=== PATIENT | female | born 1940 | race Caucasian/White ===

== ENCOUNTER 2023-10-20 18:04 | Inpatient (IN) ==
--- NOTE | 2023-10-20 18:10 | Emergency Department Note ---
History of Present Illness General Chief Complaint: Shortness of Breath/Dyspnea Stated Complaint: SOB Time Seen by Provider: 10/20/23 18:06 Source: patient and EMS History of Present Illness Provider Complaint: shortness of breath and cough Onset (ago): day(s) (2) Consistency/Duration: + progressively worsening Relieved By: + oxygen Exacerbated By: + exertion and + coughing Associated symptoms: + sputum production and + chest congestion; no chest pain, no fever, no wheezing, no hemoptysis, no diaphoresis, no nausea/vomiting or no abdominal pain Treatment prior to arrival: bronchodilator HPI Narrative: EMS reports that the patient was 74% on room air on arrival. They applied supplemental oxygen and gave the patient a DuoNeb treatment. Related Data Home oxygen amount: none Allergies Allergy/AdvReac Type Severity Reaction Status Date / Time ALLERGY2 Allergy Uncoded 08/20/02 19:43 Past Med/Surg History Medical History (Updated 10/20/23 @ 19:50 by Jesse Do MD) Diabetic neuropathy Depression Anxiety PVD (peripheral vascular disease) CKD (chronic kidney disease), stage III CAD (coronary artery disease) Diabetes HTN (hypertension) Social History Smoking Status: Former smoker Tobacco Type: Cigarettes Preferred Language: Occitan Feels Safe at Home: Yes Physical Exam 2 Vital Signs: Vital Signs - 24 hr 10/20/23 18:17 10/20/23 18:18 10/20/23 18:20 Temperature Temperature Source Pulse Rate 69 69 68 Pulse Rate [Apical ] Pulse Rate from Sp O2 Sensor 69 68 Pulse Rhythm Pulse Strength Respiratory Rate 28 H 20 Respiratory Effort / Characteristics Respiratory Depth Respiratory Patter n Blood Pressure Blood Pressure Dianna n Blood Pressure Pos ition Pulse Oximetry 92 93 Oxygen Delivery Me thod Oxygen Flow Rate Fraction of Inspir ed Oxygen Sepsis Recent Feve r Within 48 Hours Sepsis New/Unexpla ined Change in Men sunita Status Sepsis Action Take n by Nursing 10/20/23 18:23 10/20/23 18:23 10/20/23 18:23 Temperature 36.6 C Temperature Source Oral Pulse Rate 68 Pulse Rate [Apical ] Pulse Rate from Sp O2 Sensor Pulse Rhythm Regular Pulse Strength Strong Respiratory Rate 23 Respiratory Effort / Characteristics Non-Labored Sponta neous Spontaneous Respiratory Depth Normal Shallow Respiratory Patter n Regular Regular Blood Pressure 118/68 Blood Pressure Dianna n 84 Blood Pressure Pos ition Semi-fowlers Pulse Oximetry 94 Oxygen Delivery Me thod Nasal Cannula Nasal Cannula Nasal Cannula Oxygen Flow Rate 4 4 4 Fraction of Inspir ed Oxygen Sepsis Recent Feve r Within 48 Hours No Sepsis New/Unexpla ined Change in Men sunita Status N/A Sepsis Action Take n by Nursing No Action Required 10/20/23 18:30 10/20/23 18:40 10/20/23 18:50 Temperature Temperature Source Pulse Rate 66 66 66 Pulse Rate [Apical ] Pulse Rate from Sp O2 Sensor 67 66 Pulse Rhythm Pulse Strength Respiratory Rate 33 H 31 H 20 Respiratory Effort / Characteristics Respiratory Depth Respiratory Patter n Blood Pressure Blood Pressure Dianna n Blood Pressure Pos ition Pulse Oximetry 92 96 Oxygen Delivery Me thod Oxygen Flow Rate Fraction of Inspir ed Oxygen Sepsis Recent Feve r Within 48 Hours Sepsis New/Unexpla ined Change in Men sunita Status Sepsis Action Take n by Nursing 10/20/23 19:00 10/20/23 19:06 Temperature Temperature Source Pulse Rate 67 Pulse Rate [Apical ] 70 Pulse Rate from Sp O2 Sensor 63 Pulse Rhythm Pulse Strength Respiratory Rate 22 26 H Respiratory Effort / Characteristics Spontaneous Respiratory Depth Respiratory Patter n Blood Pressure 124/62 Blood Pressure Dianna n 82 Blood Pressure Pos ition Pulse Oximetry 91 92 Oxygen Delivery Me thod High Flow Nasal Ca nnula Oxygen Flow Rate 30 Fraction of Inspir ed Oxygen 35 Sepsis Recent Feve r Within 48 Hours Sepsis New/Unexpla ined Change in Men sunita Status Sepsis Action Take n by Nursing Physical Exam: Physical Exam GENERAL: oriented to person, place, and time. appears well-developed and well- nourished. HENT: Exam performed. - Head: Normocephalic and atraumatic. EYES: Conjunctivae and EOM are normal. Right eye exhibits no discharge. Left eye exhibits no discharge. No scleral icterus. NECK: Normal range of motion. Neck supple. No JVD present. CV: Normal rate, regular rhythm, normal heart sounds and intact distal pulses. There is no peripheral edema. Palpable radial pulses bue. PULM/CHEST: Rales and rhonchi bilaterally. ABD: The abdomen is soft. There is no tenderness. NEURO: Motor and sensation grossly intact. SKIN: Skin is warm and dry. He is not diaphoretic. PSYCH: normal mood and affect. Behavior is normal. Judgment and thought content normal. Course Course 180: The patient was evaluated in room A10. A complete history and physical exam was performed Cardiac monitoring: An order was placed for continuous cardiac monitoring. The monitor shows a rate of 70 with sinus rhythm interpreted by me Patient was 84% on room air on arrival in the emergency department. Supplemental oxygen was applied via nasal cannula which improved the patient's oxygen saturation. 1914: Patient was still having oxygen saturations in the high 80s on supplemental oxygen via nasal cannula. Patient was switched to high flow nasal cannula which improved oxygen saturation. Blood cell count 17. Patient be treated with cefepime and vancomycin. 1945: Vital signs stable on supplemental oxygen via high flow nasal cannula. Labs showed normal lactic acid. Formal chest x-ray read shows pneumonia versus CHF. Given troponin are elevated. Patient reporting no chest pain currently. Patient will be admitted to the [facility] hospitalist team Lasix also ordered for the patient. Administered Medications Discontinued Medications Furosemide (Furosemide 40 Mg/4 Ml Vial) 40 mg IV ONE ONE Stop: 10/20/23 18:58 Last Admin: 10/20/23 19:15 Dose: 40 mg Documented By: MADHURI Cefepime HCl (Maxipime) 2,000 mg in 20 mls @ 5 mls/min IV NOW STA; Protocol Stop: 10/20/23 18:52 Last Admin: 10/20/23 19:15 Dose: 5 mls/min Documented By: MADHURI Medical Decision Making Laboratory Data Attestation: I reviewed the patient's lab results. 10/20/23 18:12 10/20/23 18:12 Lab Results 10/20/23 10/20/23 10/20/23 Range/Units 18:10 18:12 18:15 WBC 17.14 H (4.8-10.8) K/ul RBC 2.73 L (4.20-5.40) M/uL Hgb 8.7 L (12.0-16.0) g/dl Hct 25.9 L (37.0-47.0) % MCV 94.9 (80.0-100.0) fL MCH 31.9 (25.0-34.0) pg MCHC 33.6 (32.0-36.0) g/dL RDW Std Deviation 43.6 (36.4-46.3) fL RDW Coeff of Xavi 12.5 (11.5-14.5) % Plt Count 254 (130-400) K/uL MPV 10.6 (9.4-12.4) fL Immature Gran % (Auto) 0.6 % Neut % (Auto) 89.5 % Lymph % (Auto) 5.1 % Hamlin % (Auto) 4.3 % Eos % (Auto) 0.3 % Baso % (Auto) 0.2 % Neut # (Auto) 15.35 H (1.40-6.50) K/uL Lymph # (Auto) 0.87 L (1.20-3.40) K/uL Hamlin # (Auto) 0.73 H (0.11-0.59) K/uL Eos # (Auto) 0.05 (0.00-0.50) K/uL Baso # (Auto) 0.04 (0.00-0.20) K/uL Immature Gran # (Auto) 0.10 (0.01-0.20) K/uL PT 12.8 H (9.0-12.0) Seconds INR 1.2 H (0.9-1.1) APTT 30 (21-31) Seconds PTT Ratio 1.1 VBG pH 7.45 H (7.36-7.41) VBG pCO2 30 L (38-50) mmHg VBG pO2 45 mmHg VBG HCO3 21 mmol/L VBG O2 Saturation 67.1 % VBG Base Excess -2.1 mEq/L Sodium 136 (136-145) mmol/L Potassium 4.0 (3.5-5.1) mmol/L Chloride 107 (98-107) mmol/L Carbon Dioxide 20 L (21-32) mmol/L Anion Gap 9 (3-11) BUN 34 H (6-23) mg/dl Creatinine 1.29 H (0.6-1.2) mg/dl Est Cr Clr Drug Dosing 28.0 ml/min Est GFR ( Amer) 45.0 ml/min Est GFR (Non-Af Amer) 38.8 ml/min BUN/Creatinine Ratio 26.4 H (10-20) Glucose 345 H* (70-99(Fasting)) mg/dl Lactate (0.4-2.0) mmol/L Calcium 8.5 L (8.6-10.3) mg/dl Troponin I High Sens 40.5 H (0-14) pg/ml B-Natriuretic Peptide 1444 H (0-100) pg/ml Lipase 3 L (11-82) U/L SARS-CoV-2 (PCR) NEGATIVE (Negative) Influenza Type A (PCR) Negative (Neg) Influenza Type B (PCR) Negative (Neg) RSV (RT-PCR) Negative (Neg) 10/20/23 Range/Units 19:09 WBC (4.8-10.8) K/ul RBC (4.20-5.40) M/uL Hgb (12.0-16.0) g/dl Hct (37.0-47.0) % MCV (80.0-100.0) fL MCH (25.0-34.0) pg MCHC (32.0-36.0) g/dL RDW Std Deviation (36.4-46.3) fL RDW Coeff of Xavi (11.5-14.5) % Plt Count (130-400) K/uL MPV (9.4-12.4) fL Immature Gran % (Auto) % Neut % (Auto) % Lymph % (Auto) % Hamlin % (Auto) % Eos % (Auto) % Baso % (Auto) % Neut # (Auto) (1.40-6.50) K/uL Lymph # (Auto) (1.20-3.40) K/uL Hamlin # (Auto) (0.11-0.59) K/uL Eos # (Auto) (0.00-0.50) K/uL Baso # (Auto) (0.00-0.20) K/uL Immature Gran # (Auto) (0.01-0.20) K/uL PT (9.0-12.0) Seconds INR (0.9-1.1) APTT (21-31) Seconds PTT Ratio VBG pH (7.36-7.41) VBG pCO2 (38-50) mmHg VBG pO2 mmHg VBG HCO3 mmol/L VBG O2 Saturation % VBG Base Excess mEq/L Sodium (136-145) mmol/L Potassium (3.5-5.1) mmol/L Chloride (98-107) mmol/L Carbon Dioxide (21-32) mmol/L Anion Gap (3-11) BUN (6-23) mg/dl Creatinine (0.6-1.2) mg/dl Est Cr Clr Drug Dosing ml/min Est GFR ( Amer) ml/min Est GFR (Non-Af Amer) ml/min BUN/Creatinine Ratio (10-20) Glucose (70-99(Fasting)) mg/dl Lactate 1.8 (0.4-2.0) mmol/L Calcium (8.6-10.3) mg/dl Troponin I High Sens (0-14) pg/ml B-Natriuretic Peptide (0-100) pg/ml Lipase (11-82) U/L SARS-CoV-2 (PCR) (Negative) Influenza Type A (PCR) (Neg) Influenza Type B (PCR) (Neg) RSV (RT-PCR) (Neg) Imaging Data Attestation: I personally reviewed and interpreted this imaging study as follows: My Impression: Chest x-ray: Bilateral pneumonia Radiologist's Impression: Chest X-Ray 10/20/23 18:10 XR chest 1V portable HISTORY: 83 years-old Female Chest pain, nonspecific COMPARISON: None TECHNIQUE: AP view the chest FINDINGS: Cardiac silhouette is enlarged. Median sternotomy. Views mixed interstitial and alveolar opacities. Moderate hemidiaphragmatic elevation. No pneumothorax or large pleural effusion. IMPRESSION: Cardiomegaly with diffuse mixed interstitial and alveolar opacities, chronicity unknown without comparison. Differential considerations include chronic interstitial lung disease, pulmonary edema versus multifocal pneumonia. Correlate with prior imaging. ACT 112: Negative or not required by law. The above report was generated using voice recognition software. It may contain grammatical, syntax or spelling errors. Electronically signed by: Jason Dubon M.D. 10/20/2023 7:01 PM ECG Data Attestation: I personally reviewed and interpreted this ECG as follows: Interpretation: EKG #1 at 1810: Sinus rhythm with a rate of 69. SC QRS and QTc intervals within normal limits. No ST elevation or ST depression. EKG #2 at 1819: Sinus rhythm with a rate of 69. SC 170 QRS [address] elevation or ST depression. [facility] Narrative 1806: The patient was evaluated in room A10. A complete history and physical exam was performed Cardiac monitoring: An order was placed for continuous cardiac monitoring. The monitor shows a rate of 70 with sinus rhythm interpreted by me Patient was 84% on room air on arrival in the emergency department. Supplemental oxygen was applied via nasal cannula which improved the patient's oxygen saturation. 1914: Patient was still having oxygen saturations in the high 80s on supplemental oxygen via nasal cannula. Patient was switched to high flow nasal cannula which improved oxygen saturation. Blood cell count 17. Patient be treated with cefepime and vancomycin. 1945: Vital signs stable on supplemental oxygen via high flow nasal cannula. Labs showed normal lactic acid. Formal chest x-ray read shows pneumonia versus CHF. Given troponin are elevated. Patient reporting no chest pain currently. Patient will be admitted to the [facility]ist team Lasix also ordered for the patient. Impression & Plan Hypoxia, Pneumonia, Acute exacerbation of congestive heart failure Critical Care Time Critical Care Time: Yes Total Critical Care Time: 84 I have personally spent greater than 84 minutes of critical care time in the direct management of this patient. This includes bedside care, interpretation of diagnostic studies, and testing, discussion with consultants, patient, and family members, and other required patient management activities. This 84 minutes is in excess of all separately billable procedures. Discharge Plan Visit Data Chief Complaint: Shortness of Breath/Dyspnea Stated Complaint: SOB ED Provider: Jesse Do Discharge Problem: Hypoxia, Pneumonia, Acute exacerbation of congestive heart failure Patient Disposition: Admitted As Inpatient Forms Stand Alone Forms: My [facility] Referrals Referrals: Brady Abreu [Non-Staff] - Discharge Problem: Pneumonia Qualifiers: Pneumonia type: due to unspecified organism Laterality: bilateral Lung location: unspecified part of lung Qualified Code(s): J18.9 - Pneumonia, unspecified organism Acute exacerbation of congestive heart failure Qualifiers: Heart failure type: unspecified Qualified Code(s): I50.9 - Heart failure, unspecified
[2023-10-20 18:25] LABS: Base Excess VBG -2.1 mEq/L; HCO3 VBG 21 mmol/L; Oxygen Saturation VBG 67.1 %; PCO2 VBG 30 mmHg (38-50); PO2 VBG 45 mmHg; pH VBG 7.45 (7.36-7.41)
[2023-10-20 18:29] LABS: Basophils # (auto) 0.04 K/uL (0.00-0.20); Basophils % (auto) 0.2 %; Eosinophils # (auto) 0.05 K/uL (0.00-0.50); Eosinophils % (auto) 0.3 %; Hematocrit (blood only) 25.9 % (37.0-47.0); Hemoglobin 8.7 g/dl (12.0-16.0); Immature Granulocytes % (auto) 0.6 %; Lymphocytes # (auto) 0.87 K/uL (1.20-3.40); Lymphocytes % (auto) 5.1 %; Mean Corpuscular Hemoglobin 31.9 pg (25.0-34.0); Mean Corpuscular Hgb Conc 33.6 g/dL (32.0-36.0); Mean Corpuscular Volume 94.9 fL (80.0-100.0); Mean Platelet Volume 10.6 fL (9.4-12.4); Monocytes # (auto) 0.73 K/uL (0.11-0.59); Monocytes % (auto) 4.3 %; Neutrophils # (auto) 15.35 K/uL (1.40-6.50); Neutrophils % (auto) 89.5 %; Platelet Count 254 K/uL (130-400); RDW Coefficient of Variation 12.5 % (11.5-14.5); RDW Standard Deviation 43.6 fL (36.4-46.3); Red Blood Count 2.73 M/uL (4.20-5.40); White Blood Count 17.14 K/ul (4.8-10.8)
[2023-10-20] MEDS ORDERED: VANCOMYCIN CONSULT ACTIVE PRN (18:49)
[2023-10-20 18:54] LABS: BUN Creatinine Ratio 26.4 (10-20); Calcium 8.5 mg/dl (8.6-10.3); Est GFR (Non-African American) 38.8 ml/min; INR 1.2 (0.9-1.1); Partial Thromboplastin Ratio 1.1; Partial Thromboplastin Time 30 Seconds (21-31); Prothrombin Time 12.8 Seconds (9.0-12.0); Troponin I High Sensitivity 40.5 pg/ml (0-14)
--- NOTE | 2023-10-20 19:02 | XRay Report ---
XR chest 1V portable HISTORY: 83 years-old Female Chest pain, nonspecific COMPARISON: None TECHNIQUE: AP view the chest FINDINGS: Cardiac silhouette is enlarged. Median sternotomy. Views mixed interstitial and alveolar opacities. M oderate hemidiaphragmatic elevation. No pneumothorax or large pleural effusion. IMPRESSION: Cardiomegaly with diffuse mixed interstitial and alveolar opacities, chronicity unknown w ithout comparison. Differential considerations include chronic interstitial lung disease, pulmonary e heather versus multifocal pneumonia. Correlate with prior imaging. ACT 112: Negative or not required by law. The above report was generated using voice recognition software. It may contain grammatical, syntax o r spelling errors. Electronically signed by: Jason Dubon M.D. 10/20/2023 7:01 PM
[2023-10-20 19:03] LABS: Influenza A virus by PCR Negative (Neg); Influenza B virus by PCR Negative (Neg); RSV by PCR Negative (Neg); SARS CoV2 RNA(COVID-19) Ceph NEGATIVE (Negative)
[2023-10-20] MEDS: FUROSEMIDE 40 MG/4 ML VIAL IV ONE (19:15)
[2023-10-20] MEDS: CEFEPIME 2,000 MG/20 ML VIAL IV STA (19:15)
[2023-10-20] MEDS: VANCOMYCIN HCL 1,250 MG in SODIUM CHLORIDE 0.9% 500 ML IV ONE (21:12)
--- NOTE | 2023-10-20 22:00 | History & Physical Report ---
Date of Service October 20, 2023 Assessment & Plan (1) Acute CHF: Plan: 83-year-old female with past medical history significant for hypertension, type 2 diabetes, CAD s/p CABG, peripheral vascular disease, CKD stage III, hyperlipidemia, anxiety and depression, neuropathy who generally goes to [facility] comes here because of shortness of breath going for last couple of days. Having some dry cough. Not able to bring any phlegm out. Denies any chest pain. No fevers. No headache. No nausea. No abdominal pain. Sometimes gets constipated. Denies any blood in the stools or black stools. Having some burning micturition. No fevers. Appetite is okay. No difficulty swallowing. Having ambulatory dysfunction for last couple of months. Ambulates with a walker. Falling backwards. Lives with her . No swelling in the legs. No headache. No sore throat currently. Was saturating 89 % on room air. With oxygen supplementation and oxygenation improved. Patient does not know her baseline creatinine. Patient does not know that she has anemia. Shortness of breath Acute hypoxemic respiratory failure Chest x-ray possible CHF versus multifocal pneumonia Has leukocytosis, elevated BNP and troponin Received IV Lasix 40 mg, IV Vanco and cefepime in the ER Will follow CT chest Procalcitonin negative Continue with zosyn ,iv vanco and po doxycycline Follow the cultures Follow MRSA screen Continue oxygenation Will follow echocardiogram I's and O's Consult cardiology in a.m. for further recommendations and further diuretics as per cardiology Also consulted Pulmonary as ct chest showing mostly multifocal pneumonia and later patient was requiring high flow oxygen History of CAD s/p CABG On aspirin, Coreg, statin, Imdur and ranolazine Elevated troponin Possibly demand ischemia Will follow serial enzymes and echo Cardiology consulted Diabetes Continue home Lantus Sliding scale Will monitor CKD stage III Present creatinine 1.2 We do not have baseline creatinine Follow the labs Anemia Acute versus chronic Hemoglobin 8.7 Will follow iron studies, vitamin B12 folate levels and Hemoccult Follow repeat labs Restless legs Probably from iron deficiency Depression and anxiety On fluoxetine, Ativan and doxepin Hypertension On amlodipine, Coreg, Imdur, losartan Will monitor Peripheral vascular disease On aspirin and statin Gum pain No thrush or obvious infection seen Needs to follow with dentist. DVT prophylaxis Heparin subcu Disposition Telemetry Full code Requested Medical records. History of Present Illness Chief Complaint: Shortness of breath Primary Care Provider: Micheal Holman 83-year-old female with past medical history significant for hypertension, type 2 diabetes, CAD s/p CABG, peripheral vascular disease, CKD stage III, hyperlipidemia, anxiety and depression, neuropathy who generally goes to [facility] comes here because of shortness of breath going for last couple of days. Having some dry cough. Not able to bring any phlegm out. Denies any chest pain. No fevers. No headache. No nausea. No abdominal pain. Sometimes gets constipated. Denies any blood in the stools or black stools. Having some burning micturition. No fevers. Appetite is okay. No difficulty swallowing. Having ambulatory dysfunction for last couple of months. Ambulates with a walker. Falling backwards. Lives with her . No swelling in the legs. No headache. No sore throat currently. Was saturating 89 % on room air. With oxygen supplementation oxygenation improved. Patient does not know her baseline creatinine. Patient does not know that she has anemia. Also complains of gum pain going on for some time. Also having restless legs Past medical history. As mentioned above Past surgical history CABG Social history. Quit smoking when she was 35-year-old. No alcohol use. Family history. Father had diabetes. Heart disorder. Mother had Breast cancer. Heart disorder. Allergies Allergy/AdvReac Type Severity Reaction Status Date / Time ciprofloxacin [From Cipro] Allergy Unknown Verified 10/20/23 20:50 Home Medications Medication Instructions Recorded Confirmed Type amlodipine 5 mg tablet 5 mg PO DAILY 10/20/23 10/20/23 History aspirin 81 mg tablet,delayed 81 mg PO DAILY 10/20/23 10/20/23 History release atorvastatin 80 mg tablet 80 mg PO DAILY 10/20/23 10/20/23 History carvedilol 12.5 mg tablet 12.5 mg PO BID 10/20/23 10/20/23 History doxepin 10 mg capsule 30 mg PO HS 10/20/23 10/20/23 History fluoxetine 40 mg capsule 80 mg PO DAILY 10/20/23 10/20/23 History insulin aspart U-100 100 unit/mL 1 sliding scale dose subcut WM 10/20/23 10/20/23 History (3 mL) subcutaneous pen (Novolog FlexPen U-100 Insulin aspart) insulin glargine 100 unit/mL (3 24 unit subcut QAM 10/20/23 10/20/23 History mL) subcutaneous pen (Lantus Solostar U-100 Insulin) irbesartan 300 mg tablet 300 mg PO DAILY 10/20/23 10/20/23 History isosorbide mononitrate 60 mg 60 mg PO DAILY 10/20/23 10/20/23 History tablet,extended release 24 hr lorazepam 0.5 mg tablet 0.5 mg PO HS 10/20/23 10/20/23 History omeprazole 20 mg capsule,delayed 20 mg PO DAILYBB 10/20/23 10/20/23 History release ranolazine 500 mg tablet,extended 500 mg PO BID 10/20/23 10/20/23 History release,12 hr tramadol 50 mg tablet 50 mg PO TID PRN Pain 10/20/23 10/20/23 History Past Med/Surg History Medical History (Updated 10/21/23 @ 07:38 by QUENTIN Blakely) Diabetic neuropathy Depression Anxiety PVD (peripheral vascular disease) CKD (chronic kidney disease), stage III CAD (coronary artery disease) Diabetes HTN (hypertension) Social History Smoking Status: Never smoker Tobacco Type: Cigarettes Hx Alcohol Use: No Hx Substance Use: No Preferred Language: Bengali Communication Ability: Effective Mobile Lounge Driver Required: No Beliefs That Will Affect Care: None Current Living Situation: Spouse Feels Safe at Home: Yes Safety Concerns: Feels Safe At This Time Assistive Devices: Walker Review of Systems Review of Systems: All systems reviewed & are unremarkable except as noted in HPI & below Physical Exam Physical Exam: General- Not in distress Head- atraumatic Eyes- PERRL. ENT- oropharynx clear no thrush seen Neck- supple, no JVD. Lungs- clear to auscultation no wheezing or crackles Heart- regular rhythm; no murmur, no gallop. Abdomen- normal bowel sounds, soft, nontender, no distension. Extremities- no pretibial edema, no erythema seen. Neuro- alert, oriented PERRL, no facial palsy; no dysarthria; moves extremities. Results & Data Results & Data Vital Signs (Past 12 Hours) Vital Signs Temp Pulse Pulse Resp BP Pulse Ox O2 Del Method 10/20/23 21:39 93 Oxymask 10/20/23 21:30 68 36 H 94 10/20/23 21:20 69 31 H 92 Oxymask 10/20/23 21:10 72 26 H 10/20/23 21:01 72 26 H 10/20/23 21:01 72 26 H 114/66 93 Nasal Cannula 10/20/23 21:00 70 23 10/20/23 20:50 71 24 91 10/20/23 20:40 71 23 10/20/23 20:30 67 16 91 Oxymask 10/20/23 20:20 65 23 93 Oxymask 10/20/23 20:10 66 17 92 Oxymask 10/20/23 20:00 66 27 H 114/61 96 High Flow Nasal Cannula 10/20/23 20:00 66 27 H 96 High Flow Nasal Cannula 10/20/23 19:50 68 39 H 94 High Flow Nasal Cannula 10/20/23 19:40 69 24 93 High Flow Nasal Cannula 10/20/23 19:30 68 19 89 L Nasal Cannula 10/20/23 19:20 69 18 89 L Nasal Cannula 10/20/23 19:19 68 28 H 96 10/20/23 19:19 68 28 H 124/62 96 Nasal Cannula 10/20/23 19:10 69 20 93 10/20/23 19:06 70 26 H 92 High Flow Nasal Cannula 10/20/23 19:00 67 22 124/62 91 10/20/23 18:50 66 20 10/20/23 18:40 66 31 H 96 10/20/23 18:30 66 33 H 92 10/20/23 18:23 Nasal Cannula 10/20/23 18:23 Nasal Cannula 10/20/23 18:23 36.6 C 68 23 118/68 94 Nasal Cannula 10/20/23 18:20 68 20 93 10/20/23 18:18 69 10/20/23 18:17 69 28 H 92 O2 Flow Rate FiO2 10/20/23 21:39 5 10/20/23 21:30 10/20/23 21:20 5 10/20/23 21:10 10/20/23 21:01 10/20/23 21:01 5 10/20/23 21:00 10/20/23 20:50 10/20/23 20:40 10/20/23 20:30 5 10/20/23 20:20 5 10/20/23 20:10 5 10/20/23 20:00 10/20/23 20:00 10/20/23 19:50 10/20/23 19:40 10/20/23 19:30 4 10/20/23 19:20 4 10/20/23 19:19 10/20/23 19:19 4 10/20/23 19:10 10/20/23 19:06 30 35 10/20/23 19:00 10/20/23 18:50 10/20/23 18:40 10/20/23 18:30 10/20/23 18:23 4 10/20/23 18:23 4 10/20/23 18:23 4 10/20/23 18:20 10/20/23 18:18 10/20/23 18:17 Diagnostic Findings Laboratory Results WBC 17.14 K/ul (4.8-10.8) H 10/20/23 18:12 RBC 2.73 M/uL (4.20-5.40) L 10/20/23 18:12 Hgb 8.7 g/dl (12.0-16.0) L 10/20/23 18:12 Hct 25.9 % (37.0-47.0) L 10/20/23 18:12 MCV 94.9 fL (80.0-100.0) 10/20/23 18:12 MCH 31.9 pg (25.0-34.0) 10/20/23 18:12 MCHC 33.6 g/dL (32.0-36.0) 10/20/23 18:12 RDW Std Deviation 43.6 fL (36.4-46.3) 10/20/23 18:12 RDW Coeff of Xavi 12.5 % (11.5-14.5) 10/20/23 18:12 Plt Count 254 K/uL (130-400) 10/20/23 18:12 MPV 10.6 fL (9.4-12.4) 10/20/23 18:12 Immature Gran % (Auto) 0.6 % 10/20/23 18:12 Neut % (Auto) 89.5 % 10/20/23 18:12 Lymph % (Auto) 5.1 % 10/20/23 18:12 Branch % (Auto) 4.3 % 10/20/23 18:12 Eos % (Auto) 0.3 % 10/20/23 18:12 Baso % (Auto) 0.2 % 10/20/23 18:12 Neut # (Auto) 15.35 K/uL (1.40-6.50) H 10/20/23 18:12 Lymph # (Auto) 0.87 K/uL (1.20-3.40) L 10/20/23 18:12 Branch # (Auto) 0.73 K/uL (0.11-0.59) H 10/20/23 18:12 Eos # (Auto) 0.05 K/uL (0.00-0.50) 10/20/23 18:12 Baso # (Auto) 0.04 K/uL (0.00-0.20) 10/20/23 18:12 Immature Gran # (Auto) 0.10 K/uL (0.01-0.20) 10/20/23 18:12 PT 12.8 Seconds (9.0-12.0) H 10/20/23 18:12 INR 1.2 (0.9-1.1) H 10/20/23 18:12 APTT 30 Seconds (21-31) 10/20/23 18:12 PTT Ratio 1.1 10/20/23 18:12 VBG pH 7.45 (7.36-7.41) H 10/20/23 18:10 VBG pCO2 30 mmHg (38-50) L 10/20/23 18:10 VBG pO2 45 mmHg 10/20/23 18:10 VBG HCO3 21 mmol/L 10/20/23 18:10 VBG O2 Saturation 67.1 % 10/20/23 18:10 VBG Base Excess -2.1 mEq/L 10/20/23 18:10 Sodium 136 mmol/L (136-145) 10/20/23 18:12 Potassium 4.0 mmol/L (3.5-5.1) 10/20/23 18:12 Chloride 107 mmol/L (98-107) 10/20/23 18:12 Carbon Dioxide 20 mmol/L (21-32) L 10/20/23 18:12 Anion Gap 9 (3-11) 10/20/23 18:12 BUN 34 mg/dl (6-23) H 10/20/23 18:12 Creatinine 1.29 mg/dl (0.6-1.2) H 10/20/23 18:12 Est Cr Clr Drug Dosing 28.0 ml/min 10/20/23 18:12 Est GFR ( Amer) 45.0 ml/min 10/20/23 18:12 Est GFR (Non-Af Amer) 38.8 ml/min 10/20/23 18:12 BUN/Creatinine Ratio 26.4 (10-20) H 10/20/23 18:12 Glucose 345 mg/dl (70-99(Fasting)) H* 10/20/23 18:12 Lactate 1.8 mmol/L (0.4-2.0) 10/20/23 19:09 Calcium 8.5 mg/dl (8.6-10.3) L 10/20/23 18:12 Troponin I High Sens 44.7 pg/ml (0-14) H 10/20/23 20:31 B-Natriuretic Peptide 1444 pg/ml (0-100) H 10/20/23 18:12 Lipase 3 U/L (11-82) L 10/20/23 18:12 Procalcitonin 0.25 ng/ml (0-0.5) 10/20/23 19:10 SARS-CoV-2 (PCR) NEGATIVE (Negative) 10/20/23 18:15 Influenza Type A (PCR) Negative (Neg) 10/20/23 18:15 Influenza Type B (PCR) Negative (Neg) 10/20/23 18:15 RSV (RT-PCR) Negative (Neg) 10/20/23 18:15 Impressions Chest X-Ray 10/20/23 18:10 XR chest 1V portable HISTORY: 83 years-old Female Chest pain, nonspecific COMPARISON: None TECHNIQUE: AP view the chest FINDINGS: Cardiac silhouette is enlarged. Median sternotomy. Views mixed interstitial and alveolar opacities. Moderate hemidiaphragmatic elevation. No pneumothorax or large pleural effusion. IMPRESSION: Cardiomegaly with diffuse mixed interstitial and alveolar opacities, chronicity unknown without comparison. Differential considerations include chr onic interstitial lung disease, pulmonary edema versus multifocal pneumonia. Correlate with prior imaging. ACT 112: Negative or not required by law. The above report was generated using voice recognition software. It may contain grammatical, syntax or spelling errors. Electronically signed by: Jason Dubon M.D. 10/20/2023 7:01 PM ECG Additional Comments: ECG. Normal sinus rhythm with sinus arrhythmia rate of 69. Nonspecific ST-T wave abnormalities. Code Status & VTE Plan VTE Prophylaxis Plan VTE Prophylaxis will be ordered: Yes
--- NOTE | 2023-10-20 22:46 | CT Scan Report ---
Exam(s): CT CHEST Without Contrast EXAM: CT Chest Without Intravenous Contrast CLINICAL HISTORY: Reason for exam: pneumonia/chf. TECHNIQUE: Axial computed tomography images of the chest without intravenous contrast. CTDI is 16.37 mGy and DLP is 464.51 mGy-cm. Automated exposure control was utilized for the study. A dose lowering technique was utilized adhering to the principles of ALARA. COMPARISON: No relevant prior studies available. FINDINGS: Lungs: Bilateral diffuse ground-glass airspace opacities favors infectious process (pneumonia,). Pleural space: Unremarkable. No pneumothorax. No significant effusion. Heart: Unremarkable. No cardiomegaly. No significant pericardial effusion. No significant coronary artery calcifications. Mediastinum: Scattered mediastinal lymph nodes measuring up to 14 mm, likely reactive. Bones/joints: Prior sternotomy. General changes of the thoracic spine with calcification of the anterior longitudinal ligament and moderate kyphosis. No acute fracture. No dislocation. Soft tissues: Unremarkable. Vasculature: Severe atherosclerotic disease of the coronary arteries, mitral valve and aortic valve. No thoracic aortic aneurysm. Lymph nodes: See above. IMPRESSION: 1. Bilateral diffuse ground-glass airspace opacities favors infectious process (pneumonia,). 2. Scattered mediastinal lymph nodes measuring up to 14 mm, likely reactive. Electronically signed by: Gi Ramirez MD 10/20/23 22:45 PM
[2023-10-20 22:50] LABS: Appearance Urine Clear (Clear); Bacteria Urine Automated None Seen (None Seen); Bilirubin Urine Negative (Negative); Blood Urine Negative (Negative); Color Urine Yellow; Epithelial Cell Urine Auto 0-2 /hpf (0-2); Glucose Urine UA Trace (Negative); Ketones Urine Negative (Negative); Leukocyte Esterase Urine Trace (Negative); Nitrite Urine Negative (Negative); Protein Urine Trace (Negative); RBC Urine Automated 0-2 /hpf (0-2); Specific Gravity Urine 1.012 (1.000-1.030); Urobilinogen Urine Negative (Negative); WBC Urine Automated 0-5 /hpf (0-5); pH Urine 5.5 (4.5-7.5)
[2023-10-20] MEDS ORDERED: NITROGLYCERIN SL 0.4 MG/TAB TAB SL PRN (23:30)
[2023-10-20] MEDS ORDERED: GLUCOSE 40% GEL 15 GM TUBE PO PRN (23:30)
[2023-10-20] MEDS ORDERED: AMPICILLIN SOD/SULBACTAM SOD 3 GM VIAL IV SCH (23:30)
[2023-10-20] MEDS ORDERED: POLYETHYLENE (MIRALAX) 17 GM PACK PO PRN (23:30)
[2023-10-20] MEDS ORDERED: DEXTROSE 50% 50 ML SYRINGE IV PRN (23:30)
[2023-10-20] MEDS ORDERED: GLUCOSE 10 TAB/TUBE PO PRN (23:30)
[2023-10-20] MEDS ORDERED: GLUCAGON FOR INJ 1 MG VIAL SQ PRN (23:30)
[2023-10-21] MEDS: DOXYCYCLINE HYCLATE 100 MG CAP PO STA (00:25)
[2023-10-21] MEDS: INSULIN ASPART PER UNIT CHARGE SC SCH (01:35)
[2023-10-21] MEDS: LORazepam 0.5 MG TAB PO STA (01:36)
[2023-10-21] MEDS: DOXEPIN HCL 10 MG CAPSULE PO STA (01:36)
[2023-10-21] MEDS ORDERED: VANCOMYCIN CONSULT ACTIVE PRN (03:38)
[2023-10-21 03:55] LABS: Base Excess ABG -0.3 mEq/L (-9-1.8); HCO3 ABG 22 mmol/L (19-24); Oxygen Saturation ABG 95.8 % (90-95); PCO2 ABG 27 mmHg (35-46); PO2 ABG 73 mmHg (80-95)
[2023-10-21 04:00] LABS: Hematocrit (blood only) 23.9 % (37.0-47.0); Hemoglobin 8.1 g/dl (12.0-16.0); Mean Corpuscular Hemoglobin 31.8 pg (25.0-34.0); Mean Corpuscular Hgb Conc 33.9 g/dL (32.0-36.0); Mean Corpuscular Volume 93.7 fL (80.0-100.0); Mean Platelet Volume 10.8 fL (9.4-12.4); Platelet Count 243 K/uL (130-400); RDW Coefficient of Variation 12.5 % (11.5-14.5); RDW Standard Deviation 42.9 fL (36.4-46.3); Red Blood Count 2.55 M/uL (4.20-5.40); White Blood Count 21.24 K/ul (4.8-10.8)
[2023-10-21 04:10] LABS: Allen Test Pos (Pos)
[2023-10-21 04:12] LABS: pH ABG 7.51 (7.35-7.45)
[2023-10-21 04:20] LABS: BUN Creatinine Ratio 24.8 (10-20); Calcium 8.1 mg/dl (8.6-10.3); Creatinine Clr Calc Pharmacy 26.4 ml/min; Est GFR (African American) 41.8 ml/min; Est GFR (Non-African American) 36.1 ml/min; Magnesium 1.5 mg/dl (1.7-2.4); Potassium 3.1 mmol/L (3.5-5.1)
[2023-10-21 04:22] LABS: Basophils # (auto) 0.05 K/uL (0.00-0.20); Basophils % (auto) 0.2 %; Eosinophils # (auto) 0.03 K/uL (0.00-0.50); Eosinophils % (auto) 0.1 %; Immature Granulocytes # (auto) 0.16 K/uL (0.01-0.20); Immature Granulocytes % (auto) 0.8 %; Lymphocytes # (auto) 0.85 K/uL (1.20-3.40); Monocytes # (auto) 0.88 K/uL (0.11-0.59); Monocytes % (auto) 4.1 %; Neutrophils # (auto) 19.27 K/uL (1.40-6.50); Neutrophils % (auto) 90.8 %
[2023-10-21] MEDS: FUROSEMIDE INJ 20 MG/2 ML VIAL IV ONE (05:08)
[2023-10-21] MEDS: PIPERACILLIN/TAZOBACTAM 4.5 GM in DEXTROSE 5% MINI-B 100 ML IV SCH (05:08)
[2023-10-21 05:22] LABS: D Dimer 3810 ug/L FEU (0-500)
[2023-10-21 05:52] LABS: Folate (Folic Acid),Ser orPlas 14.06 ng/ml (>5.38)
[2023-10-21] MEDS ORDERED: AMPICILLIN/SULBACTAM SOD 3,000 MG in SODIUM CHLOR 0.9% MINI-B 100 ML IV SCH (06:00)
[2023-10-21] MEDS: MAGNESIUM SULFATE / D5W 1 GM/100 ML BAG IV SCH (06:07)
[2023-10-21] MEDS: PANTOprazole 40 MG TAB PO SCH (06:07)
[2023-10-21] MEDS: ACETAMINOPHEN 325 MG TAB PO PRN (07:12)
--- NOTE | 2023-10-21 07:12 | Ultrasound Report ---
BILATERAL LOWER EXTREMITY VENOUS DOPPLER CLINICAL HISTORY: elevated dimer. dvt? COMPARISON STUDY: No previous studies for comparison. TECHNIQUE: Sonography of the deep venous system of the bilateral lower extremities was performed. Co mpression and augmentation were evaluated. FINDINGS: The bilateral common femoral, superficial femoral and popliteal veins were compressible. A ugmentation was normal. Flow was shown within the deep calf vessels. IMPRESSION: No evidence of deep venous thrombus within the bilateral lower extremities. ACT 112: Negative or not required by law. Electronically signed by: Carlos Enrique Pretty M.D. 10/21/2023 7:11 AM
--- NOTE | 2023-10-21 07:40 | Cardiology Consultation ---
Date of Consultation October 21, 2023 Assessment & Plan (1) Pneumonia: (2) CAD (coronary artery disease): (3) Aortic stenosis: Plan IMPRESSION: 83 year old female with history of chronic CAD s/p CABG presented to [facility] due to shortness of breath. Found to have pneumonia-- treated with IV Abx. Blood cultures pending. BNP elevated, possibly over estimated due to age and renal function-- No evidence of volume overload on exam. PLAN: -Pneumonia Requiring high dose supplemental o2 therapy to maintain sats in the low 90s. Receiving IV antibiotics per primary team. ? may need screening for aspiration, patient notes coughing with eating and drinking Prelim Echo with preserved LVEF. Overall patient appears euvolic on exam- will hold off on addition doses of IV Lasix at this time. K goal of 4.0 and mag goal of 2.0-- supplemented this am. -CAD Status post CABG and NNAMDI to OM branch and RCA, 2014 Continue ASA 81 mg daily and statin therapy as ordered Continue Coreg, Imdur, losartan, and Norvasc as ordered. On Ranexa-- caution use of QT prolonging medications. -Mixed valvular heart disease Preliminary read on echo showing mild/moderate ,m Mild MS/MR-- follows with Dr. Echevarria ([facility]), due to be seen in November. -Anemia JAELYN, recommend workup/treatment per primary service. Given underlying CAD recommend hgb goal >10.[address] Davis. Further recommendations pending assessment. I spent a total of 40 minutes on the date of service in preparation, delivery, and documentation of the care provided to the patient excluding any time spent in the performance of separately billed services. QUENTIN Pires Department of Cardiology, [facility] This chart was completed in part utilizing Speech Voice Recognition Software. Grammatical errors, random word insertions, pronoun errors, and incomplete sentences are an occasional consequence of this system due to software limitations, ambient noise, and hardware issues. Any formal questions or concerns about the content, text, or information contained within the body of this dictation should be directly addressed to the provider for clarification. Supervising Physician Co-Signing Physician Notes Patient was seen and personally examined, chart, medications, telemetry reviewed. Full assessment and plan discussed and endorsed as above. 83-year-old female with known coronary disease with remote coronary artery bypass grafting, severe coronary artery disease, calcific aortic and mitral valve disease without high-grade stenosis or insufficiency Patient presents with acute hypoxic respiratory distress Exam not consistent with congestive heart failure despite elevated BNP. No jugular venous distention or peripheral edema Echocardiogram with preserved LV systolic function Chest x-ray and CT scan consistent with pneumonia Troponins mildly elevated but reflecting of demand ischemia Agree with cautious diuresis but suspect will shortly see rise in renal dysfunction Anemia yet unexplained Cardiology will follow I spent a total of 20 minutes on the date of service in preparation, delivery, and documentation of the care provided to the patient excluding any time spent in the performance of separately billed services. History of Present Illness Reason for Consultation: Shortness of breath Requesting Physician: Lori lackey Attending Physician: Anastacio Thacker MD History of Present Illness 83-year-old female who presented to [facility] emergency department last evening due to shortness of breath and cough x2-3 days. Patient was hypoxic with saturations in the mid to upper 80s. Improved with supplemental oxygen therapy. Chest x-ray revealing CHF versus multifocal pneumonia. CT of the chest showing bilateral diffuse ground glass opacities favoring an infectious process/pneumonia. No pleural effusions. Blood work indicated leukocytosis (17>>21), an elevated BNP (1444) and high- sensitivity troponin (40.5>>44.7>>44) Treated with IV Lasix 40 mg in the ED as well as IV Vanco and cefepime. In addition she was also found to be anemic with a hemoglobin of 8.7>>8.1. D-Dimer elevated at 3810-- no CTA of the chest performed, however venous Dopplers negative for DVT. Blood cultures pending. EKG showing normal sinus rhythm with sinus arrhythmia and a nonspecific ST wave abnormality in lateral leads. Echo pending. 10/21/2023: Labs: Scr 1.2>>1.37. K low at 3.1 (supplemented), mag low at 1.5 (supplemented), sodium low at 135 EKG: PENDING Tele: SR 70-80s Upon entrance into the room patient resting in bed. States that she feels very weak and worn out- having difficulty moving around in bed. Also states she is having a lot of pain/pressure in her abdomen with urination. No burning. Denies chest pain. Having ongoing shortness of breath. On high flow O2, this is new for her. +coughing after eating and drinking that last few weeks. No palpitations, dizziness, syncope or near syncope. Notes frequent falls as home. No orthopnea, PND, or increased lower extremity edema. No fever, chills, cough, hematochezia, melena, or hemoptysis. Outpatient cardiac medications: Aspirin 81 mg daily Atorvastatin 80 mg daily Amlodipine 5 mg daily Carvedilol 12.5 mg twice daily Irbesartan 300 mg daily Imdur 60 mg daily Ranolazine/Ranexa 500 mg twice daily Primary outpatient scrap handler: [facility] Dr. Echevarria Past medical history: Coronary artery disease, status post CABG and NNAMDI to OM branch and RCA, 2014 Chronic stable dyspnea Aortic stenosis, mild per echo 2020 Mitral regurgitation, mild Hypertension Hyperlipidemia Carotid disease, mild 20-49% bilat CKD- baseline creatine appears to be around 1.5-1.5 (outpatient chart) Allergies Allergy/AdvReac Type Severity Reaction Status Date / Time ciprofloxacin [From Cipro] Allergy Unknown Verified 10/20/23 20:50 Home Medications Medication Instructions Recorded Confirmed Type amlodipine 5 mg tablet 5 mg PO DAILY 10/20/23 10/20/23 History aspirin 81 mg tablet,delayed 81 mg PO DAILY 10/20/23 10/20/23 History release atorvastatin 80 mg tablet 80 mg PO DAILY 10/20/23 10/20/23 History carvedilol 12.5 mg tablet 12.5 mg PO BID 10/20/23 10/20/23 History doxepin 10 mg capsule 30 mg PO HS 10/20/23 10/20/23 History fluoxetine 40 mg capsule 80 mg PO DAILY 10/20/23 10/20/23 History insulin aspart U-100 100 unit/mL 1 sliding scale dose subcut WM 10/20/23 10/20/23 History (3 mL) subcutaneous pen (Novolog FlexPen U-100 Insulin aspart) insulin glargine 100 unit/mL (3 24 unit subcut QAM 10/20/23 10/20/23 History mL) subcutaneous pen (Lantus Solostar U-100 Insulin) irbesartan 300 mg tablet 300 mg PO DAILY 10/20/23 10/20/23 History isosorbide mononitrate 60 mg 60 mg PO DAILY 10/20/23 10/20/23 History tablet,extended release 24 hr lorazepam 0.5 mg tablet 0.5 mg PO HS 10/20/23 10/20/23 History omeprazole 20 mg capsule,delayed 20 mg PO DAILYBB 10/20/23 10/20/23 History release ranolazine 500 mg tablet,extended 500 mg PO BID 10/20/23 10/20/23 History release,12 hr tramadol 50 mg tablet 50 mg PO TID PRN Pain 10/20/23 10/20/23 History Patient History Medical History Diabetic neuropathy Depression Anxiety PVD (peripheral vascular disease) CKD (chronic kidney disease), stage III CAD (coronary artery disease) Diabetes HTN (hypertension) Social History Smoking Status: Never smoker Tobacco Type: Cigarettes Hx Alcohol Use: No Hx Substance Use: No Preferred Language: British Communication Ability: Effective Geospatial Developer Required: No Beliefs That Will Affect Care: None Current Living Situation: Spouse Feels Safe at Home: Yes Safety Concerns: Feels Safe At This Time Assistive Devices: Walker Review of Systems Review of Systems: All systems reviewed & are unremarkable except as noted in HPI & below Physical Exam Constitutional: + ill appearing; no acute distress Neck: normal visual inspection and trachea midline Respiratory: + cough and + tachypneic; no respiratory distress Auscultation: + rales; no rhonchi and no wheezes Cardiovascular: Rate/Rhythm: regular rate and regular rhythm Heart Sounds: normal S1, normal S2 and + murmur (+2/6 systolic ) Vessels: no JVD Extremities: no edema Gastrointestinal (Abdomen): Percussion/Palpation: + abdomen tender (lower abdomen ) and abdomen soft Skin: no rashes, warm and dry Neurologic: PERRL, EOMI, accommodation nl, no face palsy, no dysarthria Psychiatric: A+Ox3, euthymic affect Results & Data Vital Signs (Past 12 Hours) Vital Signs Pulse Pulse Resp BP BP Pulse Ox Pulse Ox 10/21/23 06:00 77 24 139/66 91 10/21/23 05:00 71 40 H 133/50 L 93 10/21/23 04:01 69 26 H 93 10/21/23 04:00 71 40 H 127/53 L 92 10/21/23 04:00 70 20 127/53 L 92 10/21/23 03:00 71 33 H 124/55 L 90 10/21/23 02:00 72 22 128/59 L 91 10/21/23 01:48 90 10/21/23 01:00 77 30 H 137/78 89 L 10/21/23 00:00 72 26 H 123/57 L 90 10/20/23 23:54 70 25 H 103/62 92 10/20/23 23:53 10/20/23 23:53 69 24 103/62 92 10/20/23 23:30 70 21 91 10/20/23 23:11 109/59 L 10/20/23 23:11 71 25 H 90 10/20/23 23:00 68 24 92 10/20/23 22:10 69 34 H 91 10/20/23 22:05 71 10/20/23 22:00 70 32 H 92 10/20/23 22:00 70 32 H 126/54 L 92 10/20/23 22:00 126/54 L 10/20/23 21:50 70 24 93 10/20/23 21:40 68 41 H 93 10/20/23 21:39 93 10/20/23 21:30 68 36 H 94 10/20/23 21:20 69 31 H 92 10/20/23 21:10 72 26 H 10/20/23 21:01 72 26 H 10/20/23 21:01 72 26 H 114/66 93 10/20/23 21:00 70 23 10/20/23 20:50 71 24 91 10/20/23 20:40 71 23 10/20/23 20:30 67 16 91 10/20/23 20:20 65 23 93 10/20/23 20:10 66 17 92 10/20/23 20:00 66 27 H 114/61 96 10/20/23 20:00 66 27 H 96 10/20/23 19:50 68 39 H 94 10/20/23 19:40 69 24 93 10/20/23 19:30 68 19 89 L O2 Del Method O2 Del Method O2 Flow Rate O2 Flow Rate FiO2 10/21/23 06:00 High Flow Nasal Cannula 10/21/23 05:00 High Flow Nasal Cannula 10/21/23 04:01 High Flow Nasal Cannula 32 50 10/21/23 04:00 High Flow Nasal Cannula 10/21/23 04:00 High Flow Nasal Cannula 10/21/23 03:00 Oxymask 7 10/21/23 02:00 Oxymask 7 10/21/23 01:48 Oxymask 6 10/21/23 01:00 6 10/21/23 00:00 Oxymask 5 10/20/23 23:54 Oxymask 5 10/20/23 23:53 Oxymask 5 10/20/23 23:53 Oxymask 5 10/20/23 23:30 Oxymask 10/20/23 23:11 10/20/23 23:11 Oxymask 10/20/23 23:00 Oxymask 10/20/23 22:10 10/20/23 22:05 10/20/23 22:00 10/20/23 22:00 Oxymask 5 10/20/23 22:00 10/20/23 21:50 10/20/23 21:40 10/20/23 21:39 Oxymask 5 10/20/23 21:30 10/20/23 21:20 Oxymask 5 10/20/23 21:10 10/20/23 21:01 10/20/23 21:01 Nasal Cannula 5 10/20/23 21:00 10/20/23 20:50 10/20/23 20:40 10/20/23 20:30 Oxymask 5 10/20/23 20:20 Oxymask 5 10/20/23 20:10 Oxymask 5 10/20/23 20:00 High Flow Nasal Cannula 10/20/23 20:00 High Flow Nasal Cannula 10/20/23 19:50 High Flow Nasal Cannula 10/20/23 19:40 High Flow Nasal Cannula 10/20/23 19:30 Nasal Cannula 4 Laboratory Results Cardiac Enzymes 10/20/23 10/20/23 10/21/23 Range/Units 18:12 20:31 03:50 Troponin I High Sens 40.5 H 44.7 H 44.0 H (0-14) pg/ml B-Natriuretic Peptide 1444 H (0-100) pg/ml Coagulation 10/20/23 Range/Units 18:12 PT 12.8 H (9.0-12.0) Seconds APTT 30 (21-31) Seconds B-Natriuretic Peptide 1444 H (0-100) pg/ml CBC 10/20/23 10/21/23 Range/Units 18:12 03:50 WBC 17.14 H 21.24 H (4.8-10.8) K/ul RBC 2.73 L 2.55 L (4.20-5.40) M/uL Hgb 8.7 L 8.1 L (12.0-16.0) g/dl Hct 25.9 L 23.9 L (37.0-47.0) % Plt Count 254 243 (130-400) K/uL Neut # (Auto) 15.35 H 19.27 H (1.40-6.50) K/uL Lymph # (Auto) 0.87 L 0.85 L (1.20-3.40) K/uL Hood # (Auto) 0.73 H 0.88 H (0.11-0.59) K/uL Eos # (Auto) 0.05 0.03 (0.00-0.50) K/uL Baso # (Auto) 0.04 0.05 (0.00-0.20) K/uL Comprehensive Metabolic Panel 10/20/23 10/21/23 Range/Units 18:12 03:50 Sodium 136 135 L (136-145) mmol/L Potassium 4.0 3.1 L D (3.5-5.1) mmol/L Chloride 107 106 (98-107) mmol/L Carbon Dioxide 20 L 19 L (21-32) mmol/L BUN 34 H 34 H (6-23) mg/dl Creatinine 1.29 H 1.37 H (0.6-1.2) mg/dl Glucose 345 H* 183 H (70-99(Fasting)) mg/dl Calcium 8.5 L 8.1 L (8.6-10.3) mg/dl Intake and Output 10/20/23 10/21/23 10/21/23 22:59 06:59 14:59 Intake Total 565 / 565 Output Total 850 / 850 Balance -285 / -285 Intake: IV 525 / 525 Vancomycin HCl 1,250 mg In 525 / 525 Sodium Chloride 0.9% 500 ml @ 200 mls/hr IV NOW ONE Rx#: [id number] Oral 40 / 40 Output: Urine 650 / 650 Urine Amount (Catheter) 200 / 200 External 200 / 200 Other: Weight 58.1 kg 58.1 kg 54.5 kg Weight Measurement Method [facility] Built in [facility] Built in [facility] Patient Weight 10/22/23 06:59 Weight 54.5 kg Diagnostic Findings Inpatient echo 10/21/2023: PENDING* Outpatient echo at [facility] 2020 Normal left ventricle size. The left ventricle has normal systolic function. The calculated left ventricular ejection fraction is 65%. Normal right ventricle size. The right ventricle has normal function. Calcified aortic valve with mild aortic stenosis. The aortic valve area is 1.7 cm2 and the mean gradient is 6.85 mmHg. Calcified mitral valve with mild regurgitation. Mitral annular calcification. Mild tricuspid regurgitation. The left atrium is moderately enlarged. There is an impaired relaxation pattern consistent with diastolic dysfunction grade 1. The mitral inflow E to annular E ratio is 17 (> 15 may be consistent with increased left atrial pressure). (1) Pneumonia Laterality: bilateral Lung location: unspecified part of lung Pneumonia type: due to unspecified organism Qualified Code(s): J18.9 - Pneumonia, unspecified organism (2) CAD (coronary artery disease) Associated angina: without angina Coronary Disease-Associated Artery/Lesion type: [place] artery [place] vs. transplanted heart: [place] heart Qualified Code(s): I25.10 - Atherosclerotic heart disease of [place] coronary artery without angina pectoris (3) Aortic stenosis Cardiac valve disease etiology: nonrheumatic Qualified Code(s): I35.0 - Nonrheumatic aortic (valve) stenosis
[2023-10-21] MEDS: LANTUS PER UNIT CHARGE SQ SCH (08:45)
--- NOTE | 2023-10-21 08:45 | Electrocardiogram Report ---
Test Reason : Blood Pressure : / mmHG Vent. Rate : 069 BPM Atrial Rate : 069 BPM P-R Int : 170 ms QRS Dur : 078 ms QT Int : 450 ms P-R-T Axes : 075 022 094 degrees QTc Int : 482 ms Normal sinus rhythm with PACs Abnormal ECG No previous ECGs available Confirmed by Britton Taveras ([id number]) on 10/21/2023 8:44:50 AM Referred By: Micheal Holman Confirmed By:Messi Taveras
[2023-10-21] MEDS: HEPARIN SOD 5,000 UNIT/0.5 ML VIAL SQ SCH (08:46)
[2023-10-21] MEDS: FLUoxetine HCL 20 MG CAP PO SCH (08:47)
[2023-10-21] MEDS: RANOLAZINE 500 MG ER TAB PO SCH (08:47)
[2023-10-21] MEDS: ATORVASTATIN 40 MG TAB PO SCH (08:48)
[2023-10-21] MEDS: ASPIRIN 81 MG ECTAB PO SCH (08:48)
[2023-10-21] MEDS: DOXYCYCLINE HYCLATE 100 MG CAP PO SCH (08:48)
[2023-10-21] MEDS: amLODIPine BESYLATE 5 MG TAB PO SCH (08:49)
[2023-10-21] MEDS: POTASSIUM CHLORIDE CRTAB 20 MEQ TABCR PO STA ×2 (08:49→09:31)
[2023-10-21] MEDS: carvediloL 12.5 MG TAB PO SCH (08:50)
[2023-10-21] MEDS: ISOSORBIDE MONO EXTENDED REL 60 MG TABCR PO SCH (08:50)
[2023-10-21] MEDS: LOSARTAN POTASSIUM 50 MG TAB PO SCH (08:50)
--- NOTE | 2023-10-21 09:03 | Communication Note ---
Date of Service: October 21, 2023 d dimer elevated. lower ext Doppler negative. will f/u echo. Cr 1.3 await pulmonary input.
[2023-10-21] MEDS: traMADol HCL 50 MG TABLET PO PRN (09:34)
--- NOTE | 2023-10-21 09:39 | Pulmonary Consultation ---
Date of Consultation October 21, 2023 Assessment & Plan (1) Acute hypoxemic respiratory failure: (2) Abnormal CT scan of lung: (3) Acute CHF: Plan Impression: 83-year-old female with history of coronary disease and diabetes presenting now with diffuse pulmonary infiltrates and hypoxemic respiratory failure. Her white count is elevated however procalcitonin is normal. Differential for the pulmonary infiltrates would include atypical infectious etiologies as well as noninfectious etiologies such as pulmonary edema or pulmonary hemorrhage. No baseline films to compare for this patient. Recommendations: 1. Hypoxemic respiratory failure: Continue supplemental oxygen titrated to keep saturations at or above 90%. 2. CT findings and elevated BNP would suggest at least a component of elevated pulmonary venous filling pressures. Echocardiogram has been ordered. The patient has been seen by cardiology. While she does not manifest significant peripheral edema, I do think diuretics may be beneficial if the patient's serum creatinine can tolerate. 3. Could consider bronchoscopy with BAL however the patient's current oxygen requirement makes this somewhat risky and she would prefer to see how she does with empiric therapies. I think this is reasonable. Given her renal function and pulmonary infiltrates, specter of pulmonary renal syndrome is raised. Urinalysis showed no evidence of hematuria so appears less likely. Hold off on additional workup at this point time 4. The patient has no risk factors for resistant organisms and antibiotics can be tapered. Will transition to Rocephin and doxycycline. Will trend procalcitonin and white blood cell count. MRSA swab was negative and vancomycin will be discontinued. Will check BioFire panel. The above recommendations and plan were discussed with the patient at bedside. Questions were answered to the best my ability. She expressed understanding and is in agreement with plan as outlined History of Present Illness Attending Physician: Anastacio Thacker MD History of Present Illness Asked by hospitalist to assist in evaluation management this patient with diffuse pulmonary infiltrates and hypoxemic respiratory failure. History is obtained from review the electronic medical record as well as discussion with the patient. Patient is an 83-year-old female with a history of hypertension diabetes coronary disease and chronic kidney disease who has been experiencing fairly acute onset of shortness of breath over the last 48 to 72 hours. She has not had any fevers or chills. She has experienced some cough which is nonproductive. She has never had any hemoptysis. She denies any ill contacts. She has not had any chest pain or palpitation. Patient was brought to the emergency room although she typically gets care through [facility] in [place]. In the emergency room she was found to be hypoxemic. Her white blood cell count was elevated. She was treated with cefepime and vancomycin. She was transition to high flow oxygen. Lactate was normal. BNP was elevated. Patient was admitted and given Lasix. Cardiology consultation has been obtained. D-dimer was elevat ed however lower extremity Dopplers were negative. Allergies Allergy/AdvReac Type Severity Reaction Status Date / Time ciprofloxacin [From Cipro] Allergy Unknown Verified 10/20/23 20:50 Home Medications Medication Instructions Recorded Confirmed Type amlodipine 5 mg tablet 5 mg PO DAILY 10/20/23 10/20/23 History aspirin 81 mg tablet,delayed 81 mg PO DAILY 10/20/23 10/20/23 History release atorvastatin 80 mg tablet 80 mg PO DAILY 10/20/23 10/20/23 History carvedilol 12.5 mg tablet 12.5 mg PO BID 10/20/23 10/20/23 History doxepin 10 mg capsule 30 mg PO HS 10/20/23 10/20/23 History fluoxetine 40 mg capsule 80 mg PO DAILY 10/20/23 10/20/23 History insulin aspart U-100 100 unit/mL 1 sliding scale dose subcut WM 10/20/23 10/20/23 History (3 mL) subcutaneous pen (Novolog FlexPen U-100 Insulin aspart) insulin glargine 100 unit/mL (3 24 unit subcut QAM 10/20/23 10/20/23 History mL) subcutaneous pen (Lantus Solostar U-100 Insulin) irbesartan 300 mg tablet 300 mg PO DAILY 10/20/23 10/20/23 History isosorbide mononitrate 60 mg 60 mg PO DAILY 10/20/23 10/20/23 History tablet,extended release 24 hr lorazepam 0.5 mg tablet 0.5 mg PO HS 10/20/23 10/20/23 History omeprazole 20 mg capsule,delayed 20 mg PO DAILYBB 10/20/23 10/20/23 History release ranolazine 500 mg tablet,extended 500 mg PO BID 10/20/23 10/20/23 History release,12 hr tramadol 50 mg tablet 50 mg PO TID PRN Pain 10/20/23 10/20/23 History Patient History Medical History (Updated 10/21/23 @ 09:30 by Manuel Dhaliwal MD) Diabetic neuropathy Depression Anxiety PVD (peripheral vascular disease) CKD (chronic kidney disease), stage III CAD (coronary artery disease) Diabetes HTN (hypertension) Social History Smoking Status: Never smoker Tobacco Type: Cigarettes Hx Alcohol Use: No Hx Substance Use: No Preferred Language: Citizen Of [place] Communication Ability: Effective Ekg Monitor Tech Required: No Beliefs That Will Affect Care: None Current Living Situation: Spouse Feels Safe at Home: Yes Safety Concerns: Feels Safe At This Time Assistive Devices: Walker Review of Systems Review of Systems: Please refer to admission H&P. No additions or deletions Physical Exam Constitutional: WD/WN, vitals as above Neck: trachea midline, no thyromegaly Respiratory: normal respiratory effort; no respiratory distress, no labored breathing, no cough and not tachypneic Auscultation: + crackles; no rhonchi and no wheezes Cardiovascular: Rate/Rhythm: regular rate Heart Sounds: normal S1, normal S2 and + murmur Extremities: no edema Gastrointestinal (Abdomen): normal bowel sounds, soft, nontender, no hepatosplenomegaly Musculoskeletal: Extremities: extremities normal to inspection Skin: no rashes, warm and dry Neurologic: Nonfocal exam Lymphatic: no cervical lymphadenopathy Results & Data Results & Data Vital Signs (Past 12 Hours) Vital Signs Pulse Pulse Resp BP BP Pulse Ox Pulse Ox 10/21/23 09:12 79 28 H 113/56 L 93 10/21/23 06:00 77 24 139/66 91 10/21/23 05:00 71 40 H 133/50 L 93 10/21/23 04:01 69 26 H 93 10/21/23 04:00 71 40 H 127/53 L 92 10/21/23 04:00 70 20 127/53 L 92 10/21/23 03:00 71 33 H 124/55 L 90 10/21/23 02:00 72 22 128/59 L 91 10/21/23 01:48 90 10/21/23 01:00 77 30 H 137/78 89 L 10/21/23 00:00 72 26 H 123/57 L 90 10/20/23 23:54 70 25 H 103/62 92 10/20/23 23:53 10/20/23 23:53 69 24 103/62 92 10/20/23 23:30 70 21 91 10/20/23 23:11 109/59 L 10/20/23 23:11 71 25 H 90 10/20/23 23:00 68 24 92 10/20/23 22:10 69 34 H 91 10/20/23 22:05 71 10/20/23 22:00 70 32 H 92 10/20/23 22:00 70 32 H 126/54 L 92 10/20/23 22:00 126/54 L 10/20/23 21:50 70 24 93 10/20/23 21:40 68 41 H 93 10/20/23 21:39 93 10/20/23 21:30 68 36 H 94 O2 Del Method O2 Del Method O2 Flow Rate O2 Flow Rate FiO2 10/21/23 09:12 High Flow Nasal Cannula 10/21/23 06:00 High Flow Nasal Cannula 10/21/23 05:00 High Flow Nasal Cannula 10/21/23 04:01 High Flow Nasal Cannula 32 50 10/21/23 04:00 High Flow Nasal Cannula 10/21/23 04:00 High Flow Nasal Cannula 10/21/23 03:00 Oxymask 7 10/21/23 02:00 Oxymask 7 10/21/23 01:48 Oxymask 6 10/21/23 01:00 6 10/21/23 00:00 Oxymask 5 10/20/23 23:54 Oxymask 5 10/20/23 23:53 Oxymask 5 10/20/23 23:53 Oxymask 5 10/20/23 23:30 Oxymask 10/20/23 23:11 10/20/23 23:11 Oxymask 10/20/23 23:00 Oxymask 10/20/23 22:10 10/20/23 22:05 10/20/23 22:00 10/20/23 22:00 Oxymask 5 10/20/23 22:00 10/20/23 21:50 10/20/23 21:40 10/20/23 21:39 Oxymask 5 10/20/23 21:30 Critical Care Results & Data Vital Signs (Past 12 Hours) Vital Signs Pulse Pulse Resp BP BP Pulse Ox Pulse Ox 10/21/23 09:12 79 28 H 113/56 L 93 10/21/23 06:00 77 24 139/66 91 10/21/23 05:00 71 40 H 133/50 L 93 10/21/23 04:01 69 26 H 93 10/21/23 04:00 71 40 H 127/53 L 92 10/21/23 04:00 70 20 127/53 L 92 10/21/23 03:00 71 33 H 124/55 L 90 10/21/23 02:00 72 22 128/59 L 91 10/21/23 01:48 90 10/21/23 01:00 77 30 H 137/78 89 L 10/21/23 00:00 72 26 H 123/57 L 90 10/20/23 23:54 70 25 H 103/62 92 10/20/23 23:53 10/20/23 23:53 69 24 103/62 92 10/20/23 23:30 70 21 91 10/20/23 23:11 109/59 L 10/20/23 23:11 71 25 H 90 10/20/23 23:00 68 24 92 10/20/23 22:10 69 34 H 91 10/20/23 22:05 71 10/20/23 22:00 70 32 H 92 10/20/23 22:00 70 32 H 126/54 L 92 10/20/23 22:00 126/54 L 10/20/23 21:50 70 24 93 10/20/23 21:40 68 41 H 93 10/20/23 21:39 93 10/20/23 21:30 68 36 H 94 O2 Del Method O2 Del Method O2 Flow Rate O2 Flow Rate FiO2 10/21/23 09:12 High Flow Nasal Cannula 10/21/23 06:00 High Flow Nasal Cannula 10/21/23 05:00 High Flow Nasal Cannula 10/21/23 04:01 High Flow Nasal Cannula 32 50 10/21/23 04:00 High Flow Nasal Cannula 10/21/23 04:00 High Flow Nasal Cannula 10/21/23 03:00 Oxymask 7 10/21/23 02:00 Oxymask 7 10/21/23 01:48 Oxymask 6 10/21/23 01:00 6 10/21/23 00:00 Oxymask 5 10/20/23 23:54 Oxymask 5 10/20/23 23:53 Oxymask 5 10/20/23 23:53 Oxymask 5 10/20/23 23:30 Oxymask 10/20/23 23:11 10/20/23 23:11 Oxymask 10/20/23 23:00 Oxymask 10/20/23 22:10 10/20/23 22:05 10/20/23 22:00 10/20/23 22:00 Oxymask 5 10/20/23 22:00 10/20/23 21:50 10/20/23 21:40 10/20/23 21:39 Oxymask 5 10/20/23 21:30 Lab & Micro Results (Past 24 Hours) RBC 2.55 M/uL (4.20-5.40) L 10/21/23 WBC 21.24 K/ul (4.8-10.8) H 10/21/23 Hgb 8.1 g/dl (12.0-16.0) L 10/21/23 Hct 23.9 % (37.0-47.0) L 10/21/23 MCV 93.7 fL (80.0-100.0) 10/21/23 MCH 31.8 pg (25.0-34.0) 10/21/23 MCHC 33.9 g/dL (32.0-36.0) 10/21/23 RDW Standard Deviation 42.9 fL (36.4-46.3) 10/21/23 RDW Coefficient of Variation 12.5 % (11.5-14.5) 10/21/23 Plt Count 243 K/uL (130-400) 10/21/23 MPV 10.8 fL (9.4-12.4) 10/21/23 Neutrophils (%) (Auto) 90.8 % 10/21/23 Lymphocytes (%) (Auto) 4.0 % 10/21/23 Monocytes # (Auto) 0.88 K/uL (0.11-0.59) H 10/21/23 Eosinophils # (Auto) 0.03 K/uL (0.00-0.50) 10/21/23 Immature Granulocyte % (Auto) 0.8 % 10/21/23 Neutrophils # (Auto) 19.27 K/uL (1.40-6.50) H 10/21/23 Lymphocytes # (Auto) 0.85 K/uL (1.20-3.40) L 10/21/23 Monocytes # (Auto) 0.88 K/uL (0.11-0.59) H 10/21/23 Eosinophils # (Auto) 0.03 K/uL (0.00-0.50) 10/21/23 Basophils # (Auto) 0.05 K/uL (0.00-0.20) 10/21/23 Immature Granulocyte # (Auto) 0.16 K/uL (0.01-0.20) 4 Na 135 mmol/L (136-145) L 10/21/23 K 3.1 mmol/L (3.5-5.1) L 10/21/23 Cl 106 mmol/L (98-107) 10/21/23 CO2 19 mmol/L (21-32) L 10/21/23 Anion Gap 10 (3-11) 10/21/23 BUN 34 mg/dl (6-23) H 10/21/23 Creatinine 1.37 mg/dl (0.6-1.2) H 10/21/23 Estimated GFR ( Amer) 41.8 ml/min 10/21/23 Estimated GFR (Non-Af Amer) 36.1 ml/min 10/21/23 BUN/Creatinine Ratio 24.8 (10-20) H 10/21/23 Glu 183 mg/dl (70-99(Fasting)) H 10/21/23 Ca 8.1 mg/dl (8.6-10.3) L 10/21/23 Mg 1.5 mg/dl (1.7-2.4) L 10/21/23 03:50 Calcium Level 8.1 mg/dl (8.6-10.3) L 10/21/23 03:50 Prothromb Time International Ratio 1.2 (0.9-1.1) H 10/20/23 18 :12 Venous Blood pH 7.45 (7.36-7.41) H 10/20/23 18:10 Venous Blood Partial Pressure CO2 30 mmHg (38-50) L 10/20/23 18 :10 Venous Blood Partial Pressure O2 45 mmHg 10/20/23 18:10 Venous Blood HCO3 21 mmol/L 10/20/23 18:10 Venous Blood Base Excess -2.1 mEq/L 10/20/23 18:10 Venous Blood Oxygen Saturation 67.1 % 10/20/23 18:10 Arterial Blood pH 7.51 (7.35-7.45) H* 10/21/23 03:50 Arterial Blood Partial Pressure CO2 27 mmHg (35-46) L 10/21/23 03:50 Arterial Blood Partial Pressure O2 73 mmHg (80-95) L 10/21/23 0 3:50 Arterial Blood HCO3 22 mmol/L (19-24) 10/21/23 03:50 Arterial Blood Base Excess -0.3 mEq/L (-9-1.8) 10/21/23 03:50 Arterial Blood Oxygen Saturation 95.8 % (90-95) H 10/21/23 03:5 0 Blood Gas Oxygen Given FIO2 50 10/21/23 03:50 Jordan Test Pos (Pos) 10/21/23 03:50 Diagnostic Findings (Past 24 Hours) Chest X-Ray 10/20/23 18:10 XR chest 1V portable HISTORY: 83 years-old Female Chest pain, nonspecific COMPARISON: None TECHNIQUE: AP view the chest FINDINGS: Cardiac silhouette is enlarged. Median sternotomy. Views mixed interstitial and alveolar opacities. Moderate hemidiaphragmatic elevation. No pneumothorax or large pleural effusion. IMPRESSION: Cardiomegaly with diffuse mixed interstitial and alveolar opacities, chronicity unknown without comparison. Differential considerations include chronic interstitial lung disease, pulmonary edema versus multifocal pneumonia. Correlate with prior imaging. ACT 112: Negative or not required by law. The above report was generated using voice recognition software. It may contain grammatical, syntax or spelling errors. Electronically signed by: Jason Dubon M.D. 10/20/2023 7:[address] 10/20/23 21:17 Exam(s): CT CHEST Without Contrast EXAM: CT Chest Without Intravenous Contrast CLINICAL HISTORY: Reason for exam: pneumonia/chf. TECHNIQUE: Axial computed tomography images of the chest without intravenous contrast. CTDI is 16.37 mGy and DLP is 464.51 mGy-cm. Automated exposure control was utilized for the study. A dose lowering technique was utilized adhering to the principles of ALARA. COMPARISON: No relevant prior studies available. FINDINGS: Lungs: Bilateral diffuse ground-glass airspace opacities favors infectious process (pneumonia,). Pleural space: Unremarkable. No pneumothorax. No significant effusion. Heart: Unremarkable. No cardiomegaly. No significant pericardial effusion. No significant coronary artery calcifications. Mediastinum: Scattered mediastinal lymph nodes measuring up to 14 mm, likely reactive. Bones/joints: Prior sternotomy. General changes of the thoracic spine with calcification of the anterior longitudinal ligament and moderate kyphosis. No acute fracture. No dislocation. Soft tissues: Unremarkable. Vasculature: Severe atherosclerotic disease of the coronary arteries, mitral valve and aortic valve. No thoracic aortic aneurysm. Lymph nodes: See above. IMPRESSION: 1. Bilateral diffuse ground-glass airspace opacities favors infectious process (pneumonia,). 2. Scattered mediastinal lymph nodes measuring up to 14 mm, likely reactive. Electronically signed by: Gi Ramirez MD 10/20/23 22:45 PM Venous Doppler Study 10/21/23 05:22 BILATERAL LOWER EXTREMITY VENOUS DOPPLER CLINICAL HISTORY: elevated dimer. dvt? COMPARISON STUDY: No previous studies for comparison. TECHNIQUE: Sonography of the deep venous system of the bilateral lower extremities was performed. Compression and augmentation were evaluated. FINDINGS: The bilateral common femoral, superficial femoral and popliteal veins were compressible. Augmentation was normal. Flow was shown within the deep calf vessels. IMPRESSION: No evidence of deep venous thrombus within the bilateral lower extremities. ACT 112: Negative or not required by law. Electronically signed by: Carlos Enrique Pretty M.D. 10/21/2023 7:11 AM I & O Totals 24 Hours 10/20/23 10/21/23 10/22/23 06:59 06:59 06:59 Intake Total 565 / 565 100 / 100 Output Total 850 / 850 Balance -285 / -285 100 / 100 Cumulative 10/20/23 17:49 thru 10/21/23 08:07 Intake Total 665 Output Total 850 Balance -185 RT Ventilator Mngmt (Last Documented) Ventilator Ordered Settings Respiratory Rate 28 10/21/23 09:12 Fraction of Inspired Oxygen 50 10/21/23 04:01 Ventilator - PT Measurements Respiratory Rate 28 PG Care Time/CCT Total # of Minutes Spent Total Time Spent with Patient: Total time spent is greater than 50% in coordination of care (as documented) at patient's floor/unit and/or counseling patient: Coding Level of Care Code 23230 INT INP/OBS CARE 3/75MIN Diagnoses Acute hypoxemic respiratory failure J96.[address] scan of lung R91.8 Acute CHF I50.9
[2023-10-21] MEDS ORDERED: VANCOMYCIN HCL 750 MG in SODIUM CHLORIDE 0.9% 250 ML IV SCH (10:00)
[2023-10-21] MEDS: cefTRIAXone SODIUM 2,000 MG in DEXTROSE 5 % MINI-B 50 ML IV SCH (10:35)
[2023-10-21 11:24] LABS: Adenovirus PCR Not Detected (NotDetected); Bordetella parapertussis PCR Not Detected (NotDetected); Bordetella pertussis PCR Not Detected (NotDetected); Chlamydia pneumoniae PCR Not Detected (NotDetected); Coronavirus 229E PCR Not Detected (NotDetected); Coronavirus CoV-2 (COVID19)PCR Not Detected (NotDetected); Coronavirus HKU1 PCR Not Detected (NotDetected); Coronavirus NL63 PCR Not Detected (NotDetected); Coronavirus OC43PCR Not Detected (NotDetected); Human Metapneumovirus PCR Not Detected (NotDetected); Influenza A PCR Not Detected (NotDetected); Influenza B PCR Not Detected (NotDetected); Mycoplasma pneumoniae PCR Not Detected (NotDetected); Parainfluenza Virus 1 PCR Not Detected (NotDetected); Parainfluenza Virus 2 PCR Not Detected (NotDetected); Parainfluenza Virus 3 PCR Not Detected (NotDetected); Parainfluenza Virus 4 PCR Not Detected (NotDetected); Respiratory Syncytial VirusPCR Not Detected (NotDetected); Rhinovirus/Enterovirus PCR Not Detected (NotDetected)
--- NOTE | 2023-10-21 16:34 | Communication Note ---
Date of Service: October 21, 2023 Patient can use her Dexcom scanner to check blood sugar Dr Krystin Thacker
--- NOTE | 2023-10-21 16:47 | Electrocardiogram Report ---
Test Reason : Blood Pressure : / mmHG Vent. Rate : 076 BPM Atrial Rate : 076 BPM P-R Int : 150 ms QRS Dur : 080 ms QT Int : 484 ms P-R-T Axes : 054 032 118 degrees QTc Int : 544 ms Sinus rhythm with Premature atrial complexes Abnormal ECG When compared with ECG of 20-OCT-2023 18:19, Premature atrial complexes are now Present Nonspecific T wave abnormality now evident in Inferior leads T wave inversion less evident in Lateral leads QT has lengthened Confirmed by Britton Taveras ([id number]) on 10/21/2023 4:46:51 PM Referred By: Micheal Holman Confirmed By:Messi Taveras
--- NOTE | 2023-10-21 16:53 | Electrocardiogram Report ---
Test Reason : Blood Pressure : / mmHG Vent. Rate : 069 BPM Atrial Rate : 069 BPM P-R Int : 170 ms QRS Dur : 080 ms QT Int : 262 ms P-R-T Axes : 007 027 163 degrees QTc Int : 280 ms Normal sinus rhythm Abnormal ECG No previous ECGs available Confirmed by Britton Taveras ([id number]) on 10/21/2023 4:52:58 PM Referred By: Micheal Holman Confirmed By:Messi Taveras
--- NOTE | 2023-10-21 17:26 | Communication Note ---
Date of Service: October 21, 2023 The patient was seen and examined in telemetry unit in presence of the family member. She was admitted this morning with increasing shortness of breath and has been seen by nail expert and also glass technician. Remains stable right now. Will have full progress note tomorrow. Dr Krystin Thacker
[2023-10-21] MEDS: DOXEPIN HCL 10 MG CAPSULE PO SCH (20:00)
[2023-10-21] MEDS: LORazepam 0.5 MG TAB PO SCH (20:03)
[2023-10-22] MEDS: FUROSEMIDE INJ 20 MG/2 ML VIAL IV ONE (02:47)
[2023-10-22 06:56] LABS: Hematocrit (blood only) 25.6 % (37.0-47.0); Hemoglobin 8.7 g/dl (12.0-16.0); Mean Corpuscular Hemoglobin 32.1 pg (25.0-34.0); Mean Corpuscular Volume 94.5 fL (80.0-100.0); Mean Platelet Volume 10.9 fL (9.4-12.4); Platelet Count 241 K/uL (130-400); RDW Coefficient of Variation 12.6 % (11.5-14.5); RDW Standard Deviation 43.5 fL (36.4-46.3); Red Blood Count 2.71 M/uL (4.20-5.40); White Blood Count 22.46 K/ul (4.8-10.8)
[2023-10-22 07:09] LABS: Calcium 8.4 mg/dl (8.6-10.3); Potassium 3.9 mmol/L (3.5-5.1)
[2023-10-22 07:25] LABS: Basophils # (auto) 0.07 K/uL (0.00-0.20); Basophils % (auto) 0.3 %; Echinocytes 2+; Eosinophils # (auto) 0.14 K/uL (0.00-0.50); Eosinophils % (auto) 0.6 %; Immature Granulocytes # (auto) 0.22 K/uL (0.01-0.20); Lymphocytes # (auto) 0.96 K/uL (1.20-3.40); Lymphocytes % (auto) 4.3 %; Monocytes # (auto) 0.71 K/uL (0.11-0.59); Monocytes % (auto) 3.2 %; Neutrophils # (auto) 20.36 K/uL (1.40-6.50); Neutrophils % (auto) 90.6 %; Polychromasia 1+
[2023-10-22 07:30] LABS: BUN Creatinine Ratio 20.8 (10-20); Creatinine Clr Calc Pharmacy 16.9 ml/min; Est GFR (Non-African American) 23.3 ml/min; Phosphorus 4.3 mg/dl (2.5-4.9)
--- NOTE | 2023-10-22 08:04 | Pulmonology Progress Note ---
Date of Service October 22, 2023 Assessment & Plan (1) Acute hypoxemic respiratory failure: (2) Abnormal CT scan of lung: (3) Acute CHF: Plan Impression: 83-year-old female with history of coronary disease and diabetes presenting now with diffuse pulmonary infiltrates and hypoxemic respiratory failure. Her white count is elevated however procalcitonin is normal. Differential for the pulmonary infiltrates would include atypical infectious etiologies as well as noninfectious etiologies such as pulmonary edema or pulmonary hemorrhage. No baseline films to compare for this patient. Patient had an aspiration event this morning resulting in increasing oxygen requirement Recommendations: 1. Hypoxemic respiratory failure: Continue supplemental oxygen titrated to keep saturations at or above 90%. 2. Diastolic dysfunction: Continue blood pressure control. Hold additional diuresis given the bump in creatinine. 3. Day #2 Rocephin doxycycline. Check urinary Legionella antigen. Follow-up chest x-ray today. Repeat procalcitonin in AM. If imaging fails to improve and the patient is appropriate, could consider bronchoscopy with BAL. 4. Aspiration: Will make the patient n.p.o. Ordered speech therapy evaluation. Diet per speech The above recommendations and plan were discussed with the patient at bedside as well as with the bedside nurse. Questions were answered to the best my ability. Admission and Anticipated Discharge Date Admission Date: October 20, 2023 Subjective Patient seen and examined. EMR reviewed. It appears the patient had made progress overnight was weaned off of high flow oxygen down to 6 L. This morning while eating toast and eggs the patient had overt aspiration events. This was witnessed while I was in the room. She coughed up significant amount of scrambled eggs. She had to go back on higher flow of oxygen. She is unclear whether she has had swallowing issues in the past. She was made n.p.o. and speech therapy evaluation was requested Review of Systems 2 Review of Systems: All systems reviewed & are unremarkable except as noted in Subjective Physical Exam 2 Constitutional: WD/WN, vitals as above Neck: trachea midline, no thyromegaly Respiratory: normal respiratory effort; no respiratory distress, no labored breathing, no cough and not tachypneic Auscultation: + crackles; no rhonchi and no wheezes Cardiovascular: Rate/Rhythm: regular rate Heart Sounds: normal S1, normal S2 and + murmur Extremities: no edema Gastrointestinal (Abdomen): normal bowel sounds, soft, nontender, no hepatosplenomegaly Musculoskeletal: Extremities: extremities normal to inspection Skin: no rashes, warm and dry Lymphatic: no cervical lymphadenopathy Results & Data Results & Data Vital Signs (Past 12 Hours) Vital Signs Temp Pulse Pulse Resp BP Pulse Ox O2 Del Method 10/22/23 07:19 36.9 C 68 24 97/53 L 98 Nasal Cannula 10/22/23 07:15 18 92 Nasal Cannula 10/22/23 07:00 66 10/22/23 02:51 36.7 C 73 22 114/63 95 High Flow Nasal Cannula 10/22/23 02:33 71 24 93 High Flow Nasal Cannula 10/22/23 00:23 68 24 95 High Flow Nasal Cannula 10/21/23 23:21 36.8 C 66 24 113/52 L 95 High Flow Nasal Cannula 10/21/23 21:58 64 10/21/23 20:00 Nasal Cannula O2 Flow Rate FiO2 10/22/23 07:19 6 10/22/23 07:15 7 10/22/23 07:00 10/22/23 02:51 25 80 10/22/23 02:33 25 80 10/22/23 00:23 25 80 10/21/23 23:21 8 10/21/23 21:58 10/21/23 20:00 8 Laboratory Results 10/22/23 06:23 10/22/23 06:23 BioFire negative Diagnostic Findings Echo 10/21/2023: EF 55 to 60% with concentric LVH. Moderate dilatation of the left atrium. Aortic sclerosis without significant stenosis. Mild mitral stenosis with mild mitral regurgitation and an RV systolic pressure of 40-50 with grade 1 diastolic dysfunction. IVC showed normal collapsibility PG Care Time/CCT Total # of Minutes Spent Total Time Spent with Patient: Total time spent is greater than 50% in coordination of care (as documented) at patient's floor/unit and/or counseling patient: Coding Level of Care Code 06899 SUB INP/OBS CARE 3/50MIN Diagnoses Acute hypoxemic respiratory failure J96.[address] scan of lung R91.8 Acute CHF I50.9
[2023-10-22] MEDS ORDERED: FUROSEMIDE INJ 20 MG/2 ML VIAL IV SCH (09:00)
[2023-10-22] MEDS ORDERED: Nursing to Pharmacy Communication SCH (09:00)
--- NOTE | 2023-10-22 09:36 | XRay Report ---
XR chest 1V portable HISTORY: aspiration COMPARISON: Chest 10/20/2023. FINDINGS: No pneumothorax. There are low lung volumes. The cardiac silhouette is normal in size. Ther e are poststernotomy changes. No acute fractures. Diffuse interstitial thickening and hazy airspace o pacities persist. No pleural effusions. IMPRESSION: No significant change in the diffuse interstitial thickening and hazy airspace opacities. ACT 112: Negative or not required by law. Electronically signed by: Nash Dumont M.D. 10/22/2023 9:35 AM
--- NOTE | 2023-10-22 12:20 | Cardiology Progress Note ---
Date of Service October 22, 2023 Assessment & Plan (1) Pneumonia: (2) CAD (coronary artery disease): (3) Aortic stenosis: Plan IMPRESSION: 83 year old female with history of chronic CAD s/p CABG presented to [facility] due to shortness of breath. Found to have pneumonia-- treated with IV Abx. Blood cultures pending. BNP elevated, possibly over estimated due to age and renal function-- No evidence of volume overload on exam. PLAN: -Pneumonia Requiring high dose supplemental o2 therapy to maintain sats in the low 90s. Receiving IV antibiotics per primary team. ? may need screening for aspiration, patient notes coughing with eating and drinking Prelim Echo with preserved LVEF. Overall patient appears euvolic on exam- will hold off on addition doses of IV Lasix at this time. K goal of 4.0 and mag goal of 2.0-- supplemented this am. -CAD Status post CABG and NNAMDI to OM branch and RCA, 2014 Continue ASA 81 mg daily and statin therapy as ordered Continue Coreg, Imdur, losartan, and Norvasc as ordered. On Ranexa-- caution use of QT prolonging medications. -Mixed valvular heart disease Preliminary read on echo showing mild/moderate ,m Mild MS/MR-- follows with Dr. Echevarria ([facility]), due to be seen in November. -Anemia JAELYN, recommend workup/treatment per primary service. Given underlying CAD recommend hgb goal >10.0 10/22/2023 Increasing respiratory/oxygen demands after aspiration event. Exam once again without volume overload no jugular venous distention despite mitral valve disease Diuretics on hold Complex patient with longstanding ischemic heart disease dating back to 1996 with subsequent coronary bypass grafting 2001, coronary interventions left circumflex and right coronary artery 2014 with severe [place] vessel disease noted Preserved LV systolic function with calcific aortic and mitral valve disease mild Currently heart rate and blood pressure controlled and hemodynamically stable though renal function will need to be followed closely. Will discontinue Ranexa given change in creatinine and QT prolongation on EKG This chart was completed in part utilizing Speech Voice Recognition Software. Grammatical errors, random word insertions, pronoun errors, and incomplete sentences are an occasional consequence of this system due to software limitations, ambient noise, and hardware issues. Any formal questions or concerns about the content, text, or information contained within the body of th is dictation should be directly addressed to the provider for clarification. Admission and Anticipated Discharge Date Admission Date: October 20, 2023 Subjective Patient seen and examined, chart, medications, telemetry reviewed. Increased oxygen demands this morning after witnessed aspiration event. Denies any specific cardiac complaints. No arrhythmias on telemetry. Review of Systems Review of Systems: All systems reviewed & are unremarkable except as noted in Subjective Physical Exam Constitutional: + ill appearing Neck: normal visual inspection and trachea midline Respiratory: + cough and + tachypneic; no respiratory distress Auscultation: + crackles; no rhonchi and no wheezes Cardiovascular: Rate/Rhythm: regular rate and regular rhythm Heart Sounds: normal S1, normal S2 and + murmur (+2/6 systolic ) Vessels: no JVD Extremities: no edema Gastrointestinal (Abdomen): Percussion/Palpation: + abdomen tender (lower abdomen ) and abdomen soft Skin: no rashes, warm and dry Neurologic: PERRL, EOMI, accommodation nl, no face palsy, no dysarthria Psychiatric: A+Ox3, euthymic affect Results & Data Vital Signs (Past 12 Hours) Vital Signs Temp Pulse Pulse Resp BP Pulse Ox O2 Del Method 10/22/23 11:35 70 20 92 Oxymask 10/22/23 10:45 36.6 C 65 21 117/41 L 99 High Flow Nasal Cannula 10/22/23 08:06 24 92 High Flow Nasal Cannula 10/22/23 08:00 High Flow Nasal Cannula 10/22/23 07:19 36.9 C 68 24 97/53 L 98 Nasal Cannula 10/22/23 07:15 18 92 Nasal Cannula 10/22/23 07:00 66 10/22/23 02:51 36.7 C 73 22 114/63 95 High Flow Nasal Cannula 10/22/23 02:33 71 24 93 High Flow Nasal Cannula 10/22/23 00:23 68 24 95 High Flow Nasal Cannula O2 Flow Rate FiO2 10/22/23 11:35 12 10/22/23 10:45 30 10/22/23 08:06 40 100 10/22/23 08:00 8 10/22/23 07:19 6 10/22/23 07:15 7 10/22/23 07:00 10/22/23 02:51 25 80 10/22/23 02:33 25 80 10/22/23 00:23 25 80 Laboratory Results Laboratory Results - last 24 hr 10/21/23 10/21/23 10/21/23 13:19 16:29 16:58 WBC RBC Hgb Hct MCV MCH MCHC RDW Std Deviation RDW Coeff of Xavi Plt Count MPV Immature Gran % (Auto) Neut % (Auto) Lymph % (Auto) [place] % (Auto) Eos % (Auto) Baso % (Auto) Neut # (Auto) Lymph # (Auto) [place] # (Auto) Eos # (Auto) Baso # (Auto) Immature Gran # (Auto) Polychromasia Echinocytes Sodium Potassium Chloride Carbon Dioxide Anion Gap BUN Creatinine Est Cr Clr Drug Dosing Est GFR ( Amer) Est GFR (Non-Af Amer) BUN/Creatinine Ratio Glucose POC Glucose 175 H 116 H Calcium Phosphorus Magnesium Troponin I High Sens 54.2 H* Urine Legionella Ag 10/21/23 10/22/23 10/22/23 20:12 06:23 07:11 WBC 22.46 H RBC 2.71 L Hgb 8.7 L Hct 25.6 L MCV 94.5 MCH 32.1 MCHC 34.0 RDW Std Deviation 43.5 RDW Coeff of Xavi 12.6 Plt Count 241 MPV 10.9 Immature Gran % (Auto) 1.0 Neut % (Auto) 90.6 Lymph % (Auto) 4.3 [place] % (Auto) 3.2 Eos % (Auto) 0.6 Baso % (Auto) 0.3 Neut # (Auto) 20.36 H Lymph # (Auto) 0.96 L [place] # (Auto) 0.71 H Eos # (Auto) 0.14 Baso # (Auto) 0.07 Immature Gran # (Auto) 0.22 H Polychromasia 1+ Echinocytes 2+ Sodium 136 Potassium 3.9 D Chloride 106 Carbon Dioxide 20 L Anion Gap 10 BUN 41 H Creatinine 1.97 H D Est Cr Clr Drug Dosing 16.9 Est GFR ( Amer) 27.0 Est GFR (Non-Af Amer) 23.3 BUN/Creatinine Ratio 20.8 H Glucose 103 H POC Glucose 138 H 105 H Calcium 8.4 L Phosphorus 4.3 Magnesium 2.0 Troponin I High Sens Urine Legionella Ag 10/22/23 08:50 WBC RBC Hgb Hct MCV MCH MCHC RDW Std Deviation RDW Coeff of Xavi Plt Count MPV Immature Gran % (Auto) Neut % (Auto) Lymph % (Auto) [place] % (Auto) Eos % (Auto) Baso % (Auto) Neut # (Auto) Lymph # (Auto) [place] # (Auto) Eos # (Auto) Baso # (Auto) Immature Gran # (Auto) Polychromasia Echinocytes Sodium Potassium Chloride Carbon Dioxide Anion Gap BUN Creatinine Est Cr Clr Drug Dosing Est GFR ( Amer) Est GFR (Non-Af Amer) BUN/Creatinine Ratio Glucose POC Glucose Calcium Phosphorus Magnesium Troponin I High Sens Urine Legionella Ag Pending (1) Pneumonia Laterality: bilateral Lung location: unspecified part of lung Pneumonia type: due to unspecified organism Qualified Code(s): J18.9 - Pneumonia, unspecified organism (2) CAD (coronary artery disease) Coronary Disease-Associated Artery/Lesion type: [place] artery [place] vs. transplanted heart: [place] heart Associated angina: without angina Qualified Code(s): I25.10 - Atherosclerotic heart disease of [place] coronary artery without angina pectoris (3) Aortic stenosis Cardiac valve disease etiology: nonrheumatic Qualified Code(s): I35.0 - Nonrheumatic aortic (valve) stenosis
--- NOTE | 2023-10-22 12:29 | Hospitalist Progress Note ---
Date of Service October 22, 2023 Assessment & Plan (1) Acute CHF: Plan: 83-year-old female with past medical history significant for hypertension, type 2 diabetes, CAD s/p CABG, peripheral vascular disease, CKD stage III, hyperlipidemia, anxiety and depression, neuropathy who generally goes to [facility] comes here because of shortness of breath going for last couple of days. Having some dry cough. Not able to bring any phlegm out. Denies any chest pain. No fevers. No headache. No nausea. No abdominal pain. Sometimes gets constipated. Denies any blood in the stools or black stools. Having some burning micturition. No fevers. Appetite is okay. No difficulty swallowing. Having ambulatory dysfunction for last couple of months. Ambulates with a walker. Falling backwards. Lives with her . No swelling in the legs. No headache. No sore throat currently. Was saturating 89 % on room air. With oxygen supplementation and oxygenation improved. Patient does not know her baseline creatinine. Patient does not know that she has anemia. Acute hypoxemic respiratory failure Secondary to acute on chronic diastolic heart failure and is complicated by Multifocal pneumonia Has leukocytosis, elevated BNP and troponin Received IV Lasix 40 mg, IV Vanco and cefepime in the ER CT of the chest showed diffuse groundglass airspace opacities favors infectious process Procalcitonin negative and will monitor Was started with IV zosyn ,iv vanco and po doxycycline Blood cultures have been negative MRSA screen has been negative Appreciate pulmonary input and recommendation-antibiotics has been changed to intravenous Rocephin and doxycycline and await atypical workup Acute on chronic diastolic heart failure Elevated troponin-chronically elevated troponin Possibly demand ischemia Received intravenous Lasix on admission Lasix is on hold due to increasing BUN and creatinine and the patient is not showing any signs and or symptoms of fluid overload History of CAD s/p CABG On aspirin, Coreg, statin, Imdur and ranolazine Echo of the heart showed normal LV size, borderline concentric LVH, the mild dyssynergy of the apical's septum with otherwise normal wall motion, EF 55 to 60%, left atrium moderately dilated, aortic valve sclerosis moderate without significant aortic stenosis, severe mitral annular calcification, there is borderline to mild mitral stenosis, there is mild mitral regurgitation and right ventricular systolic pressure is mildly elevated to 40 to 50mm of mercury Cardiology consulted-appreciate input and recommendation Appreciate cardiology input and recommendation Ranexa has been discontinued Choking episode this morning Chest x-ray did not show any significant change Appreciate speech therapy input and recommended We will monitor Diabetes Continue home Lantus Sliding scale Will monitor CKD stage III Present creatinine 1.2 We do not have baseline creatinine Creatinine has gone up to 1.97-Lasix is on hold Anemia Acute versus chronic Hemoglobin 8.7 Will follow iron studies, vitamin B12 folate levels and Hemoccult Follow repeat labs Restless legs Probably from iron deficiency Depression and anxiety On fluoxetine, Ativan and doxepin Hypertension On amlodipine, Coreg, Imdur, losartan Will monitor Peripheral vascular disease On aspirin and statin Gum pain No thrush or obvious infection seen Needs to follow with dentist. DVT prophylaxis Heparin subcu Disposition Telemetry Full code Requested Medical records. (2) Acute hypoxemic respiratory failure: (3) CAD (coronary artery disease): (4) Pneumonia: Admission and Anticipated Discharge Date Admission Date: October 20, 2023 Subjective 10/22/2023 The patient was seen and examined in telemetry unit She has had an episode of choking this morning Has been saturating with oxygen mask 2 L/min Has been feeling better since the episode Denies any chest pain and/or palpitation, no fever and or chills Review of Systems Review of Systems: All systems reviewed and are unremarkable except as noted below Physical Exam Physical Exam: Lying in bed with minimal distress Constitutional: + ill appearing and average body habitus Eyes: PERRL, conjunctivae normal, anicteric sclerae ENMT: external ear and nose normal, oropharynx normal Neck: trachea midline, no thyromegaly Respiratory: + respiratory distress Auscultation: + diminished lung sounds and + crackles (Minimal bibasilar crackles) Cardiovascular: Rate/Rhythm: regular rate and regular rhythm; not tachycardic Heart Sounds: normal S1, normal S2 and + murmur Extremities: + edema (Trace edema bilaterally) Gastrointestinal (Abdomen): Inspection/Auscultation: abdomen not distended Percussion/Palpation: abdomen soft; abdomen nontender Musculoskeletal: No acute arthritis involving any of the joint Neurologic: normal touch/pain/proprioception and moves all extremities; no focal motor deficits Psychiatric: A+Ox3, euthymic affect Lymphatic: no cervical or axillary lymphadenopathy Results & Data Results & Data Vital Signs (Past 12 Hours) Vital Signs Temp Pulse Pulse Resp BP Pulse Ox O2 Del Method 10/22/23 11:35 70 20 92 Oxymask 10/22/23 10:45 36.6 C 65 21 117/41 L 99 High Flow Nasal Cannula 10/22/23 08:06 24 92 High Flow Nasal Cannula 10/22/23 08:00 High Flow Nasal Cannula 10/22/23 07:19 36.9 C 68 24 97/53 L 98 Nasal Cannula 10/22/23 07:15 18 92 Nasal Cannula 10/22/23 07:00 66 10/22/23 02:51 36.7 C 73 22 114/63 95 High Flow Nasal Cannula 10/22/23 02:33 71 24 93 High Flow Nasal Cannula O2 Flow Rate FiO2 10/22/23 11:35 12 10/22/23 10:45 30 10/22/23 08:06 40 100 10/22/23 08:00 8 10/22/23 07:19 6 10/22/23 07:15 7 10/22/23 07:00 10/22/23 02:51 25 80 10/22/23 02:33 25 80 Laboratory Results Short CBC 10/22/23 Range/Units 06:23 WBC 22.46 H (4.8-10.8) K/ul Hgb 8.7 L (12.0-16.0) g/dl Hct 25.6 L (37.0-47.0) % Plt Count 241 (130-400) K/uL BMP 10/22/23 06:23 Sodium 136 Potassium 3.9 D Chloride 106 Carbon Dioxide 20 L BUN 41 H Creatinine 1.97 H D Glucose 103 H Calcium 8.4 L Medications Administered Current Inpatient Medications Acetaminophen (Acetaminophen 325 Mg Tab) 650 mg PO Q4H PRN PRN Reason: Pain or Fever Stop: 11/19/23 23:29 Last Admin: 10/21/23 07:12 Dose: 650 mg Amlodipine Besylate (Amlodipine Besylate 5 Mg Tab) 5 mg PO DAILY DAPHNE Stop: 11/20/23 08:59 Last Admin: 10/22/23 08:22 Dose: Not Given Aspirin (Aspirin 81 Mg Ectab) 81 mg PO DAILY DAPHNE Stop: 11/20/23 08:59 Last Admin: 10/22/23 08:22 Dose: Not Given Atorvastatin Calcium (Atorvastatin 40 Mg Tab) 80 mg PO DAILY DAPHNE Stop: 11/20/23 08:59 Last Admin: 10/22/23 08:22 Dose: Not Given Carvedilol (Carvedilol 12.5 Mg Tab) 12.5 mg PO BID DAPHNE Stop: 11/20/23 08:59 Last Admin: 10/22/23 08:22 Dose: Not Given Dextrose (Dextrose 50% 50 Ml Syringe) 25 - 50 ml IV UD PRN; Protocol PRN Reason: Hypoglycemia Protocol Stop: 11/19/23 23:29 Doxepin HCl (Doxepin Hcl 10 Mg Capsule) 30 mg PO HS DAPHNE Stop: 11/20/23 20:59 Last Admin: 10/21/23 20:00 Dose: 30 mg Doxycycline Hyclate (Doxycycline Hyclate 100 Mg Cap) 100 mg PO BID DAPHNE Stop: 10/28/23 08:59 Last Admin: 10/22/23 08:22 Dose: Not Given Fluoxetine HCl (Fluoxetine Hcl 20 Mg Cap) 80 mg PO DAILY DAPHNE Stop: 11/20/23 08:59 Last Admin: 10/22/23 08:22 Dose: Not Given Glucagon (Glucagon For Inj 1 Mg Vial) 1 mg SQ UD PRN; Protocol PRN Reason: Hypoglycemia Protocol Stop: 11/19/23 23:29 Glucose (Glucose 10 Tab/Tube) 4 - 8 tab PO UD PRN; Protocol PRN Reason: Hypoglycemia Treatment Stop: 11/19/23 23:29 Glucose (Glucose 40% Gel 15 Gm Tube) 15 - 30 gm PO UD PRN; Protocol PRN Reason: Hypoglycemia Protocol Stop: 11/19/23 23:29 Heparin Sodium (Porcine) (Heparin Sod 5,000 Unit/0.5 Ml Vial) 5,000 units SQ Q12 DAPHNE Stop: 11/20/23 08:59 Last Admin: 10/22/23 09:59 Dose: 5,000 units Ceftriaxone Sodium 2,000 mg/ (Dextrose) 50 mls @ 100 mls/hr IV Q24H REPLACED BY [facility]; Protocol Stop: 10/28/23 09:59 Last Infusion: 10/22/23 10:47 Dose: Infused Insulin Aspart (Insulin Aspart Per Unit Charge) 0 units SC ACHS REPLACED BY [facility] Stop: 11/20/23 00:29 Last Admin: 10/22/23 11:49 Dose: Not Given Insulin Glargine (Lantus Per Unit Charge) 24 units SQ QAM DAPHNE Stop: 11/20/23 08:59 Last Admin: 10/21/23 08:45 Dose: 24 units Isosorbide Mononitrate (Isosorbide [place] Extended Rel 60 Mg Tabcr) 60 mg PO DAILY DAPHNE Stop: 11/20/23 08:59 Last Admin: 10/22/23 09:33 Dose: Not Given Lorazepam (Lorazepam 0.5 Mg Tab) 0.5 mg PO HS DAPHNE Stop: 11/20/23 20:59 Last Admin: 10/21/23 20:03 Dose: 0.5 mg Losartan Potassium (Losartan Potassium 50 Mg Tab) 100 mg PO DAILY DAPHNE Stop: 11/20/23 08:59 Last Admin: 10/22/23 09:33 Dose: Not Given Miscellaneous (Carbohydrates For Hypoglycemia ) 15 - 30 gm PO UD PRN PRN Reason: Hypoglycemia Protocol Stop: 11/19/23 23:29 Nitroglycerin (Nitroglycerin Sl 0.4 Mg/Tab Tab) 0.4 mg SL Q5M PRN PRN Reason: Chest Pain Stop: 11/19/23 23:29 Pantoprazole Sodium (Pantoprazole 40 Mg Tab) 40 mg PO DAILYBB DAPHNE Stop: 11/20/23 06:29 Last Admin: 10/22/23 06:12 Dose: 40 mg Polyethylene Glycol (Polyethylene (Miralax) 17 Gm Pack) 17 gm PO DAILY PRN PRN Reason: Constipation Stop: 11/19/23 23:29 Tramadol HCl (Tramadol Hcl 50 Mg Tablet) 50 mg PO TID PRN PRN Reason: Pain Stop: 11/19/23 23:29 Last Admin: 10/21/23 09:34 Dose: 50 mg (3) CAD (coronary artery disease) Associated angina: without angina Coronary Disease-Associated Artery/Lesion type: [place] artery [place] vs. transplanted heart: [place] heart Qualified Code(s): I25.10 - Atherosclerotic heart disease of [place] coronary artery without angina pectoris (4) Pneumonia Laterality: bilateral Lung location: unspecified part of lung Pneumonia type: due to unspecified organism Qualified Code(s): J18.9 - Pneumonia, unspecified organism
--- NOTE | 2023-10-22 14:38 | Fluoroscopy Report ---
FL video swallow HISTORY: Pneumonia. Assess for aspiration TECHNIQUE: Video fluoroscopic evaluation of swallowing was performed in the AP and lateral projection s by the speech pathology staff. The patient is fed nectar-thick and thin liquid barium, a barium coa fatmata wafer, and barium pudding. FLUOROSCOPY TIME: 2 minutes and 31 seconds. Ka,r: 21.5 mGy COMPARISON STUDY: None. FINDINGS: There is normal hyoid excursion and epiglottic deflection. No significant penetration or as piration identified. Swallowing function is within normal limits. Mild esophageal dysmotility. IMPRESSION: 1. No aspiration identified. 2. Please see the speech pathologist report for detailed findings and recommendations. ACT 112: Negative or not required by law. Electronically signed by: Nash Dumont M.D. 10/22/2023 2:37 PM
[2023-10-23 06:22] LABS: Basophils # (auto) 0.05 K/uL (0.00-0.20); Basophils % (auto) 0.3 %; Eosinophils # (auto) 0.17 K/uL (0.00-0.50); Eosinophils % (auto) 0.9 %; Hematocrit (blood only) 27.8 % (37.0-47.0); Hemoglobin 9.4 g/dl (12.0-16.0); Immature Granulocytes # (auto) 0.14 K/uL (0.01-0.20); Immature Granulocytes % (auto) 0.7 %; Lymphocytes % (auto) 5.6 %; Mean Corpuscular Hemoglobin 31.5 pg (25.0-34.0); Mean Corpuscular Hgb Conc 33.8 g/dL (32.0-36.0); Mean Corpuscular Volume 93.3 fL (80.0-100.0); Mean Platelet Volume 11.1 fL (9.4-12.4); Monocytes # (auto) 0.59 K/uL (0.11-0.59); Neutrophils # (auto) 17.52 K/uL (1.40-6.50); Neutrophils % (auto) 89.5 %; Platelet Count 263 K/uL (130-400); RDW Coefficient of Variation 12.7 % (11.5-14.5); RDW Standard Deviation 43.3 fL (36.4-46.3); Red Blood Count 2.98 M/uL (4.20-5.40); White Blood Count 19.57 K/ul (4.8-10.8)
[2023-10-23 06:26] LABS: BUN Creatinine Ratio 25.1 (10-20); Calcium 8.8 mg/dl (8.6-10.3); Creatinine Clr Calc Pharmacy 16.7 ml/min; Est GFR (African American) 26.6 ml/min; Magnesium 2.1 mg/dl (1.7-2.4); Phosphorus 4.5 mg/dl (2.5-4.9); Potassium 3.8 mmol/L (3.5-5.1)
--- NOTE | 2023-10-23 12:01 | Pulmonology Progress Note ---
Date of Service October 23, 2023 Assessment & Plan (1) Acute hypoxemic respiratory failure: (2) Abnormal CT scan of lung: (3) Acute CHF: Plan Impression: 83-year-old female with history of coronary disease and diabetes presenting now with diffuse pulmonary infiltrates and hypoxemic respiratory failure. Her white count is elevated however procalcitonin is normal. Differential for the pulmonary infiltrates would include atypical infectious etiologies as well as noninfectious etiologies such as pulmonary edema or pulmonary hemorrhage. She unfortunately had no significant improvement in her oxygen requirement remains high. No evidence of aspiration. Procalcitonin remains negative but has increased slightly. The patient is afebrile. Her white blood cell count is slowly decreasing. Recommendations: 1. Hypoxemic respiratory failure: Continue supplemental oxygen titrated to keep saturations at or above 90%. 2. Diastolic dysfunction: Continue blood pressure control. Hold additional diuresis given the bump in creatinine. If we were to pursue additional intervention, would recommend right heart catheterization for assessment of wedge pressure or potentially LVEDP. The patient is not inclined to pursue interventions at this point in time. 3. Day #3 Rocephin doxycycline. urinary Legionella antigen pending. Procalcitonin slightly increased. At this point in time the differential is as noted above. Bacterial pneumonia appears less likely and [employer] PCR was unremarkable. Pulmonary hemorrhage may have a similar pattern especially given the patient's renal insufficiency however no hematuria was identified previously. Will check repeat urinalysis. Will check YEISON as well as ANCA serologies ESR and CRP. Ideally would pursue bronchoscopy with BAL however the patient wants to avoid intubation and her current oxygen requirement would preclude bronchoscopy without intubation. Given that we will treat empirically with steroids to see if this is a steroid responsive illness. Will place her on methylprednisolone 40 mg twice a day and see how she responds. She understands the diagnostic uncertainty. Again she wishes to pursue invasive procedures which would entail right heart catheterization and bronchoscopy with BAL at this point in time. The above recommendations and plan were discussed with the patient and family at bedside as well as with the bedside nurse. Questions were answered to the best my ability. CODE STATUS will be updated to DO NOT INTUBATE per patient request Admission and Anticipated Discharge Date Admission Date: October 20, 2023 Subjective Patient seen and examined. EMR reviewed. Patient is awake alert and conversant sitting up in a chair eating lunch. Family is at bedside. She reports that she is feeling much better despite the fact that her oxygen requirement has increased significantly over the last 24 hours. She is coughing but not expectorating any phlegm. She denies any fevers chills night sweats or other constitutional symptoms. No chest pain or palpitations. She is not having any recurrent issues with dysphagia or coughing after eating. The patient reports that she has an advanced directive at home. She does not want to be intubated nor have any devices advanced into her windpipe. We discussed DNR and she is agreeable to changing her CODE STATUS Review of Systems 2 Review of Systems: All systems reviewed & are unremarkable except as noted in Subjective Physical Exam 2 Constitutional: WD/WN, vitals as above Neck: trachea midline, no thyromegaly Respiratory: normal respiratory effort; no respiratory distress, no labored breathing, no cough and not tachypneic Auscultation: + crackles; no rhonchi and no wheezes Cardiovascular: Rate/Rhythm: regular rate Heart Sounds: normal S1, normal S2 and + murmur Extremities: no edema Gastrointestinal (Abdomen): normal bowel sounds, soft, nontender, no hepatosplenomegaly Musculoskeletal: Extremities: extremities normal to inspection Skin: no rashes, warm and dry Lymphatic: no cervical lymphadenopathy Results & Data Results & Data Vital Signs (Past 12 Hours) Vital Signs Temp Pulse Resp BP Pulse Ox O2 Del Method O2 Flow Rate 10/23/23 11:19 36.9 C 67 22 101/46 L 94 High Flow Nasal Cannula 30 10/23/23 11:13 66 30 H 95 High Flow Nasal Cannula 30 10/23/23 07:29 36.6 C 66 21 108/86 95 High Flow Nasal Cannula 30 10/23/23 07:14 62 32 H 96 High Flow Nasal Cannula 35 10/23/23 05:47 85 98 High Flow Nasal Cannula 35 10/23/23 03:21 37.4 C 62 18 111/43 L 94 High Flow Nasal Cannula 8 FiO2 10/23/23 11:19 90 10/23/23 11:13 90 10/23/23 07:29 80 10/23/23 07:14 85 10/23/23 05:47 85 10/23/23 03:21 intake and output are essentially even since hospitalization Laboratory Results 10/23/23 05:39 10/23/23 05:39 Diagnostic Findings Video swallow showed no evidence of aspiration PG Care Time/CCT Total # of Minutes Spent Total Time Spent with Patient: Total time spent is greater than 50% in coordination of care (as documented) at patient's floor/unit and/or counseling patient: Coding Level of Care Code 46940 SUB INP/OBS CARE 3/50MIN Diagnoses Acute hypoxemic respiratory failure J96.[address] scan of lung R91.8 Acute CHF I50.9
[2023-10-23] MEDS: methylPREDNISolone 40 MG in SYRINGE 0 ML IV SCH (12:47)
--- NOTE | 2023-10-23 18:46 | Hospitalist Progress Note ---
Date of Service October 23, 2023 Assessment & Plan (1) Acute CHF: Plan: 83-year-old female with history of coronary disease and diabetes presenting now with diffuse pulmonary infiltrates and hypoxemic respiratory failure. Acute hypoxemic respiratory failure-currently on high flow nasal cannula. Try to wean down as tolerated. Pulmonary on board-workup in progress. CT on admission shows bilateral diffuse groundglass opacities favoring pneumonia along with scattered mediastinal lymph nodes likely reactive. Pro-Neo 0.4, WBC 19, CRP 32. VFSS negative for aspiration. Continue empiric antibiotic. Pulmonology recommended bronchoscopy with BAL, however patient wanted to avoid intubation and did not preclude bronchoscopy given her current oxygen requirement. Empiric trial of steroids per pulmonology to see if it responds. Per pulmonology, she might need a right heart cath, however patient is declining any procedures at this point Acute on chronic diastolic heart failure-status post IV Lasix. BNP 1400 on admission. currently diuretics on hold. Will monitor closely. History of CAD s/p CABG-echo reviewed, normal EF. on aspirin, Coreg, statin, Imdur. Ranolazine discontinued per cardiology Diabetes melitis type 2- BG stable. continue Lantus, SSI EMELYN on CKD stage III-creatinine at 1.99, elevated from 1.29 on admission. Will discontinue losartan. Continue to hold diuretics. Medications reviewed. Recheck in AM. Will consider nephrology consult if continues to worsen Anemia-hemoglobin stable will monitor. Depression and anxiety- On fluoxetine, Ativan and doxepin Hypertension-BP low normal at times. Will discontinue losartan with EMELYN. Continue amlodipine, Coreg Peripheral vascular disease- On aspirin and statin DVT prophylaxis-subcu heparin Disposition- TBD. On high flow nasal cannula. Workup in progress Time spent-approximately 50 minutes (2) Acute hypoxemic respiratory failure: (3) CAD (coronary artery disease): (4) Pneumonia: Admission and Anticipated Discharge Date Admission Date: October 20, 2023 Subjective Patient was seen and examined at bedside. She feels better than yesterday on high flow. States he does not want procedures or interventions. No fever, chills, chest pain, nausea or vomiting Review of Systems Review of Systems: All systems reviewed & are unremarkable except as noted in Subjective Physical Exam Physical Exam: General: Lying comfortably in bed, not in distress, on HFNC HEENT: EOMI, HINA, MMM Chest: Fair breath sounds bilaterally with crackles CVS: Regular rate and rhythm, normal heart sounds, + murmur Abdomen: Soft, non tender, not distended, normal bowel sounds Neuro: Awake, alert, oriented, conversing well, non focal Extremities: No edema Results & Data Results & Data Vital Signs (Past 12 Hours) Vital Signs Temp Pulse Resp BP Pulse Ox O2 Del Method O2 Flow Rate 10/23/23 15:47 High Flow Nasal Cannula 10/23/23 15:35 36.6 C 65 22 95/41 L 94 High Flow Nasal Cannula 30 10/23/23 15:24 58 L 21 95 High Flow Nasal Cannula 30 10/23/23 11:19 36.9 C 67 22 101/46 L 94 High Flow Nasal Cannula 30 10/23/23 11:13 66 30 H 95 High Flow Nasal Cannula 30 10/23/23 07:29 36.6 C 66 21 108/86 95 High Flow Nasal Cannula 30 10/23/23 07:14 62 32 H 96 High Flow Nasal Cannula 35 FiO2 10/23/23 15:47 10/23/23 15:35 65 10/23/23 15:24 70 10/23/23 11:19 90 10/23/23 11:13 90 10/23/23 07:29 80 10/23/23 07:14 85 (3) CAD (coronary artery disease) Coronary Disease-Associated Artery/Lesion type: [place] artery [place] vs. transplanted heart: [place] heart Associated angina: without angina Qualified Code(s): I25.10 - Atherosclerotic heart disease of [place] coronary artery without angina pectoris (4) Pneumonia Laterality: bilateral Lung location: unspecified part of lung Pneumonia type: due to unspecified organism Qualified Code(s): J18.9 - Pneumonia, unspecified organism
[2023-10-24 06:08] LABS: Appearance Urine Cloudy (Clear); Bacteria Urine Automated None Seen (None Seen); Bilirubin Urine Negative (Negative); Blood Urine Negative (Negative); Color Urine Yellow; Glucose Urine UA Negative (Negative); Granular Casts Urine Present /lpf (None Prsent); Ketones Urine Negative (Negative); Leukocyte Esterase Urine 2+ (Negative); Nitrite Urine Negative (Negative); Protein Urine 1+ (Negative); RBC Urine Automated >20 /hpf (0-2); Specific Gravity Urine 1.016 (1.000-1.030); Urobilinogen Urine Negative (Negative); WBC Urine Automated 21-50 /hpf (0-5); pH Urine 5.5 (4.5-7.5)
[2023-10-24 06:35] LABS: Hematocrit (blood only) 26.3 % (37.0-47.0); Hemoglobin 8.7 g/dl (12.0-16.0); Red Blood Count 2.78 M/uL (4.20-5.40); White Blood Count 21.51 K/ul (4.8-10.8)
[2023-10-24 06:36] LABS: Mean Corpuscular Hemoglobin 31.3 pg (25.0-34.0); Mean Corpuscular Hgb Conc 33.1 g/dL (32.0-36.0); Mean Corpuscular Volume 94.6 fL (80.0-100.0); Mean Platelet Volume 11.1 fL (9.4-12.4); Platelet Count 246 K/uL (130-400); RDW Coefficient of Variation 12.6 % (11.5-14.5); RDW Standard Deviation 43.8 fL (36.4-46.3)
[2023-10-24 06:46] LABS: Albumin Globulin Ratio 0.7 (0.9-2); Albumin Level 2.3 gm/dl (3.4-5.0); Bilirubin,Total 0.4 mg/dl (0.2-1.0); C Reactive Protein 27.7 mg/dl (0-0.5); Calcium 8.3 mg/dl (8.6-10.3); Creatinine Clr Calc Pharmacy 15.3 ml/min; Est GFR (Non-African American) 20.7 ml/min; Globulin 3.5 gm/dl (2.5-4.0); Phosphorus 5.1 mg/dl (2.5-4.9); Potassium 3.7 mmol/L (3.5-5.1); Total Protein 5.8 gm/dl (6.0-8.3)
[2023-10-24 07:32] LABS: Basophils # (auto) 0.05 K/uL (0.00-0.20); Basophils % (auto) 0.2 %; Echinocytes 2+; Immature Granulocytes # (auto) 0.26 K/uL (0.01-0.20); Immature Granulocytes % (auto) 1.2 %; Lymphocytes % (auto) 2.3 %; Monocytes # (auto) 0.31 K/uL (0.11-0.59); Monocytes % (auto) 1.4 %; Neutrophils # (auto) 20.39 K/uL (1.40-6.50); Neutrophils % (auto) 94.9 %
--- NOTE | 2023-10-24 09:39 | Nephrology Consultation ---
Date of Consultation October 24, 2023 Assessment & Plan (1) EMELYN (acute kidney injury): She had CKD 3 at baseline with near normal creat. Creat Was 1.3 till 10/20 but since then has slowly gone up. she did have low BP on 10/20 multiple times and after that Creat started rising. we are still seeing effect of that. Now BP is not low and losartan and lasix stopped so hopefully will start seeing renal recovery. At this age with so many Comorbid Disease renal recovery is usually quite slow. No e/o fluid overload at all. No need of dialysis and unlikely she will need it. encourage more po intake of food and Liquids. Avoid Diuretics, Contrasts, NSAIDS, Pamela/ARB for now. No need of iv fluids either. (2) CKD (chronic kidney disease), stage III: (3) Acute hypoxemic respiratory failure: to me based on exam and Cxr and CT it seems she had resp failure almost entorely from Pulmonary cause and not CHF. agree with no diuretics. History of Present Illness Reason for Consultation: EMELYN Attending Physician: Jason Arguelles MD History of Present Illness 83/F with near normal Creat at baseline, hypertension, COPD, type 2 diabetes, CAD s/p CABG, peripheral vascular disease, hyperlipidemia, anxiety and depression, neuropathy--normally patient of [facility]. Admitted 10/19 after she came with SOB. Seen By Pulm and Cards--getting Rx for Pneumonia as well as CHF. CXR and CT on admission more consistent with Pneumonia. Her BP did drop a lot 10/20 and then Losartan stopped. lasix given till 10/21. Creat rising last 3 days and is now 2.17 and was 1.3 on Admission. BP is not low anymore. Still needing high o2. Making urine. Her son had Kidney and Liver transplant so very scared about kidneys. ROS--See HPI. 12 Systems reviewed and is otherwise negative Physical Exam Constitutional: + ill appearing. Cachectic. SOB. High o2 need. Neck: no jvd Respiratory: + cough and + tachypneic + respiratory d istress Auscultation: + crackles b/l Cardiovascular: Rate/Rhythm: regular rate and regular rhythm Heart Sounds: normal S1, normal S2 and + murmur (+2/6 systolic ) Vessels: no JVD Extremities: no edema Gastrointestinal (Abdomen): Percussion/Palpation: + abdomen tender (lower abdomen ) and abdomen soft Skin: no rashes, warm and dry Neurologic: PERRL, EOMI, accommodation nl, no face palsy, no dysarthria Psychiatric: A+Ox3, euthymic affect Allergies Allergy/AdvReac Type Severity Reaction Status Date / Time ciprofloxacin [From Cipro] Allergy Unknown Verified 10/20/23 20:50 Home Medications Medication Instructions Recorded Confirmed Type amlodipine 5 mg tablet 5 mg PO DAILY 10/20/23 10/20/23 History aspirin 81 mg tablet,delayed 81 mg PO DAILY 10/20/23 10/20/23 History release atorvastatin 80 mg tablet 80 mg PO DAILY 10/20/23 10/20/23 History carvedilol 12.5 mg tablet 12.5 mg PO BID 10/20/23 10/20/23 History doxepin 10 mg capsule 30 mg PO HS 10/20/23 10/20/23 History fluoxetine 40 mg capsule 80 mg PO DAILY 10/20/23 10/20/23 History insulin aspart U-100 100 unit/mL 1 sliding scale dose subcut WM 10/20/23 10/20/23 History (3 mL) subcutaneous pen (Novolog FlexPen U-100 Insulin aspart) insulin glargine 100 unit/mL (3 24 unit subcut QAM 10/20/23 10/20/23 History mL) subcutaneous pen (Lantus Solostar U-100 Insulin) irbesartan 300 mg tablet 300 mg PO DAILY 10/20/23 10/20/23 History isosorbide mononitrate 60 mg 60 mg PO DAILY 10/20/23 10/20/23 History tablet,extended release 24 hr lorazepam 0.5 mg tablet 0.5 mg PO HS 10/20/23 10/20/23 History omeprazole 20 mg capsule,delayed 20 mg PO DAILYBB 10/20/23 10/20/23 History release ranolazine 500 mg tablet,extended 500 mg PO BID 10/20/23 10/20/23 History release,12 hr tramadol 50 mg tablet 50 mg PO TID PRN Pain 10/20/23 10/20/23 History Patient History Medical History Diabetic neuropathy Depression Anxiety PVD (peripheral vascular disease) CKD (chronic kidney disease), stage III CAD (coronary artery disease) Diabetes HTN (hypertension) Social History Smoking Status: Never smoker Tobacco Type: Cigarettes Hx Alcohol Use: No Hx Substance Use: No Preferred Language: Faroese Communication Ability: Effective Learning Officer Required: No Beliefs That Will Affect Care: None Current Living Situation: Spouse Feels Safe at Home: Yes Assistive Devices: Hospital Bed and Walker Results & Data Vital Signs (Past 12 Hours) Vital Signs Temp Pulse Pulse Resp BP Pulse Ox O2 Del Method 10/24/23 07:52 36.3 C L 67 20 124/46 L 95 High Flow Nasal Cannula 10/24/23 07:06 65 17 96 High Flow Nasal Cannula 10/24/23 03:32 36.9 C 90 20 107/47 L 92 Oxymask 10/24/23 02:59 18 91 High Flow Nasal Cannula 10/23/23 23:00 18 92 High Flow Nasal Cannula 10/23/23 22:31 37.0 C 64 24 107/47 L 92 High Flow Nasal Cannula 10/23/23 21:58 62 O2 Flow Rate FiO2 10/24/23 07:52 30 70 10/24/23 07:06 30 60 10/24/23 03:32 8 10/24/23 02:59 30 65 10/23/23 23:00 30 65 10/23/23 22:31 8 10/23/23 21:58 Laboratory Results reveiwed. Diagnostic Findings CXR and CT reviewed.
[2023-10-24] MEDS ORDERED: PHARMACY GLYCEMIC MGMT CONSULT PRN (12:29)
--- NOTE | 2023-10-24 12:52 | Pulmonology Progress Note ---
Date of Service October 24, 2023 Assessment & Plan (1) Acute hypoxemic respiratory failure: (2) Abnormal CT scan of lung: (3) Acute CHF: Plan Impression: 83-year-old female with history of coronary disease and diabetes presenting now with diffuse pulmonary infiltrates and hypoxemic respiratory failure. Her white count is elevated however procalcitonin is normal. Differential for the pulmonary infiltrates would include atypical infectious etiologies as well as noninfectious etiologies such as pulmonary edema or pulmonary hemorrhage. She did not want to pursue aggressive intervention including bronchoscopy or right heart catheterization show we have empirically started steroids. Serological evaluation demonstrated multiple inflammatory markers including elevated CRP, elevated ESR, and repeat urinalysis showed significant hematuria with worsening of kidney function. 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 Nephrology consultation is pending Recommendations: 1. Hypoxemic respiratory failure: Continue supplemental oxygen titrated to keep saturations at or above 90%. 2. Diastolic dysfunction: Continue blood pressure control. If we were to pursue additional intervention, would recommend right heart catheterization for assessment of wedge pressure or potentially LVEDP. The patient is not inclined to pursue interventions at this point in time. 3. Day #4 Rocephin doxycycline. urinary Legionella antigen negative. Procalcitonin slightly increased. At this point in time the differential is as noted above. Bacterial pneumonia appears less likely and [employer] PCR was unremarkable. Pulmonary hemorrhage may have a similar pattern especially given the patient's renal insufficiency and serological studies are elevated with YEISON and ANCA and anti-GBM pending. Agree with nephrology consultation as consideration for kidney biopsy might be appropriate. The patient has not been enthusiastic about bronchoscopy. Continue methylprednisolone 40 mg twice a day in hopes of a steroid responsive illness. Will defer to nephrology as to whether or not higher pulsed dose steroids might be warranted. She and her family understand the diagnostic uncertainty. Again she wishes to avoid invasive procedures which would entail right heart catheterization and bronchoscopy with BAL at this point in time. We discussed that if she fails to improve with steroids, antibiotics, diuretics, this may not be a reversible condition. She expressed understanding. She is comfortable proceeding with empiric therapy as we are doing now. The above recommendations and plan were discussed with the patient and family at bedside as well as with the bedside nurse. Questions were answered to the best my ability. CODE STATUS will be updated to DO NOT INTUBATE per patient request Admission and Anticipated Discharge Date Admission Date: October 20, 2023 Subjective Patient seen and examined. EMR reviewed. The patient is sitting up in chair eating lunch. She has family available at bedside. She reports that she is feeling well clinically. She does state that they have to turn up and turn down her oxygen intermittently during the day depending on what she is doing. She is not coughing or expectorating phlegm. She denies any wheezing. No chest pain or palpitations. She overall states that she feels okay. Review of Systems 2 Review of Systems: All systems reviewed & are unremarkable except as noted in Subjective Physical Exam 2 Constitutional: WD/WN, vitals as above Neck: trachea midline, no thyromegaly Respiratory: normal respiratory effort; no respiratory distress, no labored breathing, no cough and not tachypneic Auscultation: + crackles; no rhonchi and no wheezes Cardiovascular: Rate/Rhythm: regular rate Heart Sounds: normal S1, normal S2 and + murmur Extremities: no edema Gastrointestinal (Abdomen): normal bowel sounds, soft, nontender, no hepatosplenomegaly Musculoskeletal: Extremities: extremities normal to inspection Skin: no rashes, warm and dry Lymphatic: no cervical lymphadenopathy Results & Data Results & Data Vital Signs (Past 12 Hours) Vital Signs Temp Pulse Resp BP Pulse Ox O2 Del Method O2 Flow Rate 10/24/23 10:53 68 18 95 High Flow Nasal Cannula 20 10/24/23 10:51 36.6 C 69 21 95/42 L 93 High Flow Nasal Cannula 20 10/24/23 07:52 36.3 C L 67 20 124/46 L 95 High Flow Nasal Cannula 30 10/24/23 07:06 65 17 96 High Flow Nasal Cannula 30 10/24/23 03:32 36.9 C 90 20 107/47 L 92 Oxymask 8 10/24/23 02:59 18 91 High Flow Nasal Cannula 30 FiO2 10/24/23 10:53 70 10/24/23 10:51 10/24/23 07:52 70 10/24/23 07:06 60 10/24/23 03:32 10/24/23 02:59 65 Laboratory Results 10/24/23 05:37 10/24/23 05:37 ESR elevated at 74 C-reactive protein elevated at 32 BNP elevated 525 Urinalysis without hematuria but 1+ protein and greater than 20 red cells per high-power field. Granular casts are identified YEISON, ANCA, and anti-GBM pending PG Care Time/CCT Total # of Minutes Spent Total Time Spent with Patient: Total time spent is greater than 50% in coordination of care (as documented) at patient's floor/unit and/or counseling patient: Coding Level of Care Code 00821 SUB INP/OBS CARE 3/50MIN Diagnoses Acute hypoxemic respiratory failure J96.[address] scan of lung R91.8 Acute CHF I50.9
--- NOTE | 2023-10-24 13:00 | Pharmacy Report ---
Pharmacy Glycemic Short Note 2 - Date of Service October 24, 2023 - Glycemic Short BSG Results (Last 24 hours): 10/23/23 10/23/23 10/24/23 16:22 20:13 05:37 Glucose 248 H POC Glucose 129 H 299 H 10/24/23 10/24/23 10/24/23 07:37 11:25 11:27 Glucose POC Glucose 243 H 319 H* 313 H* OUTPATIENT ANTIDIABETIC REGIMEN: * GLARGINE 24 UNITS Qam, NOVOLOG SLIDING SCALE * Will obtain A1c ASSESSMENT: * 83 yo female with type II diabetes admitted for CHF/ hypoxic respiratory failure. BSGs had been adequately controlled but have increased with the addition of methylprednisolone 40 mg IV q12H on 10/22. * Fasting this morning 243 mg/dL- will give additional lantus tonight up to 50% * Lunch BSG in the 300s and then subsequently consulted. Will trial tighter novolog, consider addition of NPH to help cover meals tomorrow if BSGs remain elevated PLAN FOR INPATIENT GLYCEMIC CONTROL: * Hold outpatient oral diabetes medications * Basal insulin * Lantus 24 units SQ qAM, 0/12/17 per scale this PM * Bolus insulin * NovoLog per scale ACHS or Q6hrs while NPO * Goal Range: Low 110 mg/dL - High 140 mg/dL * Correction Factor: 20 mg/dL/unit * Nutritional / Prandial insulin per carb ratio of 1 unit per 8 grams CHO consumed
--- NOTE | 2023-10-24 13:51 | Hospitalist Progress Note ---
Date of Service October 24, 2023 Assessment & Plan (1) Acute hypoxemic respiratory failure: (2) Pneumonia: (3) CAD (coronary artery disease): Plan 83-year-old female with history of coronary disease and diabetes presenting now with diffuse pulmonary infiltrates and hypoxemic respiratory failure. Acute hypoxemic respiratory failure-currently on high flow nasal cannula. Try to wean down as tolerated. Pulmonary on board-workup in progress. CT on admission shows bilateral diffuse groundglass opacities favoring pneumonia along with scattered mediastinal lymph nodes likely reactive. Pro-Neo 0.4, WBC 19, CRP 32. VFSS negative for aspiration. Continue empiric antibiotic. Pulmonology recommended bronchoscopy with BAL, however patient wanted to avoid intubation and did not preclude bronchoscopy given her current oxygen requirement. Empiric trial of steroids per pulmonology to see if it responds. CHF exacerbation ruled out. Discussed with cardio and nephro. BNP 1400-> 525. No need for further diuretics. Seems her hypoxia is from infective process rather than cardiac issues and cardio did not recommend further cardiac work up including RHC. History of CAD s/p CABG-echo reviewed, normal EF. on aspirin, Coreg, statin, Imdur. Ranolazine discontinued per cardiology Diabetes mellitus type 2 with steroid induced hyperglycemia- BG now uncontrolled since steroid was initiated. Will increase SSI, lantus. Glycemic pharmacist consulted. EMELYN on CKD stage III-creatinine at 2.17, elevated from 1.29 on admission. Likely from hemodynamic instability, diuretics and ARBs and they have been discontinued. Medications reviewed. Nephro on board- recommendations noted. Anemia- suggestive of iron deficiency in labs. Hemoglobin stable. Will consider iron supplementation and monitor. Depression and anxiety- On fluoxetine, Ativan and doxepin Hypertension-BP low. Will discontinue losartan and amlodipine. Continue Coreg. Peripheral vascular disease- On aspirin and statin DVT prophylaxis-subcu heparin Disposition- TBD. On high flow nasal cannula. Workup in progress Time spent-approximately 50 minutes Admission and Anticipated Discharge Date Admission Date: October 20, 2023 Subjective Patient was seen and examined at bedside. States she feels slightly better. Discussed about pulm recommendations for bronchoscopy- she became tearful that her sister had the tube in and from that; and she is scared. Discussed with cardio and nephrology- patient did not and does not have CHF exacerbation and not to give any diuretics; this rather seems to be an infective process. No fever, chills, N/V. Review of Systems Review of Systems: All systems reviewed & are unremarkable except as noted in Subjective Physical Exam Physical Exam: General: Lying comfortably in bed, not in distress, on HFNC HEENT: EOMI, HINA, MMM Chest: Fair breath sounds bilaterally with rales CVS: Regular rate and rhythm, normal heart sounds, + murmur Abdomen: Soft, non tender, not distended, normal bowel sounds Neuro: Awake, alert, oriented, conversing well, non focal Extremities: No edema Results & Data Results & Data Vital Signs (Past 12 Hours) Vital Signs Temp Pulse Resp BP Pulse Ox O2 Del Method O2 Flow Rate 10/24/23 12:40 High Flow Nasal Cannula 10/24/23 10:53 68 18 95 High Flow Nasal Cannula 20 10/24/23 10:51 36.6 C 69 21 95/42 L 93 High Flow Nasal Cannula 20 10/24/23 07:52 36.3 C L 67 20 124/46 L 95 High Flow Nasal Cannula 30 10/24/23 07:06 65 17 96 High Flow Nasal Cannula 30 10/24/23 03:32 36.9 C 90 20 107/47 L 92 Oxymask 8 10/24/23 02:59 18 91 High Flow Nasal Cannula 30 FiO2 10/24/23 12:40 10/24/23 10:53 70 10/24/23 10:51 10/24/23 07:52 70 10/24/23 07:06 60 10/24/23 03:32 10/24/23 02:59 65 Laboratory Results Short CBC 10/24/23 Range/Units 05:37 WBC 21.51 H (4.8-10.8) K/ul Hgb 8.7 L (12.0-16.0) g/dl Hct 26.3 L (37.0-47.0) % Plt Count 246 (130-400) K/uL BMP 10/24/23 05:37 Sodium 131 L Potassium 3.7 Chloride 103 Carbon Dioxide 19 L BUN 63 H Creatinine 2.17 H Glucose 248 H Calcium 8.3 L Liver Function 10/24/23 Range/Units 05:37 Total Bilirubin 0.4 (0.2-1.0) mg/dl AST 45 H (13-39) U/L ALT 31 (7-52) U/L Alkaline Phosphatase 128 H (34-104) U/L Albumin 2.3 L (3.4-5.0) gm/dl Urine 10/24/23 Range/Units Unknown Urine Color Yellow Urine Appearance Cloudy A (Clear) Urine pH 5.5 (4.5-7.5) Ur Specific [place] 1.016 (1.000-1.030) Urine Protein 1+ H (Negative) Urine Glucose (UA) Negative (Negative) (2) Pneumonia Laterality: bilateral Lung location: unspecified part of lung Pneumonia type: due to unspecified organism Qualified Code(s): J18.9 - Pneumonia, unspecified organism (3) CAD (coronary artery disease) Coronary Disease-Associated Artery/Lesion type: [place] artery [place] vs. transplanted heart: [place] heart Associated angina: without angina Qualified Code(s): I25.10 - Atherosclerotic heart disease of [place] coronary artery without angina pectoris
[2023-10-24] MEDS: LANTUS PER UNIT CHARGE SQ SCH (20:42)
[2023-10-25] MEDS: INSULIN ASPART PER UNIT CHARGE SC SCH (00:15)
[2023-10-25 06:20] LABS: Hematocrit (blood only) 25.5 % (37.0-47.0); Hemoglobin 8.6 g/dl (12.0-16.0); Mean Corpuscular Hemoglobin 31.4 pg (25.0-34.0); Mean Corpuscular Hgb Conc 33.7 g/dL (32.0-36.0); Mean Corpuscular Volume 93.1 fL (80.0-100.0); Mean Platelet Volume 11.3 fL (9.4-12.4); Platelet Count 280 K/uL (130-400); RDW Coefficient of Variation 12.1 % (11.5-14.5); RDW Standard Deviation 40.9 fL (36.4-46.3); Red Blood Count 2.74 M/uL (4.20-5.40); White Blood Count 27.51 K/ul (4.8-10.8)
[2023-10-25 07:04] LABS: BUN Creatinine Ratio 34.1 (10-20); Calcium 8.7 mg/dl (8.6-10.3); Creatinine Clr Calc Pharmacy 14.5 ml/min; Est GFR (African American) 22.5 ml/min; Est GFR (Non-African American) 19.4 ml/min; Potassium 3.8 mmol/L (3.5-5.1)
--- NOTE | 2023-10-25 09:10 | Pulmonology Progress Note ---
Date of Service October 25, 2023 Assessment & Plan (1) Acute hypoxemic respiratory failure: (2) Abnormal CT scan of lung: (3) Acute CHF: Plan Impression: 83-year-old female with history of coronary disease and diabetes presenting now with diffuse pulmonary infiltrates and hypoxemic respiratory failure. Her white count is elevated however procalcitonin is normal. Differential for the pulmonary infiltrates would include atypical infectious etiologies as well as noninfectious etiologies such as pulmonary edema or pulmonary hemorrhage. She did not want to pursue aggressive intervention including bronchoscopy or right heart catheterization so we have empirically started steroids. Serological evaluation demonstrated multiple inflammatory markers including elevated CRP, elevated ESR, and repeat urinalysis showed significant hematuria with worsening of kidney function. 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 Nephrology consultation reviewed Recommendations: 1. Hypoxemic respiratory failure: Continue supplemental oxygen titrated to keep saturations at or above 90%. Will recheck chest x-ray in a.m. 2. Diastolic dysfunction: Continue blood pressure control. If we were to pursue additional intervention, would recommend right heart catheterization for assessment of wedge pressure or potentially LVEDP. The patient is not inclined to pursue interventions at this point in time. 3. Day #5 Rocephin doxycycline. urinary Legionella antigen negative. Procalcitonin slightly increased but remained below 0.5. At this point in time the differential is as noted above. Bacterial pneumonia appears less likely and [employer] PCR was unremarkable. Pulmonary hemorrhage may have a similar pattern especially given the patient's renal insufficiency with an active urinary sediment and serological studies are elevated with YEISON and ANCA and anti-GBM pending. Will defer to nephrology as to whether or not a kidney biopsy may be beneficial. If the patient had a pulmonary renal syndrome, higher dose pulse steroids or potentially plasma exchange might be considered. The patient has not been enthusiastic about bronchoscopy. Continue methylprednisolone 40 mg twice a day in hopes of a steroid responsive illness. Will defer to nephrology as to whether or not higher pulsed dose steroids might be warranted. She and her family understand the diagnostic uncertainty. Again she wishes to avoid invasive procedures which would entail right heart catheterization and bronchoscopy with BAL at this point in time. We discussed that if she fails to improve with steroids, antibiotics, diuretics, this may not be a reversible condition. She expressed understanding. She is comfortable proceeding with empiric therapy as we are doing now. The above recommendations and plan were discussed with the patient and family at bedside as well as with the bedside nurse. Questions were answered to the best my ability. CODE STATUS will be updated to DO NOT INTUBATE per patient request Admission and Anticipated Discharge Date Admission Date: October 20, 2023 Subjective Patient seen and examined. EMR reviewed. The patient feels clinically about the same. Her oxygen saturations are not significantly improved. She is coughing and bringing up some scant clear mucoid secretions. She has not had any hemoptysis. She denies fevers chills or night sweats. Review of Systems Review of Systems: All systems reviewed & are unremarkable except as noted in Subjective Physical Exam Constitutional: WD/WN, vitals as above Neck: trachea midline, no thyromegaly Respiratory: normal respiratory effort; no respiratory distress, no labored breathing, no cough and not tachypneic Auscultation: + crackles; no rhonchi and no wheezes Cardiovascular: Rate/Rhythm: regular rate Heart Sounds: normal S1, normal S2 and + murmur Extremities: no edema Gastrointestinal (Abdomen): normal bowel sounds, soft, nontender, no hepatosplenomegaly Musculoskeletal: Extremities: extremities normal to inspection Skin: no rashes, warm and dry Lymphatic: no cervical lymphadenopathy Results & Data Results & Data Vital Signs (Past 12 Hours) Vital Signs Temp Pulse Resp BP Pulse Ox O2 Del Method O2 Flow Rate 10/25/23 07:08 36.5 C 70 22 144/79 H 98 High Flow Nasal Cannula 30 10/25/23 07:04 68 20 96 High Flow Nasal Cannula 30 10/25/23 03:58 18 90 High Flow Nasal Cannula 30 10/25/23 03:10 37.2 C 67 27 H 114/50 L 92 High Flow Nasal Cannula 10/24/23 23:05 92 High Flow Nasal Cannula 20 10/24/23 22:13 37.0 C 73 23 110/50 L 92 High Flow Nasal Cannula 10/24/23 22:11 90 High Flow Nasal Cannula 30 FiO2 10/25/23 07:08 10/25/23 07:04 80 10/25/23 03:58 80 10/25/23 03:10 10/24/23 23:05 75 10/24/23 22:13 10/24/23 22:11 80 PG Care Time/CCT Total # of Minutes Spent Total Time Spent with Patient: Total time spent is greater than 50% in coordination of care (as documented) at patient's floor/unit and/or counseling patient: Coding Level of Care Code 82752 SUB INP/OBS CARE 235MIN Diagnoses Acute hypoxemic respiratory failure J96.[address] scan of lung R91.8 Acute CHF I50.9
--- NOTE | 2023-10-25 09:28 | Nephrology Progress Note ---
Date of Service October 25, 2023 Assessment & Plan Admission and Anticipated Discharge Date Admission Date: October 20, 2023 Subjective Assessment & Plan (1) EMELYN (acute kidney injury): She had CKD 3 at baseline with near normal creat. Creat Was 1.3 till 10/20 but since then has slowly gone up. she did have low BP on 10/20 multiple times and after that Creat started rising. we are still seeing effect of that. Now BP is not low and losartan and lasix stopped so hopefully will start seeing renal recovery. At this age with so many Comorbid Disease renal recovery is usually quite slow. No e/o fluid overload at all. No need of dialysis and unlikely she will need it. reviewed pulm note.. This is unlikely to be pulm renal syndrome. her uA had No Blood at all in UA done 10/23. creat has gone up within few days specifically after 10/20 when she had multiple low BP. No need of renal biopsy nor high dose steroids. This is ATN and/or overdiuresis. Active urine Sediment most consistent with ATN. (2) CKD (chronic kidney disease), stage III: (3) Acute hypoxemic respiratory failure: to me based on exam and Cxr and CT it seems she had resp failure almost entorely from Pulmonary cause and not CHF. agree with no diuretics. S--No new issues. Physical Exam Constitutional: + ill appearing. Cachectic. SOB. High o2 need. Neck: no jvd Respiratory: + cough and + tachypneic + respiratory d istress Auscultation: + crackles b/l Cardiovascular: Rate/Rhythm: regular rate and regular rhythm Heart Sounds: normal S1, normal S2 and + murmur (+2/6 systolic ) Vessels: no JVD Extremities: no edema Gastrointestinal (Abdomen): Percussion/Palpation: + abdomen tender (lower abdomen ) and abdomen soft Skin: no rashes, warm and dry Neurologic: PERRL, EOMI, accommodation nl, no face palsy, no dysarthria Psychiatric: A+Ox3, euthymic affect Results & Data Vital Signs (Past 12 Hours) Vital Signs Temp Pulse Resp BP Pulse Ox O2 Del Method O2 Flow Rate 10/25/23 07:08 36.5 C 70 22 144/79 H 98 High Flow Nasal Cannula 30 10/25/23 07:04 68 20 96 High Flow Nasal Cannula 30 10/25/23 03:58 18 90 High Flow Nasal Cannula 30 10/25/23 03:10 37.2 C 67 27 H 114/50 L 92 High Flow Nasal Cannula 10/24/23 23:05 92 High Flow Nasal Cannula 20 10/24/23 22:13 37.0 C 73 23 110/50 L 92 High Flow Nasal Cannula 10/24/23 22:11 90 High Flow Nasal Cannula 30 FiO2 10/25/23 07:08 10/25/23 07:04 80 10/25/23 03:58 80 10/25/23 03:10 10/24/23 23:05 75 10/24/23 22:13 10/24/23 22:11 80
--- NOTE | 2023-10-25 11:17 | Hospitalist Progress Note ---
Date of Service October 25, 2023 Assessment & Plan (1) Acute hypoxemic respiratory failure: (2) Pneumonia: (3) CAD (coronary artery disease): Plan 83-year-old female with history of coronary disease and diabetes presenting now with diffuse pulmonary infiltrates and hypoxemic respiratory failure. Acute hypoxemic respiratory failure likely from PNA -currently on high flow nasal cannula. Try to wean down as tolerated. IS, flutter valve - Pulmonary on board-workup in progress. CT on admission shows bilateral diffuse groundglass opacities favoring pneumonia along with scattered mediastinal lymph nodes likely reactive. Pro-Neo 0.4, WBC 19, CRP 32. VFSS negative for aspiration - Pulmonology recommended bronchoscopy with BAL, however patient wanted to avoid intubation and did not preclude bronchoscopy given her current oxygen requirement. - Continue empiric antibiotic. - Now on empiric trial of steroids to see steroid responsiveness per pulmonology CHF exacerbation ruled out. Discussed with cardio and nephro. BNP 1400-> 525. No need for further diuretics. Seems her hypoxia is from infective process rather than cardiac issues and cardio did not recommend further cardiac work up including RHC. No indication for diuresis either. EMELYN likely from ATN due to hypotension-creatinine 1.29->1.37->1.97->1.99->2.17->2.29 and continues to trend up. UA reviewed, suggestive of ATN. Nephrotoxics have been discontinued. Nephrology on board. Follow up on renal function and urine output History of CAD s/p CABG-echo reviewed, normal EF. on aspirin, Coreg, statin, Imdur. Ranolazine discontinued per cardiology given renal dysfunction Diabetes mellitus type 2 with steroid induced hyperglycemia- Glycemic pharmacist now managing her insulin. BG better today Anemia- suggestive of iron deficiency in labs. Hemoglobin stable. Will consider iron supplementation and monitor. Depression and anxiety- On fluoxetine, Ativan and doxepin Hypertension-BP low. Will discontinue losartan and amlodipine. Will further cut down on Coreg. Peripheral vascular disease- On aspirin and statin DVT prophylaxis-subcu heparin Disposition- TBD. On high flow nasal cannula. Will consult palliative to discuss GOC as patient continues to decline invasive work up including bronchos copy. Time spent-approximately 50 minutes Admission and Anticipated Discharge Date Admission Date: October 20, 2023 Subjective Patient seen and examined at bedside. States she had runs of diarrhea since yesterday. Breathing about the same. No fever, chills, chest pain, N/V. Reviewed pulm and nephro notes and also discussed with cardio. Review of Systems Review of Systems: All systems reviewed & are unremarkable except as noted in Subjective Physical Exam Physical Exam: General: Lying comfortably in bed, not in distress, on HFNC HEENT: EOMI, HINA, MMM Chest: Fair breath sounds bilaterally with rales CVS: Regular rate and rhythm, normal heart sounds, + murmur Abdomen: Soft, non tender, not distended, normal bowel sounds Neuro: Awake, alert, oriented, conversing well, non focal Extremities: No edema Results & Data Results & Data Vital Signs (Past 12 Hours) Vital Signs Temp Pulse Resp BP Pulse Ox O2 Del Method O2 Flow Rate 10/25/23 11:02 36.5 C 64 21 92/40 L 91 High Flow Nasal Cannula 25 10/25/23 07:08 36.5 C 70 22 144/79 H 98 High Flow Nasal Cannula 30 10/25/23 07:04 68 20 96 High Flow Nasal Cannula 30 10/25/23 03:58 18 90 High Flow Nasal Cannula 30 10/25/23 03:10 37.2 C 67 27 H 114/50 L 92 High Flow Nasal Cannula FiO2 10/25/23 11:02 10/25/23 07:08 10/25/23 07:04 80 10/25/23 03:58 80 10/25/23 03:10 (2) Pneumonia Laterality: bilateral Lung location: unspecified part of lung Pneumonia type: due to unspecified organism Qualified Code(s): J18.9 - Pneumonia, unspecified organism (3) CAD (coronary artery disease) Coronary Disease-Associated Artery/Lesion type: [place] artery [place] vs. transplanted heart: [place] heart Associated angina: without angina Qualified Code(s): I25.10 - Atherosclerotic heart disease of [place] coronary artery without angina pectoris
--- NOTE | 2023-10-25 11:28 | Palliative Care Consultation ---
Date of Consultation October 25, 2023 Assessment & Plan (1) Dyspnea and respiratory abnormalities: Marjorie has a multifocal pneumonia and is now requiring high flow nasal cannula oxygen support for her acute hypoxic respiratory failure. She has been seen by pulmonary medicine who offered a BAL. Patient shares that she has already declined this procedure as well as a cardiac cath. She shares that her sister became very sick after making a decision to stop all of her chronic illness medications. This ultimately led to her sister being admitted to the hospital and organ failure and a bronchoscopy was urgently performed which ultimately led to progressive respiratory decline and postprocedural intubation, patient's sister thereafter. (2) Weakness generalized: (3) Insomnia: (4) Advanced care planning/counseling discussion: A 30-minute [id number] ACP discussion was held with patient and her granddaughter at the bedside. We discussed the recommendation of a BAL and the potential risks versus benefits. She feels that this is more risk than she wants to take and is also aware that she may not be able to tolerate the bronchoscopy and post procedurally he may end up on a ventilator. She is very clear she does not want this. We discussed the potential that her respiratory failure could progress to a point where maybe she will change her mind about wanting to take the risk of a bronchoscopy but that the procedure itself may no longer be able to be done because her respiratory failure has become too severe. She is aware of this and however states regardless of that potential, she simply does not want to tolerate the procedure given the experience she had with seeing her sister as a result of a bronchoscopy and also because she feels the risk of being put on a ventilator postprocedure is not a risk she wants to take. She is also very clear she does not want to be placed in any type of a fdc or rehab facility. Her ultimate goal is to return home. She shares that she has been for 65 years to her high school [employer]. She had 5 children by the time she was 26. 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 She is hopeful that the pneumonia will improve with continued interventions including her antibiotic and airway clearance therapies, however she is also fairly realistic with a clear understanding that that may not happen, or she may worsen through the weekend, and is clear that should she continue to decline in spite of the therapies she is currently on and she would desire a transition that would focus more on her comfort and quality of life with good symptom management. I suggested and she agreed to continuing her current course of therapy through the weekend. I encouraged her to increase her airway clearance therapies and she was able to demonstrate use of both her flutter device as well as her incentive spirometer. I asked her to do those both every hour while awake. I also asked her to make sure that she maintains adequate nutrition and hydration to the best of her ability and to move around the bed in the room is much as possible even if it is getting out of bed to ambulate within her room or to shift from bed to chair throughout the day a couple of times. We also discussed the importance of in bed exercises such as arm raises and leg raises. As well as deep breathing and coughing exercises. She is willing to try these interventions with the hope of improving her pneumonia and airway clearance. We discussed the potential that she may decline in spite of these therapies. She states that should she have an acute or abrupt decline even while in the hospital, she does not want therapies escalated and would desire a transition to comfort care. Her granddaughter was in agreement. We agreed to see how the weekend goes and they were advised that should any acute decline happen through the weekend, I am available to assist with further discussion and/or transition to comfort care. Granddaughter states they wanted to plan for a follow-up meeting on Saturday and should patient not be significantly improving, they are interested in the more discussion about the options of coming home with hospice. We agreed for a follow-up discussion on Saturday barring any potential acute decline through the weekend. (5) Palliative care by specialist: Provided overview of Palliative Medicine, a subspecialty that provides specialized medical care for people living with a serious illness by offering a focus on quality of life. Palliative Medicine is often conflated with hospice: I advised patient/family that Palliative and hospice can be partners but we are not the same. It is important to understand the difference so that we may be informed, and not afraid. Palliative Medicine works to improve QOL through reduction of symptom burden/more control over their illness, for both the patient and family. Palliative medicine clinicians are board certified, specially-trained and another member of the patient's medical care team. We often provide an extra layer of support because our care is based on the needs of the patient, not the prognosis; as such, it's appropriate at any age/advancing stage of a serious illness and can be provided along with curative treatment. Palliative Medicine clinicians are also trained in advanced c ommunication methodologies, to facilitate complex discussions about advanced illness planning, which are needed to help assure that the treatment choices match the patient's goals, aka delivering Goal Concordant care. Finally, we discussed that hospice is a visiting nurse service that focuses on care delivered at the very end of life for patients with terminal illness, with life expectancy less than 6 month. Plan Patient notes that she is having significant sleep disruption that is not being relieved by her usual nighttime dose of doxepin. Recommend that she be implemented sleep hygiene protocol with minimize disruptions through the night, and delay blood draws until later in the morning. Also suggest sleep protocols including keeping the room a little warmer as she notes it is too cold for her to be comfortable at times. Advance care planning discussion as noted above in detail. Follow-up meeting is planned for Saturday with the family. Time to be determined. At patient's request, I updated her granddaughter Tami who is a [facility] pharmacist. Thank you for allowing us to participate in the ongoing care of this patient. Please don't hesitate to call or page with any additional concerns. Dr. Torrie Lynne DNP Director, Palliative Care History of Present Illness Reason for Consultation: [facility] Attending Physician: Jason Arguelles MD History of Present Illness per admitting note: Marjorie Mancini is an "83-year-old female with past medical history significant for hypertension, type 2 diabetes, CAD s/p CABG, peripheral vascular disease, CKD stage III, hyperlipidemia, anxiety and depression, neuropathy who generally goes to [facility] [place] comes here because of shortness of breath going for last couple of days. Having some dry cough. Not able to bring any phlegm out. Denies any chest pain. No fevers. No headache. No nausea. No abdominal pain. Sometimes gets constipated. Denies any blood in the stools or black stools. Having some burning micturition. No fevers. Appetite is okay. No difficulty swallowing. Having ambulatory dysfunction for last couple of months. Ambulates with a walker. Falling backwards. Lives with her . No swelling in the legs. No headache. No sore throat currently. Was saturating 89 % on room air. With oxygen supplementation and oxygenation improved. Patient does not know her baseline creatinine. Patient does not know that she has anemia." She is currently requiring HFNC d/t acute hypox resp failure CXR revealed a multifocal PNA She has EMELYN on CKD III - nephro eval noted/appreciated, likely ATN She wishes to avoid invasive procedures & declined right heart catheterization and bronchoscopy with BAL Marjorie is seen at bedside, together with her granddaughter who is also an RN. Additionally, another granddaughter, Tami, is an [facility] pharmacist. Marjorie is very clear that she does not wish to have escalating or aggressive interventions. She is hopeful that the current therapies including IV antibiotics and airway clearance modalities will help improve her symptoms and allow her to return home. She has a mostly dry cough but notes that when she uses her percussion device, the cough will loosen up. She is short of breath at rest and with prolonged conversation. It is noted that she is on high flow oxygen. She is aware that she cannot be discharged home on high flow modality and would need to downgrade to at least nasal cannula. She is not interested in a discharge to rehab or fdc. Allergies Allergy/AdvReac Type Severity Reaction Status Date / Time ciprofloxacin [From Cipro] Allergy Unknown Verified 10/20/23 20:50 Home Medications Medication Instructions Recorded Confirmed Type amlodipine 5 mg tablet 5 mg PO DAILY 10/20/23 10/20/23 History aspirin 81 mg tablet,delayed 81 mg PO DAILY 10/20/23 10/20/23 History release atorvastatin 80 mg tablet 80 mg PO DAILY 10/20/23 10/20/23 History carvedilol 12.5 mg tablet 12.5 mg PO BID 10/20/23 10/20/23 History doxepin 10 mg capsule 30 mg PO HS 10/20/23 10/20/23 History fluoxetine 40 mg capsule 80 mg PO DAILY 10/20/23 10/20/23 History insulin aspart U-100 100 unit/mL 1 sliding scale dose subcut WM 10/20/23 10/20/23 History (3 mL) subcutaneous pen (Novolog FlexPen U-100 Insulin aspart) insulin glargine 100 unit/mL (3 24 unit subcut QAM 10/20/23 10/20/23 History mL) subcutaneous pen (Lantus Solostar U-100 Insulin) irbesartan 300 mg tablet 300 mg PO DAILY 10/20/23 10/20/23 History isosorbide mononitrate 60 mg 60 mg PO DAILY 10/20/23 10/20/23 History tablet,extended release 24 hr lorazepam 0.5 mg tablet 0.5 mg PO HS 10/20/23 10/20/23 History omeprazole 20 mg capsule,delayed 20 mg PO DAILYBB 10/20/23 10/20/23 History release ranolazine 500 mg tablet,extended 500 mg PO BID 10/20/23 10/20/23 History release,12 hr tramadol 50 mg tablet 50 mg PO TID PRN Pain 10/20/23 10/20/23 History Patient History Medical History (Updated 10/25/23 @ 23:03 by Torrie Lynne DNP) Palliative care by specialist Advanced care planning/counseling discussion Insomnia Weakness generalized Dyspnea and respiratory abnormalities Diabetic neuropathy Depression Anxiety PVD (peripheral vascular disease) CKD (chronic kidney disease), stage III CAD (coronary artery disease) Diabetes HTN (hypertension) Social History Smoking Status: Never smoker Tobacco Type: Cigarettes Hx Alcohol Use: No Hx Substance Use: No Preferred Language: Estonian Communication Ability: Effective Desk Assistant Required: No Beliefs That Will Affect Care: None Current Living Situation: Spouse Feels Safe at Home: Yes Assistive Devices: Hospital Bed and Walker Review of Systems Review of Systems: All systems reviewed & are unremarkable except as noted in Subjective Physical Exam Physical Exam: Elderly female, appears slightly younger than stated age, mild bitemporal wasting, resting in bed semireclined. She is on high flow nasal cannula. Shortness of breath is noted with exertion, conversational dyspnea is noted, there is use of accessory muscles. There is a mostly dry to slightly intermittently bronchitic cough. Lungs with bilateral rhonchi, crackles, and increased effort. There is no overt wheezing noted. Neck is supple. No stridor. No thyromegaly. Heart tones are S1-S2. Mildly tachycardic with prolonged conversation. Abdomen is soft, nontender, bowel sounds are present. Generalized weakness. Strength is symmetrical throughout. There is trace lower extremity edema. There is no clubbing, cyanosis or mottling noted. Skin is pale but warm. She is awake alert and oriented x 3. CAM-ICU delirium screen is negative. Results & Data Vital Signs (Past 12 Hours) Vital Signs Temp Pulse Resp BP Pulse Ox O2 Del Method O2 Flow Rate 10/25/23 11:02 36.5 C 64 21 92/40 L 91 High Flow Nasal Cannula 25 10/25/23 07:08 36.5 C 70 22 144/79 H 98 High Flow Nasal Cannula 30 10/25/23 07:04 68 20 96 High Flow Nasal Cannula 30 10/25/23 03:58 18 90 High Flow Nasal Cannula 30 10/25/23 03:10 37.2 C 67 27 H 114/50 L 92 High Flow Nasal Cannula FiO2 10/25/23 11:02 10/25/23 07:08 10/25/23 07:04 80 10/25/23 03:58 80 10/25/23 03:10 Laboratory Results 10/25/23 10/25/23 10/25/23 Range/Units 21:03 16:14 11:32 WBC (4.8-10.8) K/ul RBC (4.20-5.40) M/uL Hgb (12.0-16.0) g/dl Hct (37.0-47.0) % MCV (80.0-100.0) fL MCH (25.0-34.0) pg MCHC (32.0-36.0) g/dL RDW Std Deviation (36.4-46.3) fL RDW Coeff of Xavi (11.5-14.5) % Plt Count (130-400) K/uL MPV (9.4-12.4) fL Immature Gran % (Auto) % Neut % (Auto) % Lymph % (Auto) % Nye % (Auto) % Eos % (Auto) % Baso % (Auto) % Neut # (Auto) (1.40-6.50) K/uL Lymph # (Auto) (1.20-3.40) K/uL Nye # (Auto) (0.11-0.59) K/uL Eos # (Auto) (0.00-0.50) K/uL Baso # (Auto) (0.00-0.20) K/uL Immature Gran # (Auto) (0.01-0.20) K/uL Polychromasia Echinocytes ESR (0-30) mm/hr PT (9.0-12.0) Seconds INR (0.9-1.1) APTT (21-31) Seconds PTT Ratio D-Dimer (0-500) ug/L FEU ABG pH (7.35-7.45) ABG pCO2 (35-46) mmHg ABG pO2 (80-95) mmHg ABG HCO3 (19-24) mmol/L ABG O2 Saturation (90-95) % ABG Base Excess (-9-1.8) mEq/L Ojrdan Test (Pos) VBG pH (7.36-7.41) VBG pCO2 (38-50) mmHg VBG pO2 mmHg VBG HCO3 mmol/L VBG O2 Saturation % VBG Base Excess mEq/L Oxygen Given Sodium (136-145) mmol/L Potassium (3.5-5.1) mmol/L Chloride (98-107) mmol/L Carbon Dioxide (21-32) mmol/L Anion Gap (3-11) BUN (6-23) mg/dl Creatinine (0.6-1.2) mg/dl Est Cr Clr Drug Dosing ml/min Est GFR ( Amer) ml/min Est GFR (Non-Af Amer) ml/min BUN/Creatinine Ratio (10-20) Glucose (70-99(Fasting)) mg/dl POC Glucose 202 H 78 241 H (70-99) mg/dl Lactate (0.4-2.0) mmol/L Calcium (8.6-10.3) mg/dl Phosphorus (2.5-4.9) mg/dl Magnesium (1.7-2.4) mg/dl Iron (35-150) mcg/dl TIBC (250-450) mcg/dl Unsaturated IBC (155-355) mcg/dl Transferrin % Sat (15-50) % Total Bilirubin (0.2-1.0) mg/dl AST (13-39) U/L ALT (7-52) U/L Alkaline Phosphatase (34-104) U/L Troponin I High Sens (0-14) pg/ml C-Reactive Protein (0-0.5) mg/dl B-Natriuretic Peptide (0-100) pg/ml Total Protein (6.0-8.3) gm/dl Albumin (3.4-5.0) gm/dl Globulin (2.5-4.0) gm/dl Albumin/Globulin Ratio (0.9-2) Lipase (11-82) U/L Vitamin B12 (180-914) pg/ml Folate (>5.38) ng/ml Procalcitonin (0-0.5) ng/ml Urine Color Urine Appearance (Clear) Urine pH (4.5-7.5) Ur Specific [place] (1.000-1.030) Urine Protein (Negative) Urine Glucose (UA) (Negative) Urine Ketones (Negative) Urine Blood (Negative) Urine Nitrite (Negative) Urine Bilirubin (Negative) Urine Urobilinogen (Negative) Ur Leukocyte Esterase (Negative) Urine WBC (Auto) (0-5) /hpf Urine RBC (Auto) (0-2) /hpf U Hyaline Cast (Auto) (0-2) /lpf U Epithel Cells (Auto) (0-2) /hpf Urine Bacteria (Auto) (None Seen) Granular Casts (None Prsent) /lpf Urine Yeast (None Prsent) Nasal Screen MRSA (PCR) (Negative) YEISON Screen Anti-Proteinase 3 Anti-Myeloperoxidase ANCA Glomerular Base Memb Ab Adenovirus (PCR) (NotDetected) B. pertussis DNA (PCR) (NotDetected) B.parapertussis DNA PCR (NotDetected) C. pneumoniae DNA (PCR) (NotDetected) Coronavirus OC43 (PCR) (NotDetected) Coronavirus HKU1 (PCR) (NotDetected) Coronavirus 229E (PCR) (NotDetected) SARS-CoV-2 (PCR) (Negative) Coronavirus NL63 (PCR) (NotDetected) Human Metapneumovir PCR (NotDetected) Influenza Type A (PCR) (Neg) Influenza Type B (PCR) (Neg) Urine Legionella Ag M. pneumoniae (PCR) (NotDetected) Parainfluenza 1 (PCR) (NotDetected) Parainfluenza 2 (PCR) (NotDetected) Parainfluenza 3 (PCR) (NotDetected) Parainfluenza 4 (PCR) (NotDetected) RSV (RT-PCR) (Neg) RSV (PCR) (NotDetected) Entero/Rhino (PCR) (NotDetected) 10/25/23 10/25/23 10/25/23 Range/Units 07:30 05:31 04:08 WBC 27.51 H (4.8-10.8) K/ul RBC 2.74 L (4.20-5.40) M/uL Hgb 8.6 L (12.0-16.0) g/dl Hct 25.5 L (37.0-47.0) % MCV 93.1 (80.0-100.0) fL MCH 31.4 (25.0-34.0) pg MCHC 33.7 (32.0-36.0) g/dL RDW Std Deviation 40.9 (36.4-46.3) fL RDW Coeff of Xavi 12.1 (11.5-14.5) % Plt Count 280 (130-400) K/uL MPV 11.3 (9.4-12.4) fL Immature Gran % (Auto) % Neut % (Auto) % Lymph % (Auto) % Nye % (Auto) % Eos % (Auto) % Baso % (Auto) % Neut # (Auto) (1.40-6.50) K/uL Lymph # (Auto) (1.20-3.40) K/uL Nye # (Auto) (0.11-0.59) K/uL Eos # (Auto) (0.00-0.50) K/uL Baso # (Auto) (0.00-0.20) K/uL Immature Gran # (Auto) (0.01-0.20) K/uL Polychromasia Echinocytes ESR (0-30) mm/hr PT (9.0-12.0) Seconds INR (0.9-1.1) APTT (21-31) Seconds PTT Ratio D-Dimer (0-500) ug/L FEU ABG pH (7.35-7.45) ABG pCO2 (35-46) mmHg ABG pO2 (80-95) mmHg ABG HCO3 (19-24) mmol/L ABG O2 Saturation (90-95) % ABG Base Excess (-9-1.8) mEq/L Jordan Test (Pos) VBG pH (7.36-7.41) VBG pCO2 (38-50) mmHg VBG pO2 mmHg VBG HCO3 mmol/L VBG O2 Saturation % VBG Base Excess mEq/L Oxygen Given Sodium 130 L (136-145) mmol/L Potassium 3.8 (3.5-5.1) mmol/L Chloride 101 (98-107) mmol/L Carbon Dioxide 17 L (21-32) mmol/L Anion Gap 12 H (3-11) BUN 78 H (6-23) mg/dl Creatinine 2.29 H (0.6-1.2) mg/dl Est Cr Clr Drug Dosing 14.5 ml/min Est GFR ( Amer) 22.5 ml/min Est GFR (Non-Af Amer) 19.4 ml/min BUN/Creatinine Ratio 34.1 H (10-20) Glucose 147 H (70-99(Fasting)) mg/dl POC Glucose 144 H 157 H (70-99) mg/dl Lactate (0.4-2.0) mmol/L Calcium 8.7 (8.6-10.3) mg/dl Phosphorus (2.5-4.9) mg/dl Magnesium (1.7-2.4) mg/dl Iron (35-150) mcg/dl TIBC (250-450) mcg/dl Unsaturated IBC (155-355) mcg/dl Transferrin % Sat (15-50) % Total Bilirubin (0.2-1.0) mg/dl AST (13-39) U/L ALT (7-52) U/L Alkaline Phosphatase (34-104) U/L Troponin I High Sens (0-14) pg/ml C-Reactive Protein (0-0.5) mg/dl B-Natriuretic Peptide (0-100) pg/ml Total Protein (6.0-8.3) gm/dl Albumin (3.4-5.0) gm/dl Globulin (2.5-4.0) gm/dl Albumin/Globulin Ratio (0.9-2) Lipase (11-82) U/L Vitamin B12 (180-914) pg/ml Folate (>5.38) ng/ml Procalcitonin (0-0.5) ng/ml Urine Color Urine Appearance (Clear) Urine pH (4.5-7.5) Ur Specific [place] (1.000-1.030) Urine Protein (Negative) Urine Glucose (UA) (Negative) Urine Ketones (Negative) Urine Blood (Negative) Urine Nitrite (Negative) Urine Bilirubin (Negative) Urine Urobilinogen (Negative) Ur Leukocyte Esterase (Negative) Urine WBC (Auto) (0-5) /hpf Urine RBC (Auto) (0-2) /hpf U Hyaline Cast (Auto) (0-2) /lpf U Epithel Cells (Auto) (0-2) /hpf Urine Bacteria (Auto) (None Seen) Granular Casts (None Prsent) /lpf Urine Yeast (None Prsent) Nasal Screen MRSA (PCR) (Negative) YEISON Screen Anti-Proteinase 3 Anti-Myeloperoxidase ANCA Glomerular Base Memb Ab Adenovirus (PCR) (NotDetected) B. pertussis DNA (PCR) (NotDetected) B.parapertussis DNA PCR (NotDetected) C. pneumoniae DNA (PCR) (NotDetected) Coronavirus OC43 (PCR) (NotDetected) Coronavirus HKU1 (PCR) (NotDetected) Coronavirus 229E (PCR) (NotDetected) SARS-CoV-2 (PCR) (Negative) Coronavirus NL63 (PCR) (NotDetected) Human Metapneumovir PCR (NotDetected) Influenza Type A (PCR) (Neg) Influenza Type B (PCR) (Neg) Urine Legionella Ag M. pneumoniae (PCR) (NotDetected) Parainfluenza 1 (PCR) (NotDetected) Parainfluenza 2 (PCR) (NotDetected) Parainfluenza 3 (PCR) (NotDetected) Parainfluenza 4 (PCR) (NotDetected) RSV (RT-PCR) (Neg) RSV (PCR) (NotDetected) Entero/Rhino (PCR) (NotDetected) 10/25/23 10/24/23 10/24/23 Range/Units 00:07 Unknown 19:57 WBC (4.8-10.8) K/ul RBC (4.20-5.40) M/uL Hgb (12.0-16.0) g/dl Hct (37.0-47.0) % MCV (80.0-100.0) fL MCH (25.0-34.0) pg MCHC (32.0-36.0) g/dL RDW Std Deviation (36.4-46.3) fL RDW Coeff of Xavi (11.5-14.5) % Plt Count (130-400) K/uL MPV (9.4-12.4) fL Immature Gran % (Auto) % Neut % (Auto) % Lymph % (Auto) % Nye % (Auto) % Eos % (Auto) % Baso % (Auto) % Neut # (Auto) (1.40-6.50) K/uL Lymph # (Auto) (1.20-3.40) K/uL Nye # (Auto) (0.11-0.59) K/uL Eos # (Auto) (0.00-0.50) K/uL Baso # (Auto) (0.00-0.20) K/uL Immature Gran # (Auto) (0.01-0.20) K/uL Polychromasia Echinocytes ESR (0-30) mm/hr PT (9.0-12.0) Seconds INR (0.9-1.1) APTT (21-31) Seconds PTT Ratio D-Dimer (0-500) ug/L FEU ABG pH (7.35-7.45) ABG pCO2 (35-46) mmHg ABG pO2 (80-95) mmHg ABG HCO3 (19-24) mmol/L ABG O2 Saturation (90-95) % ABG Base Excess (-9-1.8) mEq/L Jordan Test (Pos) VBG pH (7.36-7.41) VBG pCO2 (38-50) mmHg VBG pO2 mmHg VBG HCO3 mmol/L VBG O2 Saturation % VBG Base Excess mEq/L Oxygen Given Sodium (136-145) mmol/L Potassium (3.5-5.1) mmol/L Chloride (98-107) mmol/L Carbon Dioxide (21-32) mmol/L Anion Gap (3-11) BUN (6-23) mg/dl Creatinine (0.6-1.2) mg/dl Est Cr Clr Drug Dosing ml/min Est GFR ( Amer) ml/min Est GFR (Non-Af Amer) ml/min BUN/Creatinine Ratio (10-20) Glucose (70-99(Fasting)) mg/dl POC Glucose 262 H 246 H (70-99) mg/dl Lactate (0.4-2.0) mmol/L Calcium (8.6-10.3) mg/dl Phosphorus (2.5-4.9) mg/dl Magnesium (1.7-2.4) mg/dl Iron (35-150) mcg/dl TIBC (250-450) mcg/dl Unsaturated IBC (155-355) mcg/dl Transferrin % Sat (15-50) % Total Bilirubin (0.2-1.0) mg/dl AST (13-39) U/L ALT (7-52) U/L Alkaline Phosphatase (34-104) U/L Troponin I High Sens (0-14) pg/ml C-Reactive Protein (0-0.5) mg/dl B-Natriuretic Peptide (0-100) pg/ml Total Protein (6.0-8.3) gm/dl Albumin (3.4-5.0) gm/dl Globulin (2.5-4.0) gm/dl Albumin/Globulin Ratio (0.9-2) Lipase (11-82) U/L Vitamin B12 (180-914) pg/ml Folate (>5.38) ng/ml Procalcitonin (0-0.5) ng/ml Urine Color Yellow Urine Appearance Cloudy A (Clear) Urine pH 5.5 (4.5-7.5) Ur Specific [place] 1.016 (1.000-1.030) Urine Protein 1+ H (Negative) Urine Glucose (UA) Negative (Negative) Urine Ketones Negative (Negative) Urine Blood Negative (Negative) Urine Nitrite Negative (Negative) Urine Bilirubin Negative (Negative) Urine Urobilinogen Negative (Negative) Ur Leukocyte Esterase 2+ H (Negative) Urine WBC (Auto) 21-50 H (0-5) /hpf Urine RBC (Auto) >20 H (0-2) /hpf U Hyaline Cast (Auto) 3-5 H (0-2) /lpf U Epithel Cells (Auto) 6-10 H (0-2) /hpf Urine Bacteria (Auto) None Seen (None Seen) Granular Casts Present A (None Prsent) /lpf Urine Yeast Present A (None Prsent) Nasal Screen MRSA (PCR) (Negative) YEISON Screen Anti-Proteinase 3 Anti-Myeloperoxidase ANCA Glomerular Base Memb Ab Adenovirus (PCR) (NotDetected) B. pertussis DNA (PCR) (NotDetected) B.parapertussis DNA PCR (NotDetected) C. pneumoniae DNA (PCR) (NotDetected) Coronavirus OC43 (PCR) (NotDetected) Coronavirus HKU1 (PCR) (NotDetected) Coronavirus 229E (PCR) (NotDetected) SARS-CoV-2 (PCR) (Negative) Coronavirus NL63 (PCR) (NotDetected) Human Metapneumovir PCR (NotDetected) Influenza Type A (PCR) (Neg) Influenza Type B (PCR) (Neg) Urine Legionella Ag M. pneumoniae (PCR) (NotDetected) Parainfluenza 1 (PCR) (NotDetected) Parainfluenza 2 (PCR) (NotDetected) Parainfluenza 3 (PCR) (NotDetected) Parainfluenza 4 (PCR) (NotDetected) RSV (RT-PCR) (Neg) RSV (PCR) (NotDetected) Entero/Rhino (PCR) (NotDetected) 10/24/23 10/24/23 10/24/23 Range/Units 16:17 11:27 11:25 WBC (4.8-10.8) K/ul RBC (4.20-5.40) M/uL Hgb (12.0-16.0) g/dl Hct (37.0-47.0) % MCV (80.0-100.0) fL MCH (25.0-34.0) pg MCHC (32.0-36.0) g/dL RDW Std Deviation (36.4-46.3) fL RDW Coeff of Xavi (11.5-14.5) % Plt Count (130-400) K/uL MPV (9.4-12.4) fL Immature Gran % (Auto) % Neut % (Auto) % Lymph % (Auto) % Nye % (Auto) % Eos % (Auto) % Baso % (Auto) % Neut # (Auto) (1.40-6.50) K/uL Lymph # (Auto) (1.20-3.40) K/uL Nye # (Auto) (0.11-0.59) K/uL Eos # (Auto) (0.00-0.50) K/uL Baso # (Auto) (0.00-0.20) K/uL Immature Gran # (Auto) (0.01-0.20) K/uL Polychromasia Echinocytes ESR (0-30) mm/hr PT (9.0-12.0) Seconds INR (0.9-1.1) APTT (21-31) Seconds PTT Ratio D-Dimer (0-500) ug/L FEU ABG pH (7.35-7.45) ABG pCO2 (35-46) mmHg ABG pO2 (80-95) mmHg ABG HCO3 (19-24) mmol/L ABG O2 Saturation (90-95) % ABG Base Excess (-9-1.8) mEq/L Jordan Test (Pos) VBG pH (7.36-7.41) VBG pCO2 (38-50) mmHg VBG pO2 mmHg VBG HCO3 mmol/L VBG O2 Saturation % VBG Base Excess mEq/L Oxygen Given Sodium (136-145) mmol/L Potassium (3.5-5.1) mmol/L Chloride (98-107) mmol/L Carbon Dioxide (21-32) mmol/L Anion Gap (3-11) BUN (6-23) mg/dl Creatinine (0.6-1.2) mg/dl Est Cr Clr Drug Dosing ml/min Est GFR ( Amer) ml/min Est GFR (Non-Af Amer) ml/min BUN/Creatinine Ratio (10-20) Glucose (70-99(Fasting)) mg/dl POC Glucose 223 H 313 H* 319 H* (70-99) mg/dl Lactate (0.4-2.0) mmol/L Calcium (8.6-10.3) mg/dl Phosphorus (2.5-4.9) mg/dl Magnesium (1.7-2.4) mg/dl Iron (35-150) mcg/dl TIBC (250-450) mcg/dl Unsaturated IBC (155-355) mcg/dl Transferrin % Sat (15-50) % Total Bilirubin (0.2-1.0) mg/dl AST (13-39) U/L ALT (7-52) U/L Alkaline Phosphatase (34-104) U/L Troponin I High Sens (0-14) pg/ml C-Reactive Protein (0-0.5) mg/dl B-Natriuretic Peptide (0-100) pg/ml Total Protein (6.0-8.3) gm/dl Albumin (3.4-5.0) gm/dl Globulin (2.5-4.0) gm/dl Albumin/Globulin Ratio (0.9-2) Lipase (11-82) U/L Vitamin B12 (180-914) pg/ml Folate (>5.38) ng/ml Procalcitonin (0-0.5) ng/ml Urine Color Urine Appearance (Clear) Urine pH (4.5-7.5) Ur Specific [place] (1.000-1.030) Urine Protein (Negative) Urine Glucose (UA) (Negative) Urine Ketones (Negative) Urine Blood (Negative) Urine Nitrite (Negative) Urine Bilirubin (Negative) Urine Urobilinogen (Negative) Ur Leukocyte Esterase (Negative) Urine WBC (Auto) (0-5) /hpf Urine RBC (Auto) (0-2) /hpf U Hyaline Cast (Auto) (0-2) /lpf U Epithel Cells (Auto) (0-2) /hpf Urine Bacteria (Auto) (None Seen) Granular Casts (None Prsent) /lpf Urine Yeast (None Prsent) Nasal Screen MRSA (PCR) (Negative) YEISON Screen Anti-Proteinase 3 Anti-Myeloperoxidase ANCA Glomerular Base Memb Ab Adenovirus (PCR) (NotDetected) B. pertussis DNA (PCR) (NotDetected) B.parapertussis DNA PCR (NotDetected) C. pneumoniae DNA (PCR) (NotDetected) Coronavirus OC43 (PCR) (NotDetected) Coronavirus HKU1 (PCR) (NotDetected) Coronavirus 229E (PCR) (NotDetected) SARS-CoV-2 (PCR) (Negative) Coronavirus NL63 (PCR) (NotDetected) Human Metapneumovir PCR (NotDetected) Influenza Type A (PCR) (Neg) Influenza Type B (PCR) (Neg) Urine Legionella Ag M. pneumoniae (PCR) (NotDetected) Parainfluenza 1 (PCR) (NotDetected) Parainfluenza 2 (PCR) (NotDetected) Parainfluenza 3 (PCR) (NotDetected) Parainfluenza 4 (PCR) (NotDetected) RSV (RT-PCR) (Neg) RSV (PCR) (NotDetected) Entero/Rhino (PCR) (NotDetected) 10/24/23 10/24/23 10/23/23 Range/Units 07:37 05:37 20:13 WBC 21.51 H (4.8-10.8) K/ul RBC 2.78 L (4.20-5.40) M/uL Hgb 8.7 L (12.0-16.0) g/dl Hct 26.3 L (37.0-47.0) % MCV 94.6 (80.0-100.0) fL MCH 31.3 (25.0-34.0) pg MCHC 33.1 (32.0-36.0) g/dL RDW Std Deviation 43.8 (36.4-46.3) fL RDW Coeff of Xavi 12.6 (11.5-14.5) % Plt Count 246 (130-400) K/uL MPV 11.1 (9.4-12.4) fL Immature Gran % (Auto) 1.2 % Neut % (Auto) 94.9 % Lymph % (Auto) 2.3 % Nye % (Auto) 1.4 % Eos % (Auto) 0.0 % Baso % (Auto) 0.2 % Neut # (Auto) 20.39 H (1.40-6.50) K/uL Lymph # (Auto) 0.50 L (1.20-3.40) K/uL Nye # (Auto) 0.31 (0.11-0.59) K/uL Eos # (Auto) 0.00 (0.00-0.50) K/uL Baso # (Auto) 0.05 (0.00-0.20) K/uL Immature Gran # (Auto) 0.26 H (0.01-0.20) K/uL Polychromasia Echinocytes 2+ ESR (0-30) mm/hr PT (9.0-12.0) Seconds INR (0.9-1.1) APTT (21-31) Seconds PTT Ratio D-Dimer (0-500) ug/L FEU ABG pH (7.35-7.45) ABG pCO2 (35-46) mmHg ABG pO2 (80-95) mmHg ABG HCO3 (19-24) mmol/L ABG O2 Saturation (90-95) % ABG Base Excess (-9-1.8) mEq/L Jordan Test (Pos) VBG pH (7.36-7.41) VBG pCO2 (38-50) mmHg VBG pO2 mmHg VBG HCO3 mmol/L VBG O2 Saturation % VBG Base Excess mEq/L Oxygen Given Sodium 131 L (136-145) mmol/L Potassium 3.7 (3.5-5.1) mmol/L Chloride 103 (98-107) mmol/L Carbon Dioxide 19 L (21-32) mmol/L Anion Gap 9 (3-11) BUN 63 H (6-23) mg/dl Creatinine 2.17 H (0.6-1.2) mg/dl Est Cr Clr Drug Dosing 15.3 ml/min Est GFR ( Amer) 24.0 ml/min Est GFR (Non-Af Amer) 20.7 ml/min BUN/Creatinine Ratio 29.0 H (10-20) Glucose 248 H (70-99(Fasting)) mg/dl POC Glucose 243 H 299 H (70-99) mg/dl Lactate (0.4-2.0) mmol/L Calcium 8.3 L (8.6-10.3) mg/dl Phosphorus 5.1 H (2.5-4.9) mg/dl Magnesium 2.0 (1.7-2.4) mg/dl Iron (35-150) mcg/dl TIBC (250-450) mcg/dl Unsaturated IBC (155-355) mcg/dl Transferrin % Sat (15-50) % Total Bilirubin 0.4 (0.2-1.0) mg/dl AST 45 H (13-39) U/L ALT 31 (7-52) U/L Alkaline Phosphatase 128 H (34-104) U/L Troponin I High Sens (0-14) pg/ml C-Reactive Protein 27.70 H (0-0.5) mg/dl B-Natriuretic Peptide 525 H (0-100) pg/ml Total Protein 5.8 L (6.0-8.3) gm/dl Albumin 2.3 L (3.4-5.0) gm/dl Globulin 3.5 (2.5-4.0) gm/dl Albumin/Globulin Ratio 0.7 L (0.9-2) Lipase (11-82) U/L Vitamin B12 (180-914) pg/ml Folate (>5.38) ng/ml Procalcitonin (0-0.5) ng/ml Urine Color Urine Appearance (Clear) Urine pH (4.5-7.5) Ur Specific [place] (1.000-1.030) Urine Protein (Negative) Urine Glucose (UA) (Negative) Urine Ketones (Negative) Urine Blood (Negative) Urine Nitrite (Negative) Urine Bilirubin (Negative) Urine Urobilinogen (Negative) Ur Leukocyte Esterase (Negative) Urine WBC (Auto) (0-5) /hpf Urine RBC (Auto) (0-2) /hpf U Hyaline Cast (Auto) (0-2) /lpf U Epithel Cells (Auto) (0-2) /hpf Urine Bacteria (Auto) (None Seen) Granular Casts (None Prsent) /lpf Urine Yeast (None Prsent) Nasal Screen MRSA (PCR) (Negative) YEISON Screen Anti-Proteinase 3 Anti-Myeloperoxidase ANCA Glomerular Base Memb Ab Adenovirus (PCR) (NotDetected) B. pertussis DNA (PCR) (NotDetected) B.parapertussis DNA PCR (NotDetected) C. pneumoniae DNA (PCR) (NotDetected) Coronavirus OC43 (PCR) (NotDetected) Coronavirus HKU1 (PCR) (NotDetected) Coronavirus 229E (PCR) (NotDetected) SARS-CoV-2 (PCR) (Negative) Coronavirus NL63 (PCR) (NotDetected) Human Metapneumovir PCR (NotDetected) Influenza Type A (PCR) (Neg) Influenza Type B (PCR) (Neg) Urine Legionella Ag M. pneumoniae (PCR) (NotDetected) Parainfluenza 1 (PCR) (NotDetected) Parainfluenza 2 (PCR) (NotDetected) Parainfluenza 3 (PCR) (NotDetected) Parainfluenza 4 (PCR) (NotDetected) RSV (RT-PCR) (Neg) RSV (PCR) (NotDetected) Entero/Rhino (PCR) (NotDetected) 10/23/23 10/23/23 10/23/23 Range/Units 16:22 12:33 11:13 WBC (4.8-10.8) K/ul RBC (4.20-5.40) M/uL Hgb (12.0-16.0) g/dl Hct (37.0-47.0) % MCV (80.0-100.0) fL MCH (25.0-34.0) pg MCHC (32.0-36.0) g/dL RDW Std Deviation (36.4-46.3) fL RDW Coeff of Xavi (11.5-14.5) % Plt Count (130-400) K/uL MPV (9.4-12.4) fL Immature Gran % (Auto) % Neut % (Auto) % Lymph % (Auto) % Nye % (Auto) % Eos % (Auto) % Baso % (Auto) % Neut # (Auto) (1.40-6.50) K/uL Lymph # (Auto) (1.20-3.40) K/uL Nye # (Auto) (0.11-0.59) K/uL Eos # (Auto) (0.00-0.50) K/uL Baso # (Auto) (0.00-0.20) K/uL Immature Gran # (Auto) (0.01-0.20) K/uL Polychromasia Echinocytes ESR 74 H (0-30) mm/hr PT (9.0-12.0) Seconds INR (0.9-1.1) APTT (21-31) Seconds PTT Ratio D-Dimer (0-500) ug/L FEU ABG pH (7.35-7.45) ABG pCO2 (35-46) mmHg ABG pO2 (80-95) mmHg ABG HCO3 (19-24) mmol/L ABG O2 Saturation (90-95) % ABG Base Excess (-9-1.8) mEq/L Jordan Test (Pos) VBG pH (7.36-7.41) VBG pCO2 (38-50) mmHg VBG pO2 mmHg VBG HCO3 mmol/L VBG O2 Saturation % VBG Base Excess mEq/L Oxygen Given Sodium (136-145) mmol/L Potassium (3.5-5.1) mmol/L Chloride (98-107) mmol/L Carbon Dioxide (21-32) mmol/L Anion Gap (3-11) BUN (6-23) mg/dl Creatinine (0.6-1.2) mg/dl Est Cr Clr Drug Dosing ml/min Est GFR ( Amer) ml/min Est GFR (Non-Af Amer) ml/min BUN/Creatinine Ratio (10-20) Glucose (70-99(Fasting)) mg/dl POC Glucose 129 H 114 H (70-99) mg/dl Lactate (0.4-2.0) mmol/L Calcium (8.6-10.3) mg/dl Phosphorus (2.5-4.9) mg/dl Magnesium (1.7-2.4) mg/dl Iron (35-150) mcg/dl TIBC (250-450) mcg/dl Unsaturated IBC (155-355) mcg/dl Transferrin % Sat (15-50) % Total Bilirubin (0.2-1.0) mg/dl AST (13-39) U/L ALT (7-52) U/L Alkaline Phosphatase (34-104) U/L Troponin I High Sens (0-14) pg/ml C-Reactive Protein 32.81 H (0-0.5) mg/dl B-Natriuretic Peptide (0-100) pg/ml Total Protein (6.0-8.3) gm/dl Albumin (3.4-5.0) gm/dl Globulin (2.5-4.0) gm/dl Albumin/Globulin Ratio (0.9-2) Lipase (11-82) U/L Vitamin B12 (180-914) pg/ml Folate (>5.38) ng/ml Procalcitonin (0-0.5) ng/ml Urine Color Urine Appearance (Clear) Urine pH (4.5-7.5) Ur Specific [place] (1.000-1.030) Urine Protein (Negative) Urine Glucose (UA) (Negative) Urine Ketones (Negative) Urine Blood (Negative) Urine Nitrite (Negative) Urine Bilirubin (Negative) Urine Urobilinogen (Negative) Ur Leukocyte Esterase (Negative) Urine WBC (Auto) (0-5) /hpf Urine RBC (Auto) (0-2) /hpf U Hyaline Cast (Auto) (0-2) /lpf U Epithel Cells (Auto) (0-2) /hpf Urine Bacteria (Auto) (None Seen) Granular Casts (None Prsent) /lpf Urine Yeast (None Prsent) Nasal Screen MRSA (PCR) (Negative) YEISON Screen Pending Anti-Proteinase 3 Pending Anti-Myeloperoxidase Pending ANCA Pending Glomerular Base Memb Ab Pending Adenovirus (PCR) (NotDetected) B. pertussis DNA (PCR) (NotDetected) B.parapertussis DNA PCR (NotDetected) C. pneumoniae DNA (PCR) (NotDetected) Coronavirus OC43 (PCR) (NotDetected) Coronavirus HKU1 (PCR) (NotDetected) Coronavirus 229E (PCR) (NotDetected) SARS-CoV-2 (PCR) (Negative) Coronavirus NL63 (PCR) (NotDetected) Human Metapneumovir PCR (NotDetected) Influenza Type A (PCR) (Neg) Influenza Type B (PCR) (Neg) Urine Legionella Ag M. pneumoniae (PCR) (NotDetected) Parainfluenza 1 (PCR) (NotDetected) Parainfluenza 2 (PCR) (NotDetected) Parainfluenza 3 (PCR) (NotDetected) Parainfluenza 4 (PCR) (NotDetected) RSV (RT-PCR) (Neg) RSV (PCR) (NotDetected) Entero/Rhino (PCR) (NotDetected) 10/23/23 10/23/23 10/22/23 Range/Units 07:29 05:39 19:56 WBC 19.57 H (4.8-10.8) K/ul RBC 2.98 L (4.20-5.40) M/uL Hgb 9.4 L (12.0-16.0) g/dl Hct 27.8 L (37.0-47.0) % MCV 93.3 (80.0-100.0) fL MCH 31.5 (25.0-34.0) pg MCHC 33.8 (32.0-36.0) g/dL RDW Std Deviation 43.3 (36.4-46.3) fL RDW Coeff of Xavi 12.7 (11.5-14.5) % Plt Count 263 (130-400) K/uL MPV 11.1 (9.4-12.4) fL Immature Gran % (Auto) 0.7 % Neut % (Auto) 89.5 % Lymph % (Auto) 5.6 % Nye % (Auto) 3.0 % Eos % (Auto) 0.9 % Baso % (Auto) 0.3 % Neut # (Auto) 17.52 H (1.40-6.50) K/uL Lymph # (Auto) 1.10 L (1.20-3.40) K/uL Nye # (Auto) 0.59 (0.11-0.59) K/uL Eos # (Auto) 0.17 (0.00-0.50) K/uL Baso # (Auto) 0.05 (0.00-0.20) K/uL Immature Gran # (Auto) 0.14 (0.01-0.20) K/uL Polychromasia Echinocytes ESR (0-30) mm/hr PT (9.0-12.0) Seconds INR (0.9-1.1) APTT (21-31) Seconds PTT Ratio D-Dimer (0-500) ug/L FEU ABG pH (7.35-7.45) ABG pCO2 (35-46) mmHg ABG pO2 (80-95) mmHg ABG HCO3 (19-24) mmol/L ABG O2 Saturation (90-95) % ABG Base Excess (-9-1.8) mEq/L Jordan Test (Pos) VBG pH (7.36-7.41) VBG pCO2 (38-50) mmHg VBG pO2 mmHg VBG HCO3 mmol/L VBG O2 Saturation % VBG Base Excess mEq/L Oxygen Given Sodium 138 (136-145) mmol/L Potassium 3.8 (3.5-5.1) mmol/L Chloride 108 H (98-107) mmol/L Carbon Dioxide 21 (21-32) mmol/L Anion Gap 9 (3-11) BUN 50 H (6-23) mg/dl Creatinine 1.99 H (0.6-1.2) mg/dl Est Cr Clr Drug Dosing 16.7 ml/min Est GFR ( Amer) 26.6 ml/min Est GFR (Non-Af Amer) 23.0 ml/min BUN/Creatinine Ratio 25.1 H (10-20) Glucose 148 H (70-99(Fasting)) mg/dl POC Glucose 164 H 182 H (70-99) mg/dl Lactate (0.4-2.0) mmol/L Calcium 8.8 (8.6-10.3) mg/dl Phosphorus 4.5 (2.5-4.9) mg/dl Magnesium 2.1 (1.7-2.4) mg/dl Iron (35-150) mcg/dl TIBC (250-450) mcg/dl Unsaturated IBC (155-355) mcg/dl Transferrin % Sat (15-50) % Total Bilirubin (0.2-1.0) mg/dl AST (13-39) U/L ALT (7-52) U/L Alkaline Phosphatase (34-104) U/L Troponin I High Sens (0-14) pg/ml C-Reactive Protein (0-0.5) mg/dl B-Natriuretic Peptide (0-100) pg/ml Total Protein (6.0-8.3) gm/dl Albumin (3.4-5.0) gm/dl Globulin (2.5-4.0) gm/dl Albumin/Globulin Ratio (0.9-2) Lipase (11-82) U/L Vitamin B12 (180-914) pg/ml Folate (>5.38) ng/ml Procalcitonin 0.42 (0-0.5) ng/ml Urine Color Urine Appearance (Clear) Urine pH (4.5-7.5) Ur Specific [place] (1.000-1.030) Urine Protein (Negative) Urine Glucose (UA) (Negative) Urine Ketones (Negative) Urine Blood (Negative) Urine Nitrite (Negative) Urine Bilirubin (Negative) Urine Urobilinogen (Negative) Ur Leukocyte Esterase (Negative) Urine WBC (Auto) (0-5) /hpf Urine RBC (Auto) (0-2) /hpf U Hyaline Cast (Auto) (0-2) /lpf U Epithel Cells (Auto) (0-2) /hpf Urine Bacteria (Auto) (None Seen) Granular Casts (None Prsent) /lpf Urine Yeast (None Prsent) Nasal Screen MRSA (PCR) (Negative) YEISON Screen Anti-Proteinase 3 Anti-Myeloperoxidase ANCA Glomerular Base Memb Ab Adenovirus (PCR) (NotDetected) B. pertussis DNA (PCR) (NotDetected) B.parapertussis DNA PCR (NotDetected) C. pneumoniae DNA (PCR) (NotDetected) Coronavirus OC43 (PCR) (NotDetected) Coronavirus HKU1 (PCR) (NotDetected) Coronavirus 229E (PCR) (NotDetected) SARS-CoV-2 (PCR) (Negative) Coronavirus NL63 (PCR) (NotDetected) Human Metapneumovir PCR (NotDetected) Influenza Type A (PCR) (Neg) Influenza Type B (PCR) (Neg) Urine Legionella Ag M. pneumoniae (PCR) (NotDetected) Parainfluenza 1 (PCR) (NotDetected) Parainfluenza 2 (PCR) (NotDetected) Parainfluenza 3 (PCR) (NotDetected) Parainfluenza 4 (PCR) (NotDetected) RSV (RT-PCR) (Neg) RSV (PCR) (NotDetected) Entero/Rhino (PCR) (NotDetected) 10/22/23 10/22/23 10/22/23 Range/Units 08:50 07:11 06:23 WBC 22.46 H (4.8-10.8) K/ul RBC 2.71 L (4.20-5.40) M/uL Hgb 8.7 L (12.0-16.0) g/dl Hct 25.6 L (37.0-47.0) % MCV 94.5 (80.0-100.0) fL MCH 32.1 (25.0-34.0) pg MCHC 34.0 (32.0-36.0) g/dL RDW Std Deviation 43.5 (36.4-46.3) fL RDW Coeff of Xavi 12.6 (11.5-14.5) % Plt Count 241 (130-400) K/uL MPV 10.9 (9.4-12.4) fL Immature Gran % (Auto) 1.0 % Neut % (Auto) 90.6 % Lymph % (Auto) 4.3 % Nye % (Auto) 3.2 % Eos % (Auto) 0.6 % Baso % (Auto) 0.3 % Neut # (Auto) 20.36 H (1.40-6.50) K/uL Lymph # (Auto) 0.96 L (1.20-3.40) K/uL Nye # (Auto) 0.71 H (0.11-0.59) K/uL Eos # (Auto) 0.14 (0.00-0.50) K/uL Baso # (Auto) 0.07 (0.00-0.20) K/uL Immature Gran # (Auto) 0.22 H (0.01-0.20) K/uL Polychromasia 1+ Echinocytes 2+ ESR (0-30) mm/hr PT (9.0-12.0) Seconds INR (0.9-1.1) APTT (21-31) Seconds PTT Ratio D-Dimer (0-500) ug/L FEU ABG pH (7.35-7.45) ABG pCO2 (35-46) mmHg ABG pO2 (80-95) mmHg ABG HCO3 (19-24) mmol/L ABG O2 Saturation (90-95) % ABG Base Excess (-9-1.8) mEq/L Jordan Test (Pos) VBG pH (7.36-7.41) VBG pCO2 (38-50) mmHg VBG pO2 mmHg VBG HCO3 mmol/L VBG O2 Saturation % VBG Base Excess mEq/L Oxygen Given Sodium 136 (136-145) mmol/L Potassium 3.9 D (3.5-5.1) mmol/L Chloride 106 (98-107) mmol/L Carbon Dioxide 20 L (21-32) mmol/L Anion Gap 10 (3-11) BUN 41 H (6-23) mg/dl Creatinine 1.97 H D (0.6-1.2) mg/dl Est Cr Clr Drug Dosing 16.9 ml/min Est GFR ( Amer) 27.0 ml/min Est GFR (Non-Af Amer) 23.3 ml/min BUN/Creatinine Ratio 20.8 H (10-20) Glucose 103 H (70-99(Fasting)) mg/dl POC Glucose 105 H (70-99) mg/dl Lactate (0.4-2.0) mmol/L Calcium 8.4 L (8.6-10.3) mg/dl Phosphorus 4.3 (2.5-4.9) mg/dl Magnesium 2.0 (1.7-2.4) mg/dl Iron (35-150) mcg/dl TIBC (250-450) mcg/dl Unsaturated IBC (155-355) mcg/dl Transferrin % Sat (15-50) % Total Bilirubin (0.2-1.0) mg/dl AST (13-39) U/L ALT (7-52) U/L Alkaline Phosphatase (34-104) U/L Troponin I High Sens (0-14) pg/ml C-Reactive Protein (0-0.5) mg/dl B-Natriuretic Peptide (0-100) pg/ml Total Protein (6.0-8.3) gm/dl Albumin (3.4-5.0) gm/dl Globulin (2.5-4.0) gm/dl Albumin/Globulin Ratio (0.9-2) Lipase (11-82) U/L Vitamin B12 (180-914) pg/ml Folate (>5.38) ng/ml Procalcitonin (0-0.5) ng/ml Urine Color Urine Appearance (Clear) Urine pH (4.5-7.5) Ur Specific [place] (1.000-1.030) Urine Protein (Negative) Urine Glucose (UA) (Negative) Urine Ketones (Negative) Urine Blood (Negative) Urine Nitrite (Negative) Urine Bilirubin (Negative) Urine Urobilinogen (Negative) Ur Leukocyte Esterase (Negative) Urine WBC (Auto) (0-5) /hpf Urine RBC (Auto) (0-2) /hpf U Hyaline Cast (Auto) (0-2) /lpf U Epithel Cells (Auto) (0-2) /hpf Urine Bacteria (Auto) (None Seen) Granular Casts (None Prsent) /lpf Urine Yeast (None Prsent) Nasal Screen MRSA (PCR) (Negative) YEISON Screen Anti-Proteinase 3 Anti-Myeloperoxidase ANCA Glomerular Base Memb Ab Adenovirus (PCR) (NotDetected) B. pertussis DNA (PCR) (NotDetected) B.parapertussis DNA PCR (NotDetected) C. pneumoniae DNA (PCR) (NotDetected) Coronavirus OC43 (PCR) (NotDetected) Coronavirus HKU1 (PCR) (NotDetected) Coronavirus 229E (PCR) (NotDetected) SARS-CoV-2 (PCR) (Negative) Coronavirus NL63 (PCR) (NotDetected) Human Metapneumovir PCR (NotDetected) Influenza Type A (PCR) (Neg) Influenza Type B (PCR) (Neg) Urine Legionella Ag SEE NOTE M. pneumoniae (PCR) (NotDetected) Parainfluenza 1 (PCR) (NotDetected) Parainfluenza 2 (PCR) (NotDetected) Parainfluenza 3 (PCR) (NotDetected) Parainfluenza 4 (PCR) (NotDetected) RSV (RT-PCR) (Neg) RSV (PCR) (NotDetected) Entero/Rhino (PCR) (NotDetected) 10/21/23 10/21/23 10/21/23 Range/Units 20:12 16:58 16:29 WBC (4.8-10.8) K/ul RBC (4.20-5.40) M/uL Hgb (12.0-16.0) g/dl Hct (37.0-47.0) % MCV (80.0-100.0) fL MCH (25.0-34.0) pg MCHC (32.0-36.0) g/dL RDW Std Deviation (36.4-46.3) fL RDW Coeff of Xavi (11.5-14.5) % Plt Count (130-400) K/uL MPV (9.4-12.4) fL Immature Gran % (Auto) % Neut % (Auto) % Lymph % (Auto) % Nye % (Auto) % Eos % (Auto) % Baso % (Auto) % Neut # (Auto) (1.40-6.50) K/uL Lymph # (Auto) (1.20-3.40) K/uL Nye # (Auto) (0.11-0.59) K/uL Eos # (Auto) (0.00-0.50) K/uL Baso # (Auto) (0.00-0.20) K/uL Immature Gran # (Auto) (0.01-0.20) K/uL Polychromasia Echinocytes ESR (0-30) mm/hr PT (9.0-12.0) Seconds INR (0.9-1.1) APTT (21-31) Seconds PTT Ratio D-Dimer (0-500) ug/L FEU ABG pH (7.35-7.45) ABG pCO2 (35-46) mmHg ABG pO2 (80-95) mmHg ABG HCO3 (19-24) mmol/L ABG O2 Saturation (90-95) % ABG Base Excess (-9-1.8) mEq/L Jordan Test (Pos) VBG pH (7.36-7.41) VBG pCO2 (38-50) mmHg VBG pO2 mmHg VBG HCO3 mmol/L VBG O2 Saturation % VBG Base Excess mEq/L Oxygen Given Sodium (136-145) mmol/L Potassium (3.5-5.1) mmol/L Chloride (98-107) mmol/L Carbon Dioxide (21-32) mmol/L Anion Gap (3-11) BUN (6-23) mg/dl Creatinine (0.6-1.2) mg/dl Est Cr Clr Drug Dosing ml/min Est GFR ( Amer) ml/min Est GFR (Non-Af Amer) ml/min BUN/Creatinine Ratio (10-20) Glucose (70-99(Fasting)) mg/dl POC Glucose 138 H 116 H (70-99) mg/dl Lactate (0.4-2.0) mmol/L Calcium (8.6-10.3) mg/dl Phosphorus (2.5-4.9) mg/dl Magnesium (1.7-2.4) mg/dl Iron (35-150) mcg/dl TIBC (250-450) mcg/dl Unsaturated IBC (155-355) mcg/dl Transferrin % Sat (15-50) % Total Bilirubin (0.2-1.0) mg/dl AST (13-39) U/L ALT (7-52) U/L Alkaline Phosphatase (34-104) U/L Troponin I High Sens 54.2 H* (0-14) pg/ml C-Reactive Protein (0-0.5) mg/dl B-Natriuretic Peptide (0-100) pg/ml Total Protein (6.0-8.3) gm/dl Albumin (3.4-5.0) gm/dl Globulin (2.5-4.0) gm/dl Albumin/Globulin Ratio (0.9-2) Lipase (11-82) U/L Vitamin B12 (180-914) pg/ml Folate (>5.38) ng/ml Procalcitonin (0-0.5) ng/ml Urine Color Urine Appearance (Clear) Urine pH (4.5-7.5) Ur Specific [place] (1.000-1.030) Urine Protein (Negative) Urine Glucose (UA) (Negative) Urine Ketones (Negative) Urine Blood (Negative) Urine Nitrite (Negative) Urine Bilirubin (Negative) Urine Urobilinogen (Negative) Ur Leukocyte Esterase (Negative) Urine WBC (Auto) (0-5) /hpf Urine RBC (Auto) (0-2) /hpf U Hyaline Cast (Auto) (0-2) /lpf U Epithel Cells (Auto) (0-2) /hpf Urine Bacteria (Auto) (None Seen) Granular Casts (None Prsent) /lpf Urine Yeast (None Prsent) Nasal Screen MRSA (PCR) (Negative) YEISON Screen Anti-Proteinase 3 Anti-Myeloperoxidase ANCA Glomerular Base Memb Ab Adenovirus (PCR) (NotDetected) B. pertussis DNA (PCR) (NotDetected) B.parapertussis DNA PCR (NotDetected) C. pneumoniae DNA (PCR) (NotDetected) Coronavirus OC43 (PCR) (NotDetected) Coronavirus HKU1 (PCR) (NotDetected) Coronavirus 229E (PCR) (NotDetected) SARS-CoV-2 (PCR) (Negative) Coronavirus NL63 (PCR) (NotDetected) Human Metapneumovir PCR (NotDetected) Influenza Type A (PCR) (Neg) Influenza Type B (PCR) (Neg) Urine Legionella Ag M. pneumoniae (PCR) (NotDetected) Parainfluenza 1 (PCR) (NotDetected) Parainfluenza 2 (PCR) (NotDetected) Parainfluenza 3 (PCR) (NotDetected) Parainfluenza 4 (PCR) (NotDetected) RSV (RT-PCR) (Neg) RSV (PCR) (NotDetected) Entero/Rhino (PCR) (NotDetected) 10/21/23 10/21/23 10/21/23 Range/Units 13:19 10:51 10:21 WBC (4.8-10.8) K/ul RBC (4.20-5.40) M/uL Hgb (12.0-16.0) g/dl Hct (37.0-47.0) % MCV (80.0-100.0) fL MCH (25.0-34.0) pg MCHC (32.0-36.0) g/dL RDW Std Deviation (36.4-46.3) fL RDW Coeff of Xavi (11.5-14.5) % Plt Count (130-400) K/uL MPV (9.4-12.4) fL Immature Gran % (Auto) % Neut % (Auto) % Lymph % (Auto) % Nye % (Auto) % Eos % (Auto) % Baso % (Auto) % Neut # (Auto) (1.40-6.50) K/uL Lymph # (Auto) (1.20-3.40) K/uL Nye # (Auto) (0.11-0.59) K/uL Eos # (Auto) (0.00-0.50) K/uL Baso # (Auto) (0.00-0.20) K/uL Immature Gran # (Auto) (0.01-0.20) K/uL Polychromasia Echinocytes ESR (0-30) mm/hr PT (9.0-12.0) Seconds INR (0.9-1.1) APTT (21-31) Seconds PTT Ratio D-Dimer (0-500) ug/L FEU ABG pH (7.35-7.45) ABG pCO2 (35-46) mmHg ABG pO2 (80-95) mmHg ABG HCO3 (19-24) mmol/L ABG O2 Saturation (90-95) % ABG Base Excess (-9-1.8) mEq/L Jordan Test (Pos) VBG pH (7.36-7.41) VBG pCO2 (38-50) mmHg VBG pO2 mmHg VBG HCO3 mmol/L VBG O2 Saturation % VBG Base Excess mEq/L Oxygen Given Sodium (136-145) mmol/L Potassium (3.5-5.1) mmol/L Chloride (98-107) mmol/L Carbon Dioxide (21-32) mmol/L Anion Gap (3-11) BUN (6-23) mg/dl Creatinine (0.6-1.2) mg/dl Est Cr Clr Drug Dosing ml/min Est GFR ( Amer) ml/min Est GFR (Non-Af Amer) ml/min BUN/Creatinine Ratio (10-20) Glucose (70-99(Fasting)) mg/dl POC Glucose 175 H (70-99) mg/dl Lactate (0.4-2.0) mmol/L Calcium (8.6-10.3) mg/dl Phosphorus (2.5-4.9) mg/dl Magnesium (1.7-2.4) mg/dl Iron (35-150) mcg/dl TIBC (250-450) mcg/dl Unsaturated IBC (155-355) mcg/dl Transferrin % Sat (15-50) % Total Bilirubin (0.2-1.0) mg/dl AST (13-39) U/L ALT (7-52) U/L Alkaline Phosphatase (34-104) U/L Troponin I High Sens 47.2 H (0-14) pg/ml C-Reactive Protein (0-0.5) mg/dl B-Natriuretic Peptide (0-100) pg/ml Total Protein (6.0-8.3) gm/dl Albumin (3.4-5.0) gm/dl Globulin (2.5-4.0) gm/dl Albumin/Globulin Ratio (0.9-2) Lipase (11-82) U/L Vitamin B12 (180-914) pg/ml Folate (>5.38) ng/ml Procalcitonin (0-0.5) ng/ml Urine Color Urine Appearance (Clear) Urine pH (4.5-7.5) Ur Specific [place] (1.000-1.030) Urine Protein (Negative) Urine Glucose (UA) (Negative) Urine Ketones (Negative) Urine Blood (Negative) Urine Nitrite (Negative) Urine Bilirubin (Negative) Urine Urobilinogen (Negative) Ur Leukocyte Esterase (Negative) Urine WBC (Auto) (0-5) /hpf Urine RBC (Auto) (0-2) /hpf U Hyaline Cast (Auto) (0-2) /lpf U Epithel Cells (Auto) (0-2) /hpf Urine Bacteria (Auto) (None Seen) Granular Casts (None Prsent) /lpf Urine Yeast (None Prsent) Nasal Screen MRSA (PCR) (Negative) YEISON Screen Anti-Proteinase 3 Anti-Myeloperoxidase ANCA Glomerular Base Memb Ab Adenovirus (PCR) Not Detected (NotDetected) B. pertussis DNA (PCR) Not Detected (NotDetected) B.parapertussis DNA PCR Not Detected (NotDetected) C. pneumoniae DNA (PCR) Not Detected (NotDetected) Coronavirus OC43 (PCR) Not Detected (NotDetected) Coronavirus HKU1 (PCR) Not Detected (NotDetected) Coronavirus 229E (PCR) Not Detected (NotDetected) SARS-CoV-2 (PCR) Not Detected (Negative) Coronavirus NL63 (PCR) Not Detected (NotDetected) Human Metapneumovir PCR Not Detected (NotDetected) Influenza Type A (PCR) Not Detected (Neg) Influenza Type B (PCR) Not Detected (Neg) Urine Legionella Ag M. pneumoniae (PCR) Not Detected (NotDetected) Parainfluenza 1 (PCR) Not Detected (NotDetected) Parainfluenza 2 (PCR) Not Detected (NotDetected) Parainfluenza 3 (PCR) Not Detected (NotDetected) Parainfluenza 4 (PCR) Not Detected (NotDetected) RSV (RT-PCR) (Neg) RSV (PCR) Not Detected (NotDetected) Entero/Rhino (PCR) Not Detected (NotDetected) 10/21/23 10/21/23 10/21/23 Range/Units 08:03 07:14 03:50 WBC 21.24 H (4.8-10.8) K/ul RBC 2.55 L (4.20-5.40) M/uL Hgb 8.1 L (12.0-16.0) g/dl Hct 23.9 L (37.0-47.0) % MCV 93.7 (80.0-100.0) fL MCH 31.8 (25.0-34.0) pg MCHC 33.9 (32.0-36.0) g/dL RDW Std Deviation 42.9 (36.4-46.3) fL RDW Coeff of Xavi 12.5 (11.5-14.5) % Plt Count 243 (130-400) K/uL MPV 10.8 (9.4-12.4) fL Immature Gran % (Auto) 0.8 % Neut % (Auto) 90.8 % Lymph % (Auto) 4.0 % Nye % (Auto) 4.1 % Eos % (Auto) 0.1 % Baso % (Auto) 0.2 % Neut # (Auto) 19.27 H (1.40-6.50) K/uL Lymph # (Auto) 0.85 L (1.20-3.40) K/uL Nye # (Auto) 0.88 H (0.11-0.59) K/uL Eos # (Auto) 0.03 (0.00-0.50) K/uL Baso # (Auto) 0.05 (0.00-0.20) K/uL Immature Gran # (Auto) 0.16 (0.01-0.20) K/uL Polychromasia Echinocytes ESR (0-30) mm/hr PT (9.0-12.0) Seconds INR (0.9-1.1) APTT (21-31) Seconds PTT Ratio D-Dimer 3810 H* (0-500) ug/L FEU ABG pH 7.51 H* (7.35-7.45) ABG pCO2 27 L (35-46) mmHg ABG pO2 73 L (80-95) mmHg ABG HCO3 22 (19-24) mmol/L ABG O2 Saturation 95.8 H (90-95) % ABG Base Excess -0.3 (-9-1.8) mEq/L Jordan Test Pos (Pos) VBG pH (7.36-7.41) VBG pCO2 (38-50) mmHg VBG pO2 mmHg VBG HCO3 mmol/L VBG O2 Saturation % VBG Base Excess mEq/L Oxygen Given FIO2 50 Sodium 135 L (136-145) mmol/L Potassium 3.1 L D (3.5-5.1) mmol/L Chloride 106 (98-107) mmol/L Carbon Dioxide 19 L (21-32) mmol/L Anion Gap 10 (3-11) BUN 34 H (6-23) mg/dl Creatinine 1.37 H (0.6-1.2) mg/dl Est Cr Clr Drug Dosing 26.4 ml/min Est GFR ( Amer) 41.8 ml/min Est GFR (Non-Af Amer) 36.1 ml/min BUN/Creatinine Ratio 24.8 H (10-20) Glucose 183 H (70-99(Fasting)) mg/dl POC Glucose 241 H (70-99) mg/dl Lactate (0.4-2.0) mmol/L Calcium 8.1 L (8.6-10.3) mg/dl Phosphorus (2.5-4.9) mg/dl Magnesium 1.5 L (1.7-2.4) mg/dl Iron 10 L (35-150) mcg/dl TIBC 123 L (250-450) mcg/dl Unsaturated IBC 113 L (155-355) mcg/dl Transferrin % Sat 8 L (15-50) % Total Bilirubin (0.2-1.0) mg/dl AST (13-39) U/L ALT (7-52) U/L Alkaline Phosphatase (34-104) U/L Troponin I High Sens 44.0 H (0-14) pg/ml C-Reactive Protein (0-0.5) mg/dl B-Natriuretic Peptide (0-100) pg/ml Total Protein (6.0-8.3) gm/dl Albumin (3.4-5.0) gm/dl Globulin (2.5-4.0) gm/dl Albumin/Globulin Ratio (0.9-2) Lipase (11-82) U/L Vitamin B12 298 (180-914) pg/ml Folate 14.06 (>5.38) ng/ml Procalcitonin (0-0.5) ng/ml Urine Color Urine Appearance (Clear) Urine pH (4.5-7.5) Ur Specific [place] (1.000-1.030) Urine Protein (Negative) Urine Glucose (UA) (Negative) Urine Ketones (Negative) Urine Blood (Negative) Urine Nitrite (Negative) Urine Bilirubin (Negative) Urine Urobilinogen (Negative) Ur Leukocyte Esterase (Negative) Urine WBC (Auto) (0-5) /hpf Urine RBC (Auto) (0-2) /hpf U Hyaline Cast (Auto) (0-2) /lpf U Epithel Cells (Auto) (0-2) /hpf Urine Bacteria (Auto) (None Seen) Granular Casts (None Prsent) /lpf Urine Yeast (None Prsent) Nasal Screen MRSA (PCR) Negative (Negative) YEISON Screen Anti-Proteinase 3 Anti-Myeloperoxidase ANCA Glomerular Base Memb Ab Adenovirus (PCR) (NotDetected) B. pertussis DNA (PCR) (NotDetected) B.parapertussis DNA PCR (NotDetected) C. pneumoniae DNA (PCR) (NotDetected) Coronavirus OC43 (PCR) (NotDetected) Coronavirus HKU1 (PCR) (NotDetected) Coronavirus 229E (PCR) (NotDetected) SARS-CoV-2 (PCR) (Negative) Coronavirus NL63 (PCR) (NotDetected) Human Metapneumovir PCR (NotDetected) Influenza Type A (PCR) (Neg) Influenza Type B (PCR) (Neg) Urine Legionella Ag M. pneumoniae (PCR) (NotDetected) Parainfluenza 1 (PCR) (NotDetected) Parainfluenza 2 (PCR) (NotDetected) Parainfluenza 3 (PCR) (NotDetected) Parainfluenza 4 (PCR) (NotDetected) RSV (RT-PCR) (Neg) RSV (PCR) (NotDetected) Entero/Rhino (PCR) (NotDetected) 10/21/23 10/20/23 10/20/23 Range/Units 01:29 22:31 20:31 WBC (4.8-10.8) K/ul RBC (4.20-5.40) M/uL Hgb (12.0-16.0) g/dl Hct (37.0-47.0) % MCV (80.0-100.0) fL MCH (25.0-34.0) pg MCHC (32.0-36.0) g/dL RDW Std Deviation (36.4-46.3) fL RDW Coeff of Xavi (11.5-14.5) % Plt Count (130-400) K/uL MPV (9.4-12.4) fL Immature Gran % (Auto) % Neut % (Auto) % Lymph % (Auto) % Nye % (Auto) % Eos % (Auto) % Baso % (Auto) % Neut # (Auto) (1.40-6.50) K/uL Lymph # (Auto) (1.20-3.40) K/uL Nye # (Auto) (0.11-0.59) K/uL Eos # (Auto) (0.00-0.50) K/uL Baso # (Auto) (0.00-0.20) K/uL Immature Gran # (Auto) (0.01-0.20) K/uL Polychromasia Echinocytes ESR (0-30) mm/hr PT (9.0-12.0) Seconds INR (0.9-1.1) APTT (21-31) Seconds PTT Ratio D-Dimer (0-500) ug/L FEU ABG pH (7.35-7.45) ABG pCO2 (35-46) mmHg ABG pO2 (80-95) mmHg ABG HCO3 (19-24) mmol/L ABG O2 Saturation (90-95) % ABG Base Excess (-9-1.8) mEq/L Jordan Test (Pos) VBG pH (7.36-7.41) VBG pCO2 (38-50) mmHg VBG pO2 mmHg VBG HCO3 mmol/L VBG O2 Saturation % VBG Base Excess mEq/L Oxygen Given Sodium (136-145) mmol/L Potassium (3.5-5.1) mmol/L Chloride (98-107) mmol/L Carbon Dioxide (21-32) mmol/L Anion Gap (3-11) BUN (6-23) mg/dl Creatinine (0.6-1.2) mg/dl Est Cr Clr Drug Dosing ml/min Est GFR ( Amer) ml/min Est GFR (Non-Af Amer) ml/min BUN/Creatinine Ratio (10-20) Glucose (70-99(Fasting)) mg/dl POC Glucose 260 H (70-99) mg/dl Lactate (0.4-2.0) mmol/L Calcium (8.6-10.3) mg/dl Phosphorus (2.5-4.9) mg/dl Magnesium (1.7-2.4) mg/dl Iron (35-150) mcg/dl TIBC (250-450) mcg/dl Unsaturated IBC (155-355) mcg/dl Transferrin % Sat (15-50) % Total Bilirubin (0.2-1.0) mg/dl AST (13-39) U/L ALT (7-52) U/L Alkaline Phosphatase (34-104) U/L Troponin I High Sens 44.7 H (0-14) pg/ml C-Reactive Protein (0-0.5) mg/dl B-Natriuretic Peptide (0-100) pg/ml Total Protein (6.0-8.3) gm/dl Albumin (3.4-5.0) gm/dl Globulin (2.5-4.0) gm/dl Albumin/Globulin Ratio (0.9-2) Lipase (11-82) U/L Vitamin B12 (180-914) pg/ml Folate (>5.38) ng/ml Procalcitonin (0-0.5) ng/ml Urine Color Yellow Urine Appearance Clear (Clear) Urine pH 5.5 (4.5-7.5) Ur Specific [place] 1.012 (1.000-1.030) Urine Protein Trace H (Negative) Urine Glucose (UA) Trace H (Negative) Urine Ketones Negative (Negative) Urine Blood Negative (Negative) Urine Nitrite Negative (Negative) Urine Bilirubin Negative (Negative) Urine Urobilinogen Negative (Negative) Ur Leukocyte Esterase Trace H (Negative) Urine WBC (Auto) 0-5 (0-5) /hpf Urine RBC (Auto) 0-2 (0-2) /hpf U Hyaline Cast (Auto) 3-5 H (0-2) /lpf U Epithel Cells (Auto) 0-2 (0-2) /hpf Urine Bacteria (Auto) None Seen (None Seen) Granular Casts (None Prsent) /lpf Urine Yeast (None Prsent) Nasal Screen MRSA (PCR) (Negative) YEISON Screen Anti-Proteinase 3 Anti-Myeloperoxidase ANCA Glomerular Base Memb Ab Adenovirus (PCR) (NotDetected) B. pertussis DNA (PCR) (NotDetected) B.parapertussis DNA PCR (NotDetected) C. pneumoniae DNA (PCR) (NotDetected) Coronavirus OC43 (PCR) (NotDetected) Coronavirus HKU1 (PCR) (NotDetected) Coronavirus 229E (PCR) (NotDetected) SARS-CoV-2 (PCR) (Negative) Coronavirus NL63 (PCR) (NotDetected) Human Metapneumovir PCR (NotDetected) Influenza Type A (PCR) (Neg) Influenza Type B (PCR) (Neg) Urine Legionella Ag M. pneumoniae (PCR) (NotDetected) Parainfluenza 1 (PCR) (NotDetected) Parainfluenza 2 (PCR) (NotDetected) Parainfluenza 3 (PCR) (NotDetected) Parainfluenza 4 (PCR) (NotDetected) RSV (RT-PCR) (Neg) RSV (PCR) (NotDetected) Entero/Rhino (PCR) (NotDetected) 10/20/23 10/20/23 10/20/23 Range/Units 19:10 19:09 18:15 WBC (4.8-10.8) K/ul RBC (4.20-5.40) M/uL Hgb (12.0-16.0) g/dl Hct (37.0-47.0) % MCV (80.0-100.0) fL MCH (25.0-34.0) pg MCHC (32.0-36.0) g/dL RDW Std Deviation (36.4-46.3) fL RDW Coeff of Xavi (11.5-14.5) % Plt Count (130-400) K/uL MPV (9.4-12.4) fL Immature Gran % (Auto) % Neut % (Auto) % Lymph % (Auto) % Nye % (Auto) % Eos % (Auto) % Baso % (Auto) % Neut # (Auto) (1.40-6.50) K/uL Lymph # (Auto) (1.20-3.40) K/uL Nye # (Auto) (0.11-0.59) K/uL Eos # (Auto) (0.00-0.50) K/uL Baso # (Auto) (0.00-0.20) K/uL Immature Gran # (Auto) (0.01-0.20) K/uL Polychromasia Echinocytes ESR (0-30) mm/hr PT (9.0-12.0) Seconds INR (0.9-1.1) APTT (21-31) Seconds PTT Ratio D-Dimer (0-500) ug/L FEU ABG pH (7.35-7.45) ABG pCO2 (35-46) mmHg ABG pO2 (80-95) mmHg ABG HCO3 (19-24) mmol/L ABG O2 Saturation (90-95) % ABG Base Excess (-9-1.8) mEq/L Jordan Test (Pos) VBG pH (7.36-7.41) VBG pCO2 (38-50) mmHg VBG pO2 mmHg VBG HCO3 mmol/L VBG O2 Saturation % VBG Base Excess mEq/L Oxygen Given Sodium (136-145) mmol/L Potassium (3.5-5.1) mmol/L Chloride (98-107) mmol/L Carbon Dioxide (21-32) mmol/L Anion Gap (3-11) BUN (6-23) mg/dl Creatinine (0.6-1.2) mg/dl Est Cr Clr Drug Dosing ml/min Est GFR ( Amer) ml/min Est GFR (Non-Af Amer) ml/min BUN/Creatinine Ratio (10-20) Glucose (70-99(Fasting)) mg/dl POC Glucose (70-99) mg/dl Lactate 1.8 (0.4-2.0) mmol/L Calcium (8.6-10.3) mg/dl Phosphorus (2.5-4.9) mg/dl Magnesium (1.7-2.4) mg/dl Iron (35-150) mcg/dl TIBC (250-450) mcg/dl Unsaturated IBC (155-355) mcg/dl Transferrin % Sat (15-50) % Total Bilirubin (0.2-1.0) mg/dl AST (13-39) U/L ALT (7-52) U/L Alkaline Phosphatase (34-104) U/L Troponin I High Sens (0-14) pg/ml C-Reactive Protein (0-0.5) mg/dl B-Natriuretic Peptide (0-100) pg/ml Total Protein (6.0-8.3) gm/dl Albumin (3.4-5.0) gm/dl Globulin (2.5-4.0) gm/dl Albumin/Globulin Ratio (0.9-2) Lipase (11-82) U/L Vitamin B12 (180-914) pg/ml Folate (>5.38) ng/ml Procalcitonin 0.25 (0-0.5) ng/ml Urine Color Urine Appearance (Clear) Urine pH (4.5-7.5) Ur Specific [place] (1.000-1.030) Urine Protein (Negative) Urine Glucose (UA) (Negative) Urine Ketones (Negative) Urine Blood (Negative) Urine Nitrite (Negative) Urine Bilirubin (Negative) Urine Urobilinogen (Negative) Ur Leukocyte Esterase (Negative) Urine WBC (Auto) (0-5) /hpf Urine RBC (Auto) (0-2) /hpf U Hyaline Cast (Auto) (0-2) /lpf U Epithel Cells (Auto) (0-2) /hpf Urine Bacteria (Auto) (None Seen) Granular Casts (None Prsent) /lpf Urine Yeast (None Prsent) Nasal Screen MRSA (PCR) (Negative) YEISON Screen Anti-Proteinase 3 Anti-Myeloperoxidase ANCA Glomerular Base Memb Ab Adenovirus (PCR) (NotDetected) B. pertussis DNA (PCR) (NotDetected) B.parapertussis DNA PCR (NotDetected) C. pneumoniae DNA (PCR) (NotDetected) Coronavirus OC43 (PCR) (NotDetected) Coronavirus HKU1 (PCR) (NotDetected) Coronavirus 229E (PCR) (NotDetected) SARS-CoV-2 (PCR) NEGATIVE (Negative) Coronavirus NL63 (PCR) (NotDetected) Human Metapneumovir PCR (NotDetected) Influenza Type A (PCR) Negative (Neg) Influenza Type B (PCR) Negative (Neg) Urine Legionella Ag M. pneumoniae (PCR) (NotDetected) Parainfluenza 1 (PCR) (NotDetected) Parainfluenza 2 (PCR) (NotDetected) Parainfluenza 3 (PCR) (NotDetected) Parainfluenza 4 (PCR) (NotDetected) RSV (RT-PCR) Negative (Neg) RSV (PCR) (NotDetected) Entero/Rhino (PCR) (NotDetected) 10/20/23 10/20/23 Range/Units 18:12 18:10 WBC 17.14 H (4.8-10.8) K/ul RBC 2.73 L (4.20-5.40) M/uL Hgb 8.7 L (12.0-16.0) g/dl Hct 25.9 L (37.0-47.0) % MCV 94.9 (80.0-100.0) fL MCH 31.9 (25.0-34.0) pg MCHC 33.6 (32.0-36.0) g/dL RDW Std Deviation 43.6 (36.4-46.3) fL RDW Coeff of Xavi 12.5 (11.5-14.5) % Plt Count 254 (130-400) K/uL MPV 10.6 (9.4-12.4) fL Immature Gran % (Auto) 0.6 % Neut % (Auto) 89.5 % Lymph % (Auto) 5.1 % Nye % (Auto) 4.3 % Eos % (Auto) 0.3 % Baso % (Auto) 0.2 % Neut # (Auto) 15.35 H (1.40-6.50) K/uL Lymph # (Auto) 0.87 L (1.20-3.40) K/uL Nye # (Auto) 0.73 H (0.11-0.59) K/uL Eos # (Auto) 0.05 (0.00-0.50) K/uL Baso # (Auto) 0.04 (0.00-0.20) K/uL Immature Gran # (Auto) 0.10 (0.01-0.20) K/uL Polychromasia Echinocytes ESR (0-30) mm/hr PT 12.8 H (9.0-12.0) Seconds INR 1.2 H (0.9-1.1) APTT 30 (21-31) Seconds PTT Ratio 1.1 D-Dimer (0-500) ug/L FEU ABG pH (7.35-7.45) ABG pCO2 (35-46) mmHg ABG pO2 (80-95) mmHg ABG HCO3 (19-24) mmol/L ABG O2 Saturation (90-95) % ABG Base Excess (-9-1.8) mEq/L Jordan Test (Pos) VBG pH 7.45 H (7.36-7.41) VBG pCO2 30 L (38-50) mmHg VBG pO2 45 mmHg VBG HCO3 21 mmol/L VBG O2 Saturation 67.1 % VBG Base Excess -2.1 mEq/L Oxygen Given Sodium 136 (136-145) mmol/L Potassium 4.0 (3.5-5.1) mmol/L Chloride 107 (98-107) mmol/L Carbon Dioxide 20 L (21-32) mmol/L Anion Gap 9 (3-11) BUN 34 H (6-23) mg/dl Creatinine 1.29 H (0.6-1.2) mg/dl Est Cr Clr Drug Dosing 28.0 ml/min Est GFR ( Amer) 45.0 ml/min Est GFR (Non-Af Amer) 38.8 ml/min BUN/Creatinine Ratio 26.4 H (10-20) Glucose 345 H* (70-99(Fasting)) mg/dl POC Glucose (70-99) mg/dl Lactate (0.4-2.0) mmol/L Calcium 8.5 L (8.6-10.3) mg/dl Phosphorus (2.5-4.9) mg/dl Magnesium (1.7-2.4) mg/dl Iron (35-150) mcg/dl TIBC (250-450) mcg/dl Unsaturated IBC (155-355) mcg/dl Transferrin % Sat (15-50) % Total Bilirubin (0.2-1.0) mg/dl AST (13-39) U/L ALT (7-52) U/L Alkaline Phosphatase (34-104) U/L Troponin I High Sens 40.5 H (0-14) pg/ml C-Reactive Protein (0-0.5) mg/dl B-Natriuretic Peptide 1444 H (0-100) pg/ml Total Protein (6.0-8.3) gm/dl Albumin (3.4-5.0) gm/dl Globulin (2.5-4.0) gm/dl Albumin/Globulin Ratio (0.9-2) Lipase 3 L (11-82) U/L Vitamin B12 (180-914) pg/ml Folate (>5.38) ng/ml Procalcitonin (0-0.5) ng/ml Urine Color Urine Appearance (Clear) Urine pH (4.5-7.5) Ur Specific [place] (1.000-1.030) Urine Protein (Negative) Urine Glucose (UA) (Negative) Urine Ketones (Negative) Urine Blood (Negative) Urine Nitrite (Negative) Urine Bilirubin (Negative) Urine Urobilinogen (Negative) Ur Leukocyte Esterase (Negative) Urine WBC (Auto) (0-5) /hpf Urine RBC (Auto) (0-2) /hpf U Hyaline Cast (Auto) (0-2) /lpf U Epithel Cells (Auto) (0-2) /hpf Urine Bacteria (Auto) (None Seen) Granular Casts (None Prsent) /lpf Urine Yeast (None Prsent) Nasal Screen MRSA (PCR) (Negative) YEISON Screen Anti-Proteinase 3 Anti-Myeloperoxidase ANCA Glomerular Base Memb Ab Adenovirus (PCR) (NotDetected) B. pertussis DNA (PCR) (NotDetected) B.parapertussis DNA PCR (NotDetected) C. pneumoniae DNA (PCR) (NotDetected) Coronavirus OC43 (PCR) (NotDetected) Coronavirus HKU1 (PCR) (NotDetected) Coronavirus 229E (PCR) (NotDetected) SARS-CoV-2 (PCR) (Negative) Coronavirus NL63 (PCR) (NotDetected) Human Metapneumovir PCR (NotDetected) Influenza Type A (PCR) (Neg) Influenza Type B (PCR) (Neg) Urine Legionella Ag M. pneumoniae (PCR) (NotDetected) Parainfluenza 1 (PCR) (NotDetected) Parainfluenza 2 (PCR) (NotDetected) Parainfluenza 3 (PCR) (NotDetected) Parainfluenza 4 (PCR) (NotDetected) RSV (RT-PCR) (Neg) RSV (PCR) (NotDetected) Entero/Rhino (PCR) (NotDetected) Diagnostic Findings Chest X-Ray 10/20/23 18:10 XR chest 1V portable HISTORY: 83 years-old Female Chest pain, nonspecific COMPARISON: None TECHNIQUE: AP view the chest FINDINGS: Cardiac silhouette is enlarged. Median sternotomy. Views mixed interstitial and alveolar opacities. Moderate hemidiaphragmatic elevation. No pneumothorax or large pleural effusion. IMPRESSION: Cardiomegaly with diffuse mixed interstitial and alveolar opacities, chronicity unknown without comparison. Differential considerations include chronic interstitial lung disease, pulmonary edema versus multifocal pneumonia. Correlate with prior imaging. ACT 112: Negative or not required by law. The above report was generated using voice recognition software. It may contain grammatical, syntax or spelling errors. Electronically signed by: Jason Dubon M.D. 10/20/2023 7:[address] 10/20/23 21:17 Exam(s): CT CHEST Without Contrast EXAM: CT Chest Without Intravenous Contrast CLINICAL HISTORY: Reason for exam: pneumonia/chf. TECHNIQUE: Axial computed tomography images of the chest without intravenous contrast. CTDI is 16.37 mGy and DLP is 464.51 mGy-cm. Automated exposure control was utilized for the study. A dose lowering technique was utilized adhering to the principles of ALARA. COMPARISON: No relevant prior studies available. FINDINGS: Lungs: Bilateral diffuse ground-glass airspace opacities favors infectious process (pneumonia,). Pleural space: Unremarkable. No pneumothorax. No significant effusion. Heart: Unremarkable. No cardiomegaly. No significant pericardial effusion. No significant coronary artery calcifications. Mediastinum: Scattered mediastinal lymph nodes measuring up to 14 mm, likely reactive. Bones/joints: Prior sternotomy. General changes of the thoracic spine with calcification of the anterior longitudinal ligament and moderate kyphosis. No acute fracture. No dislocation. Soft tissues: Unremarkable. Vasculature: Severe atherosclerotic disease of the coronary arteries, mitral valve and aortic valve. No thoracic aortic aneurysm. Lymph nodes: See above. IMPRESSION: 1. Bilateral diffuse ground-glass airspace opacities favors infectious process (pneumonia,). 2. Scattered mediastinal lymph nodes measuring up to 14 mm, likely reactive. Electronically signed by: Gi Ramirez MD 10/20/23 22:45 PM Venous Doppler Study 10/21/23 05:22 BILATERAL LOWER EXTREMITY VENOUS DOPPLER CLINICAL HISTORY: elevated dimer. dvt? COMPARISON STUDY: No previous studies for comparison. TECHNIQUE: Sonography of the deep venous system of the bilateral lower extremities was performed. Compression and augmentation were evaluated. FINDINGS: The bilateral common femoral, superficial femoral and popliteal veins were compressible. Augmentation was normal. Flow was shown within the deep calf vessels. IMPRESSION: No evidence of deep venous thrombus within the bilateral lower extremities. ACT 112: Negative or not required by law. Electronically signed by: Carlos Enrique Pretty M.D. 10/21/2023 7:11 AM Chest X-Ray 10/22/23 07:55 XR chest 1V portable HISTORY: aspiration COMPARISON: Chest 10/20/2023. FINDINGS: No pneumothorax. There are low lung volumes. The cardiac silhouette is normal in size. There are poststernotomy changes. No acute fractures. Diffuse interstitial thickening and hazy airspace opacities persist. No pleural effusions. IMPRESSION: No significant change in the diffuse interstitial thickening and hazy airspace opacities. ACT 112: Negative or not required by law. Electronically signed by: Nash Dumont M.D. 10/22/2023 9:35 AM Videofluoroscopic Swallow 10/22/23 13:00 FL video swallow HISTORY: Pneumonia. Assess for aspiration TECHNIQUE: Video fluoroscopic evaluation of swallowing was performed in the AP and lateral projections by the speech pathology staff. The patient is fed nectar-thick and thin liquid barium, a barium coated wafer, and barium pudding. FLUOROSCOPY TIME: 2 minutes and 31 seconds. Ka,r: 21.5 mGy COMPARISON STUDY: None. FINDINGS: There is normal hyoid excursion and epiglottic deflection. No significant penetration or aspiration identified. Swallowing function is within normal limits. Mild esophageal dysmotility. IMPRESSION: 1. No aspiration identified. 2. Please see the speech pathologist report for detailed findings and recommendations. ACT 112: Negative or not required by law. Electronically signed by: Nash Dumont M.D. 10/22/2023 2:37 PM PG Care Time/CCT Total # of Minutes Spent Total Time Spent with Patient: Total time spent is greater than 50% in coordination of care (as documented) at patient's floor/unit and/or counseling patient: I spent 100 minutes overall addressing this case: 15 min in medical data review/discussion with referring provider(s) and/or preparation for the visit 20 min in direct interaction with the patient/exam 30 min in Advance Care Planning/Goals of Care discussions as detailed above in note (must be >16min) 15 min in subsequent review and synthesis of assessment and plan 20 min communicating with other providers regarding the patient's case: Primary team, nursing, care management, granddaughter who is a [facility] pharmacist. Advanced Care Planning [id number] Advanced Care Planning 30 [place] [address] IN/OBS CONSULT LVL 5,80M Patient Type New History Comprehensive Exam Comprehensive Medical Decision Making High Complexity Diagnoses Dyspnea and respiratory abnormalities R06.00; R06.89 Weakness generalized R53.1 Insomnia G47.00 Advanced care planning/counseling discussion Z71.89 Palliative care by specialist Z51.5 Additional Codes Advanced Care Planning - 08869 Advanced Care Planning 30 Min: [id number] Advanced Care Planning 30 Min ([id number])
[2023-10-25] MEDS: FERROUS SULFATE 325 MG TAB PO SCH (12:07)
--- NOTE | 2023-10-25 14:00 | Pharmacy Report ---
Pharmacy Glycemic Short Note 2 - Date of Service October 25, 2023 - Glycemic Short BSG Results (Last 24 hours): 10/24/23 10/24/23 10/25/23 16:17 19:57 00:07 Glucose POC Glucose 223 H 246 H 262 H 10/25/23 10/25/23 10/25/23 04:08 05:31 07:30 Glucose 147 H POC Glucose 157 H 144 H 10/25/23 11:32 Glucose POC Glucose 241 H OUTPATIENT ANTIDIABETIC REGIMEN: * GLARGINE 24 UNITS Qam, NOVOLOG SLIDING SCALE * Will obtain A1c ASSESSMENT: 10/24 * Patient received 82 units of insulin yesterday, 36 units of basal, 46 units of prandial/correctional * Blood sugars did trend down overnight with fasting of 144 mg/dL- will continue current basal parameters; reassess as SCr is trending upward slightly * BSGs yesterday after tightened carb ratio went upwards with dinner, therefore will tighten carb ratio again this morning. Lunch BSG has improved from the previous day and as this tends to be the highest BSG of the day will continue with tightened carb ratio for now * Could still consider addition of NPH in the morning if needed 10/23 * 83 yo female with type II diabetes admitted for CHF/ hypoxic respiratory failure. BSGs had been adequately controlled but have increased with the addition of methylprednisolone 40 mg IV q12H on 10/22. * Fasting this morning 243 mg/dL- will give additional lantus tonight up to 50% * Lunch BSG in the 300s and then subsequently consulted. Will trial tighter novolog, consider addition of NPH to help cover meals tomorrow if BSGs remain elevated PLAN FOR INPATIENT GLYCEMIC CONTROL: * Hold outpatient oral diabetes medications * Basal insulin * Lantus 24 units SQ qAM, 0 per scale this PM * Bolus insulin * NovoLog per scale ACHS or Q6hrs while NPO * Goal Range: Low 110 mg/dL - High 140 mg/dL * Correction Factor: 20 mg/dL/unit * Nutritional / Prandial insulin per carb ratio of 1 unit per 6 grams CHO consumed
[2023-10-25] MEDS: ALBUT/IPRATROP 3MG/0.5MG NEB 3 ML VIAL NEB SCH (14:59)
[2023-10-25] MEDS: carvediloL 3.125 MG TAB PO SCH (16:56)
[2023-10-26 06:34] LABS: BUN Creatinine Ratio 38.8 (10-20); Calcium 8.7 mg/dl (8.6-10.3); Creatinine Clr Calc Pharmacy 14.7 ml/min; Est GFR (African American) 22.7 ml/min; Est GFR (Non-African American) 19.6 ml/min; Potassium 4.2 mmol/L (3.5-5.1)
[2023-10-26 06:53] LABS: Basophils # (auto) 0.03 K/uL (0.00-0.20); Basophils % (auto) 0.2 %; Hematocrit (blood only) 28.3 % (37.0-47.0); Hemoglobin 9.6 g/dl (12.0-16.0); Immature Granulocytes # (auto) 0.17 K/uL (0.01-0.20); Immature Granulocytes % (auto) 0.9 %; Lymphocytes # (auto) 1.11 K/uL (1.20-3.40); Lymphocytes % (auto) 6.2 %; Mean Corpuscular Hemoglobin 31.6 pg (25.0-34.0); Mean Corpuscular Hgb Conc 33.9 g/dL (32.0-36.0); Mean Corpuscular Volume 93.1 fL (80.0-100.0); Mean Platelet Volume 11.1 fL (9.4-12.4); Monocytes % (auto) 3.9 %; Neutrophils # (auto) 15.96 K/uL (1.40-6.50); Neutrophils % (auto) 88.8 %; Platelet Count 279 K/uL (130-400); RDW Coefficient of Variation 12.5 % (11.5-14.5); RDW Standard Deviation 42.5 fL (36.4-46.3); Red Blood Count 3.04 M/uL (4.20-5.40); White Blood Count 17.97 K/ul (4.8-10.8)
--- NOTE | 2023-10-26 07:33 | XRay Report ---
SINGLE VIEW CHEST CLINICAL HISTORY: Respiratory failure FINDINGS: 2 AP, portable, upright chest radiographs are compared to study dated 10/22/2023 and correla fatmata with chest CT dated 10/20/2023. The examination is degraded by portable technique and patient rota tion. The patient is status post midline sternotomy. The heart is enlarged noting atherosclerotic vivien cification of the thoracic aorta. There is evidence of congestive failure. Multifocal airspace opacit ies persist. No large pleural effusion or pneumothorax is seen. The skeletal structures are osteopeni c. There are chronic/healed right-sided rib fractures. Arthritic change is seen in the shoulders and spine. Cholecystectomy clips are noted in the right upper quadrant. IMPRESSION: 1. Cardiomegaly with pulmonary vascular congestion. 2. Multifocal airspace opacities and interstitial thickening is similar to previous. This could repre sent an infectious/inflammatory pneumonitis and/or pulmonary edema. This is likely superimposed on ch ronic lung disease. Clinical correlation will be required and radiographic follow-up to resolution is recommended. ACT 112: Negative or not required by law. Electronically signed by: Mendez Barboza M.D. 10/26/2023 7:32 AM
--- NOTE | 2023-10-26 10:47 | Nephrology Progress Note ---
Date of Service October 26, 2023 Assessment & Plan Admission and Anticipated Discharge Date Admission Date: October 20, 2023 Subjective Assessment & Plan (1) EMELYN (acute kidney injury): She had CKD 3 at baseline with near normal creat. Creat Was 1.3 till 10/20 but since then has slowly gone up. she did have low BP on 10/20 multiple times and after that Creat started rising. we are still seeing effect of that. Now BP is not low and losartan and lasix stopped so hopefully will start seeing renal recovery. At this age with so many Comorbid Disease renal recovery is usually quite slow. No e/o fluid overload at all. No need of dialysis and unlikely she will need it. reviewed pulm note.. This is unlikely to be pulm renal syndrome. her UA had No Blood at all in UA done 10/23. creat has gone up within few days specifically after 10/20 when she had multiple low BP. No need of renal biopsy nor high dose steroids. This is ATN and/or overdiuresis. Active urine Sediment most consistent with ATN. Creat seems to have peaked around 2 now for 3 days. making lots of urine as per patient and RN. Still has severe o2 need but seems mainly pulmonary and not CHF (2) CKD (chronic kidney disease), stage III: (3) Acute hypoxemic respiratory failure: to me based on exam and Cxr and CT it seems she had resp failure almost entirely from Pulmonary cause and not CHF. agree with no diuretics. S--No new issues. Physical Exam Constitutional: + ill appearing. Cachectic. SOB. High o2 need. Neck: no jvd Respiratory: + cough and + tachypneic + respiratory d istress Auscultation: + crackles b/l Cardiovascular: Rate/Rhythm: regular rate and regular rhythm Heart Sounds: normal S1, normal S2 and + murmur (+2/6 systolic ) Vessels: no JVD Extremities: no edema Gastrointestinal (Abdomen): Percussion/Palpation: + abdomen tender (lower abdomen ) and abdomen soft Skin: no rashes, warm and dry Neurologic: PERRL, EOMI, accommodation nl, no face palsy, no dysarthria Psychiatric: A+Ox3, euthymic affect Results & Data Vital Signs (Past 12 Hours) Vital Signs Temp Pulse Pulse Resp BP Pulse Ox O2 Del Method 10/26/23 08:10 36.6 C 78 24 131/65 96 High Flow Nasal Cannula 10/26/23 06:54 76 26 H 96 High Flow Nasal Cannula 10/26/23 02:42 36.8 C 77 28 H 120/47 L 93 High Flow Nasal Cannula 10/26/23 02:22 76 24 89 L High Flow Nasal Cannula 10/26/23 00:00 37 C 74 26 H 117/47 L 92 High Flow Nasal Cannula 10/25/23 22:56 76 18 94 High Flow Nasal Cannula O2 Flow Rate FiO2 10/26/23 08:10 10/26/23 06:54 35 90 10/26/23 02:42 35 90 10/26/23 02:22 35 90 10/26/23 00:00 25 70 10/25/23 22:56 25 70
--- NOTE | 2023-10-26 10:56 | Hospitalist Progress Note ---
Date of Service October 26, 2023 Assessment & Plan (1) Acute hypoxemic respiratory failure: (2) Pneumonia: (3) CAD (coronary artery disease): Plan 83-year-old female with history of coronary disease and diabetes presenting now with diffuse pulmonary infiltrates and hypoxemic respiratory failure. Acute hypoxemic respiratory failure likely from PNA -currently on high flow nasal cannula- upto 90% FiO2 today from 70% yesterday. Try to wean down as tolerated. IS, flutter valve. Will add duonebs,hypertonic saline nebs, pulmicort, mucinex. Send sputum clx if able. - Pulmonary on board-workup in progress. CT on admission shows bilateral diffuse groundglass opacities favoring pneumonia along with scattered mediastinal lymph nodes likely reactive. Pro-Neo 0.4, WBC 19, CRP 32. VFSS negative for aspiration - Pulmonology recommended bronchoscopy with BAL, however patient wanted to avoid intubation and did not preclude bronchoscopy given her current oxygen requirement. - Continue empiric antibiotic. - Now on empiric trial of steroids to see steroid responsiveness per pulmonology CHF exacerbation ruled out. Discussed with cardio and nephro. BNP 1400-> 525. No need for further diuretics. Seems her hypoxia is from infective process rather than cardiac issues and cardio did not recommend further cardiac work up including RHC. No indication for diuresis either. EMELYN likely from ATN due to hypotension-creatinine 1.29->1.37->1.97->1.99->2.17->2.29->2.27 and now peaked. Hopefully will start trending down now. UA reviewed, suggestive of ATN. Nephrotoxics have been discontinued. Nephrology on board. Follow up on renal function and urine output History of CAD s/p CABG-echo reviewed, normal EF. on aspirin, Coreg, statin, Imdur. Ranolazine discontinued per cardiology given renal dysfunction Diabetes mellitus type 2 with steroid induced hyperglycemia- Glycemic pharmacist now managing her insulin. BG now better Anemia- suggestive of iron deficiency in labs. Hemoglobin stable. Continue oral iron supplementation and monitor. Depression and anxiety- On fluoxetine, Ativan and doxepin Hypertension-BP improved. Continue Coreg. Continue to hold losartan and amlodipine. Monitor Peripheral vascular disease- On aspirin and statin DVT prophylaxis-subcu heparin Disposition- TBD. On high flow nasal cannula. Palliative following- will reeval on Saturday. Updated son-in-law at bedside Time spent-approximately 50 minutes Admission and Anticipated Discharge Date Admission Date: October 20, 2023 Subjective Patient was seen and examined at bedside. States her breathing was worse in the morning but now slightly better. Still with runs with diarrhea. States she is working with IS and flutter valve. Complains of difficulty expectorating more so at night. Physical Exam Physical Exam: General: Lying comfortably in bed, not in distress, on HFNC HEENT: EOMI, HINA, MMM Chest: Fair breath sounds bilaterally with rales CVS: Regular rate and rhythm, normal heart sounds, + murmur Abdomen: Soft, non tender, not distended, normal bowel sounds Neuro: Awake, alert, oriented, conversing well, non focal Extremities: No edema Results & Data Results & Data Vital Signs (Past 12 Hours) Vital Signs Temp Pulse Pulse Resp BP Pulse Ox O2 Del Method 10/26/23 08:10 36.6 C 78 24 131/65 96 High Flow Nasal Cannula 10/26/23 06:54 76 26 H 96 High Flow Nasal Cannula 10/26/23 02:42 36.8 C 77 28 H 120/47 L 93 High Flow Nasal Cannula 10/26/23 02:22 76 24 89 L High Flow Nasal Cannula 10/26/23 00:00 37 C 74 26 H 117/47 L 92 High Flow Nasal Cannula 10/25/23 22:56 76 18 94 High Flow Nasal Cannula O2 Flow Rate FiO2 10/26/23 08:10 10/26/23 06:54 35 90 10/26/23 02:42 35 90 10/26/23 02:22 35 90 10/26/23 00:00 25 70 10/25/23 22:56 25 70 Laboratory Results Short CBC 10/26/23 Range/Units 05:34 WBC 17.97 H (4.8-10.8) K/ul Hgb 9.6 L (12.0-16.0) g/dl Hct 28.3 L (37.0-47.0) % Plt Count 279 (130-400) K/uL BMP 10/26/23 05:34 Sodium 135 L Potassium 4.2 Chloride 106 Carbon Dioxide 20 L BUN 88 H Creatinine 2.27 H Glucose 133 H Calcium 8.7 (2) Pneumonia Laterality: bilateral Lung location: unspecified part of lung Pneumonia type: due to unspecified organism Qualified Code(s): J18.9 - Pneumonia, unspecified organism (3) CAD (coronary artery disease) Coronary Disease-Associated Artery/Lesion type: [place] artery [place] vs. transplanted heart: [place] heart Associated angina: without angina Qualified Code(s): I25.10 - Atherosclerotic heart disease of [place] coronary artery without angina pectoris
[2023-10-26] MEDS: BUDESONIDE 0.5 MG/2 ML VIAL (PULMICORT) NEB SCH (11:25)
[2023-10-26] MEDS: SODIUM CHLOR 7% 4 ML NEB NEB SCH (11:26)
[2023-10-26] MEDS: HEPARIN SOD 5,000 UNIT/0.5 ML VIAL SQ SCH (12:32)
[2023-10-26] MEDS: guaiFENesin 600 MG TABCR PO SCH (12:33)
[2023-10-26] MEDS: PSYLLIUM or GUAR GUM FIBER 4GM PACKET PO SCH (12:34)
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
[2023-10-27] MEDS: IPRATROPIUM BROMIDE NEB SOLN 0.02% 0.5MG/2.5ML VIAL INH STA (07:00)
[2023-10-27] MEDS: LEVALBUTEROL 1.25 MG/3 ML NEB NEB STA (07:00)
[2023-10-27 07:10] LABS: Hemoglobin 8.9 g/dl (12.0-16.0); Mean Corpuscular Hemoglobin 31.6 pg (25.0-34.0); Mean Corpuscular Hgb Conc 34.2 g/dL (32.0-36.0); Mean Corpuscular Volume 92.2 fL (80.0-100.0); Platelet Count 248 K/uL (130-400); RDW Coefficient of Variation 12.4 % (11.5-14.5); RDW Standard Deviation 41.7 fL (36.4-46.3); Red Blood Count 2.82 M/uL (4.20-5.40); White Blood Count 14.54 K/ul (4.8-10.8)
[2023-10-27 07:14] LABS: Allen Test Pos (Pos); Base Excess ABG -4.4 mEq/L (-9-1.8); HCO3 ABG 19 mmol/L (19-24); Oxygen Saturation ABG 92.3 % (90-95); PCO2 ABG 29 mmHg (35-46); PO2 ABG 61 mmHg (80-95); pH ABG 7.42 (7.35-7.45)
--- NOTE | 2023-10-27 07:14 | XRay Report ---
XR chest 1V portable CLINICAL HISTORY: low o2 COMPARISON STUDY: Chest CT October 20, 2023. Chest radiograph October 26, 2023. FINDINGS: There are median sternotomy wires and mediastinal surgical clips. Cardiomediastinal silhoue tte is stable. There is no pneumothorax or pleural effusion. Interstitial thickening and alveolar opa cities, greater within the right lung, have improved. IMPRESSION: Interstitial thickening and alveolar opacities, greater within the right lung. These hav e mildly improved since prior chest radiograph. The findings may reflect pneumonia or asymmetric pulm onary edema. ACT 112: Negative or not required by law. Electronically signed by: Carlos Enrique Pretty M.D. 10/27/2023 7:12 AM
[2023-10-27 07:28] LABS: BUN Creatinine Ratio 41.2 (10-20); Calcium 8.8 mg/dl (8.6-10.3); Creatinine Clr Calc Pharmacy 17.8 ml/min; Est GFR (African American) 28.7 ml/min; Est GFR (Non-African American) 24.8 ml/min; Potassium 4.4 mmol/L (3.5-5.1)
[2023-10-27] MEDS: methylPREDNISolone 40 MG in SYRINGE 0 ML IV SCH (08:02)
[2023-10-27] MEDS: FUROSEMIDE 40 MG/4 ML VIAL IV ONE (08:02)
--- NOTE | 2023-10-27 08:09 | Pharmacy Report ---
Pharmacy Glycemic Short Note 2 - Date of Service October 27, 2023 - Glycemic Short BSG Results (Last 24 hours): 10/26/23 10/26/23 10/26/23 11:19 16:09 16:12 Glucose POC Glucose 108 H 65 L* 60 L* 10/26/23 10/26/23 10/27/23 16:31 20:28 06:45 Glucose 179 H POC Glucose 95 231 H 10/27/23 07:23 Glucose POC Glucose 192 H OUTPATIENT ANTIDIABETIC REGIMEN: * GLARGINE 24 UNITS Qam, NOVOLOG SLIDING SCALE * A1c pending ASSESSMENT: 10/26 * Patient received 43 units of insulin yesterday, 24 units basal, hypoglycemic (60mg/dl) prior to dinner, then rebound hyperglycemia (231mg/dl) at bedtime. * DC HS basal and loosen CR to prevent further hypoglycemia. * Patient remains on methylprednisolone 40 mg twice daily and ceftriaxone. 10/24 * Patient received 82 units of insulin yesterday, 36 units of basal, 46 units of prandial/correctional * Blood sugars did trend down overnight with fasting of 144 mg/dL- will continue current basal parameters; reassess as SCr is trending upward slightly * BSGs yesterday after tightened carb ratio went upwards with dinner, therefore will tighten carb ratio again this morning. Lunch BSG has improved from the previous day and as this tends to be the highest BSG of the day will continue with tightened carb ratio for now * Could still consider addition of NPH in the morning if needed 10/23 * 83 yo female with type II diabetes admitted for CHF/ hypoxic respiratory failure. BSGs had been adequately controlled but have increased with the addition of methylprednisolone 40 mg IV q12H on 10/22. * Fasting this morning 243 mg/dL- will give additional lantus tonight up to 50% * Lunch BSG in the 300s and then subsequently consulted. Will trial tighter novolog, consider addition of NPH to help cover meals tomorrow if BSGs remain elevated PLAN FOR INPATIENT GLYCEMIC CONTROL: * Hold outpatient oral diabetes medications * Basal insulin * Lantus 24 units SQ qAM * Bolus insulin * NovoLog per scale ACHS or Q6hrs while NPO * Goal Range: Low 110 mg/dL - High 140 mg/dL * Correction Factor: 20 mg/dL/unit * Nutritional / Prandial insulin per carb ratio of 1 unit per 8 grams CHO consumed
[2023-10-27] MEDS: LORazepam 0.25 MG in SYRINGE 0.125 ML IV STA (11:22)
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
[2023-10-27] MEDS: LORazepam 0.25 MG in SYRINGE 0.125 ML IV ONE (14:50)
--- NOTE | 2023-10-27 15:12 | Hospitalist Progress Note ---
Date of Service October 27, 2023 Assessment & Plan (1) Acute hypoxemic respiratory failure: (2) Pneumonia: (3) CAD (coronary artery disease): Plan 83-year-old female with history of coronary disease and diabetes presenting now with diffuse pulmonary infiltrates and hypoxemic respiratory failure. Acute hypoxemic respiratory failure likely from multifocal PNA -currently on high flow nasal cannula-had increased work of breathing and was on BiPAP/Ativan briefly with improvement and now down to high flow. Continue duonebs,hypertonic saline nebs, pulmicort, mucinex, I-S/flutter valve. Send sputum clx if able. - Pulmonary on board-workup in progress. CT on admission shows bilateral diffuse groundglass opacities favoring pneumonia along with scattered mediastinal lymph nodes likely reactive. Pro-Neo 0.4, WBC 19, CRP 32. VFSS negative for aspiration - Pulmonology planning for bronchoscopy with BAL tomorrow if patient agreeable. Palliative is also following - Continue empiric antibiotic. - Now on empiric trial of steroids to see steroid responsiveness per pulmonology CHF exacerbation ruled out. Discussed with cardio and nephro. BNP 1400-> 525- >453. No need for further diuretics. Seems her hypoxia is from infective process rather than cardiac issues and cardio did not recommend further cardiac work up including RHC. No indication for diuresis either. EMELYN likely from ATN due to hypotension-creatinine 1.29->1.37->1.97->1.99->2.17->2.29->2.27->1.87, creatinine peaked at 2.3 and now trending down. UA reviewed, suggestive of ATN. Nephrotoxics have been discontinued. Nephrology on board. Follow up on renal function and urine output History of CAD s/p CABG-echo reviewed, normal EF. on aspirin, Coreg, statin, Imdur. Ranolazine discontinued per cardiology given renal dysfunction Diabetes mellitus type 2 with steroid induced hyperglycemia- Glycemic pharmacist now managing her insulin. BG now better Anemia- suggestive of iron deficiency in labs. Hemoglobin stable. Continue oral iron supplementation and monitor. Depression and anxiety- On fluoxetine, Ativan and doxepin Hypertension-BP improved. Continue Coreg. Continue to hold losartan and amlodipine. Monitor Peripheral vascular disease- On aspirin and statin DVT prophylaxis-subcu heparin Disposition- TBD. On high flow nasal cannula. Palliative following- will reeval on Saturday. Updated family at bedside Time spent-approximately 50 minutes Admission and Anticipated Discharge Date Admission Date: October 20, 2023 Subjective Patient was seen and examined at bedside in presence of family. States he has been having difficulty breathing since this morning. She was having increased work of breathing during my encounter. ABG shows hypoxemia to 61 on high flow. She was briefly switched to BiPAP and given IV Ativan for anxiety, with improvement in her symptoms. She was more comfortable during revisit and was back to high flow. Family brought concerned about possibility of ILD from fluoxetine and hence her fluoxetine has been changed to Lexapro by pulmonology. No other issues. No fever, chills, chest pain, nausea or vomiting Review of Systems Review of Systems: All systems reviewed & are unremarkable except as noted in Subjective Physical Exam Physical Exam: General: Lying in bed, not in acute distress, on HFNC HEENT: EOMI, HINA, MMM Chest: Fair breath sounds bilaterally with rales, increased work of breathing CVS: Regular rate and rhythm, normal heart sounds, + murmur Abdomen: Soft, non tender, not distended, normal bowel sounds Neuro: Awake, alert, oriented, conversing well, non focal Extremities: No edema Results & Data Results & Data Vital Signs (Past 12 Hours) Vital Signs Temp Pulse Pulse Resp BP Pulse Ox O2 Del Method 10/27/23 14:43 81 30 H 94 High Flow Nasal Cannula 10/27/23 11:34 96 H 31 H 90 High Flow Nasal Cannula 10/27/23 11:15 36.8 C 92 H 26 H 106/66 92 High Flow Nasal Cannula 10/27/23 10:01 97 H 32 H 94 10/27/23 07:15 36.9 C 94 H 32 H 129/56 L 90 Oxymask 10/27/23 07:05 86 30 H 90 High Flow Nasal Cannula 10/27/23 03:55 36.4 C L 94 H 26 H 146/99 H High Flow Nasal Cannula 10/27/23 03:40 79 31 H 95 High Flow Nasal Cannula O2 Flow Rate FiO2 10/27/23 14:43 30 60 10/27/23 11:34 30 60 10/27/23 11:15 10/27/23 10:01 50 10/27/23 07:15 8.0 10/27/23 07:05 25 60 10/27/23 03:55 10/27/23 03:40 30 80 Laboratory Results Short CBC 10/27/23 Range/Units 06:45 WBC 14.54 H (4.8-10.8) K/ul Hgb 8.9 L (12.0-16.0) g/dl Hct 26.0 L (37.0-47.0) % Plt Count 248 (130-400) K/uL BMP 10/27/23 06:45 Sodium 138 Potassium 4.4 Chloride 108 H Carbon Dioxide 21 BUN 77 H Creatinine 1.87 H D Glucose 179 H Calcium 8.8 (2) Pneumonia Laterality: bilateral Lung location: unspecified part of lung Pneumonia type: due to unspecified organism Qualified Code(s): J18.9 - Pneumonia, unspecified organism (3) CAD (coronary artery disease) Coronary Disease-Associated Artery/Lesion type: [place] artery [place] vs. transplanted heart: [place] heart Associated angina: without angina Qualified Code(s): I25.10 - Atherosclerotic heart disease of [place] coronary artery without angina pectoris
[2023-10-27] MEDS: carvediloL 6.25 MG TAB PO SCH (17:02)
[2023-10-28 00:56] LABS: ANCA Screen Negative (Negative); Anti Nuclear Antibody Screen NEGATIVE (NEGATIVE); Anti-Glom Basement Antibody <1.0 AI (<1.0); Myeloperoxidase Ab <1.0 AI (<1.0); Proteinase-3 AB <1.0 AI (<1.0)
--- NOTE | 2023-10-28 06:03 | Electrocardiogram Report ---
Test Reason : Blood Pressure : / mmHG Vent. Rate : 098 BPM Atrial Rate : 098 BPM P-R Int : 152 ms QRS Dur : 088 ms QT Int : 402 ms P-R-T Axes : 058 022 109 degrees QTc Int : 513 ms Poor data quality, interpretation may be adversely affected Normal sinus rhythm Septal infarct (cited on or before 27-OCT-2023) Abnormal ECG When compared with ECG of 21-OCT-2023 09:33, Premature atrial complexes are no longer Present Confirmed by Handy Galvan [id number]) on 10/28/2023 6:03:23 AM Referred By: Micheal Holman Confirmed By:Handy Galvan
[2023-10-28] MEDS: LORazepam 0.25 MG in SYRINGE 0.125 ML IV PRN (06:33)
[2023-10-28 07:09] LABS: Hematocrit (blood only) 27.6 % (37.0-47.0); Hemoglobin 9.3 g/dl (12.0-16.0); Mean Corpuscular Hemoglobin 31.4 pg (25.0-34.0); Mean Corpuscular Hgb Conc 33.7 g/dL (32.0-36.0); Mean Corpuscular Volume 93.2 fL (80.0-100.0); Mean Platelet Volume 11.2 fL (9.4-12.4); Platelet Count 264 K/uL (130-400); RDW Coefficient of Variation 12.8 % (11.5-14.5); RDW Standard Deviation 43.3 fL (36.4-46.3); Red Blood Count 2.96 M/uL (4.20-5.40); White Blood Count 18.27 K/ul (4.8-10.8)
[2023-10-28 07:27] LABS: BUN Creatinine Ratio 38.5 (10-20); Calcium 8.7 mg/dl (8.6-10.3); Creatinine Clr Calc Pharmacy 16.6 ml/min; Est GFR (African American) 26.5 ml/min; Est GFR (Non-African American) 22.8 ml/min; Potassium 4.5 mmol/L (3.5-5.1)
--- NOTE | 2023-10-28 07:35 | Pulmonology Progress Note ---
Date of Service October 28, 2023 Assessment & Plan (1) Acute hypoxemic respiratory failure: (2) Abnormal CT scan of lung: (3) Acute CHF: Plan IMPRESSION: 83-year-old female with a history of coronary artery disease and diabetes who was admitted on 10/19 with acute hypoxic respiratory failure in the setting of CHF and concerns for atypical infectious etiologies who remains on supplemental oxygen at high levels. RECOMMENDATIONS: 1. Acute hypoxic respiratory failure - In the setting of interstitial infiltrative changes appreciated on admission chest CT. Patient has continued to require high levels of supplemental oxygen. She is currently saturating in the low 90s on 30 L and 50% FiO2. She acutely decompensates into the low 80s with any movement as simple as sitting upright in bed. Her exam is consistent with bibasilar Rales LEFT greater than right. Her white count is elevated, but suspect demargination in the setting of heavy steroid use. Procalcitonin, serologic evaluations, respiratory PCR, and Legionella have all been negative to this point. She has shown some improvement with the methylprednisolone. Would continue with that at this point. Had a discussion today as she was questioning possible bronchoscopic evaluation. At this point, the patient appears to tenuous with her pulmonary status to perform that intervention. She did report feeling well while on the CPAP, but is anxious with the mask in place. We did review the utility of the CPAP device and helping her respiratory rate and receiving a bit of rest. This was communicated with respiratory therapy and they will try intermittent CPAP therapy to see if this helps improve patient's oxygenation and provide ventilatory support. She is completing course of doxycycline and ceftriaxone at this point. Uncertain of the utility of continuing antibiotic therapies otherwise. She has been evaluated by nephrology and felt not to be experiencing pulmonary renal syndrome at this time. Unfortunately, despite an ongoing elevation of her BNP and infiltrative changes, her creatinine continues to slowly rise. Would hold off on additional diuretics today and pursue aggressive pulmonary toileting with the addition of intermittent CPAP therapy. If the patient's saturations do improve to the point where we could consider bronchoscopic evaluation, that certainly would be considered, however given her wishes to avoid prolonged intubation, I am reluctant to recommend this as a treatment option today until we note improvement in her oxygen requirement. Will obtain follow-up chest x-ray this morning to evaluate in comparison. Thank you for allowing us to participate in the care of this pleasant patient. Pulmonary medicine will continue to follow. Admission and Anticipated Discharge Date Admission Date: October 20, 2023 Supervising Physician Co-Signing Physician Notes I saw and evaluated the patient with Parish Millan PA-C, and agree with findings and plan as documented in the note. Patient seen and examined at bedside. She was not in mild respiratory distress. No adverse events overnight She was saturating 93-94% on 30 L, 60% high flow, I went down to 50%. She does desaturate very easily on minimal exertion. Case discussed with outgoing branch assistant. Images personally reviewed Patient personally stated that she is feeling better. She did not tolerate the CPAP a lot. Was able to tolerate her diet. No nausea or vomiting CT chest 10/20/2023 personally reviewed: Diffuse groundglass opacities appreciated bilaterally upper and lower lobes. No significant mediastinal lymphadenopathy Constitutional: No acute distress HEENT: EOMI, PERRLA Respiratory system: Decreased air entry bilaterally, no wheeze, no rhonchi, positive crackles appreciated bilaterally, more on the right side CVS: S1-S2 positive, no murmurs or gallops Abdomen: Soft, nontender, nondistended, positive bowel sounds x4 Extremities: +2 pulses bilaterally radialis/ dorsalis pedis, no cyanosis, no edema Neuro: Awake alert oriented x3 Psych: Normal mood and affect G/U: Positive Ledezma Plan: Patient's cause of hypoxic respiratory failure is multifactorial Initial BNP was 1500 with moderate pulmonary hypertension, respiratory bio fire was negative for everything. Urine Legionella negative, no current history of smoking Not on amiodarone in the past. No significant eosinophilia on the peripheral smear prior to initiation of Solu-Medrol Hemoglobin is stable and patient denies any hemoptysis Initial ESR and CRP were elevated. Procalcitonin has been negative x 2 Autoimmune workup was negative Currently on Solu-Medrol 40 mg every 12. Oxygen requirements is gradually going down. Chest x-ray from today still shows opacities with interstitial marking. In/out. Patient is almost euvolemic since coming to the hospital. I would recommend to continue with Solu-Medrol. Would gradually go down to pr ednisone and tapered off Bronchoscopy is high risk for her as she will most likely get intubated given that she is not able to tolerate CPAP/BiPAP Continue with incentive spirometry Please note the above document was generated using voice recognition software. It may contain grammatical, syntax or spelling errors.Any formal questions or concerns about the content, text or information contained within the body of this dictation should be directly addressed to the provider for clarification. Subjective Patient seen and evaluated at bedside this morning. She still reports feeling anxious. She does feel improved than when she arrived, but still describes shortness of breath with any minimal activity. She continues on high flow nasal cannula at this point. She did not wear BiPAP overnight. She reports receiving chest physiotherapy this morning. She notes that she is willing to undergo bronchoscopic procedure to help find diagnosis if necessary. Review of Systems Review of Systems: Unchanged from prior Physical Exam Physical Exam: VITAL SIGNS - Vital signs and nursing notes were reviewed. GENERAL - 83-year-old female appearing her stated age who is in mild respiratory distress. Breathless, but answers questions appropriately and able to complete sentences. LUNGS - Auscultation reveals bibasilar rales, LEFT greater than right. CARDIAC - RRR with S1/S2. No murmur, rubs, or gallops appreciated. ABDOMEN - Abdominal inspection demonstrates a flat abdomen. BS normoactive all four quadrants. No tenderness, palpable masses, or ascites noted. EXTREMITIES - Nail clubbing not present. No peripheral cyanosis. No pretibial edema present. +3/5 radial palpated throughout. PSYCH - A&Ox3 and cooperates fully with examiner. Anxious appearing. Results & Data Results & Data Vital Signs (Past 12 Hours) Vital Signs Temp Pulse Pulse Pulse Resp BP Pulse Ox 10/28/23 07:05 80 22 92 10/28/23 07:02 80 22 93 10/28/23 03:34 36.5 C 94 H 28 H 125/61 93 10/28/23 03:15 86 26 H 92 10/28/23 00:30 92 H 10/27/23 23:16 36.8 C 88 26 H 130/55 L 94 10/27/23 22:58 90 29 H 92 10/27/23 20:15 10/27/23 19:42 36.8 C 88 30 H 128/58 L 95 O2 Del Method O2 Flow Rate FiO2 10/28/23 07:05 High Flow Nasal Cannula 30 50 10/28/23 07:02 High Flow Nasal Cannula 30 50 10/28/23 03:34 High Flow Nasal Cannula 10/28/23 03:15 High Flow Nasal Cannula 30 50 10/28/23 00:30 10/27/23 23:16 High Flow Nasal Cannula 10/27/23 22:58 High Flow Nasal Cannula 30 60 10/27/23 20:15 High Flow Nasal Cannula 10/27/23 19:42 High Flow Nasal Cannula PG Care Time/CCT Total # of Minutes Spent Total Time Spent with Patient: Total time spent is greater than 50% in coordination of care (as documented) at patient's floor/unit and/or counseling patient: Coding Level of Care Code 21413 SUB INP/OBS CARE 3/50MIN Diagnoses Acute hypoxemic respiratory failure J96.[address] scan of lung R91.8 Acute CHF I50.9
[2023-10-28 07:57] LABS: Estimated Average Glucose 166 mg/dl; Hemoglobin A1C 7.4 % (4.5-5.6)
[2023-10-28] MEDS: ESCITALOPRAM OXALATE 20 MG TAB PO SCH (07:57)
[2023-10-28] MEDS ORDERED: LORazepam 0.5 MG in SYRINGE 0.25 ML IV PRN (08:06)
[2023-10-28] MEDS: LANTUS PER UNIT CHARGE SQ SCH (08:23)
[2023-10-28] MEDS: LORazepam 0.25 MG in SYRINGE 0.125 ML IV STA ×2 (08:23→14:32)
--- NOTE | 2023-10-28 08:31 | XRay Report ---
XR chest 1V portable HISTORY: Shortness of breath. COMPARISON: Chest 10/27/2023. FINDINGS: No pneumothorax. No pleural effusions. Poststernotomy changes. The heart is stable in size. Interstitial and alveolar airspace opacities persist. No acute fractures. IMPRESSION: No change in the interstitial and alveolar airspace opacities. ACT 112: Negative or not required by law. Electronically signed by: Nash Dumont M.D. 10/28/2023 8:29 AM
--- NOTE | 2023-10-28 10:31 | Hospitalist Progress Note ---
Date of Service October 28, 2023 Assessment & Plan (1) Acute hypoxemic respiratory failure: (2) Pneumonia: (3) CAD (coronary artery disease): Plan 83-year-old female with history of coronary disease and diabetes presenting now with diffuse pulmonary infiltrates and hypoxemic respiratory failure. Acute hypoxemic respiratory failure likely from multifocal PNA -currently on high flow nasal cannula-had increased work of breathing and was on BiPAP/Ativan briefly with improvement and now down to high flow. Continue duonebs,hypertonic saline nebs, pulmicort, mucinex, I-S/flutter valve. Send sputum clx if able. - Pulmonary on board-workup in progress. CT on admission shows bilateral diffuse groundglass opacities favoring pneumonia along with scattered mediastinal lymph nodes likely reactive. Pro-Neo 0.4, WBC 19, CRP 32. VFSS negative for aspiration - Pulmonology planning for bronchoscopy with BAL when stable from respiratory standpoint. Palliative is also following - Continue empiric antibiotic. - Now on empiric trial of steroids to see steroid responsiveness per pulmonology CHF exacerbation ruled out. Discussed with cardio and nephro. BNP 1400-> 525- >453. No need for further diuretics. Seems her hypoxia is from infective process rather than cardiac issues and cardio did not recommend further cardiac work up including RHC. No indication for diuresis either. EMELYN likely from ATN due to hypotension-creatinine 1.29->1.37->1.97->1.99->2.17->2.29->2.27->1.87->2, creatinine peaked at 2.3 and now stable. UA reviewed, suggestive of ATN. Nephrotoxics have been discontinued. Nephrology on board. Follow up on renal function and urine output History of CAD s/p CABG-echo reviewed, normal EF. on aspirin, Coreg, statin, Imdur. Ranolazine discontinued per cardiology given renal dysfunction Diabetes mellitus type 2 with steroid induced hyperglycemia- Glycemic pharmacist now managing her insulin. BG now better Anemia- suggestive of iron deficiency in labs. Hemoglobin stable. Continue oral iron supplementation and monitor. Depression and anxiety- On fluoxetine, Ativan and doxepin. Will of IV Ativan as needed as well Hypertension-BP improved. Continue Coreg. Continue to hold losartan and amlodipine. Monitor Peripheral vascular disease- On aspirin and statin DVT prophylaxis-subcu heparin Disposition- TBD. On high flow nasal cannula. Palliative following- will reeval today Time spent-approximately 50 minutes Admission and Anticipated Discharge Date Admission Date: October 20, 2023 Subjective Patient was seen and examined at bedside. She feels anxious. She was saturating in 80s on high flow nasal cannula and was changed to CPAP per pulm with improvement in saturation. However she was still anxious with the mask and required some Ativan to calm her down. No fever, chills, chest pain, nausea or vomiting. Review of Systems Review of Systems: All systems reviewed & are unremarkable except as noted in Subjective Physical Exam Physical Exam: General: Lying in bed, not in acute distress, on CPAP HEENT: EOMI, HINA, MMM Chest: Fair breath sounds bilaterally with rales, increased work of breathing CVS: Regular rate and rhythm, normal heart sounds, + murmur Abdomen: Soft, non tender, not distended, normal bowel sounds Neuro: Awake, alert, oriented, conversing well, non focal Extremities: No edema Results & Data Results & Data Vital Signs (Past 12 Hours) Vital Signs Temp Pulse Pulse Pulse Resp BP Pulse Ox 10/28/23 08:10 70 42 H 93 10/28/23 07:25 10/28/23 07:15 36.9 C 88 26 H 144/65 H 92 10/28/23 07:05 80 22 92 10/28/23 07:02 80 22 93 10/28/23 03:34 36.5 C 94 H 28 H 125/61 93 10/28/23 03:15 86 26 H 92 10/28/23 00:30 92 H 10/27/23 23:16 36.8 C 88 26 H 130/55 L 94 10/27/23 22:58 90 29 H 92 O2 Del Method O2 Flow Rate FiO2 10/28/23 08:10 70 10/28/23 07:25 55 10/28/23 07:15 High Flow Nasal Cannula 10/28/23 07:05 High Flow Nasal Cannula 30 50 10/28/23 07:02 High Flow Nasal Cannula 30 50 10/28/23 03:34 High Flow Nasal Cannula 10/28/23 03:15 High Flow Nasal Cannula 30 50 10/28/23 00:30 10/27/23 23:16 High Flow Nasal Cannula 10/27/23 22:58 High Flow Nasal Cannula 30 60 Laboratory Results Short CBC 10/28/23 Range/Units 06:06 WBC 18.27 H (4.8-10.8) K/ul Hgb 9.3 L (12.0-16.0) g/dl Hct 27.6 L (37.0-47.0) % Plt Count 264 (130-400) K/uL BMP 10/28/23 06:09 Sodium 135 L Potassium 4.5 Chloride 105 Carbon Dioxide 20 L BUN 77 H Creatinine 2.00 H Glucose 195 H Calcium 8.7 (2) Pneumonia Laterality: bilateral Lung location: unspecified part of lung Pneumonia type: due to unspecified organism Qualified Code(s): J18.9 - Pneumonia, unspecified organism (3) CAD (coronary artery disease) Coronary Disease-Associated Artery/Lesion type: [place] artery [place] vs. transplanted heart: [place] heart Associated angina: without angina Qualified Code(s): I25.10 - Atherosclerotic heart disease of [place] coronary artery without angina pectoris
--- NOTE | 2023-10-28 10:58 | Pharmacy Report ---
Pharmacy Glycemic Short Note 2 - Date of Service October 28, 2023 - Glycemic Short BSG Results (Last 24 hours): 10/27/23 10/27/23 10/27/23 11:28 16:20 20:27 Glucose POC Glucose 224 H 98 200 H 10/28/23 10/28/23 06:08 06:09 Glucose 195 H POC Glucose 190 H OUTPATIENT ANTIDIABETIC REGIMEN: * Lantus 24 units SC AM * Novolog SSI w/ meals (CR of 1:15) * HbA1c: 7.4% (10/28/23) ASSESSMENT: 10/27: * Marjorie received 46 units of insulin yesterday, 24 basal + 22 bolus. BSGs were: 513-408-54-200 mg/dL. * Fasting BSG was 190 mg/dL this AM. Patient not eating much yesterday. Was briefly NPO this AM for possible bronchoscopy but this will not be done today per provider. Therefore, still feel comfortable increasing basal by 20% to cover for steroid-inducer hyperglycemia. Patient remains on Solumedrol 40 mg IV every 12 hours. * No change to Novolog at this time. Dinner BSGs have consistently been dropping to below goal. Do not want to induce hypoglycemia by tightening regimen. However, outside of dinner, BSGs are mostly above goal. Pending BSGs today, may tighten regimen tomorrow but remove carb ratio at lunchtime to prevent stacking and subsequent dinner hypoglycemia. 10/26: * Patient received 43 units of insulin yesterday, 24 units basal, hypoglycemic (60mg/dl) prior to dinner, then rebound hyperglycemia (231mg/dl) at bedtime. * DC HS basal and loosen CR to prevent further hypoglycemia. * Patient remains on methylprednisolone 40 mg twice daily and ceftriaxone. 10/24: * Patient received 82 units of insulin yesterday, 36 units of basal, 46 units of prandial/correctional * Blood sugars did trend down overnight with fasting of 144 mg/dL- will continue current basal parameters; reassess as SCr is trending upward slightly * BSGs yesterday after tightened carb ratio went upwards with dinner, therefore will tighten carb ratio again this morning. Lunch BSG has improved from the previous day and as this tends to be the highest BSG of the day will continue with tightened carb ratio for now * Could still consider addition of NPH in the morning if needed 10/23: * 83 yo female with type II diabetes admitted for CHF/ hypoxic respiratory failure. BSGs had been adequately controlled but have increased with the addition of methylprednisolone 40 mg IV q12H on 10/22. * Fasting this morning 243 mg/dL- will give additional lantus tonight up to 50% * Lunch BSG in the 300s and then subsequently consulted. Will trial tighter novolog, consider addition of NPH to help cover meals tomorrow if BSGs remain elevated PLAN FOR INPATIENT GLYCEMIC CONTROL: * Basal insulin * Lantus 28 units SC AM * Bolus insulin * NovoLog per scale ACHS or Q6hrs while NPO * Goal Range: Low 110 mg/dL - High 140 mg/dL * Correction Factor: 20 mg/dL/unit * Nutritional / Prandial insulin per carb ratio of 1 unit per 8 grams CHO consumed
[2023-10-28] MEDS: SODIUM CHLORIDE 0.65% NA SOLN 45 ML (OCEAN) ONE (17:05)
--- NOTE | 2023-10-28 18:12 | Palliative Family Discussion ---
Date of Service October 28, 2023 Patient Directed Conference Time of Meetin - 4837 A face to face ACP meeting was held with family for Marjorie Cheng. Participants: Torrie Lynne DNP Patient participation: pt declined and asked we meet with family outside her room Patient Support System: , sons x4, daughter x1, granddaughters x4, grandsons x 4, son in law,sister, sister's daughter in law, former daughter in law Other Healthcare Provider Participation: None Meeting Location: family waiting room on [facility]U Advanced Directive available: no but pt wishes for no code, no escalation and no aggressive/invasive measures is noted in prior notes and earlier today / see my note A ACP family meeting was held for MARJORIE CHENG. This meeting was necessary for determining the appropriate course of treatment. Topics of Discussion Topics of Discussion: 1. Marjorie has progressively rising HFNC needs with increasing resp distress, increased WOB and increasing anxiety & air hunger 2. She has not improved with IV Abtx, escalating O2 support, supportive care 3. She is too high risk for bronch and would need intubation, which she remains firm she does not want. She is equally clear she does not want to be placed on machines, have anything down her throat and if she is not getting better she would want to spend whatever time she has with her family. Ideally she wants to be home. 4. We discussed her overall decline in spite of escalating measures. Her air hunger and breathlessness is worsening. She is needing more symptom mgt with ativan and I have started low dose MSIR for additional relief. She has worsening fears of suffocating and dying and verbalizes how she does not feel ready to let go and she feel badly for "bickering" with her of 65yr in the days leading up to her admission.She feels a lot of angst over being the first to , leaving her behind and worries about who will look after her family/children/grandkids etc. 5. Family had many good questions about signs that may indicate she is wo rsening further, what changes are seen if transitioning to end of life, what are changes of the dying process, how to emotionally support her and what they might be able to bring in/add to her comfort. All questions answered to their apparent satisfaction. 6. Family unanimously in agreement with pt known wishes and understand that while we hope she improves, we are worried she will continue to worsen, and a transition to a comfort plan of care would be more appropriate. I specifically advised them all I am worried she is transitioning from a process of living, to a process of dying and I worry she has a short anticipated survival. Other Content of Meetin. Opportunity given for participants to speak and ask questions. 2. Participants were assured of attention to patient comfort. 3. Reassurance provided. 4. Support was provided for informed, good-kwasi decisions. 5. Emotions expressed by family were acknowledged and addressed. 6. Family would like daily to BID safety inspector visits to help ease patient into a better awareness/acceptance of her changing circumstances. They would also like visits from the therapy dogs - I communicated this to nursing. 7. Plan of Care:no escalation other than titration of HFNC FiO2 if needed. Reaffirmed she is a no code. If she acutely worsens will move to comfort. 8. I discussed with family how dying patients fear dyspnea and pain, therefore, symptom control is one cornerstone of pulmonary palliative care. Dyspnea is a prominent symptom of the patient with advanced respiratory disease of any cause: nearly all patients with COPD had dyspnea during the last 3 days of their lives. Providers routinely care for patients with chronic or advanced respiratory diseases and critical illnesses. The ATS recognizes: the growing importance and complexity of palliative care for patients with life-threatening and life- limiting diseases and disorders and the need for improving professional competence and teamwork in providing such care. The statement strongly endorses the concept that palliative care should be available to patients at all stages of illness and should be individualized based on the needs and preferences of the patient and the patients family. Clinicians should consult with palliative care specialists as appropriate for managing palliative care situations beyond the clinicians level of competence. (ATS Clinical Policy Statement: Palliative Care for Patients with Respiratory Diseases and Critical Illnesses; Ernesto García, et al., for the [employer], the [place] [employer], the [place] [employer], and the Respiratory Society* Diagnosis and Management of Stable Chronic Obstructive Pulmonary Disease: A Clinical Practice Guideline Update from the [place] [employer], [place] [employer], [place] [employer], and Respiratory Society . Flori [employer] Med. 2011;[id number].) 9. We discussed changes pt may move through in the dying process including but not limited to sleeping more, disorientation when awake, restlessness, diminished senses/inability to respond to stimulus although ability to be aware of them remains intact longer, and changes in body temperatures, skin changes/mottling/cyanosis, respiratory pattern changes, and oral secretions. Family verbalized understanding. The goal is to assure a peaceful . 10. EOL Rally: When a person facing the end of life rallies, they seem to become "more stable" - may want to talk or even begin taking PO; this phenomenon is usually seen as a sudden burst of energy before . This period of perking up can be accompanied by such a notable change in mental clarity that is often referred to as terminal lucidity. This change in cognition and behavior goes against everything families learn about the physical signs that the end of life is near. It is important to note that evidence-based data is elusive, if nonexistent. Theories support that it may be a search for a final, strong connection. Also, as organs shut down, they can release a steroid like compound that briefly rouses the body - in the specific case of brain tumors, swelling occurs in the confined space of the skull. The edema shrinks as EOL care patients are weaned off food and drink, waking up the brain a bit. Families and caregivers may grasp at what seems to be a turnaround in a loved ones health, however, the EOL Rally is a hallmark pre- sign. It is not uncommon for patients to show improvement before : they may want to talk while others may become restless or act as if they need to start preparing for a trip. Some patients will become more relaxed yet remain tuned in to what is going on around them, others will show signs of physical stability when, seconds before, they seemed on the verge of letting go. A rally can last for a few moments or even days. Short or long, these temporary improvements can have a profound effect on loved ones who are keeping babb. Like a moment of clarity for someone who has dementia, a rally is one last opportunity to connect with a loved one. Each persons experience is unique and impossible to predict with total accuracy. Life is full of questions, and some of them simply are not meant to be answered. Read more: [email or web address] Time Involved in Meeting: I spent 60 minutes overall addressing this case in the above face to face ACP meeting. Thank you for allowing us to participate in the ongoing care of this patient. Please don't hesitate to call or page with any additional concerns. Dr. Torrie Lynne DNP Director, Palliative Care
[2023-10-28] MEDS: LORazepam 0.5 MG in SYRINGE 0.25 ML IV PRN (18:36)
--- NOTE | 2023-10-28 18:44 | Palliative Care Progress Note ---
Date of Service October 28, 2023 Assessment & Plan (1) Dyspnea and respiratory abnormalities: Plan: Ativan 0.5mg IV q4h prn MSIR 1mg PO q2h prn (2) Weakness generalized: (3) Advanced care planning/counseling discussion: Plan: Met with pt face to face x30min at bedside together with her daughter, grandson, [employer] Elsa and granddaughter Tami/[facility] pharmacist. I shared with pt the worries of rising O2 needs, worsening weakness, air hunger and resp fatigue in spite of escalated support may be indicating things are not improving. She agreed and added she has been having the same worries. She admits she is scared. SHe worries what will happen if she dies, says she is not ready to go yet and has been 'bickering' with for a few days-this is weighing on her. She tells me she loves her family and the time she spends with them, leaving them behind is distressing. She worries about dying, suffocating and suffering. She is very anxious and tearful. She agrees her family needs to be updated but adds she does not want to have this discussion twice. When I asked what she would want in the event of worsening,she indicated preference would be comfort and being with family. I suggested and she agreed that we would stay the course overnight, see how she does but if she acutely worsens/declines, we would move to comfort care. (4) Palliative care by specialist: (5) Acute hypoxemic respiratory failure: Plan ACP as noted above. Symptom mgt meds modified A larger ACP family meeting with entire group is being planned for 4pm this a fternoon. Thank you for allowing us to participate in the ongoing care of this patient. Please don't hesitate to call or page with any additional concerns. Dr. Torrie Lynne DNP Director, Palliative Care Admission and Anticipated Discharge Date Admission Date: October 20, 2023 Subjective worsening oxygenation rising FiO2 with HFNC increased air hunger, conversational dyspnea, anxiety easily dyspneic with minimal effort appetite poor increased weakness more emotional and tearful at times needing max assist for all care family taking turns at bedside Review of Systems Review of Systems: All systems reviewed & are unremarkable except as noted in Subjective Physical Exam Constitutional: + acute distress, + thin, + physical lewis itations, + frail appearing and + combative Eyes: PERRL, conjunctivae normal, anicteric sclerae PERRL ENMT: external ear and nose normal, oropharynx normal Mouth: + dry oral mucous membranes Throat: uvula midline Neck: trachea midline, no thyromegaly Respiratory: + labored breathing, + uses accessory mu scles, + cough (dry), + tachypneic and + pursed lip breathing Auscultation: + diminished lung sounds and + crackles Cardiovascular: Rate/Rhythm: + tachycardic Vessels: brachial pulses present and radial pulses present Gastrointestinal (Abdomen): Inspection/Auscultation: + hypoactive bowel sounds Percussion/Palpation: abdomen soft Musculoskeletal: generalized weakness +cyanotic changes to nailbeds, +dusky Skin: + turgor decreased and + dry skin pale, cool to touch Neurologic: awake Cranial Nerves: PERRL, normal accommodation, EOM intact bilaterally, normal hearing and able to rotate head bilaterally Psychiatric: Orientation: alert and oriented x 3 Apperance: appeared stated age Eye Contact: + fair eye contact Speech: + pressured speech Affect: + anxious affect and + tearful affect Mood: + anxious mood Thought Process: clear/coherent thought process Thought Content: + hopelessness and + loneliness Suicidal Thoughts: denies suicidal thoughts, denies suicidal plan and denies suicidal intent Homicidal Thoughts: denies homicidal thoughts, denies homicidal plan and denies homicidal intent Cognition: recent memory grossly intact, remote memory grossly intact, attention grossly intact and language grossly intact Estimated Intelligence: average estimated intelligence and consistent with education level Insight: excellent insight Judgment: excellent judgement Lymphatic: + lymphadenopathy Results & Data Vital Signs (Past 12 Hours) Vital Signs Temp Pulse Pulse Resp BP Pulse Ox O2 Del Method 10/28/23 16:36 83 10/28/23 16:19 36.6 C 84 32 H 137/72 95 High Flow Nasal Cannula 10/28/23 15:20 10/28/23 14:54 82 20 89 L High Flow Nasal Cannula 10/28/23 14:52 82 26 H 86 L High Flow Nasal Cannula 10/28/23 11:20 36.8 C 101 H 30 H 137/61 88 L High Flow Nasal Cannula 10/28/23 11:06 High Flow Nasal Cannula 10/28/23 11:06 94 H 10/28/23 11:02 98 H 32 H 93 High Flow Nasal Cannula 10/28/23 10:58 29 H 93 High Flow Nasal Cannula 10/28/23 08:10 70 42 H 93 10/28/23 07:25 10/28/23 07:15 36.9 C 88 26 H 144/65 H 92 High Flow Nasal Cannula 10/28/23 07:05 80 22 92 High Flow Nasal Cannula 10/28/23 07:02 80 22 93 High Flow Nasal Cannula O2 Flow Rate FiO2 10/28/23 16:36 10/28/23 16:19 10/28/23 15:20 60 10/28/23 14:54 30 50 10/28/23 14:52 30 50 10/28/23 11:20 10/28/23 11:06 10/28/23 11:06 10/28/23 11:02 30 60 10/28/23 10:58 30 60 10/28/23 08:10 70 10/28/23 07:25 55 10/28/23 07:15 10/28/23 07:05 30 50 10/28/23 07:02 30 50 Laboratory Results Most recent lab results ABG pH 7.42 (7.35-7.45) 10/27/23 06:53 ABG pCO2 29 mmHg (35-46) L 10/27/23 06:53 ABG pO2 61 mmHg (80-95) L 10/27/23 06:53 ABG HCO3 19 mmol/L (19-24) 10/27/23 06:53 ABG O2 Saturation 92.3 % (90-95) 10/27/23 06:53 Calcium 8.7 mg/dl (8.6-10.3) 10/28/23 06:09 Phosphorus 5.1 mg/dl (2.5-4.9) H 10/24/23 05:37 Magnesium 2.0 mg/dl (1.7-2.4) 10/27/23 06:[address] 10/20/23 21:17 Exam(s): CT CHEST Without Contrast EXAM: CT Chest Without Intravenous Contrast CLINICAL HISTORY: Reason for exam: pneumonia/chf. TECHNIQUE: Axial computed tomography images of the chest without intravenous contrast. CTDI is 16.37 mGy and DLP is 464.51 mGy-cm. Automated exposure control was utilized for the study. A dose lowering technique was utilized adhering to the principles of ALARA. COMPARISON: No relevant prior studies available. FINDINGS: Lungs: Bilateral diffuse ground-glass airspace opacities favors infectious process (pneumonia,). Pleural space: Unremarkable. No pneumothorax. No significant effusion. Heart: Unremarkable. No cardiomegaly. No significant pericardial effusion. No significant coronary artery calcifications. Mediastinum: Scattered mediastinal lymph nodes measuring up to 14 mm, likely reactive. Bones/joints: Prior sternotomy. General changes of the thoracic spine with calcification of the anterior longitudinal ligament and moderate kyphosis. No acute fracture. No dislocation. Soft tissues: Unremarkable. Vasculature: Severe atherosclerotic disease of the coronary arteries, mitral valve and aortic valve. No thoracic aortic aneurysm. Lymph nodes: See above. IMPRESSION: 1. Bilateral diffuse ground-glass airspace opacities favors infectious process (pneumonia,). 2. Scattered mediastinal lymph nodes measuring up to 14 mm, likely reactive. Electronically signed by: Gi Ramirez MD 10/20/23 22:45 PM Venous Doppler Study 10/21/23 05:22 BILATERAL LOWER EXTREMITY VENOUS DOPPLER CLINICAL HISTORY: elevated dimer. dvt? COMPARISON STUDY: No previous studies for comparison. TECHNIQUE: Sonography of the deep venous system of the bilateral lower extremities was performed. Compression and augmentation were evaluated. FINDINGS: The bilateral common femoral, superficial femoral and popliteal veins were compressible. Augmentation was normal. Flow was shown within the deep calf vessels. IMPRESSION: No evidence of deep venous thrombus within the bilateral lower extremities. ACT 112: Negative or not required by law. Electronically signed by: Carlos Enrique Pretty M.D. 10/21/2023 7:11 AM Videofluoroscopic Swallow 10/22/23 13:00 FL video swallow HISTORY: Pneumonia. Assess for aspiration TECHNIQUE: Video fluoroscopic evaluation of swallowing was performed in the AP and lateral projections by the speech pathology staff. The patient is fed nectar-thick and thin liquid barium, a barium coated wafer, and barium pudding. FLUOROSCOPY TIME: 2 minutes and 31 seconds. Ka,r: 21.5 mGy COMPARISON STUDY: None. FINDINGS: There is normal hyoid excursion and epiglottic deflection. No significant penetration or aspiration identified. Swallowing function is within normal limits. Mild esophageal dysmotility. IMPRESSION: 1. No aspiration identified. 2. Please see the speech pathologist report for detailed findings and recommendations. ACT 112: Negative or not required by law. Electronically signed by: Nash Dumont M.D. 10/22/2023 2:37 PM Chest X-Ray 10/28/23 07:51 XR chest 1V portable HISTORY: Shortness of breath. COMPARISON: Chest 10/27/2023. FINDINGS: No pneumothorax. No pleural effusions. Poststernotomy changes. The heart is stable in size. Interstitial and alveolar airspace opacities persist. No acute fractures. IMPRESSION: No change in the interstitial and alveolar airspace opacities. ACT 112: Negative or not required by law. Electronically signed by: Nash Dumont M.D. 10/28/2023 8:29 AM PG Care Time/CCT Total # of Minutes Spent Total Time Spent with Patient: Total time spent is greater than 50% in coordination of care (as documented) at patient's floor/unit and/or counseling patient: I spent 105 minutes overall addressing this case: 15 min in medical data review/discussion with referring provider(s) and/or preparation for the visit 20 min in direct interaction with the patient/exam 30 min in Advance Care Planning/Goals of Care discussions as detailed above in note (must be >16min) 20 min in subsequent review and synthesis of assessment and plan 20 min communicating with other providers regarding the patient's case: primary, pulmonary, nursing Prolonged Care Time Prolonged Care Time: Yes Advanced Care Planning 26870 Advanced Care Planning 30 Min [place] [address] SUB INP/OBS CARE 3/50MIN Patient Type Established History Comprehensive Exam Comprehensive Diagnoses Dyspnea and respiratory abnormalities R06.00; R06.89 Weakness generalized R53.1 Advanced care planning/counseling discussion Z71.89 Palliative care by specialist Z51.5 Acute hypoxemic respiratory failure J96.01 Additional Codes Advanced Care Planning - 13043 Advanced Care Planning 30 Min: 24604 Advanced Care Planning 30 Min ([id number]) Prolonged Care Time - Prolonged Care Time: Yes ([id number])
[2023-10-29 06:34] LABS: Hematocrit (blood only) 27.5 % (37.0-47.0); Mean Corpuscular Hemoglobin 31.1 pg (25.0-34.0); Mean Corpuscular Hgb Conc 32.7 g/dL (32.0-36.0); Mean Corpuscular Volume 95.2 fL (80.0-100.0); Mean Platelet Volume 11.2 fL (9.4-12.4); Platelet Count 262 K/uL (130-400); RDW Coefficient of Variation 13.1 % (11.5-14.5); RDW Standard Deviation 44.8 fL (36.4-46.3); Red Blood Count 2.89 M/uL (4.20-5.40); White Blood Count 16.48 K/ul (4.8-10.8)
[2023-10-29 07:07] LABS: Albumin Globulin Ratio 0.6 (0.9-2); Albumin Level 2.4 gm/dl (3.4-5.0); BUN Creatinine Ratio 40.6 (10-20); Bilirubin,Total 0.4 mg/dl (0.2-1.0); C Reactive Protein 5.87 mg/dl (0-0.5); Calcium 8.5 mg/dl (8.6-10.3); Creatinine Clr Calc Pharmacy 18.5 ml/min; Est GFR (African American) 30.1 ml/min; Est GFR (Non-African American) 25.9 ml/min; Globulin 3.8 gm/dl (2.5-4.0); Total Protein 6.2 gm/dl (6.0-8.3)
--- NOTE | 2023-10-29 07:46 | Pulmonology Progress Note ---
Date of Service October 29, 2023 Assessment & Plan (1) Acute hypoxemic respiratory failure: (2) Abnormal CT scan of lung: (3) Acute CHF: Plan IMPRESSION: 83-year-old female with a history of coronary artery disease and diabetes who was admitted on 10/19 with acute hypoxic respiratory failure in the setting of CHF and concerns for atypical infectious etiologies who remains on supplemental oxygen at high levels. RECOMMENDATIONS: 1. Acute hypoxic respiratory failure - In the setting of interstitial infiltrative changes appreciated on admission chest CT. Patient has continued to require high levels of supplemental oxygen. She is currently saturating in the mid 90s on 30 L and 70% FiO2. She did well with intermittent CPAP support yesterday which did decrease her respiratory rate and provided her with additional support. She is an anxious person which makes wearing the device difficult, however. We did have discussion regarding intermittent use of BiPAP if she felt as though this helped her breathe more comfortably. Unfortunately, at this point, we are at a Crossroads of whether the patient will start to recover versus continued to decline. Palliative care did engage extensively with the patient and family yesterday. At this point, the patient is agreeable to continuing with current treatment plan at this time. If there is a decline or change in status or if the patient decides against ongoing treatment measures, plan would be to transition towards a comfort care approach recognizing an end-of-life process and focus goals of cares towards peaceful passing. I do feel that this is an appropriate position for the patient to be in given the uncertainty of the chances of recovery given her interstitial lung findings, and ongoing high levels of oxygen requirement. Continue with all current therapies at this point. Recommend intermittent CPAP to assist in patient's work of breathing. Will follow-up with chest films today. Thank you for allowing us to participate in the care of this pleasant patient. Pulmonary medicine will continue to follow. Admission and Anticipated Discharge Date Admission Date: October 20, 2023 Supervising Physician Co-Signing Physician Notes I saw and evaluated the patient with Parish Millan PA-C, and agree with findings and plan as documented in the note. Patient seen and examined at bedside. No acute distress Overnight patient was not able to tolerate CPAP. Patient was saturating 89-90% on 30 L, 70% high flow. In mild respiratory distress but was able to talk in full sentences Patient's family was also in the room. She denied any chest pain. She is able to tolerate diet. Denied any nausea vomiting Still complains of postnasal drip and difficulty bringing up the phlegm. CT chest 10/20/2023 personally reviewed: Diffuse groundglass opacities appreciated bilaterally upper and lower lobes. No significant mediastinal lymphadenopathy Constitutional: Mild respiratory distress HEENT: EOMI, PERRLA Respiratory system: Decreased air entry bilaterally, no wheeze, no rhonchi, positive Velcro-like crackles appreciated bilaterally anteriorly and posteriorly CVS: S1-S2 positive, no murmurs or gallops Abdomen: Soft, nontender, nondistended, positive bowel sounds x4 Extremities: +2 pulses bilaterally radialis/ dorsalis pedis, no cyanosis, no edema Neuro: Awake alert oriented x3 Psych: Normal mood and affect G/U: Positive Ledezma Plan: Patient's cause of hypoxic respiratory failure is multifactorial Initial BNP was 1500 with moderate pulmonary hypertension, respiratory bio fire was negative for everything. Urine Legionella negative, no current history of smoking Not on amiodarone in the past. No significant eosinophilia on the peripheral smear prior to initiation of Solu-Medrol Hemoglobin is stable and patient denies any hemoptysis Possibility of a viral etiology which was not picked up on bio fire is there. Initial ESR and CRP were elevated. Procalcitonin has been negative x 2 Autoimmune workup is negative from 10/23/2023 Continue with Solu-Medrol Bronchoscopy is high risk for her as she will most likely get intubated given that she is not able to tolerate CPAP/BiPAP Continue with incentive spirometry Case was discussed with patient's daughter as well as son. All questions and queries were answered in depth. Please note the above document was generated using voice recognition software. It may contain grammatical, syntax or spelling errors.Any formal questions or concerns about the content, text or information contained within the body of this dictation should be directly addressed to the provider for clarification. Subjective Patient seen and evaluated at bedside. Complains of some mild worsening with attempts at deep inspiration. She did sleep last night which was a change for her. She does not feel as though she struggling this point. No complaints of chest pain or hemoptysis. She wore high flow alone. She did not wear CPAP at all. Review of Systems Review of Systems: Unchanged from prior Physical Exam Physical Exam: VITAL SIGNS - Vital signs and nursing notes were reviewed. GENERAL - 83-year-old female appearing her stated age who is in mild respiratory distress. Breathless, but answers questions appropriately and able to complete sentences. LUNGS - Auscultation reveals bibasilar rales, LEFT greater than right. CARDIAC - RRR with S1/S2. No murmur, rubs, or gallops appreciated. ABDOMEN - Abdominal inspection demonstrates a flat abdomen. BS normoactive all four quadrants. No tenderness, palpable masses, or ascites noted. EXTREMITIES - Nail clubbing not present. No peripheral cyanosis. No pretibial edema present. +3/5 radial palpated throughout. PSYCH - A&Ox3 and cooperates fully with examiner. Anxious appearing. Results & Data Results & Data Vital Signs (Past 12 Hours) Vital Signs Temp Pulse Pulse Resp BP Pulse Ox O2 Del Method 10/29/23 07:34 76 10/29/23 07:25 84 34 H 94 High Flow Nasal Cannula 10/29/23 03:45 74 28 H 96 High Flow Nasal Cannula 10/29/23 02:18 36.7 C 78 23 134/67 93 High Flow Nasal Cannula 10/28/23 23:25 86 10/28/23 22:55 81 23 93 High Flow Nasal Cannula 10/28/23 22:31 36.9 C 85 28 H 121/55 L 91 High Flow Nasal Cannula 10/28/23 20:05 87 22 96 High Flow Nasal Cannula O2 Flow Rate FiO2 10/29/23 07:34 10/29/23 07:25 30 70 10/29/23 03:45 30 80 10/29/23 02:18 30 10/28/23 23:25 10/28/23 22:55 30 80 10/28/23 22:31 10/28/23 20:05 30 80 PG Care Time/CCT Total # of Minutes Spent Total Time Spent with Patient: Total time spent is greater than 50% in coordination of care (as documented) at patient's floor/unit and/or counseling patient: Coding Level of Care Code 42433 SUB INP/OBS CARE 3/50MIN Diagnoses Acute hypoxemic respiratory failure J96.[address] scan of lung R91.8 Acute CHF I50.9
[2023-10-29] MEDS: LANTUS PER UNIT CHARGE SQ SCH (08:05)
[2023-10-29] MEDS: LORazepam 0.25 MG in SYRINGE 0.125 ML IV STA ×2 (08:35→16:03)
--- NOTE | 2023-10-29 09:16 | XRay Report ---
XR chest 1V portable CLINICAL HISTORY: f/u COMPARISON STUDY: Chest CT October 20, 2023. Chest radiograph October 28, 2023. FINDINGS: There is no pneumothorax or pleural effusion. There are median sternotomy wires and mediast inal surgical clips. Cardiomediastinal silhouette is stable. Diffuse interstitial thickening and alve olar opacities are unchanged since prior exam. The appearance of the chest is unchanged. IMPRESSION: No change in diffuse interstitial thickening and alveolar opacities throughout the lungs. ACT 112: Negative or not required by law. Electronically signed by: Carlos Enrique Pretty M.D. 10/29/2023 9:15 AM
--- NOTE | 2023-10-29 12:16 | Pharmacy Report ---
Pharmacy Glycemic Short Note 2 - Date of Service October 29, 2023 - Glycemic Short BSG Results (Last 24 hours): 10/28/23 10/28/23 10/29/23 16:18 20:26 05:32 Glucose 239 H POC Glucose 175 H 184 H 10/29/23 10/29/23 07:21 11:42 Glucose POC Glucose 254 H 117 H OUTPATIENT ANTIDIABETIC REGIMEN: * Lantus 24 units SC AM * Novolog SSI w/ meals (CR of 1:15) * HbA1c: 7.4% (10/28/23) ASSESSMENT: 10/28: * Patient received 45 units of insulin yesterday, 28 basal + 17 bolus. BSGs were: [phone] mg/dL. * Fasting BSG increased to 254 mg/dL this AM. Suspect snacking is the cause but will increase basal by ~7% today. * Tightened Novolog this AM and lunchtime BSG dropped to 117 mg/dL. To prevent dinner hypoglycemia, will loosen CF and CR. 10/27: * Marjorie received 46 units of insulin yesterday, 24 basal + 22 bolus. BSGs were: 585-400-08-200 mg/dL. * Fasting BSG was 190 mg/dL this AM. Patient not eating much yesterday. Was briefly NPO this AM for possible bronchoscopy but this will not be done today per provider. Therefore, still feel comfortable increasing basal by 20% to cover for steroid-inducer hyperglycemia. Patient remains on Solumedrol 40 mg IV every 12 hours. * No change to Novolog at this time. Dinner BSGs have consistently been dropping to below goal. Do not want to induce hypoglycemia by tightening regimen. However, outside of dinner, BSGs are mostly above goal. Pending BSGs today, may tighten regimen tomorrow but remove carb ratio at lunchtime to prevent stacking and subsequent dinner hypoglycemia. 10/26: * Patient received 43 units of insulin yesterday, 24 units basal, hypoglycemic (60mg/dl) prior to dinner, then rebound hyperglycemia (231mg/dl) at bedtime. * DC HS basal and loosen CR to prevent further hypoglycemia. * Patient remains on methylprednisolone 40 mg twice daily and ceftriaxone. 10/24: * Patient received 82 units of insulin yesterday, 36 units of basal, 46 units of prandial/correctional * Blood sugars did trend down overnight with fasting of 144 mg/dL- will continue current basal parameters; reassess as SCr is trending upward slightly * BSGs yesterday after tightened carb ratio went upwards with dinner, therefore will tighten carb ratio again this morning. Lunch BSG has improved from the previous day and as this tends to be the highest BSG of the day will continue with tightened carb ratio for now * Could still consider addition of NPH in the morning if needed 10/23: * 83 yo female with type II diabetes admitted for CHF/ hypoxic respiratory failure. BSGs had been adequately controlled but have increased with the addition of methylprednisolone 40 mg IV q12H on 10/22. * Fasting this morning 243 mg/dL- will give additional lantus tonight up to 50% * Lunch BSG in the 300s and then subsequently consulted. Will trial tighter nov olog, consider addition of NPH to help cover meals tomorrow if BSGs remain elevated PLAN FOR INPATIENT GLYCEMIC CONTROL: * Basal insulin * Lantus 30 units SC AM * Bolus insulin * NovoLog per scale ACHS or Q6hrs while NPO * Goal Range: Low 110 mg/dL - High 140 mg/dL * Correction Factor: 20 mg/dL/unit * Nutritional / Prandial insulin per carb ratio of 1 unit per 7 grams CHO consumed
--- NOTE | 2023-10-29 12:56 | Palliative Care Progress Note ---
Date of Service October 29, 2023 Assessment & Plan (1) Dyspnea and respiratory abnormalities: Plan: Continue Ativan 0.5mg IV q4h prn for anxiety and MSIR 1mg PO q2h prn for dyspnea/air hunger Continue supportive care with pet therapy and press department manager support Continue allowing liberalized family presence and support for patient, this is helping to reduce some of her anxiety (2) Anxiety about health: Plan: see #1 (3) Weakness generalized: (4) Advanced care planning/counseling discussion: Plan: Spoke with Marjorie and family at bedside for 20min She is anxious but trying to keep a handle on it with Ativan, having family with her is helping. remains by her side. She is OOB to chair today but notes it took a lot out of her and she needed help from 2 nurses, but her appetite is better today and she is hopeful that her improved spirits and appetite may signal she is turning a corner. She knows her oxygen (FiO2) had to be increased but for now feels this is due to her exertion (it has been rising) All are in agreement that if she worsens, plan of care will transition to that of a comfort focus. (5) Palliative care by specialist: (6) Acute hypoxemic respiratory failure: Plan Continue current symptom mgt BM last night, nausea improved Appetite is better today Mood improved with family presence Rising FiO2 on HFNC, did not tolerate a weaning attempt. Does not like NIV although it remains available to her. I suggested she try it after a dose of Ativan and if she falls asleep/naps, that is fine on NIV We all remain hopeful, with pt and family, that she may turn the corner however she is on the brink of either getting better or getting worse - there can be t hese "last rally" or "one great day" phenomenon that can be confusing and disheartening for patients and family alike those they remain a normal variant potential in end of life phenomenon. Her resp failure may lead to eventual resp muscle weakness which will be another harbinger of rapid decline/acute dying process beginning. For now we will stay the course for current treatments and see how she does. Thank you for allowing us to participate in the ongoing care of this patient. Please don't hesitate to call or page with any additional concerns. Dr. Torrie Lynne DNP Director, Palliative Care Admission and Anticipated Discharge Date Admission Date: October 20, 2023 Iva Amador is seen with family at bedside including her , daughter, sons and grandchildren. She is OOB to chair. Nursing shares she had signif hypoxia with transferring from bed to chair which required FiO2 increase to 100% She has conversational dyspnea and some air hunger, She admits to anxiety but does feel prn ativan is helping. We have not scheduled this to avoid risks of sedation. She is in good spirits, mood is buoyed by presence of her family. Appetite was better today. She had nausea yesterday which has improved since BM last night Tolerating her diet Review of Systems Review of Systems: All systems reviewed & are unremarkable except as noted in Subjective Physical Exam Constitutional: + ill appearing, + frail appearing and c ooperative Eyes: PERRL, conjunctivae normal, anicteric sclerae ENMT: Mouth: + dry oral mucous membranes Neck: trachea midline, no thyromegaly (shotty adenopathy, no stridor) Respiratory: + labored breathing, + uses accessory mu scles, + cough (dry), + pursed lip breathing and symmetric chest movement Auscultation: + diminished lung sounds, + crackles and + rhonchi Cardiovascular: Rate/Rhythm: + tachycardic Heart Sounds: normal S1 and normal S2 Gastrointestinal (Abdomen): Inspection/Auscultation: normal bowel sounds (NTP, no guarding or rebound) Musculoskeletal: generalized weakness, CHEN without overt crepitus Skin: + turgor decreased, + dry skin and + ecc hymosis Neurologic: moves all extremities and awake Cranial Nerves: PERRL, EOM intact bilaterally, tongue midline, normal hearing, able to rotate head bilaterally and able to elevate shoulders bilaterally Gait: + gait assisted able to follow commands, strength is diminished Psychiatric: anxious mood but comforted by family. Results & Data Vital Signs (Past 12 Hours) Vital Signs Temp Pulse Pulse Resp BP Pulse Ox O2 Del Method 10/29/23 11:49 36.6 C 97 H 32 H 137/96 94 High Flow Nasal Cannula 10/29/23 11:29 84 27 H 92 High Flow Nasal Cannula 10/29/23 09:45 High Flow Nasal Cannula 10/29/23 08:19 92 H 24 146/65 H 89 L High Flow Nasal Cannula 10/29/23 07:34 76 10/29/23 07:25 84 34 H 94 High Flow Nasal Cannula 10/29/23 03:45 74 28 H 96 High Flow Nasal Cannula 10/29/23 02:18 36.7 C 78 23 134/67 93 High Flow Nasal Cannula O2 Flow Rate FiO2 10/29/23 11:49 30 10/29/23 11:29 30 70 10/29/23 09:45 30 70 10/29/23 08:19 30 80 10/29/23 07:34 10/29/23 07:25 30 70 10/29/23 03:45 30 80 10/29/23 02:18 30 Laboratory Results Most recent lab results ABG pH 7.42 (7.35-7.45) 10/27/23 06:53 ABG pCO2 29 mmHg (35-46) L 10/27/23 06:53 ABG pO2 61 mmHg (80-95) L 10/27/23 06:53 ABG HCO3 19 mmol/L (19-24) 10/27/23 06:53 ABG O2 Saturation 92.3 % (90-95) 10/27/23 06:53 Calcium 8.5 mg/dl (8.6-10.3) L 10/29/23 05:32 Phosphorus 5.1 mg/dl (2.5-4.9) H 10/24/23 05:37 Magnesium 2.0 mg/dl (1.7-2.4) 10/27/23 06:[address] 10/20/23 21:17 Exam(s): CT CHEST Without Contrast EXAM: CT Chest Without Intravenous Contrast CLINICAL HISTORY: Reason for exam: pneumonia/chf. TECHNIQUE: Axial computed tomography images of the chest without intravenous contrast. CTDI is 16.37 mGy and DLP is 464.51 mGy-cm. Automated exposure control was utilized for the study. A dose lowering technique was utilized adhering to the principles of ALARA. COMPARISON: No relevant prior studies available. FINDINGS: Lungs: Bilateral diffuse ground-glass airspace opacities favors infectious process (pneumonia,). Pleural space: Unremarkable. No pneumothorax. No significant effusion. Heart: Unremarkable. No cardiomegaly. No significant pericardial effusion. No significant coronary artery calcifications. Mediastinum: Scattered mediastinal lymph nodes measuring up to 14 mm, likely reactive. Bones/joints: Prior sternotomy. General changes of the thoracic spine with calcification of the anterior longitudinal ligament and moderate kyphosis. No acute fracture. No dislocation. Soft tissues: Unremarkable. Vasculature: Severe atherosclerotic disease of the coronary arteries, mitral valve and aortic valve. No thoracic aortic aneurysm. Lymph nodes: See above. IMPRESSION: 1. Bilateral diffuse ground-glass airspace opacities favors infectious process (pneumonia,). 2. Scattered mediastinal lymph nodes measuring up to 14 mm, likely reactive. Electronically signed by: Gi Ramirez MD 10/20/23 22:45 PM Venous Doppler Study 10/21/23 05:22 BILATERAL LOWER EXTREMITY VENOUS DOPPLER CLINICAL HISTORY: elevated dimer. dvt? COMPARISON STUDY: No previous studies for comparison. TECHNIQUE: Sonography of the deep venous system of the bilateral lower extremities was performed. Compression and augmentation were evaluated. FINDINGS: The bilateral common femoral, superficial femoral and popliteal veins were compressible. Augmentation was normal. Flow was shown within the deep calf vessels. IMPRESSION: No evidence of deep venous thrombus within the bilateral lower extremities. ACT 112: Negative or not required by law. Electronically signed by: Carlos Enrique Pretty M.D. 10/21/2023 7:11 AM Videofluoroscopic Swallow 10/22/23 13:00 FL video swallow HISTORY: Pneumonia. Assess for aspiration TECHNIQUE: Video fluoroscopic evaluation of swallowing was performed in the AP and lateral projections by the speech pathology staff. The patient is fed nectar-thick and thin liquid barium, a barium coated wafer, and barium pudding. FLUOROSCOPY TIME: 2 minutes and 31 seconds. Ka,r: 21.5 mGy COMPARISON STUDY: None. FINDINGS: There is normal hyoid excursion and epiglottic deflection. No significant penetration or aspiration identified. Swallowing function is within normal limits. Mild esophageal dysmotility. IMPRESSION: 1. No aspiration identified. 2. Please see the speech pathologist report for detailed findings and recommendations. ACT 112: Negative or not required by law. Electronically signed by: Nash Dumont M.D. 10/22/2023 2:37 PM Chest X-Ray 10/29/23 07:45 XR chest 1V portable CLINICAL HISTORY: f/u COMPARISON STUDY: Chest CT October 20, 2023. Chest radiograph October 28, 2023. FINDINGS: There is no pneumothorax or pleural effusion. There are median sternotomy wires and mediastinal surgical clips. Cardiomediastinal silhouette is stable. Diffuse interstitial thickening and alveolar opacities are unchanged since prior exam. The appearance of the chest is unchanged. IMPRESSION: No change in diffuse interstitial thickening and alveolar opacities throughout the lungs. ACT 112: Negative or not required by law. Electronically signed by: Carlos Enrique Pretty M.D. 10/29/2023 9:15 AM Medications Administered Vital Signs Temp 36.6 C 10/29/23 11:49 Pulse 97 H 10/29/23 11:49 Resp 32 H 10/29/23 11:49 BP 137/96 10/29/23 11:49 Pulse Ox 94 10/29/23 11:49 O2 Del Method High Flow Nasal Cannula 10/29/23 11:49 O2 Flow Rate 30 10/29/23 11:49 FiO2 70 10/29/23 11:29 Intake & Output 10/28/23 10/29/23 10/29/23 18:59 06:59 18:59 Intake Total 240 / 440 200 / 440 Output Total 600 / 1251 651 / 1251 Balance -360 / -811 -451 / -811 Weight 53.7 kg 53.7 kg Intake: Oral 240 / 440 200 / 440 Output: Urine Amount (Catheter) 600 / 1250 650 / 1250 Ledezma/Indwelling 600 / 1250 650 / 1250 # Bowel Movements Other: Weight Measurement Method Built in [facility] Care Time/CCT Total # of Minutes Spent Total Time Spent with Patient: Total time spent is greater than 50% in coordination of care (as documented) at patient's floor/unit and/or counseling patient: I spent 55 minutes overall addressing this case: 10 min in medical data review/discussion with referring provider(s) and/or preparation for the visit 10 min in direct interaction with the patient/exam 20 min in Advance Care Planning/Goals of Care discussions as detailed above in note (must be >16min) 5 min in subsequent review and synthesis of assessment and plan 10 min communicating with other providers regarding the patient's case: nursing, primary team Advanced Care Planning [id number] Advanced Care Planning 30 Min [place] [address] SUB INP/OBS CARE 3/50MIN Patient Type Established History Comprehensive Exam Comprehensive Medical Decision Making High Complexity Diagnoses Dyspnea and respiratory abnormalities R06.00; R06.89 Anxiety about health R45.89 Weakness generalized R53.1 Advanced care planning/counseling discussion Z71.89 Palliative care by specialist Z51.5 Acute hypoxemic respiratory failure J96.01 Additional Codes Advanced Care Planning - 34087 Advanced Care Planning 30 Min: 09899 Advanced Care Planning 30 Min ([id number])
--- NOTE | 2023-10-29 14:18 | Hospitalist Progress Note ---
Date of Service October 29, 2023 Assessment & Plan (1) Acute hypoxemic respiratory failure: (2) Pneumonia: (3) CAD (coronary artery disease): Plan 83-year-old female with history of coronary disease and diabetes presenting now with diffuse pulmonary infiltrates and hypoxemic respiratory failure. Acute hypoxemic respiratory failure likely from multifocal PNA - CT on admission shows bilateral diffuse groundglass opacities favoring pneumonia along with scattered mediastinal lymph nodes likely reactive. Pro-Neo 0.4, WBC 19, CRP 32. VFSS negative for aspiration - Continue empiric antibiotics, steroids, duonebs,hypertonic saline nebs, pulmicort, mucinex, I-S/flutter valve. Send sputum clx if able. - Currently on HFNC- uptitrated again today for desaturation- CPAP helps but patient reluctant to switch as it makes her more anxious. - Pulmonary on board. Pulmonology initially recommended with BAL but patient was reluctant. - Palliative following- continue current level of care- if she declines- consider comfort measures CHF exacerbation ruled out. Discussed with cardio and nephro. BNP 1400-> 525- >453. No need for further diuretics. Seems her hypoxia is from infective process rather than cardiac issues and cardio did not recommend further cardiac work up including RHC. No indication for diuresis either. EMELYN likely from ATN due to hypotension-creatinine 1.29->1.37->1.97->1.99->2.17->2.29->2.27->1.87->2->1.8, creatinine peaked at 2.3 and now stable. UA reviewed, suggestive of ATN. Nephrotoxics have been discontinued. Nephrology on board. Follow up on renal function and urine output History of CAD s/p CABG-echo reviewed, normal EF. on aspirin, Coreg, statin, Imdur. Ranolazine discontinued per cardiology given renal dysfunction Diabetes mellitus type 2 with steroid induced hyperglycemia- Glycemic pharmacist now managing her insulin. BG now better Anemia- suggestive of iron deficiency in labs. Hemoglobin stable. Continue oral iron supplementation and monitor. Depression and anxiety- On fluoxetine, Ativan and doxepin. Will of IV Ativan as needed as well Hypertension-BP improved. Continue Coreg. Continue to hold losartan and amlodipine. Monitor Peripheral vascular disease- On aspirin and statin DVT prophylaxis-subcu heparin Disposition- TBD. Palliative following- Continue current level of care on HFNC. if declines, consider comfort measures. Time spent-approximately 50 minutes Admission and Anticipated Discharge Date Admission Date: October 20, 2023 Subjective Patient was seen and examined at bedside. Feels about the same- still with increased work of breathing and anxious. Remains on HFNC- saturation in 80s on and FIO2 was increased as she hesitant to switch to CPAP. No fever, chills, CP, N/V. Review of Systems Review of Systems: All systems reviewed & are unremarkable except as noted in Subjective Physical Exam Physical Exam: General: Lying in bed, not in acute distress, on CPAP HEENT: EOMI, HINA, MMM Chest: Fair breath sounds bilaterally with rales, increased work of breathing CVS: Regular rate and rhythm, normal heart sounds, + murmur Abdomen: Soft, non tender, not distended, normal bowel sounds Neuro: Awake, alert, oriented, conversing well, non focal Extremities: No edema Results & Data Results & Data Vital Signs (Past 12 Hours) Vital Signs Temp Pulse Pulse Resp BP Pulse Ox O2 Del Method 10/29/23 13:48 96 H 35 H 94 10/29/23 11:49 36.6 C 97 H 32 H 137/96 94 High Flow Nasal Cannula 10/29/23 11:29 84 27 H 92 High Flow Nasal Cannula 10/29/23 09:45 High Flow Nasal Cannula 10/29/23 08:19 92 H 24 146/65 H 89 L High Flow Nasal Cannula 10/29/23 07:34 76 10/29/23 07:25 84 34 H 94 High Flow Nasal Cannula 10/29/23 03:45 74 28 H 96 High Flow Nasal Cannula 10/29/23 02:18 36.7 C 78 23 134/67 93 High Flow Nasal Cannula O2 Flow Rate FiO2 10/29/23 13:48 50 10/29/23 11:49 30 10/29/23 11:29 30 70 10/29/23 09:45 30 70 10/29/23 08:19 30 80 10/29/23 07:34 10/29/23 07:25 30 70 10/29/23 03:45 30 80 10/29/23 02:18 30 Laboratory Results Short CBC 10/29/23 Range/Units 05:32 WBC 16.48 H (4.8-10.8) K/ul Hgb 9.0 L (12.0-16.0) g/dl Hct 27.5 L (37.0-47.0) % Plt Count 262 (130-400) K/uL BMP 10/29/23 05:32 Sodium 134 L Potassium 5.0 Chloride 107 Carbon Dioxide 20 L BUN 73 H Creatinine 1.80 H Glucose 239 H Calcium 8.5 L Liver Function 10/29/23 Range/Units 05:32 Total Bilirubin 0.4 (0.2-1.0) mg/dl AST 32 (13-39) U/L ALT 42 (7-52) U/L Alkaline Phosphatase 160 H (34-104) U/L Albumin 2.4 L (3.4-5.0) gm/dl (2) Pneumonia Laterality: bilateral Lung location: unspecified part of lung Pneumonia type: due to unspecified organism Qualified Code(s): J18.9 - Pneumonia, unspecified organism (3) CAD (coronary artery disease) Coronary Disease-Associated Artery/Lesion type: three affiliated artery [place] vs. transplanted heart: three affiliated heart Associated angina: without angina Qualified Code(s): I25.10 - Atherosclerotic heart disease of three affiliated coronary artery without angina pectoris
[2023-10-29] MEDS: AMPICILLIN/SULBACTAM SOD 3,000 MG in SODIUM CHLOR 0.9% MINI-B 100 ML IV SCH (15:08)
[2023-10-29] MEDS ORDERED: LORazepam 1 MG/1 ML SYR ED Inj Use IV STA (15:44)
[2023-10-29] MEDS: DOXYCYCLINE HYCLATE 100 MG CAP PO SCH (17:08)
[2023-10-29] MEDS: MoRPHine SULFATE 10 MG/0.5 ML UDP PO PRN (21:45)
[2023-10-30 06:06] LABS: Hematocrit (blood only) 29.4 % (37.0-47.0); Hemoglobin 9.7 g/dl (12.0-16.0); Mean Corpuscular Hemoglobin 31.1 pg (25.0-34.0); Mean Corpuscular Volume 94.2 fL (80.0-100.0); Mean Platelet Volume 11.2 fL (9.4-12.4); Platelet Count 262 K/uL (130-400); RDW Coefficient of Variation 13.6 % (11.5-14.5); RDW Standard Deviation 45.8 fL (36.4-46.3); Red Blood Count 3.12 M/uL (4.20-5.40)
[2023-10-30 06:18] LABS: BUN Creatinine Ratio 39.5 (10-20); C Reactive Protein 4.29 mg/dl (0-0.5); Calcium 8.6 mg/dl (8.6-10.3); Creatinine Clr Calc Pharmacy 19.9 ml/min; Est GFR (African American) 32.9 ml/min; Est GFR (Non-African American) 28.4 ml/min; Potassium 5.5 mmol/L (3.5-5.1)
[2023-10-30] MEDS ORDERED: SODIUM ZIRCONIUM CYCLOSILICATE 10 GM PACKET PO SCH (09:00)
--- NOTE | 2023-10-30 09:40 | Pulmonology Progress Note ---
Date of Service October 30, 2023 Assessment & Plan (1) Acute hypoxemic respiratory failure: (2) Abnormal CT scan of lung: (3) Acute CHF: Plan IMPRESSION: 83-year-old female with a history of coronary artery disease and diabetes who was admitted on 10/19 with acute hypoxic respiratory failure in the setting of CHF and concerns for atypical infectious etiologies who remains on supplemental oxygen at high levels. RECOMMENDATIONS: 1. Acute hypoxic respiratory failure - In the setting of interstitial infiltrative changes appreciated on admission chest CT. Patient has continued to require high levels of supplemental oxygen. She was titrated down to 60 L high flow, but had to be turned back up with eating. She reports a better night's sleep. She continues to struggle with anxiety related to her breathing. We will titrate down her parenteral steroids tomorrow to daily dosing as this does not appear to have made much of a difference at this point. Again, continue to encourage aggressive pulmonary toileting. Please refer to palliative care note as this does outline the patient's wishes which are appropriate and reflective of the patient's wishes moving forward. Thank you for allowing us to participate in the care of this pleasant patient. Pulmonary medicine will continue to follow. Admission and Anticipated Discharge Date Admission Date: October 20, 2023 Supervising Physician Co-Signing Physician Notes I saw and evaluated the patient with Parish Millan PA-C, and agree with findings and plan as documented in the note. Patient seen and examined at bedside. Interestingly patient stated that she is feeling better today compared to yesterday Patient tried CPAP for approximately 1 hour 10 minutes overnight. Patient was saturating 86% on 50 L, 60% high flow. I increase it to 70% and her saturation went up to 92-93%. Patient's family was also in the room. Denies chest pain. She is able to tolerate diet. No nausea vomiting Still complains of postnasal drip and difficulty bringing up the phlegm. CT chest 10/20/2023 personally reviewed: Diffuse groundglass opacities apprec iated bilaterally upper and lower lobes. No significant mediastinal lymphadenopathy Constitutional: Mild respiratory distress HEENT: EOMI, PERRLA Respiratory system: Decreased air entry bilaterally, no wheeze, no rhonchi, positive Velcro-like crackles appreciated bilaterally anteriorly and posteriorly CVS: S1-S2 positive, no murmurs or gallops Abdomen: Soft, nontender, nondistended, positive bowel sounds x4 Extremities: +2 pulses bilaterally radialis/ dorsalis pedis, no cyanosis, no edema Neuro: Awake alert oriented x3 Psych: Normal mood and affect G/U: Positive Ledezma Plan: In/out: -1 L, urine output 1601, -1.7 L since coming to the hospital Patient's cause of hypoxic respiratory failure is multifactorial Initial BNP was 1500 with moderate pulmonary hypertension, respiratory bio fire was negative for everything. Urine Legionella negative, no current history of smoking Not on amiodarone in the past. No significant eosinophilia on the peripheral smear prior to initiation of Solu-Medrol Hemoglobin is stable and patient denies any hemoptysis Possibility of a viral etiology which was not picked up on bio fire is there. Initial ESR and CRP were elevated. Procalcitonin has been negative x 2 Autoimmune workup is negative from 10/23/2023 Recommend out of the bed to chair Continue with Solu-Medrol, will decrease the dose to 40 mg on a daily basis as of tomorrow Bronchoscopy is high risk for her as she will most likely get intubated given that she is not able to tolerate CPAP/BiPAP Continue with incentive spirometry Please note the above document was generated using voice recognition software. It may contain grammatical, syntax or spelling errors.Any formal questions or concerns about the content, text or information contained within the body of this dictation should be directly addressed to the provider for clarification. Subjective Patient seen and evaluated at bedside. She reports that she had a good night sleep last night again. She reports persistent dyspnea with any exertion. She is slightly optimistic and reports that she feels maybe a little bit better today with her breathing. She notes that she was able to tolerate her CPAP yesterday for a nap, but did wake up feeling anxious and had to discontinue it. Review of Systems Review of Systems: Unchanged from prior Physical Exam Physical Exam: VITAL SIGNS - Vital signs and nursing notes were reviewed. GENERAL - 83-year-old female appearing her stated age who is in mild respiratory distress. Breathless, but answers questions appropriately and able to complete sentences. LUNGS - Auscultation reveals bibasilar rales, LEFT greater than right. CARDIAC - RRR with S1/S2. No murmur, rubs, or gallops appreciated. ABDOMEN - Abdominal inspection demonstrates a flat abdomen. BS normoactive all four quadrants. No tenderness, palpable masses, or ascites noted. EXTREMITIES - Nail clubbing not present. No peripheral cyanosis. No pretibial edema present. +3/5 radial palpated throughout. PSYCH - A&Ox3 and cooperates fully with examiner. Anxious appearing. Results & Data Results & Data Vital Signs (Past 12 Hours) Vital Signs Temp Pulse Pulse Resp BP Pulse Ox O2 Del Method 10/30/23 07:19 37.0 C 94 H 28 H 158/71 H 87 L High Flow Nasal Cannula 10/30/23 07:04 78 22 96 High Flow Nasal Cannula 10/30/23 02:50 36.7 C 82 22 132/90 96 High Flow Nasal Cannula 10/30/23 02:31 83 18 95 High Flow Nasal Cannula 10/30/23 00:00 83 10/29/23 23:11 36.8 C 85 18 104/78 94 High Flow Nasal Cannula 10/29/23 22:58 84 18 93 High Flow Nasal Cannula O2 Flow Rate FiO2 10/30/23 07:19 10/30/23 07:04 50 60 10/30/23 02:50 10/30/23 02:31 50 60 10/30/23 00:00 10/29/23 23:11 10/29/23 22:58 50 60 PG Care Time/CCT Total # of Minutes Spent Total Time Spent with Patient: Total time spent is greater than 50% in coordination of care (as documented) at patient's floor/unit and/or counseling patient: Coding Level of Care Code 74072 SUB INP/OBS CARE 2/35MIN Diagnoses Acute hypoxemic respiratory failure J96.[address] scan of lung R91.8 Acute CHF I50.9
--- NOTE | 2023-10-30 11:23 | Pharmacy Report ---
Pharmacy Glycemic Short Note 2 - Date of Service October 30, 2023 - Glycemic Short BSG Results (Last 24 hours): 10/29/23 10/29/23 10/29/23 11:42 16:23 20:12 Glucose POC Glucose 117 H 147 H 179 H 10/30/23 10/30/23 05:30 07:17 Glucose 216 H POC Glucose 212 H OUTPATIENT ANTIDIABETIC REGIMEN: * Lantus 24 units SC AM * Novolog SSI w/ meals (CR of 1:15) * HbA1c: 7.4% (10/28/23) ASSESSMENT: 10/29: * Marjorie received 66 units of insulin yesterday, 30 basal + 36 bolus. BSGs were: [phone] mg/dL. * Fasting remains elevated at 212 mg/dL this AM. Remains on Solumedrol 40 mg IV every 12 hours. Pulmonology's note says possible decrease in steroids to once daily tomorrow which may require a decrease in basal dose as well. Suspect fasting elevation may be due to some overnight snacking. Will not adjust basal dose today. * No change to Novolog today. Parameters may need loosened if steroids are tapered off. Remains on Unasyn and PO doxycycline. Tolerating diet well. 10/28: * Patient received 45 units of insulin yesterday, 28 basal + 17 bolus. BSGs were: [phone] mg/dL. * Fasting BSG increased to 254 mg/dL this AM. Suspect snacking is the cause but will increase basal by ~7% today. * Tightened Novolog this AM and lunchtime BSG dropped to 117 mg/dL. To prevent dinner hypoglycemia, will loosen CF and CR. 10/27: * Marjorie received 46 units of insulin yesterday, 24 basal + 22 bolus. BSGs were: [phone] mg/dL. * Fasting BSG was 190 mg/dL this AM. Patient not eating much yesterday. Was briefly NPO this AM for possible bronchoscopy but this will not be done today per provider. Therefore, still feel comfortable increasing basal by 20% to cover for steroid-inducer hyperglycemia. Patient remains on Solumedrol 40 mg IV every 12 hours. * No change to Novolog at this time. Dinner BSGs have consistently been dropping to below goal. Do not want to induce hypoglycemia by tightening regimen. However, outside of dinner, BSGs are mostly above goal. Pending BSGs today, may tighten regimen tomorrow but remove carb ratio at lunchtime to prevent stacking and subsequent dinner hypoglycemia. 10/26: * Patient received 43 units of insulin yesterday, 24 units basal, hypoglycemic (60mg/dl) prior to dinner, then rebound hyperglycemia (231mg/dl) at bedtime. * DC HS basal and loosen CR to prevent further hypoglycemia. * Patient remains on methylprednisolone 40 mg twice daily and ceftriaxone. 10/24: * Patient received 82 units of insulin yesterday, 36 units of basal, 46 units of prandial/correctional * Blood sugars did trend down overnight with fasting of 144 mg/dL- will continue current basal parameters; reassess as SCr is trending upward slightly * BSGs yesterday after tightened carb ratio went upwards with dinner, therefore will tighten carb ratio again this morning. Lunch BSG has improved from the previous day and as this tends to be the highest BSG of the day will continue with tightened carb ratio for now * Could still consider addition of NPH in the morning if needed 10/23: * 83 yo female with type II diabetes admitted for CHF/ hypoxic respiratory failure. BSGs had been adequately controlled but have increased with the addition of methylprednisolone 40 mg IV q12H on 10/22. * Fasting this morning 243 mg/dL- will give additional lantus tonight up to 50% * Lunch BSG in the 300s and then subsequently consulted. Will trial tighter novolog, consider addition of NPH to help cover meals tomorrow if BSGs remain elevated PLAN FOR INPATIENT GLYCEMIC CONTROL: * Basal insulin * Lantus 30 units SC AM * Bolus insulin * NovoLog per scale ACHS or Q6hrs while NPO * Goal Range: Low 110 mg/dL - High 140 mg/dL * Correction Factor: 20 mg/dL/unit * Nutritional / Prandial insulin per carb ratio of 1 unit per 7 grams CHO consumed
[2023-10-30] MEDS: SODIUM ZIRCONIUM CYCLOSILICATE 10 GM PACKET PO SCH (11:27)
--- NOTE | 2023-10-30 12:38 | Hospitalist Progress Note ---
Date of Service October 30, 2023 Assessment & Plan (1) Acute hypoxemic respiratory failure: (2) Pneumonia: (3) CAD (coronary artery disease): Plan Ms. Mancini is an 83-year-old female with history of coronary disease and diabetes presenting now with diffuse pulmonary infiltrates and hypoxemic respiratory failure. Patient has continued to require HFNC since admission on 10/19.Family declined recommended BAL for search for etiologies if hypoxic respiratory failure. Procalcitonin, serologic evaluations, respiratory PCR, and Legionella have all been negative to this point. Patient has experienced difficulty tolerating NIV. She completed course of doxycycline and ceftriaxone, then resumed on Unasyn and doxycycline on 10/28. Neprhology did not suspect pul renal syndrome. Diuresis discontinued on 10/27. Focus of management has been marked by continued methylprednisolone, pulm toilet, and attempts at CPAP as tolerated. #Acute hypoxemic respiratory failure thought to be 2/2 multifocal PNA - CT on admission shows bilateral diffuse groundglass opacities favoring pneumon ia along with scattered mediastinal lymph nodes likely reactive. Pro-Neo 0.4, WBC 19, CRP 32. VFSS negative for aspiration. Currently work up negative to date - Continue empiric antibiotics, steroids, duonebs,hypertonic saline nebs, pulmicort, mucinex, I-S/flutter valve. Send sputum clx if able. - Currently on HFNC- uptitrated again today for desaturation- CPAP helps but patient reluctant to switch as it makes her more anxious. - Pulmonary on consult. Pulmonology initially recommended with BAL but patient was reluctant. -Continue to wean as able -IV steroids decreased to daily dosing -Pulm toilet as tolerated - Palliative following- continue current level of care- if she declines- consider comfort measures if patient declines -CHF exacerbation ruled out. Discussed with cardio and nephro. BNP 1400-> 525- >453. No need for further diuretics. Seems her hypoxia is from infective process rather than cardiac issues and cardio did not recommend further cardiac work up including RHC. No indication for diuresis either. #EMELYN likely from ATN due to hypotension-creatinine 1.29->1.37->1.97->1.99->2.17->2.29->2.27->1.87->2->1.8, creatinine peaked at 2.3 and now stable. UA reviewed, suggestive of ATN. Nephrotoxics have been discontinued. Nephrology was on consult--function improving, low suspicion for pulm-renal sydrome. Urine studies suggestive of ATN . Follow up on renal function and urine output Trend BMP, slow improvement noted #Hyperkalemia- K 5.5, mike ordered Repeat afternoon BMP #History of CAD s/p CABG echo reviewed, normal EF. on aspirin, Coreg, statin, Imdur. Ranolazine discontinued per cardiology given renal dysfunction #Diabetes mellitus type 2 with steroid induced hyperglycemia Glycemic pharmacist now managing her insulin. BG now stable #Iron deficiency aniemia Hemoglobin stable. Continue oral iron supplementation and monitor. cbc in am #Depression and anxiety On fluoxetine, Ativan and doxepin. Will of IV Ativan as needed as well #Hypertension-BP improved. Continue Coreg. Continue to hold losartan and amlodipine. Monitor #Peripheral vascular disease- On aspirin and statin DVT prophylaxis-subcu heparin Disposition- TBD. Palliative following- Continue current level of care on HFNC. if declines, consider comfort measures. Time spent-approximately 50 minutes Admission and Anticipated Discharge Date Admission Date: October 20, 2023 Subjective No acute events overnight Patient evaluated at bedside Reports feeling marginally improved stating she had a better evening than the day prior--she feels exhasuted, but not nearly as exhausted as yesterday She states she was able to eat well and is in much better spirits this am Physical Exam Constitutional: pleasant, noted tachypnea but no overt distress or anxiety appreciated this morning On 50L HFNC and 80FIO2 Respiratory: +rhonchi/rales bilaterally Cardiovascular: tachycardic on exam Gastrointestinal (Abdomen): normal bowel sounds, soft, nontender, no hepatosplenomegaly Results & Data Results & Data Vital Signs (Past 12 Hours) Vital Signs Temp Pulse Resp BP Pulse Ox O2 Del Method O2 Flow Rate 10/30/23 11:39 36.4 C L 96 H 28 H 140/69 92 High Flow Nasal Cannula 10/30/23 11:03 85 28 H 93 High Flow Nasal Cannula 50 10/30/23 07:19 37.0 C 94 H 28 H 158/71 H 87 L High Flow Nasal Cannula 10/30/23 07:04 78 22 96 High Flow Nasal Cannula 50 10/30/23 02:50 36.7 C 82 22 132/90 96 High Flow Nasal Cannula 10/30/23 02:31 83 18 95 High Flow Nasal Cannula 50 FiO2 10/30/23 11:39 10/30/23 11:03 70 10/30/23 07:19 10/30/23 07:04 60 10/30/23 02:50 10/30/23 02:31 60 Laboratory Results Short CBC 10/30/23 Range/Units 05:30 WBC 18.50 H (4.8-10.8) K/ul Hgb 9.7 L (12.0-16.0) g/dl Hct 29.4 L (37.0-47.0) % Plt Count 262 (130-400) K/uL BMP 10/30/23 05:30 Sodium 134 L Potassium 5.5 H Chloride 107 Carbon Dioxide 20 L BUN 66 H Creatinine 1.67 H Glucose 216 H Calcium 8.6 Medications Administered Home Medications Medication Instructions Recorded Confirmed Last Taken amlodipine 5 mg tablet 5 mg PO DAILY 10/20/23 10/20/23 Unknown aspirin 81 mg tablet,delayed 81 mg PO DAILY 10/20/23 10/20/23 Unknown release atorvastatin 80 mg tablet 80 mg PO DAILY 10/20/23 10/20/23 Unknown carvedilol 12.5 mg tablet 12.5 mg PO BID 10/20/23 10/20/23 Unknown doxepin 10 mg capsule 30 mg PO HS 10/20/23 10/20/23 Unknown fluoxetine 40 mg capsule 80 mg PO DAILY 10/20/23 10/20/23 Unknown insulin aspart U-100 100 unit/mL 1 sliding scale dose subcut WM 10/20/23 10/20/23 Unknown (3 mL) subcutaneous pen (Novolog FlexPen U-100 Insulin aspart) insulin glargine 100 unit/mL (3 24 unit subcut QAM 10/20/23 10/20/23 Unknown mL) subcutaneous pen (Lantus Solostar U-100 Insulin) irbesartan 300 mg tablet 300 mg PO DAILY 10/20/23 10/20/23 Unknown isosorbide mononitrate 60 mg 60 mg PO DAILY 10/20/23 10/20/23 Unknown tablet,extended release 24 hr lorazepam 0.5 mg tablet 0.5 mg PO 10/20/23 10/20/23 Unknown omeprazole 20 mg capsule,delayed 20 mg PO DAILYBB 10/20/23 10/20/23 Unknown release ranolazine 500 mg tablet,extended 500 mg PO BID 10/20/23 10/20/23 Unknown release,12 hr tramadol 50 mg tablet 50 mg PO TID PRN Pain 10/20/23 10/20/23 Unknown Active Medications Generic Name Dose Route Start Last Admin Trade Name Theodore PRN Reason Stop Dose Admin Acetaminophen 650 mg 10/20/23 23:30 10/29/23 20:46 Acetaminophen 325 Mg Tab PO 11/19/23 23:29 650 mg Q4H PRN Administration Pain or Fever Albuterol 3 ml 10/25/23 11:00 10/30/23 11:03 Albut/Ipratrop 3mg/0.5mg Neb 3 Ml Vial NEB 11/24/23 10:59 3 ml QIDR DAPHNE Administration Protocol Aspirin 81 mg 10/21/23 09:00 10/30/23 08:20 Aspirin 81 Mg Ectab PO 11/20/23 08:59 81 mg DAILY DAPHNE Administration Atorvastatin Calcium 80 mg 10/21/23 09:00 10/30/23 08:20 Atorvastatin 40 Mg Tab PO 11/20/23 08:59 80 mg DAILY DAPHNE Administration Budesonide 0.5 mg 10/26/23 10:25 10/30/23 07:03 Budesonide 0.5 Mg/2 Ml Vial (Pulmicort) NEB 11/25/23 10:24 0.5 mg BIDR DAPHNE Administration Carvedilol 6.25 mg 10/27/23 17:00 10/30/23 08:19 Carvedilol 6.25 Mg Tab PO 11/26/23 16:59 6.25 mg BIDM DAPHNE Administration Doxepin HCl 30 mg 10/21/23 21:00 10/29/23 21:35 Doxepin Hcl 10 Mg Capsule PO 11/20/23 20:59 30 mg HS DAPHNE Administration Doxycycline Hyclate 100 mg 10/29/23 14:25 10/30/23 08:40 Doxycycline Hyclate 100 Mg Cap PO 11/05/23 14:24 100 mg BID@1000,2200 DAPHNE Administration Escitalopram Oxalate 20 mg 10/28/23 09:00 10/30/23 08:20 Escitalopram Oxalate 20 Mg Tab PO 11/27/23 08:59 20 mg QAM DAPHNE Administration Ferrous Sulfate 325 mg 10/25/23 11:15 10/30/23 08:20 Ferrous Sulfate 325 Mg Tab PO 11/24/23 11:14 325 mg QAM DAPHNE Administration Guaifenesin 600 mg 10/26/23 10:55 10/30/23 08:20 Guaifenesin 600 Mg Tabcr PO 11/25/23 10:54 600 mg Q12 DAPHNE Administration Heparin Sodium (Porcine) 5,000 units 10/26/23 11:00 10/30/23 11:28 Heparin Sod 5,000 Unit/0.5 Ml Vial SQ 11/25/23 10:59 5,000 units Q8H DAPHNE Administration Methylprednisolone 40 mg/ 0.64 mls @ 1.5 mls/min 10/27/23 07:15 10/30/23 08:19 Syringe IV 11/26/23 07:14 1.5 mls/min Q12H DAPHNE Administration Lorazepam 0.5 mg/ Syringe 0.5 mls @ 2 mls/min 10/28/23 15:45 10/30/23 00:30 IV 11/27/23 08:05 2 mls/min Q4H PRN Administration anxiety,insomnia, nausea Ampicillin Sodium/Sulbactam 100 mls @ 100 mls/hr 10/29/23 14:30 10/30/23 03:23 Sodium 3,000 mg/ Sodium IV 11/05/23 14:29 Infused Chloride Q12H DAPHNE Infusion Insulin Aspart 0 units 10/21/23 00:30 10/30/23 12:17 Insulin Aspart Per Unit Charge SC 11/20/23 00:29 8 units ACHS DAPHNE Administration Protocol Insulin Glargine 30 units 10/29/23 09:00 10/30/23 08:37 Lantus Per Unit Charge SQ 11/20/23 08:59 30 units QAM DAPHNE Administration Protocol Isosorbide Mononitrate 60 mg 10/21/23 09:00 10/30/23 08:19 Isosorbide Parke Extended Rel 60 Mg Tabcr PO 11/20/23 08:59 60 mg DAILY DAPHNE Administration Lorazepam 0.5 mg 10/21/23 21:00 10/29/23 20:36 Lorazepam 0.5 Mg Tab PO 11/20/23 20:59 0.5 mg HS DAPHNE Administration Morphine Sulfate 2.5 mg 10/28/23 15:44 10/29/23 21:45 Morphine Sulfate 10 Mg/0.5 Ml Udp PO 11/11/23 15:43 2.5 mg Q3H PRN Administration air hunger Pantoprazole Sodium 40 mg 10/21/23 06:30 10/30/23 08:19 Pantoprazole 40 Mg Tab PO 11/20/23 06:29 40 mg DAILYBB DAPHNE Administration Psyllium Hydrophilic Mucilloid 4 gm 10/26/23 11:00 10/30/23 08:19 Psyllium Or Guar Gum Fiber 4gm Packet PO 11/25/23 10:59 4 gm QAM DAPHNE Administration Sodium Chloride 4 ml 10/26/23 10:25 10/30/23 07:04 Sodium Chlor 7% 4 Ml Neb NEB 11/25/23 10:24 4 ml BIDR DAPHNE Administration Sodium Zirconium Cyclosilicate 10 gm 10/30/23 11:00 10/30/23 11:27 Sodium Zirconium Cyclosilicate 10 Gm Packet PO 11/01/23 06:01 10 gm TID@0600,1200,1800 DAPHNE Administration Tramadol HCl 50 mg 10/20/23 23:30 10/29/23 18:50 Tramadol Hcl 50 Mg Tablet PO 11/19/23 23:29 50 mg TID PRN Administration Pain (2) Pneumonia Laterality: bilateral Lung location: unspecified part of lung Pneumonia type: due to unspecified organism Qualified Code(s): J18.9 - Pneumonia, unspecified organism (3) CAD (coronary artery disease) Coronary Disease-Associated Artery/Lesion type: [place] artery [place] vs. transplanted heart: [place] heart Associated angina: without angina Qualified Code(s): I25.10 - Atherosclerotic heart disease of [place] coronary artery without angina pectoris
--- NOTE | 2023-10-30 12:39 | Palliative Care Progress Note ---
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 Daughter states they will make sure to have a family member present whenever it goes on so that when she wakes up, they can provide reassurance and minimize her panic. I suggested that she wear CPAP for all naps and rest, try low dose ativan before bedtime and naps to see if it helps her better tolerate the CPAP. (2) Anxiety about health: Plan: see #1 (3) Weakness generalized: (4) Advanced care planning/counseling discussion: Plan: ACP 20min with pt face to face Marjorie feels she had a good night of sleep and "my breathing is better today, I can feel it, I'm getting better." She does not want to dwell on details of her her FiO2 rising and does not feel it is reflective of her improvement and that her subjective report is more reliable. She and family are hopeful she can "turn the corner" and Marjorie reiterates her wish is to get back home She reaffirms desire for comfort care if she worsens (5) Palliative care by specialist: (6) Acute hypoxemic respiratory failure: Plan Continue current symptom mgt +BM last night, nausea improves post BM Anxiety better with family presence Rising FiO2 on HFNC, did not tolerate weaning attempt. Does not like NIV although it remains available to her. I suggested she try it after a dose of Ativan and if she falls asleep/naps. We all remain hopeful, with pt and family, that she may turn the corner however she is on the brink of either getting better or getting worse - there can be these "last rallies" which are onfusing and disheartening for patients and family alike though they remain a normal variant potential in end of life phenomenon. I still worry that her resp failure may lead to eventual resp muscle weakness which will be another harbinger of rapid decline/acute dying process beginning. Her FiO2 has risen and now ranges between 60-70%. Discussed with nursing and Pulm CCM. For now we will stay the course for current treatments and see how she does. Thank you for allowing us to participate in the ongoing care of this patient. Please don't hesitate to call or page with any additional concerns. Dr. Torrie Lynne DNP Director, Palliative Care Admission and Anticipated Discharge Date Admission Date: October 20, 2023 Subjective Marjorie is resting in bed, extensive family present. Used CPAP a few hours then removed, made her anxious. Marjorie states she feels breathing is better today but FiO2 remains 60-70% and she has not tolerated weaning attempts. Her SpO2 92 at present on Fio2 70% high flow nasal cannula. She had a good night of sleep. Her appetite is okay. BM last night, seems to have nausea as precursor which improves post BM Cough still dry. She tells me she is using her ACT through the day. She does get OOB to chair for a little bit throughout the day, PT is assisting. It is noted that during the exertion and for some time post exertion she is requiring FiO2 100% due to profound dyspnea and hypoxia Review of Systems Review of Systems: All systems reviewed & are unremarkable except as noted in Subjective (See HPI) Physical Exam Constitutional: + ill appearing, + frail appearing and c ooperative anxious affect and slightly pressured speech Eyes: PERRL, conjunctivae normal, anicteric sclerae ENMT: Mouth: + dry oral mucous membranes Neck: trachea midline, no thyromegaly (shotty adenopathy, no stridor) Respiratory: + labored breathing, + uses accessory mu scles, + cough (dry), + pursed lip breathing and symmetric chest movement Auscultation: + diminished lung sounds and + crackles +conversational dyspnea, speaks in 3-4 w ord sentences. Dyspnea at rest. Use of accessory muscles is increasing. Cardiovascular: Rate/Rhythm: + tachycardic Heart Sounds: normal S1 and normal S2 Gastrointestinal (Abdomen): Inspection/Auscultation: normal bowel sounds (NTP, no guarding or rebound) Musculoskeletal: generalized weakness, CHEN without overt crepitus Skin: + turgor decreased, + dry skin and + ecc hymosis Neurologic: moves all extremities and awake Cranial Nerves: PERRL, EOM intact bilaterally, tongue midline, normal hearing, able to rotate head bilaterally and able to elevate shoulders bilaterally able to follow commands, strength is diminished Psychiatric: anxious mood but comforted by family. Results & Data Vital Signs (Past 12 Hours) Vital Signs Temp Pulse Resp BP Pulse Ox O2 Del Method O2 Flow Rate 10/30/23 11:39 36.4 C L 96 H 28 H 140/69 92 High Flow Nasal Cannula 10/30/23 11:03 85 28 H 93 High Flow Nasal Cannula 50 10/30/23 07:19 37.0 C 94 H 28 H 158/71 H 87 L High Flow Nasal Cannula 10/30/23 07:04 78 22 96 High Flow Nasal Cannula 50 10/30/23 02:50 36.7 C 82 22 132/90 96 High Flow Nasal Cannula 10/30/23 02:31 83 18 95 High Flow Nasal Cannula 50 FiO2 10/30/23 11:39 10/30/23 11:03 70 10/30/23 07:19 10/30/23 07:04 60 10/30/23 02:50 10/30/23 02:31 60 Laboratory Results Abnormal lab results 10/29/23 10/29/23 10/30/23 Range/Units 16:23 20:12 05:30 WBC 18.50 H (4.8-10.8) K/ul RBC 3.12 L (4.20-5.40) M/uL Hgb 9.7 L (12.0-16.0) g/dl Hct 29.4 L (37.0-47.0) % Sodium 134 L (136-145) mmol/L Potassium 5.5 H (3.5-5.1) mmol/L Carbon Dioxide 20 L (21-32) mmol/L BUN 66 H (6-23) mg/dl Creatinine 1.67 H (0.6-1.2) mg/dl BUN/Creatinine Ratio 39.5 H (10-20) Glucose 216 H (70-99(Fasting)) mg/dl POC Glucose 147 H 179 H (70-99) mg/dl C-Reactive Protein 4.29 H (0-0.5) mg/dl 10/30/23 10/30/23 Range/Units 07:17 11:32 WBC (4.8-10.8) K/ul RBC (4.20-5.40) M/uL Hgb (12.0-16.0) g/dl Hct (37.0-47.0) % Sodium (136-145) mmol/L Potassium (3.5-5.1) mmol/L Carbon Dioxide (21-32) mmol/L BUN (6-23) mg/dl Creatinine (0.6-1.2) mg/dl BUN/Creatinine Ratio (10-20) Glucose (70-99(Fasting)) mg/dl POC Glucose 212 H 194 H (70-99) mg/dl C-Reactive Protein (0-0.5) mg/dl 10/30/23 10/30/23 10/30/23 Range/Units 11:32 07:17 05:30 WBC 18.50 H (4.8-10.8) K/ul RBC 3.12 L (4.20-5.40) M/uL Hgb 9.7 L (12.0-16.0) g/dl Hct 29.4 L (37.0-47.0) % MCV 94.2 (80.0-100.0) fL MCH 31.1 (25.0-34.0) pg MCHC 33.0 (32.0-36.0) g/dL RDW Std Deviation 45.8 (36.4-46.3) fL RDW Coeff of Xavi 13.6 (11.5-14.5) % Plt Count 262 (130-400) K/uL MPV 11.2 (9.4-12.4) fL Immature Gran % (Auto) % Neut % (Auto) % Lymph % (Auto) % [place] % (Auto) % Eos % (Auto) % Baso % (Auto) % Neut # (Auto) (1.40-6.50) K/uL Lymph # (Auto) (1.20-3.40) K/uL [place] # (Auto) (0.11-0.59) K/uL Eos # (Auto) (0.00-0.50) K/uL Baso # (Auto) (0.00-0.20) K/uL Immature Gran # (Auto) (0.01-0.20) K/uL Echinocytes ESR (0-30) mm/hr ABG pH (7.35-7.45) ABG pCO2 (35-46) mmHg ABG pO2 (80-95) mmHg ABG HCO3 (19-24) mmol/L ABG O2 Saturation (90-95) % ABG Base Excess (-9-1.8) mEq/L Jordan Test (Pos) Oxygen Given Sodium 134 L (136-145) mmol/L Potassium 5.5 H (3.5-5.1) mmol/L Chloride 107 (98-107) mmol/L Carbon Dioxide 20 L (21-32) mmol/L Anion Gap 7 (3-11) BUN 66 H (6-23) mg/dl Creatinine 1.67 H (0.6-1.2) mg/dl Est Cr Clr Drug Dosing 19.9 ml/min Est GFR ( Amer) 32.9 ml/min Est GFR (Non-Af Amer) 28.4 ml/min BUN/Creatinine Ratio 39.5 H (10-20) Glucose 216 H (70-99(Fasting)) mg/dl POC Glucose 194 H 212 H (70-99) mg/dl Estimat Average Glucose mg/dl Hemoglobin A1c (4.5-5.6) % Calcium 8.6 (8.6-10.3) mg/dl Phosphorus (2.5-4.9) mg/dl Magnesium (1.7-2.4) mg/dl Total Bilirubin (0.2-1.0) mg/dl AST (13-39) U/L ALT (7-52) U/L Alkaline Phosphatase (34-104) U/L Troponin I High Sens (0-14) pg/ml C-Reactive Protein 4.29 H (0-0.5) mg/dl B-Natriuretic Peptide (0-100) pg/ml Total Protein (6.0-8.3) gm/dl Albumin (3.4-5.0) gm/dl Globulin (2.5-4.0) gm/dl Albumin/Globulin Ratio (0.9-2) Urine Color Urine Appearance (Clear) Urine pH (4.5-7.5) Ur Specific [place] (1.000-1.030) Urine Protein (Negative) Urine Glucose (UA) (Negative) Urine Ketones (Negative) Urine Blood (Negative) Urine Nitrite (Negative) Urine Bilirubin (Negative) Urine Urobilinogen (Negative) Ur Leukocyte Esterase (Negative) Urine WBC (Auto) (0-5) /hpf Urine RBC (Auto) (0-2) /hpf U Hyaline Cast (Auto) (0-2) /lpf U Epithel Cells (Auto) (0-2) /hpf Urine Bacteria (Auto) (None Seen) Granular Casts (None Prsent) /lpf Urine Yeast (None Prsent) Stl C. diff Tox B Gene (Neg) YEISON Screen (NEGATIVE) Anti-Proteinase 3 (<1.0) AI Anti-Myeloperoxidase (<1.0) AI ANCA (Negative) Glomerular Base Memb Ab (<1.0) AI 10/29/23 10/29/23 10/29/23 Range/Units 20:12 16:23 11:42 WBC (4.8-10.8) K/ul RBC (4.20-5.40) M/uL Hgb (12.0-16.0) g/dl Hct (37.0-47.0) % MCV (80.0-100.0) fL MCH (25.0-34.0) pg MCHC (32.0-36.0) g/dL RDW Std Deviation (36.4-46.3) fL RDW Coeff of Xavi (11.5-14.5) % Plt Count (130-400) K/uL MPV (9.4-12.4) fL Immature Gran % (Auto) % Neut % (Auto) % Lymph % (Auto) % [place] % (Auto) % Eos % (Auto) % Baso % (Auto) % Neut # (Auto) (1.40-6.50) K/uL Lymph # (Auto) (1.20-3.40) K/uL [place] # (Auto) (0.11-0.59) K/uL Eos # (Auto) (0.00-0.50) K/uL Baso # (Auto) (0.00-0.20) K/uL Immature Gran # (Auto) (0.01-0.20) K/uL Echinocytes ESR (0-30) mm/hr ABG pH (7.35-7.45) ABG pCO2 (35-46) mmHg ABG pO2 (80-95) mmHg ABG HCO3 (19-24) mmol/L ABG O2 Saturation (90-95) % ABG Base Excess (-9-1.8) mEq/L Jordan Test (Pos) Oxygen Given Sodium (136-145) mmol/L Potassium (3.5-5.1) mmol/L Chloride (98-107) mmol/L Carbon Dioxide (21-32) mmol/L Anion Gap (3-11) BUN (6-23) mg/dl Creatinine (0.6-1.2) mg/dl Est Cr Clr Drug Dosing ml/min Est GFR ( Amer) ml/min Est GFR (Non-Af Amer) ml/min BUN/Creatinine Ratio (10-20) Glucose (70-99(Fasting)) mg/dl POC Glucose 179 H 147 H 117 H (70-99) mg/dl Estimat Average Glucose mg/dl Hemoglobin A1c (4.5-5.6) % Calcium (8.6-10.3) mg/dl Phosphorus (2.5-4.9) mg/dl Magnesium (1.7-2.4) mg/dl Total Bilirubin (0.2-1.0) mg/dl AST (13-39) U/L ALT (7-52) U/L Alkaline Phosphatase (34-104) U/L Troponin I High Sens (0-14) pg/ml C-Reactive Protein (0-0.5) mg/dl B-Natriuretic Peptide (0-100) pg/ml Total Protein (6.0-8.3) gm/dl Albumin (3.4-5.0) gm/dl Globulin (2.5-4.0) gm/dl Albumin/Globulin Ratio (0.9-2) Urine Color Urine Appearance (Clear) Urine pH (4.5-7.5) Ur Specific [place] (1.000-1.030) Urine Protein (Negative) Urine Glucose (UA) (Negative) Urine Ketones (Negative) Urine Blood (Negative) Urine Nitrite (Negative) Urine Bilirubin (Negative) Urine Urobilinogen (Negative) Ur Leukocyte Esterase (Negative) Urine WBC (Auto) (0-5) /hpf Urine RBC (Auto) (0-2) /hpf U Hyaline Cast (Auto) (0-2) /lpf U Epithel Cells (Auto) (0-2) /hpf Urine Bacteria (Auto) (None Seen) Granular Casts (None Prsent) /lpf Urine Yeast (None Prsent) Stl C. diff Tox B Gene (Neg) YEISON Screen (NEGATIVE) Anti-Proteinase 3 (<1.0) AI Anti-Myeloperoxidase (<1.0) AI ANCA (Negative) Glomerular Base Memb Ab (<1.0) AI 10/29/23 10/29/23 10/28/23 Range/Units 07:21 05:32 20:26 WBC 16.48 H (4.8-10.8) K/ul RBC 2.89 L (4.20-5.40) M/uL Hgb 9.0 L (12.0-16.0) g/dl Hct 27.5 L (37.0-47.0) % MCV 95.2 (80.0-100.0) fL MCH 31.1 (25.0-34.0) pg MCHC 32.7 (32.0-36.0) g/dL RDW Std Deviation 44.8 (36.4-46.3) fL RDW Coeff of Xavi 13.1 (11.5-14.5) % Plt Count 262 (130-400) K/uL MPV 11.2 (9.4-12.4) fL Immature Gran % (Auto) % Neut % (Auto) % Lymph % (Auto) % [place] % (Auto) % Eos % (Auto) % Baso % (Auto) % Neut # (Auto) (1.40-6.50) K/uL Lymph # (Auto) (1.20-3.40) K/uL [place] # (Auto) (0.11-0.59) K/uL Eos # (Auto) (0.00-0.50) K/uL Baso # (Auto) (0.00-0.20) K/uL Immature Gran # (Auto) (0.01-0.20) K/uL Echinocytes ESR 88 H (0-30) mm/hr ABG pH (7.35-7.45) ABG pCO2 (35-46) mmHg ABG pO2 (80-95) mmHg ABG HCO3 (19-24) mmol/L ABG O2 Saturation (90-95) % ABG Base Excess (-9-1.8) mEq/L Jordan Test (Pos) Oxygen Given Sodium 134 L (136-145) mmol/L Potassium 5.0 (3.5-5.1) mmol/L Chloride 107 (98-107) mmol/L Carbon Dioxide 20 L (21-32) mmol/L Anion Gap 7 (3-11) BUN 73 H (6-23) mg/dl Creatinine 1.80 H (0.6-1.2) mg/dl Est Cr Clr Drug Dosing 18.5 ml/min Est GFR ( Amer) 30.1 ml/min Est GFR (Non-Af Amer) 25.9 ml/min BUN/Creatinine Ratio 40.6 H (10-20) Glucose 239 H (70-99(Fasting)) mg/dl POC Glucose 254 H 184 H (70-99) mg/dl Estimat Average Glucose mg/dl Hemoglobin A1c (4.5-5.6) % Calcium 8.5 L (8.6-10.3) mg/dl Phosphorus (2.5-4.9) mg/dl Magnesium (1.7-2.4) mg/dl Total Bilirubin 0.4 (0.2-1.0) mg/dl AST 32 (13-39) U/L ALT 42 (7-52) U/L Alkaline Phosphatase 160 H (34-104) U/L Troponin I High Sens (0-14) pg/ml C-Reactive Protein 5.87 H (0-0.5) mg/dl B-Natriuretic Peptide (0-100) pg/ml Total Protein 6.2 (6.0-8.3) gm/dl Albumin 2.4 L (3.4-5.0) gm/dl Globulin 3.8 (2.5-4.0) gm/dl Albumin/Globulin Ratio 0.6 L (0.9-2) Urine Color Urine Appearance (Clear) Urine pH (4.5-7.5) Ur Specific [place] (1.000-1.030) Urine Protein (Negative) Urine Glucose (UA) (Negative) Urine Ketones (Negative) Urine Blood (Negative) Urine Nitrite (Negative) Urine Bilirubin (Negative) Urine Urobilinogen (Negative) Ur Leukocyte Esterase (Negative) Urine WBC (Auto) (0-5) /hpf Urine RBC (Auto) (0-2) /hpf U Hyaline Cast (Auto) (0-2) /lpf U Epithel Cells (Auto) (0-2) /hpf Urine Bacteria (Auto) (None Seen) Granular Casts (None Prsent) /lpf Urine Yeast (None Prsent) Stl C. diff Tox B Gene (Neg) YEISON Screen (NEGATIVE) Anti-Proteinase 3 (<1.0) AI Anti-Myeloperoxidase (<1.0) AI ANCA (Negative) Glomerular Base Memb Ab (<1.0) AI 10/28/23 10/28/23 10/28/23 Range/Units 16:18 11:26 06:09 WBC (4.8-10.8) K/ul RBC (4.20-5.40) M/uL Hgb (12.0-16.0) g/dl Hct (37.0-47.0) % MCV (80.0-100.0) fL MCH (25.0-34.0) pg MCHC (32.0-36.0) g/dL RDW Std Deviation (36.4-46.3) fL RDW Coeff of Xavi (11.5-14.5) % Plt Count (130-400) K/uL MPV (9.4-12.4) fL Immature Gran % (Auto) % Neut % (Auto) % Lymph % (Auto) % [place] % (Auto) % Eos % (Auto) % Baso % (Auto) % Neut # (Auto) (1.40-6.50) K/uL Lymph # (Auto) (1.20-3.40) K/uL [place] # (Auto) (0.11-0.59) K/uL Eos # (Auto) (0.00-0.50) K/uL Baso # (Auto) (0.00-0.20) K/uL Immature Gran # (Auto) (0.01-0.20) K/uL Echinocytes ESR (0-30) mm/hr ABG pH (7.35-7.45) ABG pCO2 (35-46) mmHg ABG pO2 (80-95) mmHg ABG HCO3 (19-24) mmol/L ABG O2 Saturation (90-95) % ABG Base Excess (-9-1.8) mEq/L Jordan Test (Pos) Oxygen Given Sodium 135 L (136-145) mmol/L Potassium 4.5 (3.5-5.1) mmol/L Chloride 105 (98-107) mmol/L Carbon Dioxide 20 L (21-32) mmol/L Anion Gap 10 (3-11) BUN 77 H (6-23) mg/dl Creatinine 2.00 H (0.6-1.2) mg/dl Est Cr Clr Drug Dosing 16.6 ml/min Est GFR ( Amer) 26.5 ml/min Est GFR (Non-Af Amer) 22.8 ml/min BUN/Creatinine Ratio 38.5 H (10-20) Glucose 195 H (70-99(Fasting)) mg/dl POC Glucose 175 H 192 H (70-99) mg/dl Estimat Average Glucose mg/dl Hemoglobin A1c (4.5-5.6) % Calcium 8.7 (8.6-10.3) mg/dl Phosphorus (2.5-4.9) mg/dl Magnesium (1.7-2.4) mg/dl Total Bilirubin (0.2-1.0) mg/dl AST (13-39) U/L ALT (7-52) U/L Alkaline Phosphatase (34-104) U/L Troponin I High Sens (0-14) pg/ml C-Reactive Protein (0-0.5) mg/dl B-Natriuretic Peptide (0-100) pg/ml Total Protein (6.0-8.3) gm/dl Albumin (3.4-5.0) gm/dl Globulin (2.5-4.0) gm/dl Albumin/Globulin Ratio (0.9-2) Urine Color Urine Appearance (Clear) Urine pH (4.5-7.5) Ur Specific [place] (1.000-1.030) Urine Protein (Negative) Urine Glucose (UA) (Negative) Urine Ketones (Negative) Urine Blood (Negative) Urine Nitrite (Negative) Urine Bilirubin (Negative) Urine Urobilinogen (Negative) Ur Leukocyte Esterase (Negative) Urine WBC (Auto) (0-5) /hpf Urine RBC (Auto) (0-2) /hpf U Hyaline Cast (Auto) (0-2) /lpf U Epithel Cells (Auto) (0-2) /hpf Urine Bacteria (Auto) (None Seen) Granular Casts (None Prsent) /lpf Urine Yeast (None Prsent) Stl C. diff Tox B Gene (Neg) YEISON Screen (NEGATIVE) Anti-Proteinase 3 (<1.0) AI Anti-Myeloperoxidase (<1.0) AI ANCA (Negative) Glomerular Base Memb Ab (<1.0) AI 10/28/23 10/28/23 10/27/23 Range/Units 06:08 06:06 20:27 WBC 18.27 H (4.8-10.8) K/ul RBC 2.96 L (4.20-5.40) M/uL Hgb 9.3 L (12.0-16.0) g/dl Hct 27.6 L (37.0-47.0) % MCV 93.2 (80.0-100.0) fL MCH 31.4 (25.0-34.0) pg MCHC 33.7 (32.0-36.0) g/dL RDW Std Deviation 43.3 (36.4-46.3) fL RDW Coeff of Xavi 12.8 (11.5-14.5) % Plt Count 264 (130-400) K/uL MPV 11.2 (9.4-12.4) fL Immature Gran % (Auto) % Neut % (Auto) % Lymph % (Auto) % [place] % (Auto) % Eos % (Auto) % Baso % (Auto) % Neut # (Auto) (1.40-6.50) K/uL Lymph # (Auto) (1.20-3.40) K/uL [place] # (Auto) (0.11-0.59) K/uL Eos # (Auto) (0.00-0.50) K/uL Baso # (Auto) (0.00-0.20) K/uL Immature Gran # (Auto) (0.01-0.20) K/uL Echinocytes ESR (0-30) mm/hr ABG pH (7.35-7.45) ABG pCO2 (35-46) mmHg ABG pO2 (80-95) mmHg ABG HCO3 (19-24) mmol/L ABG O2 Saturation (90-95) % ABG Base Excess (-9-1.8) mEq/L Jordan Test (Pos) Oxygen Given Sodium (136-145) mmol/L Potassium (3.5-5.1) mmol/L Chloride (98-107) mmol/L Carbon Dioxide (21-32) mmol/L Anion Gap (3-11) BUN (6-23) mg/dl Creatinine (0.6-1.2) mg/dl Est Cr Clr Drug Dosing ml/min Est GFR ( Amer) ml/min Est GFR (Non-Af Amer) ml/min BUN/Creatinine Ratio (10-20) Glucose (70-99(Fasting)) mg/dl POC Glucose 190 H 200 H (70-99) mg/dl Estimat Average Glucose 166 mg/dl Hemoglobin A1c 7.4 H (4.5-5.6) % Calcium (8.6-10.3) mg/dl Phosphorus (2.5-4.9) mg/dl Magnesium (1.7-2.4) mg/dl Total Bilirubin (0.2-1.0) mg/dl AST (13-39) U/L ALT (7-52) U/L Alkaline Phosphatase (34-104) U/L Troponin I High Sens (0-14) pg/ml C-Reactive Protein (0-0.5) mg/dl B-Natriuretic Peptide (0-100) pg/ml Total Protein (6.0-8.3) gm/dl Albumin (3.4-5.0) gm/dl Globulin (2.5-4.0) gm/dl Albumin/Globulin Ratio (0.9-2) Urine Color Urine Appearance (Clear) Urine pH (4.5-7.5) Ur Specific [place] (1.000-1.030) Urine Protein (Negative) Urine Glucose (UA) (Negative) Urine Ketones (Negative) Urine Blood (Negative) Urine Nitrite (Negative) Urine Bilirubin (Negative) Urine Urobilinogen (Negative) Ur Leukocyte Esterase (Negative) Urine WBC (Auto) (0-5) /hpf Urine RBC (Auto) (0-2) /hpf U Hyaline Cast (Auto) (0-2) /lpf U Epithel Cells (Auto) (0-2) /hpf Urine Bacteria (Auto) (None Seen) Granular Casts (None Prsent) /lpf Urine Yeast (None Prsent) Stl C. diff Tox B Gene (Neg) YEISON Screen (NEGATIVE) Anti-Proteinase 3 (<1.0) AI Anti-Myeloperoxidase (<1.0) AI ANCA (Negative) Glomerular Base Memb Ab (<1.0) AI 10/27/23 10/27/23 10/27/23 Range/Units 16:20 11:28 10:24 WBC (4.8-10.8) K/ul RBC (4.20-5.40) M/uL Hgb (12.0-16.0) g/dl Hct (37.0-47.0) % MCV (80.0-100.0) fL MCH (25.0-34.0) pg MCHC (32.0-36.0) g/dL RDW Std Deviation (36.4-46.3) fL RDW Coeff of Xavi (11.5-14.5) % Plt Count (130-400) K/uL MPV (9.4-12.4) fL Immature Gran % (Auto) % Neut % (Auto) % Lymph % (Auto) % [place] % (Auto) % Eos % (Auto) % Baso % (Auto) % Neut # (Auto) (1.40-6.50) K/uL Lymph # (Auto) (1.20-3.40) K/uL [place] # (Auto) (0.11-0.59) K/uL Eos # (Auto) (0.00-0.50) K/uL Baso # (Auto) (0.00-0.20) K/uL Immature Gran # (Auto) (0.01-0.20) K/uL Echinocytes ESR (0-30) mm/hr ABG pH (7.35-7.45) ABG pCO2 (35-46) mmHg ABG pO2 (80-95) mmHg ABG HCO3 (19-24) mmol/L ABG O2 Saturation (90-95) % ABG Base Excess (-9-1.8) mEq/L Jordan Test (Pos) Oxygen Given Sodium (136-145) mmol/L Potassium (3.5-5.1) mmol/L Chloride (98-107) mmol/L Carbon Dioxide (21-32) mmol/L Anion Gap (3-11) BUN (6-23) mg/dl Creatinine (0.6-1.2) mg/dl Est Cr Clr Drug Dosing ml/min Est GFR ( Amer) ml/min Est GFR (Non-Af Amer) ml/min BUN/Creatinine Ratio (10-20) Glucose (70-99(Fasting)) mg/dl POC Glucose 98 224 H (70-99) mg/dl Estimat Average Glucose mg/dl Hemoglobin A1c (4.5-5.6) % Calcium (8.6-10.3) mg/dl Phosphorus (2.5-4.9) mg/dl Magnesium (1.7-2.4) mg/dl Total Bilirubin (0.2-1.0) mg/dl AST (13-39) U/L ALT (7-52) U/L Alkaline Phosphatase (34-104) U/L Troponin I High Sens 24.1 H (0-14) pg/ml C-Reactive Protein (0-0.5) mg/dl B-Natriuretic Peptide (0-100) pg/ml Total Protein (6.0-8.3) gm/dl Albumin (3.4-5.0) gm/dl Globulin (2.5-4.0) gm/dl Albumin/Globulin Ratio (0.9-2) Urine Color Urine Appearance (Clear) Urine pH (4.5-7.5) Ur Specific [place] (1.000-1.030) Urine Protein (Negative) Urine Glucose (UA) (Negative) Urine Ketones (Negative) Urine Blood (Negative) Urine Nitrite (Negative) Urine Bilirubin (Negative) Urine Urobilinogen (Negative) Ur Leukocyte Esterase (Negative) Urine WBC (Auto) (0-5) /hpf Urine RBC (Auto) (0-2) /hpf U Hyaline Cast (Auto) (0-2) /lpf U Epithel Cells (Auto) (0-2) /hpf Urine Bacteria (Auto) (None Seen) Granular Casts (None Prsent) /lpf Urine Yeast (None Prsent) Stl C. diff Tox B Gene (Neg) YEISON Screen (NEGATIVE) Anti-Proteinase 3 (<1.0) AI Anti-Myeloperoxidase (<1.0) AI ANCA (Negative) Glomerular Base Memb Ab (<1.0) AI 10/27/23 10/27/23 10/27/23 Range/Units 10:22 09:39 07:23 WBC (4.8-10.8) K/ul RBC (4.20-5.40) M/uL Hgb (12.0-16.0) g/dl Hct (37.0-47.0) % MCV (80.0-100.0) fL MCH (25.0-34.0) pg MCHC (32.0-36.0) g/dL RDW Std Deviation (36.4-46.3) fL RDW Coeff of Xavi (11.5-14.5) % Plt Count (130-400) K/uL MPV (9.4-12.4) fL Immature Gran % (Auto) % Neut % (Auto) % Lymph % (Auto) % [place] % (Auto) % Eos % (Auto) % Baso % (Auto) % Neut # (Auto) (1.40-6.50) K/uL Lymph # (Auto) (1.20-3.40) K/uL [place] # (Auto) (0.11-0.59) K/uL Eos # (Auto) (0.00-0.50) K/uL Baso # (Auto) (0.00-0.20) K/uL Immature Gran # (Auto) (0.01-0.20) K/uL Echinocytes ESR (0-30) mm/hr ABG pH (7.35-7.45) ABG pCO2 (35-46) mmHg ABG pO2 (80-95) mmHg ABG HCO3 (19-24) mmol/L ABG O2 Saturation (90-95) % ABG Base Excess (-9-1.8) mEq/L Jordan Test (Pos) Oxygen Given Sodium (136-145) mmol/L Potassium (3.5-5.1) mmol/L Chloride (98-107) mmol/L Carbon Dioxide (21-32) mmol/L Anion Gap (3-11) BUN (6-23) mg/dl Creatinine (0.6-1.2) mg/dl Est Cr Clr Drug Dosing ml/min Est GFR ( Amer) ml/min Est GFR (Non-Af Amer) ml/min BUN/Creatinine Ratio (10-20) Glucose (70-99(Fasting)) mg/dl POC Glucose 245 H 192 H (70-99) mg/dl Estimat Average Glucose mg/dl Hemoglobin A1c (4.5-5.6) % Calcium (8.6-10.3) mg/dl Phosphorus (2.5-4.9) mg/dl Magnesium (1.7-2.4) mg/dl Total Bilirubin (0.2-1.0) mg/dl AST (13-39) U/L ALT (7-52) U/L Alkaline Phosphatase (34-104) U/L Troponin I High Sens (0-14) pg/ml C-Reactive Protein (0-0.5) mg/dl B-Natriuretic Peptide 453 H (0-100) pg/ml Total Protein (6.0-8.3) gm/dl Albumin (3.4-5.0) gm/dl Globulin (2.5-4.0) gm/dl Albumin/Globulin Ratio (0.9-2) Urine Color Urine Appearance (Clear) Urine pH (4.5-7.5) Ur Specific [place] (1.000-1.030) Urine Protein (Negative) Urine Glucose (UA) (Negative) Urine Ketones (Negative) Urine Blood (Negative) Urine Nitrite (Negative) Urine Bilirubin (Negative) Urine Urobilinogen (Negative) Ur Leukocyte Esterase (Negative) Urine WBC (Auto) (0-5) /hpf Urine RBC (Auto) (0-2) /hpf U Hyaline Cast (Auto) (0-2) /lpf U Epithel Cells (Auto) (0-2) /hpf Urine Bacteria (Auto) (None Seen) Granular Casts (None Prsent) /lpf Urine Yeast (None Prsent) Stl C. diff Tox B Gene (Neg) YEISON Screen (NEGATIVE) Anti-Proteinase 3 (<1.0) AI Anti-Myeloperoxidase (<1.0) AI ANCA (Negative) Glomerular Base Memb Ab (<1.0) AI 10/27/23 10/27/23 10/26/23 Range/Units 06:53 06:45 20:28 WBC 14.54 H (4.8-10.8) K/ul RBC 2.82 L (4.20-5.40) M/uL Hgb 8.9 L (12.0-16.0) g/dl Hct 26.0 L (37.0-47.0) % MCV 92.2 (80.0-100.0) fL MCH 31.6 (25.0-34.0) pg MCHC 34.2 (32.0-36.0) g/dL RDW Std Deviation 41.7 (36.4-46.3) fL RDW Coeff of Xavi 12.4 (11.5-14.5) % Plt Count 248 (130-400) K/uL MPV 11.0 (9.4-12.4) fL Immature Gran % (Auto) % Neut % (Auto) % Lymph % (Auto) % [place] % (Auto) % Eos % (Auto) % Baso % (Auto) % Neut # (Auto) (1.40-6.50) K/uL Lymph # (Auto) (1.20-3.40) K/uL [place] # (Auto) (0.11-0.59) K/uL Eos # (Auto) (0.00-0.50) K/uL Baso # (Auto) (0.00-0.20) K/uL Immature Gran # (Auto) (0.01-0.20) K/uL Echinocytes ESR (0-30) mm/hr ABG pH 7.42 (7.35-7.45) ABG pCO2 29 L (35-46) mmHg ABG pO2 61 L (80-95) mmHg ABG HCO3 19 (19-24) mmol/L ABG O2 Saturation 92.3 (90-95) % ABG Base Excess -4.4 (-9-1.8) mEq/L Jordan Test Pos (Pos) Oxygen Given 30% Sodium 138 (136-145) mmol/L Potassium 4.4 (3.5-5.1) mmol/L Chloride 108 H (98-107) mmol/L Carbon Dioxide 21 (21-32) mmol/L Anion Gap 9 (3-11) BUN 77 H (6-23) mg/dl Creatinine 1.87 H D (0.6-1.2) mg/dl Est Cr Clr Drug Dosing 17.8 ml/min Est GFR ( Amer) 28.7 ml/min Est GFR (Non-Af Amer) 24.8 ml/min BUN/Creatinine Ratio 41.2 H (10-20) Glucose 179 H (70-99(Fasting)) mg/dl POC Glucose 231 H (70-99) mg/dl Estimat Average Glucose mg/dl Hemoglobin A1c (4.5-5.6) % Calcium 8.8 (8.6-10.3) mg/dl Phosphorus (2.5-4.9) mg/dl Magnesium 2.0 (1.7-2.4) mg/dl Total Bilirubin (0.2-1.0) mg/dl AST (13-39) U/L ALT (7-52) U/L Alkaline Phosphatase (34-104) U/L Troponin I High Sens (0-14) pg/ml C-Reactive Protein (0-0.5) mg/dl B-Natriuretic Peptide (0-100) pg/ml Total Protein (6.0-8.3) gm/dl Albumin (3.4-5.0) gm/dl Globulin (2.5-4.0) gm/dl Albumin/Globulin Ratio (0.9-2) Urine Color Urine Appearance (Clear) Urine pH (4.5-7.5) Ur Specific [place] (1.000-1.030) Urine Protein (Negative) Urine Glucose (UA) (Negative) Urine Ketones (Negative) Urine Blood (Negative) Urine Nitrite (Negative) Urine Bilirubin (Negative) Urine Urobilinogen (Negative) Ur Leukocyte Esterase (Negative) Urine WBC (Auto) (0-5) /hpf Urine RBC (Auto) (0-2) /hpf U Hyaline Cast (Auto) (0-2) /lpf U Epithel Cells (Auto) (0-2) /hpf Urine Bacteria (Auto) (None Seen) Granular Casts (None Prsent) /lpf Urine Yeast (None Prsent) Stl C. diff Tox B Gene (Neg) YEISON Screen (NEGATIVE) Anti-Proteinase 3 (<1.0) AI Anti-Myeloperoxidase (<1.0) AI ANCA (Negative) Glomerular Base Memb Ab (<1.0) AI 10/26/23 10/26/23 10/26/23 Range/Units 16:31 16:12 16:09 WBC (4.8-10.8) K/ul RBC (4.20-5.40) M/uL Hgb (12.0-16.0) g/dl Hct (37.0-47.0) % MCV (80.0-100.0) fL MCH (25.0-34.0) pg MCHC (32.0-36.0) g/dL RDW Std Deviation (36.4-46.3) fL RDW Coeff of Xavi (11.5-14.5) % Plt Count (130-400) K/uL MPV (9.4-12.4) fL Immature Gran % (Auto) % Neut % (Auto) % Lymph % (Auto) % [place] % (Auto) % Eos % (Auto) % Baso % (Auto) % Neut # (Auto) (1.40-6.50) K/uL Lymph # (Auto) (1.20-3.40) K/uL [place] # (Auto) (0.11-0.59) K/uL Eos # (Auto) (0.00-0.50) K/uL Baso # (Auto) (0.00-0.20) K/uL Immature Gran # (Auto) (0.01-0.20) K/uL Echinocytes ESR (0-30) mm/hr ABG pH (7.35-7.45) ABG pCO2 (35-46) mmHg ABG pO2 (80-95) mmHg ABG HCO3 (19-24) mmol/L ABG O2 Saturation (90-95) % ABG Base Excess (-9-1.8) mEq/L Jordan Test (Pos) Oxygen Given Sodium (136-145) mmol/L Potassium (3.5-5.1) mmol/L Chloride (98-107) mmol/L Carbon Dioxide (21-32) mmol/L Anion Gap (3-11) BUN (6-23) mg/dl Creatinine (0.6-1.2) mg/dl Est Cr Clr Drug Dosing ml/min Est GFR ( Amer) ml/min Est GFR (Non-Af Amer) ml/min BUN/Creatinine Ratio (10-20) Glucose (70-99(Fasting)) mg/dl POC Glucose 95 60 L* 65 L* (70-99) mg/dl Estimat Average Glucose mg/dl Hemoglobin A1c (4.5-5.6) % Calcium (8.6-10.3) mg/dl Phosphorus (2.5-4.9) mg/dl Magnesium (1.7-2.4) mg/dl Total Bilirubin (0.2-1.0) mg/dl AST (13-39) U/L ALT (7-52) U/L Alkaline Phosphatase (34-104) U/L Troponin I High Sens (0-14) pg/ml C-Reactive Protein (0-0.5) mg/dl B-Natriuretic Peptide (0-100) pg/ml Total Protein (6.0-8.3) gm/dl Albumin (3.4-5.0) gm/dl Globulin (2.5-4.0) gm/dl Albumin/Globulin Ratio (0.9-2) Urine Color Urine Appearance (Clear) Urine pH (4.5-7.5) Ur Specific [place] (1.000-1.030) Urine Protein (Negative) Urine Glucose (UA) (Negative) Urine Ketones (Negative) Urine Blood (Negative) Urine Nitrite (Negative) Urine Bilirubin (Negative) Urine Urobilinogen (Negative) Ur Leukocyte Esterase (Negative) Urine WBC (Auto) (0-5) /hpf Urine RBC (Auto) (0-2) /hpf U Hyaline Cast (Auto) (0-2) /lpf U Epithel Cells (Auto) (0-2) /hpf Urine Bacteria (Auto) (None Seen) Granular Casts (None Prsent) /lpf Urine Yeast (None Prsent) Stl C. diff Tox B Gene (Neg) YEISON Screen (NEGATIVE) Anti-Proteinase 3 (<1.0) AI Anti-Myeloperoxidase (<1.0) AI ANCA (Negative) Glomerular Base Memb Ab (<1.0) AI 10/26/23 10/26/23 10/26/23 Range/Units 11:19 07:35 07:22 WBC (4.8-10.8) K/ul RBC (4.20-5.40) M/uL Hgb (12.0-16.0) g/dl Hct (37.0-47.0) % MCV (80.0-100.0) fL MCH (25.0-34.0) pg MCHC (32.0-36.0) g/dL RDW Std Deviation (36.4-46.3) fL RDW Coeff of Xavi (11.5-14.5) % Plt Count (130-400) K/uL MPV (9.4-12.4) fL Immature Gran % (Auto) % Neut % (Auto) % Lymph % (Auto) % [place] % (Auto) % Eos % (Auto) % Baso % (Auto) % Neut # (Auto) (1.40-6.50) K/uL Lymph # (Auto) (1.20-3.40) K/uL [place] # (Auto) (0.11-0.59) K/uL Eos # (Auto) (0.00-0.50) K/uL Baso # (Auto) (0.00-0.20) K/uL Immature Gran # (Auto) (0.01-0.20) K/uL Echinocytes ESR (0-30) mm/hr ABG pH (7.35-7.45) ABG pCO2 (35-46) mmHg ABG pO2 (80-95) mmHg ABG HCO3 (19-24) mmol/L ABG O2 Saturation (90-95) % ABG Base Excess (-9-1.8) mEq/L Jordan Test (Pos) Oxygen Given Sodium (136-145) mmol/L Potassium (3.5-5.1) mmol/L Chloride (98-107) mmol/L Carbon Dioxide (21-32) mmol/L Anion Gap (3-11) BUN (6-23) mg/dl Creatinine (0.6-1.2) mg/dl Est Cr Clr Drug Dosing ml/min Est GFR ( Amer) ml/min Est GFR (Non-Af Amer) ml/min BUN/Creatinine Ratio (10-20) Glucose (70-99(Fasting)) mg/dl POC Glucose 108 H 111 H (70-99) mg/dl Estimat Average Glucose mg/dl Hemoglobin A1c (4.5-5.6) % Calcium (8.6-10.3) mg/dl Phosphorus (2.5-4.9) mg/dl Magnesium (1.7-2.4) mg/dl Total Bilirubin (0.2-1.0) mg/dl AST (13-39) U/L ALT (7-52) U/L Alkaline Phosphatase (34-104) U/L Troponin I High Sens (0-14) pg/ml C-Reactive Protein (0-0.5) mg/dl B-Natriuretic Peptide (0-100) pg/ml Total Protein (6.0-8.3) gm/dl Albumin (3.4-5.0) gm/dl Globulin (2.5-4.0) gm/dl Albumin/Globulin Ratio (0.9-2) Urine Color Urine Appearance (Clear) Urine pH (4.5-7.5) Ur Specific [place] (1.000-1.030) Urine Protein (Negative) Urine Glucose (UA) (Negative) Urine Ketones (Negative) Urine Blood (Negative) Urine Nitrite (Negative) Urine Bilirubin (Negative) Urine Urobilinogen (Negative) Ur Leukocyte Esterase (Negative) Urine WBC (Auto) (0-5) /hpf Urine RBC (Auto) (0-2) /hpf U Hyaline Cast (Auto) (0-2) /lpf U Epithel Cells (Auto) (0-2) /hpf Urine Bacteria (Auto) (None Seen) Granular Casts (None Prsent) /lpf Urine Yeast (None Prsent) Stl C. diff Tox B Gene Negative Cdiff Gene (Neg) YEISON Screen (NEGATIVE) Anti-Proteinase 3 (<1.0) AI Anti-Myeloperoxidase (<1.0) AI ANCA (Negative) Glomerular Base Memb Ab (<1.0) AI 10/26/23 10/25/23 10/25/23 Range/Units 05:34 21:03 16:14 WBC 17.97 H (4.8-10.8) K/ul RBC 3.04 L (4.20-5.40) M/uL Hgb 9.6 L (12.0-16.0) g/dl Hct 28.3 L (37.0-47.0) % MCV 93.1 (80.0-100.0) fL MCH 31.6 (25.0-34.0) pg MCHC 33.9 (32.0-36.0) g/dL RDW Std Deviation 42.5 (36.4-46.3) fL RDW Coeff of Xavi 12.5 (11.5-14.5) % Plt Count 279 (130-400) K/uL MPV 11.1 (9.4-12.4) fL Immature Gran % (Auto) 0.9 % Neut % (Auto) 88.8 % Lymph % (Auto) 6.2 % [place] % (Auto) 3.9 % Eos % (Auto) 0.0 % Baso % (Auto) 0.2 % Neut # (Auto) 15.96 H (1.40-6.50) K/uL Lymph # (Auto) 1.11 L (1.20-3.40) K/uL [place] # (Auto) 0.70 H (0.11-0.59) K/uL Eos # (Auto) 0.00 (0.00-0.50) K/uL Baso # (Auto) 0.03 (0.00-0.20) K/uL Immature Gran # (Auto) 0.17 (0.01-0.20) K/uL Echinocytes ESR (0-30) mm/hr ABG pH (7.35-7.45) ABG pCO2 (35-46) mmHg ABG pO2 (80-95) mmHg ABG HCO3 (19-24) mmol/L ABG O2 Saturation (90-95) % ABG Base Excess (-9-1.8) mEq/L Jordan Test (Pos) Oxygen Given Sodium 135 L (136-145) mmol/L Potassium 4.2 (3.5-5.1) mmol/L Chloride 106 (98-107) mmol/L Carbon Dioxide 20 L (21-32) mmol/L Anion Gap 9 (3-11) BUN 88 H (6-23) mg/dl Creatinine 2.27 H (0.6-1.2) mg/dl Est Cr Clr Drug Dosing 14.7 ml/min Est GFR ( Amer) 22.7 ml/min Est GFR (Non-Af Amer) 19.6 ml/min BUN/Creatinine Ratio 38.8 H (10-20) Glucose 133 H (70-99(Fasting)) mg/dl POC Glucose 202 H 78 (70-99) mg/dl Estimat Average Glucose mg/dl Hemoglobin A1c (4.5-5.6) % Calcium 8.7 (8.6-10.3) mg/dl Phosphorus (2.5-4.9) mg/dl Magnesium (1.7-2.4) mg/dl Total Bilirubin (0.2-1.0) mg/dl AST (13-39) U/L ALT (7-52) U/L Alkaline Phosphatase (34-104) U/L Troponin I High Sens (0-14) pg/ml C-Reactive Protein (0-0.5) mg/dl B-Natriuretic Peptide (0-100) pg/ml Total Protein (6.0-8.3) gm/dl Albumin (3.4-5.0) gm/dl Globulin (2.5-4.0) gm/dl Albumin/Globulin Ratio (0.9-2) Urine Color Urine Appearance (Clear) Urine pH (4.5-7.5) Ur Specific [place] (1.000-1.030) Urine Protein (Negative) Urine Glucose (UA) (Negative) Urine Ketones (Negative) Urine Blood (Negative) Urine Nitrite (Negative) Urine Bilirubin (Negative) Urine Urobilinogen (Negative) Ur Leukocyte Esterase (Negative) Urine WBC (Auto) (0-5) /hpf Urine RBC (Auto) (0-2) /hpf U Hyaline Cast (Auto) (0-2) /lpf U Epithel Cells (Auto) (0-2) /hpf Urine Bacteria (Auto) (None Seen) Granular Casts (None Prsent) /lpf Urine Yeast (None Prsent) Stl C. diff Tox B Gene (Neg) YEISON Screen (NEGATIVE) Anti-Proteinase 3 (<1.0) AI Anti-Myeloperoxidase (<1.0) AI ANCA (Negative) Glomerular Base Memb Ab (<1.0) AI 10/25/23 10/25/23 10/25/23 Range/Units 11:32 07:30 05:31 WBC 27.51 H (4.8-10.8) K/ul RBC 2.74 L (4.20-5.40) M/uL Hgb 8.6 L (12.0-16.0) g/dl Hct 25.5 L (37.0-47.0) % MCV 93.1 (80.0-100.0) fL MCH 31.4 (25.0-34.0) pg MCHC 33.7 (32.0-36.0) g/dL RDW Std Deviation 40.9 (36.4-46.3) fL RDW Coeff of Xavi 12.1 (11.5-14.5) % Plt Count 280 (130-400) K/uL MPV 11.3 (9.4-12.4) fL Immature Gran % (Auto) % Neut % (Auto) % Lymph % (Auto) % [place] % (Auto) % Eos % (Auto) % Baso % (Auto) % Neut # (Auto) (1.40-6.50) K/uL Lymph # (Auto) (1.20-3.40) K/uL [place] # (Auto) (0.11-0.59) K/uL Eos # (Auto) (0.00-0.50) K/uL Baso # (Auto) (0.00-0.20) K/uL Immature Gran # (Auto) (0.01-0.20) K/uL Echinocytes ESR (0-30) mm/hr ABG pH (7.35-7.45) ABG pCO2 (35-46) mmHg ABG pO2 (80-95) mmHg ABG HCO3 (19-24) mmol/L ABG O2 Saturation (90-95) % ABG Base Excess (-9-1.8) mEq/L Jordan Test (Pos) Oxygen Given Sodium 130 L (136-145) mmol/L Potassium 3.8 (3.5-5.1) mmol/L Chloride 101 (98-107) mmol/L Carbon Dioxide 17 L (21-32) mmol/L Anion Gap 12 H (3-11) BUN 78 H (6-23) mg/dl Creatinine 2.29 H (0.6-1.2) mg/dl Est Cr Clr Drug Dosing 14.5 ml/min Est GFR ( Amer) 22.5 ml/min Est GFR (Non-Af Amer) 19.4 ml/min BUN/Creatinine Ratio 34.1 H (10-20) Glucose 147 H (70-99(Fasting)) mg/dl POC Glucose 241 H 144 H (70-99) mg/dl Estimat Average Glucose mg/dl Hemoglobin A1c (4.5-5.6) % Calcium 8.7 (8.6-10.3) mg/dl Phosphorus (2.5-4.9) mg/dl Magnesium (1.7-2.4) mg/dl Total Bilirubin (0.2-1.0) mg/dl AST (13-39) U/L ALT (7-52) U/L Alkaline Phosphatase (34-104) U/L Troponin I High Sens (0-14) pg/ml C-Reactive Protein (0-0.5) mg/dl B-Natriuretic Peptide (0-100) pg/ml Total Protein (6.0-8.3) gm/dl Albumin (3.4-5.0) gm/dl Globulin (2.5-4.0) gm/dl Albumin/Globulin Ratio (0.9-2) Urine Color Urine Appearance (Clear) Urine pH (4.5-7.5) Ur Specific [place] (1.000-1.030) Urine Protein (Negative) Urine Glucose (UA) (Negative) Urine Ketones (Negative) Urine Blood (Negative) Urine Nitrite (Negative) Urine Bilirubin (Negative) Urine Urobilinogen (Negative) Ur Leukocyte Esterase (Negative) Urine WBC (Auto) (0-5) /hpf Urine RBC (Auto) (0-2) /hpf U Hyaline Cast (Auto) (0-2) /lpf U Epithel Cells (Auto) (0-2) /hpf Urine Bacteria (Auto) (None Seen) Granular Casts (None Prsent) /lpf Urine Yeast (None Prsent) Stl C. diff Tox B Gene (Neg) YEISON Screen (NEGATIVE) Anti-Proteinase 3 (<1.0) AI Anti-Myeloperoxidase (<1.0) AI ANCA (Negative) Glomerular Base Memb Ab (<1.0) AI 10/25/23 10/25/23 10/24/23 Range/Units 04:08 00:07 Unknown WBC (4.8-10.8) K/ul RBC (4.20-5.40) M/uL Hgb (12.0-16.0) g/dl Hct (37.0-47.0) % MCV (80.0-100.0) fL MCH (25.0-34.0) pg MCHC (32.0-36.0) g/dL RDW Std Deviation (36.4-46.3) fL RDW Coeff of Xavi (11.5-14.5) % Plt Count (130-400) K/uL MPV (9.4-12.4) fL Immature Gran % (Auto) % Neut % (Auto) % Lymph % (Auto) % [place] % (Auto) % Eos % (Auto) % Baso % (Auto) % Neut # (Auto) (1.40-6.50) K/uL Lymph # (Auto) (1.20-3.40) K/uL [place] # (Auto) (0.11-0.59) K/uL Eos # (Auto) (0.00-0.50) K/uL Baso # (Auto) (0.00-0.20) K/uL Immature Gran # (Auto) (0.01-0.20) K/uL Echinocytes ESR (0-30) mm/hr ABG pH (7.35-7.45) ABG pCO2 (35-46) mmHg ABG pO2 (80-95) mmHg ABG HCO3 (19-24) mmol/L ABG O2 Saturation (90-95) % ABG Base Excess (-9-1.8) mEq/L Jordan Test (Pos) Oxygen Given Sodium (136-145) mmol/L Potassium (3.5-5.1) mmol/L Chloride (98-107) mmol/L Carbon Dioxide (21-32) mmol/L Anion Gap (3-11) BUN (6-23) mg/dl Creatinine (0.6-1.2) mg/dl Est Cr Clr Drug Dosing ml/min Est GFR ( Amer) ml/min Est GFR (Non-Af Amer) ml/min BUN/Creatinine Ratio (10-20) Glucose (70-99(Fasting)) mg/dl POC Glucose 157 H 262 H (70-99) mg/dl Estimat Average Glucose mg/dl Hemoglobin A1c (4.5-5.6) % Calcium (8.6-10.3) mg/dl Phosphorus (2.5-4.9) mg/dl Magnesium (1.7-2.4) mg/dl Total Bilirubin (0.2-1.0) mg/dl AST (13-39) U/L ALT (7-52) U/L Alkaline Phosphatase (34-104) U/L Troponin I High Sens (0-14) pg/ml C-Reactive Protein (0-0.5) mg/dl B-Natriuretic Peptide (0-100) pg/ml Total Protein (6.0-8.3) gm/dl Albumin (3.4-5.0) gm/dl Globulin (2.5-4.0) gm/dl Albumin/Globulin Ratio (0.9-2) Urine Color Yellow Urine Appearance Cloudy A (Clear) Urine pH 5.5 (4.5-7.5) Ur Specific [place] 1.016 (1.000-1.030) Urine Protein 1+ H (Negative) Urine Glucose (UA) Negative (Negative) Urine Ketones Negative (Negative) Urine Blood Negative (Negative) Urine Nitrite Negative (Negative) Urine Bilirubin Negative (Negative) Urine Urobilinogen Negative (Negative) Ur Leukocyte Esterase 2+ H (Negative) Urine WBC (Auto) 21-50 H (0-5) /hpf Urine RBC (Auto) >20 H (0-2) /hpf U Hyaline Cast (Auto) 3-5 H (0-2) /lpf U Epithel Cells (Auto) 6-10 H (0-2) /hpf Urine Bacteria (Auto) None Seen (None Seen) Granular Casts Present A (None Prsent) /lpf Urine Yeast Present A (None Prsent) Stl C. diff Tox B Gene (Neg) YEISON Screen (NEGATIVE) Anti-Proteinase 3 (<1.0) AI Anti-Myeloperoxidase (<1.0) AI ANCA (Negative) Glomerular Base Memb Ab (<1.0) AI 10/24/23 10/24/23 10/24/23 Range/Units 19:57 16:17 11:27 WBC (4.8-10.8) K/ul RBC (4.20-5.40) M/uL Hgb (12.0-16.0) g/dl Hct (37.0-47.0) % MCV (80.0-100.0) fL MCH (25.0-34.0) pg MCHC (32.0-36.0) g/dL RDW Std Deviation (36.4-46.3) fL RDW Coeff of Xavi (11.5-14.5) % Plt Count (130-400) K/uL MPV (9.4-12.4) fL Immature Gran % (Auto) % Neut % (Auto) % Lymph % (Auto) % [place] % (Auto) % Eos % (Auto) % Baso % (Auto) % Neut # (Auto) (1.40-6.50) K/uL Lymph # (Auto) (1.20-3.40) K/uL [place] # (Auto) (0.11-0.59) K/uL Eos # (Auto) (0.00-0.50) K/uL Baso # (Auto) (0.00-0.20) K/uL Immature Gran # (Auto) (0.01-0.20) K/uL Echinocytes ESR (0-30) mm/hr ABG pH (7.35-7.45) ABG pCO2 (35-46) mmHg ABG pO2 (80-95) mmHg ABG HCO3 (19-24) mmol/L ABG O2 Saturation (90-95) % ABG Base Excess (-9-1.8) mEq/L Jordan Test (Pos) Oxygen Given Sodium (136-145) mmol/L Potassium (3.5-5.1) mmol/L Chloride (98-107) mmol/L Carbon Dioxide (21-32) mmol/L Anion Gap (3-11) BUN (6-23) mg/dl Creatinine (0.6-1.2) mg/dl Est Cr Clr Drug Dosing ml/min Est GFR ( Amer) ml/min Est GFR (Non-Af Amer) ml/min BUN/Creatinine Ratio (10-20) Glucose (70-99(Fasting)) mg/dl POC Glucose 246 H 223 H 313 H* (70-99) mg/dl Estimat Average Glucose mg/dl Hemoglobin A1c (4.5-5.6) % Calcium (8.6-10.3) mg/dl Phosphorus (2.5-4.9) mg/dl Magnesium (1.7-2.4) mg/dl Total Bilirubin (0.2-1.0) mg/dl AST (13-39) U/L ALT (7-52) U/L Alkaline Phosphatase (34-104) U/L Troponin I High Sens (0-14) pg/ml C-Reactive Protein (0-0.5) mg/dl B-Natriuretic Peptide (0-100) pg/ml Total Protein (6.0-8.3) gm/dl Albumin (3.4-5.0) gm/dl Globulin (2.5-4.0) gm/dl Albumin/Globulin Ratio (0.9-2) Urine Color Urine Appearance (Clear) Urine pH (4.5-7.5) Ur Specific [place] (1.000-1.030) Urine Protein (Negative) Urine Glucose (UA) (Negative) Urine Ketones (Negative) Urine Blood (Negative) Urine Nitrite (Negative) Urine Bilirubin (Negative) Urine Urobilinogen (Negative) Ur Leukocyte Esterase (Negative) Urine WBC (Auto) (0-5) /hpf Urine RBC (Auto) (0-2) /hpf U Hyaline Cast (Auto) (0-2) /lpf U Epithel Cells (Auto) (0-2) /hpf Urine Bacteria (Auto) (None Seen) Granular Casts (None Prsent) /lpf Urine Yeast (None Prsent) Stl C. diff Tox B Gene (Neg) YEISON Screen (NEGATIVE) Anti-Proteinase 3 (<1.0) AI Anti-Myeloperoxidase (<1.0) AI ANCA (Negative) Glomerular Base Memb Ab (<1.0) AI 10/24/23 10/24/23 10/24/23 Range/Units 11:25 07:37 05:37 WBC 21.51 H (4.8-10.8) K/ul RBC 2.78 L (4.20-5.40) M/uL Hgb 8.7 L (12.0-16.0) g/dl Hct 26.3 L (37.0-47.0) % MCV 94.6 (80.0-100.0) fL MCH 31.3 (25.0-34.0) pg MCHC 33.1 (32.0-36.0) g/dL RDW Std Deviation 43.8 (36.4-46.3) fL RDW Coeff of Xavi 12.6 (11.5-14.5) % Plt Count 246 (130-400) K/uL MPV 11.1 (9.4-12.4) fL Immature Gran % (Auto) 1.2 % Neut % (Auto) 94.9 % Lymph % (Auto) 2.3 % [place] % (Auto) 1.4 % Eos % (Auto) 0.0 % Baso % (Auto) 0.2 % Neut # (Auto) 20.39 H (1.40-6.50) K/uL Lymph # (Auto) 0.50 L (1.20-3.40) K/uL [place] # (Auto) 0.31 (0.11-0.59) K/uL Eos # (Auto) 0.00 (0.00-0.50) K/uL Baso # (Auto) 0.05 (0.00-0.20) K/uL Immature Gran # (Auto) 0.26 H (0.01-0.20) K/uL Echinocytes 2+ ESR (0-30) mm/hr ABG pH (7.35-7.45) ABG pCO2 (35-46) mmHg ABG pO2 (80-95) mmHg ABG HCO3 (19-24) mmol/L ABG O2 Saturation (90-95) % ABG Base Excess (-9-1.8) mEq/L Jordan Test (Pos) Oxygen Given Sodium 131 L (136-145) mmol/L Potassium 3.7 (3.5-5.1) mmol/L Chloride 103 (98-107) mmol/L Carbon Dioxide 19 L (21-32) mmol/L Anion Gap 9 (3-11) BUN 63 H (6-23) mg/dl Creatinine 2.17 H (0.6-1.2) mg/dl Est Cr Clr Drug Dosing 15.3 ml/min Est GFR ( Amer) 24.0 ml/min Est GFR (Non-Af Amer) 20.7 ml/min BUN/Creatinine Ratio 29.0 H (10-20) Glucose 248 H (70-99(Fasting)) mg/dl POC Glucose 319 H* 243 H (70-99) mg/dl Estimat Average Glucose mg/dl Hemoglobin A1c (4.5-5.6) % Calcium 8.3 L (8.6-10.3) mg/dl Phosphorus 5.1 H (2.5-4.9) mg/dl Magnesium 2.0 (1.7-2.4) mg/dl Total Bilirubin 0.4 (0.2-1.0) mg/dl AST 45 H (13-39) U/L ALT 31 (7-52) U/L Alkaline Phosphatase 128 H (34-104) U/L Troponin I High Sens (0-14) pg/ml C-Reactive Protein 27.70 H (0-0.5) mg/dl B-Natriuretic Peptide 525 H (0-100) pg/ml Total Protein 5.8 L (6.0-8.3) gm/dl Albumin 2.3 L (3.4-5.0) gm/dl Globulin 3.5 (2.5-4.0) gm/dl Albumin/Globulin Ratio 0.7 L (0.9-2) Urine Color Urine Appearance (Clear) Urine pH (4.5-7.5) Ur Specific [place] (1.000-1.030) Urine Protein (Negative) Urine Glucose (UA) (Negative) Urine Ketones (Negative) Urine Blood (Negative) Urine Nitrite (Negative) Urine Bilirubin (Negative) Urine Urobilinogen (Negative) Ur Leukocyte Esterase (Negative) Urine WBC (Auto) (0-5) /hpf Urine RBC (Auto) (0-2) /hpf U Hyaline Cast (Auto) (0-2) /lpf U Epithel Cells (Auto) (0-2) /hpf Urine Bacteria (Auto) (None Seen) Granular Casts (None Prsent) /lpf Urine Yeast (None Prsent) Stl C. diff Tox B Gene (Neg) YEISON Screen (NEGATIVE) Anti-Proteinase 3 (<1.0) AI Anti-Myeloperoxidase (<1.0) AI ANCA (Negative) Glomerular Base Memb Ab (<1.0) AI 10/23/23 10/23/23 10/23/23 Range/Units 20:13 16:22 12:33 WBC (4.8-10.8) K/ul RBC (4.20-5.40) M/uL Hgb (12.0-16.0) g/dl Hct (37.0-47.0) % MCV (80.0-100.0) fL MCH (25.0-34.0) pg MCHC (32.0-36.0) g/dL RDW Std Deviation (36.4-46.3) fL RDW Coeff of Xavi (11.5-14.5) % Plt Count (130-400) K/uL MPV (9.4-12.4) fL Immature Gran % (Auto) % Neut % (Auto) % Lymph % (Auto) % [place] % (Auto) % Eos % (Auto) % Baso % (Auto) % Neut # (Auto) (1.40-6.50) K/uL Lymph # (Auto) (1.20-3.40) K/uL [place] # (Auto) (0.11-0.59) K/uL Eos # (Auto) (0.00-0.50) K/uL Baso # (Auto) (0.00-0.20) K/uL Immature Gran # (Auto) (0.01-0.20) K/uL Echinocytes ESR 74 H (0-30) mm/hr ABG pH (7.35-7.45) ABG pCO2 (35-46) mmHg ABG pO2 (80-95) mmHg ABG HCO3 (19-24) mmol/L ABG O2 Saturation (90-95) % ABG Base Excess (-9-1.8) mEq/L Jordan Test (Pos) Oxygen Given Sodium (136-145) mmol/L Potassium (3.5-5.1) mmol/L Chloride (98-107) mmol/L Carbon Dioxide (21-32) mmol/L Anion Gap (3-11) BUN (6-23) mg/dl Creatinine (0.6-1.2) mg/dl Est Cr Clr Drug Dosing ml/min Est GFR ( Amer) ml/min Est GFR (Non-Af Amer) ml/min BUN/Creatinine Ratio (10-20) Glucose (70-99(Fasting)) mg/dl POC Glucose 299 H 129 H (70-99) mg/dl Estimat Average Glucose mg/dl Hemoglobin A1c (4.5-5.6) % Calcium (8.6-10.3) mg/dl Phosphorus (2.5-4.9) mg/dl Magnesium (1.7-2.4) mg/dl Total Bilirubin (0.2-1.0) mg/dl AST (13-39) U/L ALT (7-52) U/L Alkaline Phosphatase (34-104) U/L Troponin I High Sens (0-14) pg/ml C-Reactive Protein 32.81 H (0-0.5) mg/dl B-Natriuretic Peptide (0-100) pg/ml Total Protein (6.0-8.3) gm/dl Albumin (3.4-5.0) gm/dl Globulin (2.5-4.0) gm/dl Albumin/Globulin Ratio (0.9-2) Urine Color Urine Appearance (Clear) Urine pH (4.5-7.5) Ur Specific [place] (1.000-1.030) Urine Protein (Negative) Urine Glucose (UA) (Negative) Urine Ketones (Negative) Urine Blood (Negative) Urine Nitrite (Negative) Urine Bilirubin (Negative) Urine Urobilinogen (Negative) Ur Leukocyte Esterase (Negative) Urine WBC (Auto) (0-5) /hpf Urine RBC (Auto) (0-2) /hpf U Hyaline Cast (Auto) (0-2) /lpf U Epithel Cells (Auto) (0-2) /hpf Urine Bacteria (Auto) (None Seen) Granular Casts (None Prsent) /lpf Urine Yeast (None Prsent) Stl C. diff Tox B Gene (Neg) YEISON Screen NEGATIVE (NEGATIVE) Anti-Proteinase 3 <1.0 (<1.0) AI Anti-Myeloperoxidase <1.0 (<1.0) AI ANCA Negative (Negative) Glomerular Base Memb Ab <1.0 (<1.0) AI Diagnostic Findings Chest CT 10/20/23 21:17 Exam(s): CT CHEST Without Contrast EXAM: CT Chest Without Intravenous Contrast CLINICAL HISTORY: Reason for exam: pneumonia/chf. TECHNIQUE: Axial computed tomography images of the chest without intravenous contrast. CTDI is 16.37 mGy and DLP is 464.51 mGy-cm. Automated exposure control was utilized for the study. A dose lowering technique was utilized adhering to the principles of ALARA. COMPARISON: No relevant prior studies available. FINDINGS: Lungs: Bilateral diffuse ground-glass airspace opacities favors infectious process (pneumonia,). Pleural space: Unremarkable. No pneumothorax. No significant effusion. Heart: Unremarkable. No cardiomegaly. No significant pericardial effusion. No significant coronary artery calcifications. Mediastinum: Scattered mediastinal lymph nodes measuring up to 14 mm, likely reactive. Bones/joints: Prior sternotomy. General changes of the thoracic spine with calcification of the anterior longitudinal ligament and moderate kyphosis. No acute fracture. No dislocation. Soft tissues: Unremarkable. Vasculature: Severe atherosclerotic disease of the coronary arteries, mitral valve and aortic valve. No thoracic aortic aneurysm. Lymph nodes: See above. IMPRESSION: 1. Bilateral diffuse ground-glass airspace opacities favors infectious process (pneumonia,). 2. Scattered mediastinal lymph nodes measuring up to 14 mm, likely reactive. Electronically signed by: Gi Ramirez MD 10/20/23 22:45 PM Venous Doppler Study 10/21/23 05:22 BILATERAL LOWER EXTREMITY VENOUS DOPPLER CLINICAL HISTORY: elevated dimer. dvt? COMPARISON STUDY: No previous studies for comparison. TECHNIQUE: Sonography of the deep venous system of the bilateral lower extremities was performed. Compression and augmentation were evaluated. FINDINGS: The bilateral common femoral, superficial femoral and popliteal veins were compressible. Augmentation was normal. Flow was shown within the deep calf vessels. IMPRESSION: No evidence of deep venous thrombus within the bilateral lower extremities. ACT 112: Negative or not required by law. Electronically signed by: Carlos Enrique Pretty M.D. 10/21/2023 7:11 AM Videofluoroscopic Swallow 10/22/23 13:00 FL video swallow HISTORY: Pneumonia. Assess for aspiration TECHNIQUE: Video fluoroscopic evaluation of swallowing was performed in the AP and lateral projections by the speech pathology staff. The patient is fed nectar-thick and thin liquid barium, a barium coated wafer, and barium pudding. FLUOROSCOPY TIME: 2 minutes and 31 seconds. Ka,r: 21.5 mGy COMPARISON STUDY: None. FINDINGS: There is normal hyoid excursion and epiglottic deflection. No significant penetration or aspiration identified. Swallowing function is within normal limits. Mild esophageal dysmotility. IMPRESSION: 1. No aspiration identified. 2. Please see the speech pathologist report for detailed findings and recommendations. ACT 112: Negative or not required by law. Electronically signed by: Nash Dumont M.D. 10/22/2023 2:37 PM Chest X-Ray 10/29/23 07:45 XR chest 1V portable CLINICAL HISTORY: f/u COMPARISON STUDY: Chest CT October 20, 2023. Chest radiograph October 28, 2023. FINDINGS: There is no pneumothorax or pleural effusion. There are median sternotomy wires and mediastinal surgical clips. Cardiomediastinal silhouette is stable. Diffuse interstitial thickening and alveolar opacities are unchanged since prior exam. The appearance of the chest is unchanged. IMPRESSION: No change in diffuse interstitial thickening and alveolar opacities throughout the lungs. ACT 112: Negative or not required by law. Electronically signed by: Carlos Enrique Pretty M.D. 10/29/2023 9:15 AM PG Care Time/CCT Total # of Minutes Spent Total Time Spent with Patient: Total time spent is greater than 50% in coordination of care (as documented) at patient's floor/unit and/or counseling patient: I spent 75 minutes overall addressing this case: 15 min in medical data review/discussion with referring provider(s) and/or preparation for the visit 15 min in direct interaction with the patient/exam 20 min in Advance Care Planning/Goals of Care discussions as detailed above in note (must be >16min) 10 min in subsequent review and synthesis of assessment and plan 15 min communicating with other providers regarding the patient's case: pulm/CCM, nursing, primary Advanced Care Planning 91526 Advanced Care Planning 30 Min [place] [address] SUB INP/OBS CARE 3/50MIN Patient Type Established History Comprehensive Exam Comprehensive Medical Decision Making High Complexity Diagnoses Dyspnea and respiratory abnormalities R06.00; R06.89 Anxiety about health R45.89 Weakness generalized R53.1 Advanced care planning/counseling discussion Z71.89 Palliative care by specialist Z51.5 Acute hypoxemic respiratory failure J96.01 Additional Codes Advanced Care Planning - 72132 Advanced Care Planning 30 Min: 66810 Advanced Care Planning 30 Min ([id number])
[2023-10-30 18:35] LABS: BUN Creatinine Ratio 40.1 (10-20); Calcium 8.7 mg/dl (8.6-10.3); Creatinine Clr Calc Pharmacy 19.9 ml/min; Est GFR (African American) 32.9 ml/min; Est GFR (Non-African American) 28.4 ml/min; Potassium 5.7 mmol/L (3.5-5.1)
[2023-10-30] MEDS: INSULIN HUMAN REGULAR PER UNIT 10 UNITS in SYRINGE 9.9 ML IV ONE (19:38)
[2023-10-30] MEDS: DEXTROSE 50% 50 ML SYRINGE IV STA (19:38)
[2023-10-30] MEDS: SODIUM CHLORIDE 0.9% 250 ML IV ONE (19:38)
[2023-10-31 06:01] LABS: Hematocrit (blood only) 31.2 % (37.0-47.0); Hemoglobin 10.2 g/dl (12.0-16.0); Mean Corpuscular Hemoglobin 31.1 pg (25.0-34.0); Mean Corpuscular Hgb Conc 32.7 g/dL (32.0-36.0); Mean Corpuscular Volume 95.1 fL (80.0-100.0); Mean Platelet Volume 11.2 fL (9.4-12.4); Platelet Count 246 K/uL (130-400); RDW Coefficient of Variation 13.7 % (11.5-14.5); RDW Standard Deviation 46.7 fL (36.4-46.3); Red Blood Count 3.28 M/uL (4.20-5.40)
[2023-10-31 06:14] LABS: BUN Creatinine Ratio 42.9 (10-20); Calcium 8.4 mg/dl (8.6-10.3); Creatinine Clr Calc Pharmacy 22.6 ml/min; Est GFR (African American) 38.4 ml/min; Est GFR (Non-African American) 33.1 ml/min; Magnesium 1.8 mg/dl (1.7-2.4); Phosphorus 4.4 mg/dl (2.5-4.9); Potassium 4.7 mmol/L (3.5-5.1)
[2023-10-31] MEDS ORDERED: Nursing to Pharmacy Communication SCH (06:15)
--- NOTE | 2023-10-31 08:23 | Pulmonology Progress Note ---
Date of Service October 31, 2023 Assessment & Plan (1) Acute hypoxemic respiratory failure: (2) Abnormal CT scan of lung: (3) Acute CHF: Plan IMPRESSION: 83-year-old female with a history of coronary artery disease and diabetes who was admitted on 10/19 with acute hypoxic respiratory failure in the setting of CHF and concerns for atypical infectious etiologies who remains on supplemental oxygen at high levels. RECOMMENDATIONS: 1. Acute hypoxic respiratory failure - In the setting of interstitial infiltrative changes appreciated on admission chest CT. patient on 50 L 70% high flow this morning. She is saturating in the high 90s. Continue with pulmonary toileting, titrating down of oxygen as tolerated, as needed CPAP if tolerated. Her white count did slightly elevate today compared to baseline, but chest x-ray without new infiltrative findings. Patient appears somewhat defeated this morning as she is frustrated with her lack of progress. She offers no complaints of pain. No complaints of change in her symptoms otherwise. Thank you for allowing us to participate in the care of this pleasant patient. Pulmonary medicine will continue to follow. Admission and Anticipated Discharge Date Admission Date: October 20, 2023 Supervising Physician Co-Signing Physician Notes I saw and evaluated the patient with Parish Millan PA-C, and agree with findings and plan as documented in the note. Patient was seen and examined at bedside. Patient was actually on oxime mask 12 L earlier in the morning but unfortunately she had an aspiration episode when she was having broccoli This resulted in her being put back on high flow. At the time of examination she was on 30 L 40% saturating 86%. I went up to 50% FiO2 and her saturation did improve to 90-91% She was a bit upset as she was making me count the food that she will not be allowed to eat because of difficulty swallowing CT chest 10/20/2023 personally reviewed: Diffuse groundglass opacities appreciated bilaterally upper and lower lobes. No significant mediastinal lymphadenopathy Constitutional: Mild respiratory distress HEENT: EOMI, PERRLA Respiratory system: Decreased air entry bilaterally, no wheeze, no rhonchi, positive Velcro-like crackles appreciated bilaterally anteriorly and posteriorly CVS: S1-S2 positive, no murmurs or gallops Abdomen: Soft, nontender, nondistended, positive bowel sounds x4 Extremities: +2 pulses bilaterally radialis/ dorsalis pedis, no cyanosis, no edema Neuro: Awake alert oriented x3 Psych: Normal mood and affect G/U: Positive Ledezma Plan: In/out: -1.4 L, urine output 1601, -1.7 L since coming to the hospital Patient's cause of hypoxic respiratory failure is multifactorial Initial BNP was 1500 with moderate pulmonary hypertension, respiratory bio fire was negative for everything. Urine Legionella negative, no current history of smoking Not on amiodarone in the past. No significant eosinophilia on the peripheral smear prior to initiation of Solu-Medrol Hemoglobin is stable and patient denies any hemoptysis Possibility of a viral etiology which was not picked up on bio fire is there. Initial ESR and CRP were elevated. Procalcitonin has been negative x 2 Autoimmune workup is negative from 10/23/2023 Recommend out of the bed to chair Decrease Solu-Medrol to 40 mg on a daily basis Bronchoscopy is high risk for her as she will most likely get intubated given that she is not able to tolerate CPAP/BiPAP Continue with incentive spirometry Case was discussed with son at bedside Please note the above document was generated using voice recognition software. It may contain grammatical, syntax or spelling errors.Any formal questions or concerns about the content, text or information contained within the body of this dictation should be directly addressed to the provider for clarification. In respiratory distress Subjective Patient was seen and evaluated at bedside. She had an episode of dyspnea this morning that was uncomfortable for her. She offers no complaints of pain. No worsening cough or other symptoms. She continues to feel tired. She acknowledges her frustration with lack of rapid improvement. She appreciates her family's comfort at this time. Review of Systems Review of Systems: Unchanged from prior Physical Exam Physical Exam: VITAL SIGNS - Vital signs and nursing notes were reviewed. GENERAL - 83-year-old female appearing her stated age who is in mild respiratory distress. Breathless, but answers questions appropriately and able to complete sentences. LUNGS - Auscultation reveals bibasilar rales, LEFT greater than right. CARDIAC - RRR with S1/S2. No murmur, rubs, or gallops appreciated. ABDOMEN - Abdominal inspection demonstrates a flat abdomen. BS normoactive all four quadrants. No tenderness, palpable masses, or ascites noted. EXTREMITIES - Nail clubbing not present. No peripheral cyanosis. No pretibial edema present. +3/5 radial palpated throughout. PSYCH - A&Ox3 and cooperates fully with examiner. Anxious appearing. Results & Data Results & Data Vital Signs (Past 12 Hours) Vital Signs Temp Pulse Pulse Resp BP Pulse Ox O2 Del Method 10/31/23 07:38 82 25 H 94 High Flow Nasal Cannula 10/31/23 07:32 36.6 C 84 28 H 179/80 H 96 High Flow Nasal Cannula 10/31/23 03:40 77 18 85 L High Flow Nasal Cannula 10/31/23 03:23 37.1 C 80 18 151/67 H 94 High Flow Nasal Cannula 10/30/23 23:45 85 18 93 High Flow Nasal Cannula 10/30/23 22:34 37.0 C 84 18 146/69 H 95 High Flow Nasal Cannula 10/30/23 21:58 82 O2 Flow Rate FiO2 10/31/23 07:38 50 70 10/31/23 07:32 10/31/23 03:40 50 60 10/31/23 03:23 50 10/30/23 23:45 50 60 10/30/23 22:34 59 10/30/23 21:58 PG Care Time/CCT Total # of Minutes Spent Total Time Spent with Patient: Total time spent is greater than 50% in coordination of care (as documented) at patient's floor/unit and/or counseling patient: Coding Level of Care Code 90135 SUB INP/OBS CARE 2/35MIN Diagnoses Acute hypoxemic respiratory failure J96.[address] scan of lung R91.8 Acute CHF I50.9
[2023-10-31] MEDS: methylPREDNISolone 40 MG in SYRINGE 0 ML IV SCH (08:37)
[2023-10-31] MEDS: PANTOprazole 40 MG TAB PO SCH (08:38)
--- NOTE | 2023-10-31 08:47 | XRay Report ---
XR chest 1V portable HISTORY: 83 years-old Female f/u acute shortness of breath COMPARISON: 10/29/2023 TECHNIQUE: AP view of the chest FINDINGS: There is no pneumothorax or pleural effusion. There are median sternotomy wires and mediastinal surgi vivien clips. Cardiomediastinal silhouette is stable. Diffuse interstitial thickening and alveolar opaci ties are unchanged since prior exam. The appearance of the chest is unchanged. IMPRESSION: Cardiomegaly with stable mixed interstitial and alveolar opacities. ACT 112: Negative or not required by law. The above report was generated using voice recognition software. It may contain grammatical, syntax o r spelling errors. Electronically signed by: Jason Dubon M.D. 10/31/2023 8:45 AM
[2023-10-31] MEDS: LANTUS PER UNIT CHARGE SQ SCH (09:34)
[2023-10-31] MEDS: SODIUM CHLORIDE 0.65% NA SOLN 45 ML (OCEAN) ONE (12:03)
--- NOTE | 2023-10-31 12:44 | Hospitalist Progress Note ---
Date of Service October 31, 2023 Assessment & Plan (1) Acute hypoxemic respiratory failure: (2) Pneumonia: (3) CAD (coronary artery disease): Plan Ms. Mancini is an 83-year-old female with history of coronary disease and diabetes presenting now with diffuse pulmonary infiltrates and hypoxemic respiratory failure. Patient has continued to require HFNC since admission on 10/19.Family declined recommended BAL for search for etiologies if hypoxic respiratory failure. Procalcitonin, serologic evaluations, respiratory PCR, and Legionella have all been negative to this point. Patient has experienced difficulty tolerating NIV. She completed course of doxycycline and ceftriaxone, then resumed on Unasyn and doxycycline on 10/28. Neprhology did not suspect pul renal syndrome. Diuresis discontinued on 10/27. Focus of management has been marked by continued methylprednisolone, pulm toilet, and attempts at CPAP as tolerated. Patient with aspiration of broccoli on 10/30. Recovered at this time, but will closely monitor respiratory status given episode. Family at bedside--discussed concerns for episode of aspiration. Will monitor Fever Curve and O2 requirements--just discontinued antibiotics as of 10/30 am, but if worsening will discuss resumption. #Acute hypoxemic respiratory failure thought to be 2/2 multifocal PNA - CT on admission shows bilateral diffuse groundglass opacities favoring pneumonia along with scattered mediastinal lymph nodes likely reactive. Pro-Neo 0.4, WBC 19, CRP 32. VFSS negative for aspiration. Currently work up negative to date - Continue empiric antibiotics, steroids, duonebs,hypertonic saline nebs, pulmicort, mucinex, I-S/flutter valve. Send sputum clx if able. - Currently on HFNC- uptitrated again today for desaturation- CPAP helps but patient reluctant to switch as it makes her more anxious. - Pulmonary on consult. Pulmonology initially recommended with BAL but patient was reluctant. -Continue to wean as able -IV steroids daily -Pulm toilet as tolerated -Transition to minced/moist diet, aspiration & reflux precautions - Palliative following- continue current level of care- if she declines- consider comfort measures if patient declines -CHF exacerbation ruled out. Discussed with cardio and nephro. BNP 1400-> 525- >453. No need for further diuretics. Seems her hypoxia is from infective process rather than cardiac issues and cardio did not recommend further cardiac work up including RHC. No indication for diuresis either. #EMELYN likely from ATN due to hypotension *resolved creatinine peaked at 2.3 and now stable. UA reviewed, suggestive of ATN. Nephrotoxics have been discontinued. Nephrology was on consult--function improving, low suspicion for pulm-renal sydrome. Urine studies suggestive of ATN . Follow up on renal function and urine output Trend BMP, slow improvement noted #Hyperkalemia *improving K 5.5, lokelma held #History of CAD s/p CABG echo reviewed, normal EF. on aspirin, Coreg, statin, Imdur. Ranolazine discontinued per cardiology given renal dysfunction #Diabetes mellitus type 2 with steroid induced hyperglycemia Glycemic pharmacist now managing her insulin. BG now stable #Iron deficiency anemia Hemoglobin stable. Continue oral iron supplementation and monitor. cbc in am #Depression and anxiety On fluoxetine, Ativan and doxepin. Will of IV Ativan as needed as well #Hypertension-BP improved. Continue Coreg. Continue to hold losartan and amlodipine. Monitor #Peripheral vascular disease- On aspirin and statin DVT prophylaxis-subcu heparin Disposition- TBD. Palliative following- Continue current level of care on HFNC. if declines, consider comfort measures. Time spent-approximately 45 minutes Admission and Anticipated Discharge Date Admission Date: October 20, 2023 Subjective Patient evaluated initially this morning at bedside where she noted that she had a large bowel movement after no bowel movement the day prior iso lokelma. She denies cramping, abdominal pain, fevers, chills. She reports feeling tired but is worried to use the CPAP stating that the ativan doesnt help the anxiety entirely Patient evaluated around noon where she experienced an episode of aspiration on a piece of broccoli. Patient able to cough, ativan given to calm, Respiratory evaluated and adjusted HFNC. Patient more calm upon revisit 15 minutes after e vent. [facility] discussed the concern about an aspiration event, noting that any perceived progress could be profoundly blunted by the inflammation and risk of infection with an aspiration event Patient agreeable to minced/moist diet Physical Exam Constitutional: ill appeared, fatigued woman, pleasant in conversation but otherwise tired Respiratory: remains with bilateral rhonchi Gastrointestinal (Abdomen): normal bowel sounds, soft, nontender, no hepatosplenomegaly Results & Data Results & Data Vital Signs (Past 12 Hours) Vital Signs Temp Pulse Pulse Resp BP Pulse Ox O2 Del Method 10/31/23 11:18 36.5 C 85 24 151/68 H 96 High Flow Nasal Cannula 10/31/23 11:04 82 24 94 High Flow Nasal Cannula 10/31/23 08:40 High Flow Nasal Cannula 10/31/23 07:38 82 25 H 94 High Flow Nasal Cannula 10/31/23 07:32 36.6 C 84 28 H 179/80 H 96 High Flow Nasal Cannula 10/31/23 06:00 78 10/31/23 03:40 77 18 85 L High Flow Nasal Cannula 10/31/23 03:23 37.1 C 80 18 151/67 H 94 High Flow Nasal Cannula O2 Flow Rate FiO2 10/31/23 11:18 12 10/31/23 11:04 15 50 10/31/23 08:40 50 70 10/31/23 07:38 50 70 10/31/23 07:32 10/31/23 06:00 10/31/23 03:40 50 60 10/31/23 03:23 50 Laboratory Results Short CBC 10/31/23 Range/Units 05:25 WBC 23.30 H (4.8-10.8) K/ul Hgb 10.2 L (12.0-16.0) g/dl Hct 31.2 L (37.0-47.0) % Plt Count 246 (130-400) K/uL [facility] 10/30/23 10/31/23 17:54 05:25 Sodium 133 L 133 L Potassium 5.7 H 4.7 Chloride 104 105 Carbon Dioxide 22 21 BUN 67 H 63 H Creatinine 1.67 H 1.47 H Glucose 244 H 187 H Calcium 8.7 8.4 L Medications Administered Home Medications Medication Instructions Recorded Confirmed Last Taken amlodipine 5 mg tablet 5 mg PO DAILY 10/20/23 10/20/23 Unknown aspirin 81 mg tablet,delayed 81 mg PO DAILY 10/20/23 10/20/23 Unknown release atorvastatin 80 mg tablet 80 mg PO DAILY 10/20/23 10/20/23 Unknown carvedilol 12.5 mg tablet 12.5 mg PO BID 10/20/23 10/20/23 Unknown doxepin 10 mg capsule 30 mg PO HS 10/20/23 10/20/23 Unknown fluoxetine 40 mg capsule 80 mg PO DAILY 10/20/23 10/20/23 Unknown insulin aspart U-100 100 unit/mL 1 sliding scale dose subcut WM 10/20/23 10/20/23 Unknown (3 mL) subcutaneous pen (Novolog FlexPen U-100 Insulin aspart) insulin glargine 100 unit/mL (3 24 unit subcut QAM 10/20/23 10/20/23 Unknown mL) subcutaneous pen (Lantus Solostar U-100 Insulin) irbesartan 300 mg tablet 300 mg PO DAILY 10/20/23 10/20/23 Unknown isosorbide mononitrate 60 mg 60 mg PO DAILY 10/20/23 10/20/23 Unknown tablet,extended release 24 hr lorazepam 0.5 mg tablet 0.5 mg PO HS 10/20/23 10/20/23 Unknown omeprazole 20 mg capsule,delayed 20 mg PO DAILYBB 10/20/23 10/20/23 Unknown release ranolazine 500 mg tablet,extended 500 mg PO BID 10/20/23 10/20/23 Unknown release,12 hr tramadol 50 mg tablet 50 mg PO TID PRN Pain 10/20/23 10/20/23 Unknown Active Medications Generic Name Dose Route Start Last Admin Trade Name Freq PRN Reason Stop Dose Admin Acetaminophen 650 mg 10/20/23 23:30 10/31/23 06:52 Acetaminophen 325 Mg Tab PO 11/19/23 23:29 650 mg Q4H PRN Administration Pain or Fever Albuterol 3 ml 10/25/23 11:00 10/31/23 11:01 Albut/Ipratrop 3mg/0.5mg Neb 3 Ml Vial NEB 11/24/23 10:59 3 ml QIDR DAPHNE Administration Protocol Aspirin 81 mg 10/21/23 09:00 10/31/23 08:38 Aspirin 81 Mg Ectab PO 11/20/23 08:59 81 mg DAILY DAPHNE Administration Atorvastatin Calcium 80 mg 10/21/23 09:00 10/31/23 08:38 Atorvastatin 40 Mg Tab PO 11/20/23 08:59 80 mg DAILY DAPHNE Administration Budesonide 0.5 mg 10/26/23 10:25 10/31/23 07:37 Budesonide 0.5 Mg/2 Ml Vial (Pulmicort) NEB 11/25/23 10:24 0.5 mg BIDR DAPHNE Administration Carvedilol 6.25 mg 10/27/23 17:00 10/31/23 08:38 Carvedilol 6.25 Mg Tab PO 11/26/23 16:59 6.25 mg BIDM DAPHNE Administration Doxepin HCl 30 mg 10/21/23 21:00 10/30/23 21:04 Doxepin Hcl 10 Mg Capsule PO 11/20/23 20:59 30 mg HS DAPHNE Administration Escitalopram Oxalate 20 mg 10/28/23 09:00 10/31/23 08:38 Escitalopram Oxalate 20 Mg Tab PO 11/27/23 08:59 20 mg QAM DAPHNE Administration Ferrous Sulfate 325 mg 10/25/23 11:15 10/31/23 08:39 Ferrous Sulfate 325 Mg Tab PO 11/24/23 11:14 325 mg QAM DAPHNE Administration Guaifenesin 600 mg 10/26/23 10:55 10/31/23 08:39 Guaifenesin 600 Mg Tabcr PO 11/25/23 10:54 600 mg Q12 DAPHNE Administration Heparin Sodium (Porcine) 5,000 units 10/26/23 11:00 10/31/23 12:04 Heparin Sod 5,000 Unit/0.5 Ml Vial SQ 11/25/23 10:59 5,000 units Q8H DAPHNE Administration Lorazepam 0.5 mg/ Syringe 0.5 mls @ 2 mls/min 10/28/23 15:45 10/31/23 12:07 IV 11/27/23 08:05 2 mls/min Q4H PRN Administration anxiety,insomnia, nausea Methylprednisolone 40 mg/ 0.64 mls @ 1.5 mls/min 10/31/23 09:00 10/31/23 08:37 Syringe IV 11/30/23 08:59 1.5 mls/min Q24H DAPHNE Administration Insulin Aspart 0 units 10/21/23 00:30 10/31/23 12:03 Insulin Aspart Per Unit Charge SC 11/20/23 00:29 5 units ACHS [facility] Administration Protocol Insulin Glargine 25 units 10/31/23 09:00 10/31/23 09:34 Lantus Per Unit Charge SQ 11/30/23 08:59 25 units QAM DAPHNE Administration Protocol Isosorbide Mononitrate 60 mg 10/21/23 09:00 10/31/23 08:38 Isosorbide [place] Extended Rel 60 Mg Tabcr PO 11/20/23 08:59 60 mg DAILY DAPHNE Administration Lorazepam 0.5 mg 10/21/23 21:00 10/30/23 20:06 Lorazepam 0.5 Mg Tab PO 11/20/23 20:59 0.5 mg HS DAPHNE Administration Pantoprazole Sodium 40 mg 10/31/23 09:00 10/31/23 08:38 Pantoprazole 40 Mg Tab PO 11/30/23 08:59 40 mg DAILY DAPHNE Administration Psyllium Hydrophilic Mucilloid 4 gm 10/26/23 11:00 10/31/23 08:38 Psyllium Or Guar Gum Fiber 4gm Packet PO 11/25/23 10:59 4 gm QAM DAPHNE Administration Sodium Chloride 4 ml 10/26/23 10:25 10/31/23 07:37 Sodium Chlor 7% 4 Ml Neb NEB 11/25/23 10:24 4 ml BIDR DAPHNE Administration Tramadol HCl 50 mg 10/20/23 23:30 10/29/23 18:50 Tramadol Hcl 50 Mg Tablet PO 11/19/23 23:29 50 mg TID PRN Administration Pain (2) Pneumonia Laterality: bilateral Lung location: unspecified part of lung Pneumonia type: due to unspecified organism Qualified Code(s): J18.9 - Pneumonia, unspecified organism (3) CAD (coronary artery disease) Coronary Disease-Associated Artery/Lesion type: [place] artery [place] vs. transplanted heart: [place] heart Associated angina: without angina Qualified Code(s): I25.10 - Atherosclerotic heart disease of [place] coronary artery without angina pectoris
--- NOTE | 2023-10-31 13:24 | Pharmacy Report ---
Pharmacy Glycemic Short Note 2 - Date of Service October 31, 2023 - Glycemic Short BSG Results (Last 24 hours): 10/30/23 10/30/23 10/30/23 16:11 17:54 20:13 Glucose 244 H POC Glucose 192 H 299 H 10/30/23 10/31/23 10/31/23 21:18 00:29 05:25 Glucose 187 H POC Glucose 193 H 175 H 10/31/23 10/31/23 07:31 11:17 Glucose POC Glucose 167 H 177 H OUTPATIENT ANTIDIABETIC REGIMEN: * Lantus 24 units SC AM * Novolog SSI w/ meals (CR of 1:15) * HbA1c: 7.4% (10/28/23) ASSESSMENT: 10/30: * Marjorie received 56 units of insulin yesterday, 30 basal and 26 bolus. BSGs were 212, 194,192,193 mg/dL * Fasting BSG improved to 167 mg/dL this morning. Given this improvement and as steroids were decreased from 40mg twice daily to once daily, will mildly reduce basal insulin and loosen NovoLog coverage. 10/29: * Marjorie received 66 units of insulin yesterday, 30 basal + 36 bolus. BSGs were: [phone] mg/dL. * Fasting remains elevated at 212 mg/dL this AM. Remains on Solumedrol 40 mg IV every 12 hours. Pulmonology's note says possible decrease in steroids to once daily tomorrow which may require a decrease in basal dose as well. Suspect fasting elevation may be due to some overnight snacking. Will not adjust basal dose today. * No change to Novolog today. Parameters may need loosened if steroids are tapered off. Remains on Unasyn and PO doxycycline. Tolerating diet well. 10/28: * Patient received 45 units of insulin yesterday, 28 basal + 17 bolus. BSGs were: [phone] mg/dL. * Fasting BSG increased to 254 mg/dL this AM. Suspect snacking is the cause but will increase basal by ~7% today. * Tightened Novolog this AM and lunchtime BSG dropped to 117 mg/dL. To prevent dinner hypoglycemia, will loosen CF and CR. 10/27: * Marjorie received 46 units of insulin yesterday, 24 basal + 22 bolus. BSGs were: 052-351-19-200 mg/dL. * Fasting BSG was 190 mg/dL this AM. Patient not eating much yesterday. Was briefly NPO this AM for possible bronchoscopy but this will not be done today per provider. Therefore, still feel comfortable increasing basal by 20% to cover for steroid-inducer hyperglycemia. Patient remains on Solumedrol 40 mg IV every 12 hours. * No change to Novolog at this time. Dinner BSGs have consistently been dropping to below goal. Do not want to induce hypoglycemia by tightening regimen. However, outside of dinner, BSGs are mostly above goal. Pending BSGs today, darrell quinonez tighten regimen tomorrow but remove carb ratio at lunchtime to prevent stacking and subsequent dinner hypoglycemia. 10/26: * Patient received 43 units of insulin yesterday, 24 units basal, hypoglycemic (60mg/dl) prior to dinner, then rebound hyperglycemia (231mg/dl) at bedtime. * DC HS basal and loosen CR to prevent further hypoglycemia. * Patient remains on methylprednisolone 40 mg twice daily and ceftriaxone. 10/24: * Patient received 82 units of insulin yesterday, 36 units of basal, 46 units of prandial/correctional * Blood sugars did trend down overnight with fasting of 144 mg/dL- will continue current basal parameters; reassess as SCr is trending upward slightly * BSGs yesterday after tightened carb ratio went upwards with dinner, therefore will tighten carb ratio again this morning. Lunch BSG has improved from the previous day and as this tends to be the highest BSG of the day will continue with tightened carb ratio for now * Could still consider addition of NPH in the morning if needed 10/23: * 83 yo female with type II diabetes admitted for CHF/ hypoxic respiratory failure. BSGs had been adequately controlled but have increased with the addition of methylprednisolone 40 mg IV q12H on 10/22. * Fasting this morning 243 mg/dL- will give additional lantus tonight up to 50% * Lunch BSG in the 300s and then subsequently consulted. Will trial tighter novolog, consider addition of NPH to help cover meals tomorrow if BSGs remain elevated PLAN FOR INPATIENT GLYCEMIC CONTROL: * Basal insulin * Lantus 25 units SC AM * Bolus insulin * NovoLog per scale ACHS or Q6hrs while NPO * Goal Range: Low 110 mg/dL - High 140 mg/dL * Correction Factor: 20 mg/dL/unit * Nutritional / Prandial insulin per carb ratio of 1 unit per 8 grams CHO consumed
[2023-10-31] MEDS: MoRPHine SULFATE 2 MG/ML CARP IV PRN (17:29)
[2023-11-01 06:14] LABS: Hematocrit (blood only) 32.5 % (37.0-47.0); Hemoglobin 10.4 g/dl (12.0-16.0); Mean Corpuscular Hemoglobin 30.6 pg (25.0-34.0); Mean Corpuscular Volume 95.6 fL (80.0-100.0); Mean Platelet Volume 10.9 fL (9.4-12.4); Platelet Count 248 K/uL (130-400); RDW Coefficient of Variation 13.8 % (11.5-14.5); RDW Standard Deviation 47.3 fL (36.4-46.3); White Blood Count 23.18 K/ul (4.8-10.8)
[2023-11-01 06:57] LABS: BUN Creatinine Ratio 44.3 (10-20); Calcium 8.4 mg/dl (8.6-10.3); Creatinine Clr Calc Pharmacy 22.3 ml/min; Est GFR (African American) 37.8 ml/min; Est GFR (Non-African American) 32.6 ml/min; Magnesium 1.8 mg/dl (1.7-2.4); Phosphorus 4.1 mg/dl (2.5-4.9); Potassium 4.9 mmol/L (3.5-5.1)
[2023-11-01] MEDS: CARBOHYDRATES FOR HYPOGLYCEMIA PO PRN (07:04)
--- NOTE | 2023-11-01 07:55 | Hospitalist Progress Note ---
Date of Service November 01, 2023 Assessment & Plan (1) Acute hypoxemic respiratory failure: (2) Pneumonia: (3) CAD (coronary artery disease): Plan Ms. Mancini is an 83-year-old female with history of coronary disease and diabetes presenting now with diffuse pulmonary infiltrates and hypoxemic respiratory failure. Patient has continued to require HFNC since admission on 10/19.Family declined recommended BAL for search for etiologies if hypoxic respiratory failure. Procalcitonin, serologic evaluations, respiratory PCR, and Legionella have all been negative to this point. Patient has experienced difficulty tolerating NIV. She completed course of doxycycline and ceftriaxone, then resumed on Unasyn and doxycycline on 10/28. Neprhology did not suspect pul renal syndrome. Diuresis discontinued on 10/27. Focus of management has been marked by continued methylprednisolone, pulm toilet, and attempts at CPAP as tolerated. Patient with aspiration of broccoli on 10/30. Recovered at this time, but will closely monitor respiratory status given episode. Family at bedside--discussed concerns for episode of aspiration. Will monitor Fever Curve and O2 requirements--just discontinued antibiotics as of 10/30 am, but if worsening will discuss resumption. Leukocytosis remains elevated, afebrile at this time. Low threshold to discuss resumption of antibiotics. Further episodes of respiratory distress ensured the morning of 10/31 prompting transition to HFNC. Prognosis remains guarded. #Hypoglycemia Glucose in 50s this morning, likely multifactorial---increased utilization 2/2 respiratory distress, decreased glycogen reserve, continue insuline -hold insulin at this time, d5NS ordered--discussing timing of initiation based upon response to carb load -Close monitoring of glucose and hypoglycemia management #Acute hypoxemic respiratory failure thought to be 2/2 multifocal PNA - CT on admission shows bilateral diffuse groundglass opacities favoring pneumonia along with scattered mediastinal lymph nodes likely reactive. Pro-Neo 0.4, WBC 19, CRP 32. VFSS negative for aspiration. Currently work up negative to date - Continue empiric antibiotics, steroids, duonebs,hypertonic saline nebs, pulmicort, mucinex, I-S/flutter valve. Send sputum clx if able. - Currently on HFNC- uptitrated again today for desaturation- CPAP helps but patient reluctant to switch as it makes her more anxious. - Pulmonary on consult. Pulmonology initially recommended with BAL but patient was reluctant. -Continue to wean as able -IV steroids daily -Pulm toilet as tolerated -Transition to minced/moist diet, aspiration & reflux precautions - Palliative following- continue current level of care- if she declines- consider comfort measures if patient declines -CHF exacerbation ruled out. Discussed with cardio and nephro. BNP 1400-> 525- >453. No need for further diuretics. Seems her hypoxia is from infective process rather than cardiac issues and cardio did not recommend further cardiac work up including RHC. No indication for diuresis either. #EMELYN likely from ATN due to hypotension *resolved creatinine peaked at 2.3 and now stable. UA reviewed, suggestive of ATN. Nephrotoxics have been discontinued. Nephrology was on consult--function improving, low suspicion for pulm-renal sydrome. Urine studies suggestive of ATN . Follow up on renal function and urine output Trend BMP, slow improvement noted #Hyperkalemia *improving K 5.5, lokelma held at this time. #History of CAD s/p CABG echo reviewed, normal EF. on aspirin, Coreg, statin, Imdur. Ranolazine discontinued per cardiology given renal dysfunction #Diabetes mellitus type 2 with steroid induced hyperglycemia *resolved Glycemic pharmacist now managing her insulin--now with hypoglycemia, management as above #Leukocytosis #Iron deficiency anemia Hemoglobin stable. Continue oral iron supplementation and monitor. cbc in am--remains stable Leukocytosis likely multifactorial--aspiration events, steriods etc---monitor for signs of c diff given abx course diff in am #Depression and anxiety On fluoxetine, Ativan and doxepin. Will of IV Ativan as needed as well #Hypertension-BP improved. Continue Coreg. Continue to hold losartan and amlodipine. Monitor #Peripheral vascular disease- On aspirin and statin DVT prophylaxis-subcu heparin Disposition- TBD. Palliative following- Continue current level of care on HFNC. if declines, consider comfort measures. Time spent-approximately 45 minutes Admission and Anticipated Discharge Date Admission Date: October 20, 2023 Subjective No events overnight, however, this morning patient with notable distress after trailing breathing treatment with RT. Transitioned from MD to HFNC and administered Ativan/Morphine to aid in anxiety Patient with notable conversational dyspnea, but after 5-10min started to calm and breathe easier, however, still notably tachypnic. Called daughter early this morning to discuss respiratory distress and situation at hand. Still continuing current management, however patient stating she is "tired" Further discussions to ensue contingent on course of the day and respiratory status Physical Exam Constitutional: weak, frail appearing woman in respiratory distress, on HFNC, conversational d yspnea Respiratory: use of accessory muscles noted, bilateral rhonchi++ Cardiovascular: tachycardic Results & Data Results & Data Vital Signs (Past 12 Hours) Vital Signs Temp Pulse Pulse Resp BP Pulse Ox O2 Del Method 11/01/23 07:11 80 26 H 86 L Nasal Cannula 11/01/23 03:09 36.5 C 73 20 154/78 H 90 High Flow Nasal Cannula 11/01/23 00:23 71 93 High Flow Nasal Cannula 10/31/23 23:46 79 10/31/23 23:23 36.5 C 75 20 139/68 93 High Flow Nasal Cannula 10/31/23 21:25 87 33 H 95 10/31/23 20:18 36.4 C L 83 18 104/62 90 High Flow Nasal Cannula O2 Flow Rate FiO2 11/01/23 07:11 15 11/01/23 03:09 11/01/23 00:23 10 10/31/23 23:46 10/31/23 23:23 10/31/23 21:25 50 10/31/23 20:18 Laboratory Results Short CBC 11/01/23 Range/Units 05:37 WBC 23.18 H (4.8-10.8) K/ul Hgb 10.4 L (12.0-16.0) g/dl Hct 32.5 L (37.0-47.0) % Plt Count 248 (130-400) K/uL BMP 11/01/23 05:37 Sodium 136 Potassium 4.9 Chloride 108 H Carbon Dioxide 25 BUN 66 H Creatinine 1.49 H Glucose 53 L* Calcium 8.4 L Medications Administered Home Medications Medication Instructions Recorded Confirmed Last Taken amlodipine 5 mg tablet 5 mg PO DAILY 10/20/23 10/20/23 Unknown aspirin 81 mg tablet,delayed 81 mg PO DAILY 10/20/23 10/20/23 Unknown release atorvastatin 80 mg tablet 80 mg PO DAILY 10/20/23 10/20/23 Unknown carvedilol 12.5 mg tablet 12.5 mg PO BID 10/20/23 10/20/23 Unknown doxepin 10 mg capsule 30 mg PO HS 10/20/23 10/20/23 Unknown fluoxetine 40 mg capsule 80 mg PO DAILY 10/20/23 10/20/23 Unknown insulin aspart U-100 100 unit/mL 1 sliding scale dose subcut WM 10/20/23 10/20/23 Unknown (3 mL) subcutaneous pen (Novolog FlexPen U-100 Insulin aspart) insulin glargine 100 unit/mL (3 24 unit subcut QAM 10/20/23 10/20/23 Unknown mL) subcutaneous pen (Lantus Solostar U-100 Insulin) irbesartan 300 mg tablet 300 mg PO DAILY 10/20/23 10/20/23 Unknown isosorbide mononitrate 60 mg 60 mg PO DAILY 10/20/23 10/20/23 Unknown tablet,extended release 24 hr lorazepam 0.5 mg tablet 0.5 mg PO HS 10/20/23 10/20/23 Unknown omeprazole 20 mg capsule,delayed 20 mg PO DAILYBB 10/20/23 10/20/23 Unknown release ranolazine 500 mg tablet,extended 500 mg PO BID 10/20/23 10/20/23 Unknown release,12 hr tramadol 50 mg tablet 50 mg PO TID PRN Pain 10/20/23 10/20/23 Unknown Active Medications Generic Name Dose Route Start Last Admin Trade Name Daveq PRN Reason Stop Dose Admin Acetaminophen 650 mg 10/20/23 23:30 10/31/23 17:06 Acetaminophen 325 Mg Tab PO 11/19/23 23:29 650 mg Q4H PRN Administration Pain or Fever Albuterol 3 ml 10/25/23 11:00 11/01/23 07:10 Albut/Ipratrop 3mg/0.5mg Neb 3 Ml Vial NEB 11/24/23 10:59 3 ml QIDR DAPHNE Administration Protocol Aspirin 81 mg 10/21/23 09:00 10/31/23 08:38 Aspirin 81 Mg Ectab PO 11/20/23 08:59 81 mg DAILY DAPHNE Administration Atorvastatin Calcium 80 mg 10/21/23 09:00 10/31/23 08:38 Atorvastatin 40 Mg Tab PO 11/20/23 08:59 80 mg DAILY DAPHNE Administration Budesonide 0.5 mg 10/26/23 10:25 11/01/23 07:10 Budesonide 0.5 Mg/2 Ml Vial (Pulmicort) NEB 11/25/23 10:24 0.5 mg BIDR DAPHNE Administration Carvedilol 6.25 mg 10/27/23 17:00 10/31/23 17:08 Carvedilol 6.25 Mg Tab PO 11/26/23 16:59 6.25 mg BIDM DAPHNE Administration Doxepin HCl 30 mg 10/21/23 21:00 10/31/23 20:57 Doxepin Hcl 10 Mg Capsule PO 11/20/23 20:59 30 mg HS DAPHNE Administration Escitalopram Oxalate 20 mg 10/28/23 09:00 10/31/23 08:38 Escitalopram Oxalate 20 Mg Tab PO 11/27/23 08:59 20 mg QAM DAPHNE Administration Ferrous Sulfate 325 mg 10/25/23 11:15 10/31/23 08:39 Ferrous Sulfate 325 Mg Tab PO 11/24/23 11:14 325 mg QAM DAPHNE Administration Guaifenesin 600 mg 10/26/23 10:55 10/31/23 20:58 Guaifenesin 600 Mg Tabcr PO 11/25/23 10:54 600 mg Q12 DAPHNE Administration Heparin Sodium (Porcine) 5,000 units 10/26/23 11:00 11/01/23 03:16 Heparin Sod 5,000 Unit/0.5 Ml Vial SQ 11/25/23 10:59 5,000 units Q8H DAPHNE Administration Lorazepam 0.5 mg/ Syringe 0.5 mls @ 2 mls/min 10/28/23 15:45 11/01/23 07:40 IV 11/27/23 08:05 2 mls/min Q4H PRN Administration anxiety,insomnia, nausea Methylprednisolone 40 mg/ 0.64 mls @ 1.5 mls/min 10/31/23 09:00 10/31/23 08:37 Syringe IV 11/30/23 08:59 1.5 mls/min Q24H DAPHNE Administration Dextrose/Sodium Chloride 1,000 mls @ 80 mls/hr 11/01/23 07:15 11/01/23 08:02 D5w And Nss IV 12/01/23 07:14 80 mls/hr .[id number] DAPHNE Administration Insulin Aspart 0 units 10/21/23 00:30 11/01/23 08:02 Insulin Aspart Per Unit Charge SC 11/20/23 00:29 Not Given ACHS DAPHNE Protocol Insulin Glargine 25 units 10/31/23 09:00 10/31/23 09:34 Lantus Per Unit Charge SQ 11/30/23 08:59 25 units QAM DAPHNE Administration Protocol Isosorbide Mononitrate 60 mg 10/21/23 09:00 10/31/23 08:38 Isosorbide Boyd Extended Rel 60 Mg Tabcr PO 11/20/23 08:59 60 mg DAILY DAPHNE Administration Lorazepam 0.5 mg 10/21/23 21:00 10/31/23 22:19 Lorazepam 0.5 Mg Tab PO 11/20/23 20:59 Not Given HS DAPHNE Miscellaneous 15 - 30 gm 10/20/23 23:30 11/01/23 07:04 Carbohydrates For Hypoglycemia PO 11/19/23 23:29 30 gm UD PRN Administration Hypoglycemia Protocol Morphine Sulfate 1 mg 10/31/23 11:12 11/01/23 07:32 Morphine Sulfate 2 Mg/Ml Carp IV 11/14/23 11:11 1 mg Q2H PRN Administration severe air hunger Pantoprazole Sodium 40 mg 10/31/23 09:00 10/31/23 08:38 Pantoprazole 40 Mg Tab PO 11/30/23 08:59 40 mg DAILY DAPHNE Administration Psyllium Hydrophilic Mucilloid 4 gm 10/26/23 11:00 10/31/23 08:38 Psyllium Or Guar Gum Fiber 4gm Packet PO 11/25/23 10:59 4 gm QAM DAPHNE Administration Sodium Chloride 4 ml 10/26/23 10:25 11/01/23 07:10 Sodium Chlor 7% 4 Ml Neb NEB 11/25/23 10:24 4 ml BIDR DAPHNE Administration Tramadol HCl 50 mg 10/20/23 23:30 10/29/23 18:50 Tramadol Hcl 50 Mg Tablet PO 11/19/23 23:29 50 mg TID PRN Administration Pain (2) Pneumonia Laterality: bilateral Lung location: unspecified part of lung Pneumonia type: due to unspecified organism Qualified Code(s): J18.9 - Pneumonia, unspecified organism (3) CAD (coronary artery disease) Coronary Disease-Associated Artery/Lesion type: [place] artery [place] vs. transplanted heart: [place] heart Associated angina: without angina Qualified Code(s): I25.10 - Atherosclerotic heart disease of [place] coronary artery without angina pectoris
[2023-11-01] MEDS: D5W AND NSS 1,000 ML IV SCH (08:02)
[2023-11-01 10:31] LABS: Basophils # (auto) 0.04 K/uL (0.00-0.20); Basophils % (auto) 0.2 %; Echinocytes 1+; Eosinophils # (auto) 1.37 K/uL (0.00-0.50); Eosinophils % (auto) 5.7 %; Immature Granulocytes % (auto) 0.8 %; Lymphocytes # (auto) 1.36 K/uL (1.20-3.40); Lymphocytes % (auto) 5.7 %; Monocytes # (auto) 0.57 K/uL (0.11-0.59); Monocytes % (auto) 2.4 %; Neutrophils # (auto) 20.37 K/uL (1.40-6.50); Neutrophils % (auto) 85.2 %; Polychromasia 1+
[2023-11-01] MEDS ORDERED: ALBUT/IPRATROP 3MG/0.5MG NEB 3 ML VIAL NEB PRN (11:25)
--- NOTE | 2023-11-01 11:26 | Pulmonology Progress Note ---
Date of Service November 01, 2023 Assessment & Plan (1) Acute hypoxemic respiratory failure: (2) Abnormal CT scan of lung: (3) Acute CHF: Plan IMPRESSION: 83-year-old female with a history of coronary artery disease and diabetes who was admitted on 10/19 with acute hypoxic respiratory failure in the setting of CHF and concerns for atypical infectious etiologies who remains on supplemental oxygen at high levels. CT chest 10/20/2023 personally reviewed: Diffuse groundglass opacities appreciated bilaterally upper and lower lobes. No significant mediastinal lymphadenopathy -- Acute hypoxic respiratory failure Multifactorial Initial BNP was 1500 with moderate pulmonary hypertension, respiratory bio fire was negative for everything. Urine Legionella negative, no current history of smoking Not on amiodarone in the past. No significant eosinophilia on the peripheral smear prior to initiation of Solu-Medrol Hemoglobin is stable and patient denies any hemoptysis Possibility of a viral etiology which was not picked up on bio fire is there. Initial ESR and CRP were elevated. Procalcitonin has been negative x 2 Autoimmune workup is negative from 10/23/2023 Plan: In/out: -1 L, urine output 2275, -1.7 L since coming to the hospital Given the scheduled nebulized treatment making the patient more anxious, I will change it to as needed now Recommend out of the bed to chair DC Solu-Medrol and start prednisone 40 mg on a daily Basis and decrease it by 10 mg every week Bronchoscopy is high risk for her as she will most likely get intubated given that she is not able to tolerate CPAP/BiPAP Continue with incentive spirometry Case was discussed with son at bedside Please note the above document was generated using voice recognition software. It may contain grammatical, syntax or spelling errors.Any formal questions or concerns about the content, text or information contained within the body of this dictation should be directly addressed to the provider for clarification. In respiratory distress Admission and Anticipated Discharge Date Admission Date: October 20, 2023 Subjective Patient seen and examined at bedside. Was saturating 93-94% on 35 L, 90% FiO2 As per the nurse patient was on 10 L oxime mask yesterday evening. Today in the morning when she got breathing treatment she got anxious and since then she needed more oxygen She stated personally that she is feeling better. Slept reasonably well. Denied any issues with swallowing today. Finished her breakfast No headache, no blurry vision Review of Systems 2 Review of Systems: All systems reviewed & are unremarkable except as noted in Subjective Physical Exam 2 Physical Exam: Constitutional: Mild respiratory distress HEENT: EOMI, PERRLA Respiratory system: Decreased air entry bilaterally, no wheeze, no rhonchi, positive Velcro-like crackles appreciated bilaterally anteriorly and posteriorly CVS: S1-S2 positive, no murmurs or gallops Abdomen: Soft, nontender, nondistended, positive bowel sounds x4 Extremities: +2 pulses bilaterally radialis/ dorsalis pedis, no cyanosis, no edema Neuro: Awake alert oriented x3 Psych: Normal mood and affect G/U: Positive [place] Skin: no rashes, warm and dry Lymphatic: no cervical or axillary lymphadenopathy Results & Data Results & Data Vital Signs (Past 12 Hours) Vital Signs Temp Pulse Pulse Resp BP Pulse Ox O2 Del Method 11/01/23 11:11 36.9 C 80 28 H 120/60 85 L High Flow Nasal Cannula 11/01/23 08:35 90 11/01/23 08:31 28 H 92 High Flow Nasal Cannula 11/01/23 08:21 36.6 C 85 30 H 131/72 95 High Flow Nasal Cannula 11/01/23 07:11 80 26 H 86 L Nasal Cannula 11/01/23 03:09 36.5 C 73 20 154/78 H 90 High Flow Nasal Cannula 11/01/23 00:23 71 93 High Flow Nasal Cannula 10/31/23 23:46 79 O2 Flow Rate FiO2 11/01/23 11:11 11/01/23 08:35 35 11/01/23 08:31 35 100 11/01/23 08:21 11/01/23 07:11 15 11/01/23 03:09 11/01/23 00:23 10 10/31/23 23:46 Laboratory Results 11/01/23 05:37 11/01/23 05:37 PG Care Time/CCT Total # of Minutes Spent Total Time Spent with Patient: Total time spent is greater than 50% in coordination of care (as documented) at patient's floor/unit and/or counseling patient: Coding Level of Care Code 81217 SUB INP/OBS CARE 3/50MIN Diagnoses Acute hypoxemic respiratory failure J96.[address] scan of lung R91.8 Acute CHF I50.9
[2023-11-01] MEDS: MoRPHine SULFATE 10 MG/0.5 ML UDP PO PRN (12:29)
--- NOTE | 2023-11-01 13:01 | Palliative Care Progress Note ---
Date of Service November 01, 2023 Assessment & Plan (1) Dyspnea and respiratory abnormalities: Plan: Marjorie has worsening resp failure, HFNC FiO2 100% at time of my visit with signif effort, use of accessory muscles and conversational dyspnea. Worsening anxiety. Resp muscle weakness is increasing as she begins to demonstrate more fatigue. She reaffirms no code election, in agreement and family supportive. All are aware ventilator is not going to cure this situation. Remains hopeful to try and get back home for whatever time she can have with her and be home. (2) Anxiety about health: Plan: see #1 above (3) Weakness generalized: (4) Advanced care planning/counseling discussion: Plan: I had three ACP meetings which were direct and [id number] with pt/family in morning 12-1220pm, then family x15 members in waiting room from 3-330pm and then patient and alone at bedside 330-355pm, for total of direct, [id number] 75 minutes of advance care planning time throughout the day. Her discussions focused on patient's continued and worsening respiratory failure as demonstrated by the rising FiO2, increased work of breathing, increased dyspnea, increased anxiety, and evolving respiratory muscle weakness with clear and evident increased work of breathing related fatigue. Her anxiety has become so significant she is not able to sleep in a sustained manner and will often awake and be anxious and startled. She is not able to tolerate CPAP for any prolonged duration of time. She and reaffirm no code selection. They are aware that the ventilator at this junction will not reverse, cure or otherwise dramatically improve her underlying respiratory failure. Patient remains very hopeful with the goal of trying to return home even if it is for short period of time. She indicates during both of my meetings with her that she is trying to "stay positive for my family." During my discussion with her extended family, which included her daughter, sons x 4, [id number], granddaughters x 3, grandson x 2 and her , we discussed the above concerns and they asked what the overall prognosis would be. They are in agreement that more needs to be done to improve her comfort and relieve her distress/suffering. Her daughter is most especially concerned that her anxiety is driving her respiratory distress at many times and asks that we improve management of the symptoms. Daughter also inquired we could tell patient that we are trying to get her off the oxygen in order to go home. Discussed that overall, I would not want to miss lead the patient but would be willing to sit at the bedside with her and her and have a direct conversation about the current status and asked her if it would be all right to switch our focus to be more of a transition to comfort and quality of life with the ultimate goal of being able to reduce the high flow over to nasal cannula oxygen for the hope of returning home with hospice. They were in agreement for this. I returned to the room patient's . He shares that he and his have had several private discussions about these moments and life were one of them will be in an end-of-life process. He shares with me that they have both discussed that one of them would obviously before the other and that no matter what, their goal was to make sure that no one suffered, that symptom relief, they were able to be with her family if at all possible. He reaffirms that neither of them want to be on life support or have any artificial means of prolonging in the he very much feels she needs to have more medication support to improve her comfort and relief of suffering. I discussed with patient that overall we are not trending in the direction we had hoped to be for improvement. Advised her that I believe we are at that junction where it would be better to transition her focus to be more about her comfort with a more aggressive symptom management and hope that in the process of improving her symptoms, we can get her to tolerate decreasing high flow nasal support and transition her over to a nasal cannula format that we can continue at home with the addition of hospice. I advised her of the options to help do this de-escalation of high flow which can include either scheduled opioid medications and anxiety lytics versus an infusional opioid. We discussed the pros and cons of a VIDEO CLERK with either a low- dose basal rate and as needed on-demand dosing versus an on-demand VIDEO CLERK only. This time, Marjorie is very clear that she is too anxious to use a VIDEO CLERK and that she would worry all the time if her family (mostly children) would perceive her using that as a "giving out but not trying to live for them." She was reassured extensively by both myself and her that this was not the perception of the concern of any of her children or grandchildren. Nevertheless, she was clear and her preference to have a scheduled opioid dose and anxiety lytics. We discussed her overall renal failure issues and agreed that a scheduled low-dose of Dilaudid would be used instead of morphine given her nephropathy. We also agreed that we would continue with scheduled Ativan and that I would add as needed doses of both medications that she could have whenever she needed in between for breakthrough symptoms or if more relief is desired. We discussed that high flow de-escalation could begin 1 frequent throughout that she is more comfortable and restful with decreased anxiety. She was in agreement for this. She is also aware that she may certainly become more tired and lethargic and less interactive with her family. She indicates that this is all right so long as she is not suffering and does not feel like she is suffocating. She continues to be hopeful that we can wean her high flow oxygen and transition her to nasal cannula in order to get home with the addition of hospice. She understands that this may not happen due to the nature of her respiratory failure but we will nevertheless try to obtain this goal for her through the weekend. She and her were extremely appreciative of all the care and kindness they have been receiving from the ICU teams and nursing staff. She indicated specifically that she has been very grateful for the understanding and flexibility that nursing teams who exhibited with her having higher than average amounts of family present with her in her room noting that in the end this is ultimately what brings her happiness and the most relief from her anxiety. Her has been staying by her bedside. He is clear that he does not intend to leave her side. (5) Palliative care by specialist: (6) Acute hypoxemic respiratory failure: Plan * We will move to a comfort plan of care. * Due to her nephropathy, I have ordered scheduled doses of low-dose Dilaudid as well as as needed doses for breakthrough symptoms of severe dyspnea or terminal dyspnea. I have also added scheduled doses of Ativan. I have stopped nonessential/noncomfort medications as well as serial laboratory measures. * I have updated the primary team, critical care nursing, mold closer, and pulmonary medicine. All services are in agreement with the transition to comfort care. Thank you for allowing us to participate in the ongoing care of this patient. Please don't hesitate to call or page with any additional concerns. Dr. Torrie Lynne DNP Director, Palliative Care Admission and Anticipated Discharge Date Admission Date: October 20, 2023 Subjective Seen with 10+ family members present including far more tired today, can barely tolerate any exertion without signif decline in SpO2, FiO2 up to 100% at times She is not tolerating weaning and today is unable to tolerate any exertion, remains in bed and requires near max assist with positional changes Intermittent coughing denies chest pain more anxious appetite is down no nausea sleeping fitfully - naps very SOB with conversation efforts Review of Systems Review of Systems: All systems reviewed & are unremarkable except as noted in Subjective Physical Exam Constitutional: + ill appearing, + frail appearing and c ooperative anxious affect and slightly pressured speech Eyes: PERRL, conjunctivae normal, anicteric sclerae ENMT: Mouth: + dry oral mucous membranes Neck: trachea midline, no thyromegaly (shotty adenopathy, no stridor) Respiratory: + labored breathing, + uses accessory mu scles, + cough (dry), + pursed lip breathing and symmetric chest movement Auscultation: + diminished lung sounds and + crackles +conversational dyspnea, speaks in 2-3 w ord sentences. Dyspnea at rest. +signif accessory muscles, +abd muscles used for breathing Cardiovascular: Rate/Rhythm: + tachycardic Gastrointestinal (Abdomen): Inspection/Auscultation: normal bowel sounds (NTP, no guarding or rebound) Musculoskeletal: generalized weakness, CHEN without overt crepitus Skin: + turgor decreased, + dry skin and + ecc hymosis Neurologic: moves all extremities and awake Cranial Nerves: PERRL, EOM intact bilaterally, tongue midline, normal hearing and able to rotate head bilaterally able to follow commands, strength is diminished Psychiatric: anxious mood but comforted by family. Results & Data Vital Signs (Past 12 Hours) Vital Signs Temp Pulse Resp BP Pulse Ox O2 Del Method O2 Flow Rate 11/01/23 11:11 36.9 C 80 28 H 120/60 85 L High Flow Nasal Cannula 11/01/23 08:35 90 35 11/01/23 08:31 28 H 92 High Flow Nasal Cannula 35 11/01/23 08:21 36.6 C 85 30 H 131/72 95 High Flow Nasal Cannula 11/01/23 07:11 80 26 H 86 L Nasal Cannula 15 11/01/23 03:09 36.5 C 73 20 154/78 H 90 High Flow Nasal Cannula FiO2 11/01/23 11:11 11/01/23 08:35 11/01/23 08:31 100 11/01/23 08:21 11/01/23 07:11 11/01/23 03:09 Laboratory Results Abnormal lab results 11/01/23 11/01/23 11/01/23 Range/Units 05:37 07:00 08:59 WBC 23.18 H (4.8-10.8) K/ul RBC 3.40 L (4.20-5.40) M/uL Hgb 10.4 L (12.0-16.0) g/dl Hct 32.5 L (37.0-47.0) % RDW Std Deviation 47.3 H (36.4-46.3) fL Neut # (Auto) 20.37 H (1.40-6.50) K/uL Eos # (Auto) 1.37 H (0.00-0.50) K/uL Chloride 108 H (98-107) mmol/L BUN 66 H (6-23) mg/dl Creatinine 1.49 H (0.6-1.2) mg/dl BUN/Creatinine Ratio 44.3 H (10-20) Glucose 53 L* (70-99(Fasting)) mg/dl POC Glucose 45 L* 123 H (70-99) mg/dl Calcium 8.4 L (8.6-10.3) mg/dl 11/01/23 Range/Units 11:13 WBC (4.8-10.8) K/ul RBC (4.20-5.40) M/uL Hgb (12.0-16.0) g/dl Hct (37.0-47.0) % RDW Std Deviation (36.4-46.3) fL Neut # (Auto) (1.40-6.50) K/uL Eos # (Auto) (0.00-0.50) K/uL Chloride (98-107) mmol/L BUN (6-23) mg/dl Creatinine (0.6-1.2) mg/dl BUN/Creatinine Ratio (10-20) Glucose (70-99(Fasting)) mg/dl POC Glucose 252 H (70-99) mg/dl Calcium (8.6-10.3) mg/dl Diagnostic Findings Chest CT 10/20/23 21:17 Exam(s): CT CHEST Without Contrast EXAM: CT Chest Without Intravenous Contrast CLINICAL HISTORY: Reason for exam: pneumonia/chf. TECHNIQUE: Axial computed tomography images of the chest without intravenous contrast. CTDI is 16.37 mGy and DLP is 464.51 mGy-cm. Automated exposure control was utilized for the study. A dose lowering technique was utilized adhering to the principles of ALARA. COMPARISON: No relevant prior studies available. FINDINGS: Lungs: Bilateral diffuse ground-glass airspace opacities favors infectious process (pneumonia,). Pleural space: Unremarkable. No pneumothorax. No significant effusion. Heart: Unremarkable. No cardiomegaly. No significant pericardial effusion. No significant coronary artery calcifications. Mediastinum: Scattered mediastinal lymph nodes measuring up to 14 mm, likely reactive. Bones/joints: Prior sternotomy. General changes of the thoracic spine with calcification of the anterior longitudinal ligament and moderate kyphosis. No acute fracture. No dislocation. Soft tissues: Unremarkable. Vasculature: Severe atherosclerotic disease of the coronary arteries, mitral valve and aortic valve. No thoracic aortic aneurysm. Lymph nodes: See above. IMPRESSION: 1. Bilateral diffuse ground-glass airspace opacities favors infectious process (pneumonia,). 2. Scattered mediastinal lymph nodes measuring up to 14 mm, likely reactive. Electronically signed by: Gi Ramirez MD 10/20/23 22:45 PM Venous Doppler Study 10/21/23 05:22 BILATERAL LOWER EXTREMITY VENOUS DOPPLER CLINICAL HISTORY: elevated dimer. dvt? COMPARISON STUDY: No previous studies for comparison. TECHNIQUE: Sonography of the deep venous system of the bilateral lower extremities was performed. Compression and augmentation were evaluated. FINDINGS: The bilateral common femoral, superficial femoral and popliteal veins were compressible. Augmentation was normal. Flow was shown within the deep calf vessels. IMPRESSION: No evidence of deep venous thrombus within the bilateral lower extremities. ACT 112: Negative or not required by law. Electronically signed by: Carlos Enrique Pretty M.D. 10/21/2023 7:11 AM Videofluoroscopic Swallow 10/22/23 13:00 FL video swallow HISTORY: Pneumonia. Assess for aspiration TECHNIQUE: Video fluoroscopic evaluation of swallowing was performed in the AP and lateral projections by the speech pathology staff. The patient is fed nectar-thick and thin liquid barium, a barium coated wafer, and barium pudding. FLUOROSCOPY TIME: 2 minutes and 31 seconds. Ka,r: 21.5 mGy COMPARISON STUDY: None. FINDINGS: There is normal hyoid excursion and epiglottic deflection. No sig nificant penetration or aspiration identified. Swallowing function is within normal limits. Mild esophageal dysmotility. IMPRESSION: 1. No aspiration identified. 2. Please see the speech pathologist report for detailed findings and recommendations. ACT 112: Negative or not required by law. Electronically signed by: Nash Dumont M.D. 10/22/2023 2:37 PM Chest X-Ray 10/31/23 07:00 XR chest 1V portable HISTORY: 83 years-old Female f/u acute shortness of breath COMPARISON: 10/29/2023 TECHNIQUE: AP view of the chest FINDINGS: There is no pneumothorax or pleural effusion. There are median sternotomy wires and mediastinal surgical clips. Cardiomediastinal silhouette is stable. Diffuse interstitial thickening and alveolar opacities are unchanged since prior exam. The appearance of the chest is unchanged. IMPRESSION: Cardiomegaly with stable mixed interstitial and alveolar opacities. ACT 112: Negative or not required by law. The above report was generated using voice recognition software. It may contain grammatical, syntax or spelling errors. Electronically signed by: Jason Dubon M.D. 10/31/2023 8:45 AM PG Care Time/CCT Total # of Minutes Spent Total Time Spent with Patient: Total time spent is greater than 50% in coordination of care (as documented) at patient's floor/unit and/or counseling patient: I spent 125 minutes overall addressing this very complex case: 5 min in medical data review/discussion with referring provider(s) and/or preparation for the visit 15 min in direct interaction with the patient/exam 75 min in Advance Care Planning/Goals of Care discussions as detailed above in note (must be >16min) 10 min in subsequent review and synthesis of assessment and plan 20 min communicating with other providers regarding the patient's case: Prolonged Care Time Prolonged Care Time: Yes Advanced Care Planning 00232 Advanced Care Planning 30 Min 95565 Advanced Care Planning Additional 30 Min [place] [address] SUB INP/OBS CARE 3/50MIN (25 - SIGNIFICANT, SEPARATELY IDENTIFIABLE ) Patient Type Established Medical Decision Making High Complexity Diagnoses Dyspnea and respiratory abnormalities R06.00; R06.89 Anxiety about health R45.89 Weakness generalized R53.1 Advanced care planning/counseling discussion Z71.89 Palliative care by specialist Z51.5 Acute hypoxemic respiratory failure J96.01 Additional Codes Advanced Care Planning - 55036 Advanced Care Planning 30 Min: 06305 Advanced Care Planning 30 Min ([id number]) Advanced Care Planning - 54008 Advanced Care Planning Additional 30 Min: 23657 Advanced Care Planning Additional 30 Min ([id number]) Prolonged Care Time - Prolonged Care Time: Yes ([id number])
[2023-11-01] MEDS: LORazepam 0.5 MG TAB PO STA (14:42)
[2023-11-01] MEDS ORDERED: HYDROmorphone INJ 0.5 MG/0.5 ML SYR IV PRN (15:34)
[2023-11-01] MEDS ORDERED: LORazepam 1 MG in SYRINGE 0.25 ML IV PRN (15:36)
[2023-11-01] MEDS: HYDROmorphone INJ 0.5 MG/0.5 ML SYR IV SCH (16:26)
[2023-11-01] MEDS: LORazepam 0.5 MG in SYRINGE 0.25 ML IV SCH (16:50)
[2023-11-02] MEDS: LORazepam 1 MG in SYRINGE 0.5 ML IV PRN (08:21)
[2023-11-02] MEDS: HYDROmorphone INJ 0.5 MG/0.5 ML SYR IV PRN (08:26)
[2023-11-02] MEDS ORDERED: predniSONE 20 MG TAB PO SCH (09:00)
--- NOTE | 2023-11-02 11:54 | Pulmonology Progress Note ---
Date of Service November 02, 2023 Assessment & Plan (1) Acute hypoxemic respiratory failure: (2) Abnormal CT scan of lung: (3) Acute CHF: Plan IMPRESSION: 83-year-old female with a history of coronary artery disease and diabetes who was admitted on 10/19 with acute hypoxic respiratory failure in the setting of CHF and concerns for atypical infectious etiologies who remains on supplemental oxygen at high levels. CT chest 10/20/2023 personally reviewed: Diffuse groundglass opacities appreciated bilaterally upper and lower lobes. No significant mediastinal lymphadenopathy -- Acute hypoxic respiratory failure Multifactorial Initial BNP was 1500 with moderate pulmonary hypertension, respiratory bio fire was negative for everything. Urine Legionella negative, no current history of smoking Not on amiodarone in the past. No significant eosinophilia on the peripheral smear prior to initiation of Solu-Medrol Hemoglobin is stable and patient denies any hemoptysis Possibility of a viral etiology which was not picked up on bio fire is there. Initial ESR and CRP were elevated. Procalcitonin has been negative x 2 Autoimmune workup is negative from 10/23/2023 Plan: Patient is on comfort measures right now Given the minimal morning that she was having, advised the nurse to give hydromorphone. Patient's family was at bedside for consult and all questions were answered in depth No further recommendation from pulmonary perspective, will sign off Please call directly with any questions Please note the above document was generated using voice recognition software. It may contain grammatical, syntax or spelling errors.Any formal questions or concerns about the content, text or information contained within the body of this dictation should be directly addressed to the provider for clarification. In respiratory distress Admission and Anticipated Discharge Date Admission Date: October 20, 2023 Subjective Patient seen and examined at bedside. Patient is on comfort measures now Getting opioids as needed to keep her comfortable Patient's family was at bedside She was on high flow. She was resting comfortably. Only minimal morning. Review of Systems Review of Systems: Other Physical Exam Physical Exam: Constitutional: No acute distress HEENT: EOMI, PERRLA Respiratory system: Decreased air entry bilaterally, no wheeze, no rhonchi, positive Velcro-like crackles appreciated bilaterally anteriorly and posteriorly CVS: S1-S2 positive, no murmurs or gallops Abdomen: Soft, nontender, nondistended, positive bowel sounds x4 Extremities: +2 pulses bilaterally radialis/ dorsalis pedis, no cyanosis, no edema Neuro: Somnolent Psych: Unable to assess G/U: Positive Ledezma Skin: no rashes, warm and dry Lymphatic: no cervical or axillary lymphadenopathy Results & Data Results & Data Vital Signs (Past 12 Hours) Vital Signs Resp Pulse Ox O2 Del Method O2 Flow Rate FiO2 11/02/23 02:54 18 92 High Flow Nasal Cannula 30 80 11/02/23 01:57 Other 30 80 PG Care Time/CCT Total # of Minutes Spent Total Time Spent with Patient: Total time spent is greater than 50% in coordination of care (as documented) at patient's floor/unit and/or counseling patient: Coding Level of Care Code 33298 SUB INP/OBS CARE 08/01MIN Diagnoses Acute hypoxemic respiratory failure J96.[address] scan of lung R91.8 Acute CHF I50.9
--- NOTE | 2023-11-02 12:19 | Hospitalist Progress Note ---
Date of Service November 02, 2023 Assessment & Plan (1) Acute hypoxemic respiratory failure: (2) Pneumonia: (3) CAD (coronary artery disease): Plan Ms. Mancini is an 83-year-old female with history of coronary disease and diabetes presenting now with diffuse pulmonary infiltrates and hypoxemic respiratory failure. Patient has continued to require HFNC since admission on 10/19.Family declined recommended BAL for search for etiologies if hypoxic respiratory failure. Procalcitonin, serologic evaluations, respiratory PCR, and Legionella have all been negative to this point. Patient has experienced difficulty tolerating NIV. She completed course of doxycycline and ceftriaxone, then resumed on Unasyn and doxycycline on 10/28. Neprhology did not suspect pul renal syndrome. Diuresis discontinued on 10/27. Focus of management has been marked by continued methylprednisolone, pulm toilet, and attempts at CPAP as tolerated. Patient with aspiration of broccoli on 10/30. Recovered at this time, but will closely monitor respiratory status given episode. Family at bedside--discussed concerns for episode of aspiration. Will monitor Fever Curve and O2 requirements--just discontinued antibiotics as of 10/30 am, but if worsening will discuss resumption. Leukocytosis remains elevated, afebrile at this time. Low threshold to discuss resumption of antibiotics. Further episodes of respiratory distress ensured the morning of 10/31 prompting transition to HFNC. After rough morning on 10/31, palliative care met with family in afternoon and discussion held--ultimately resulting in transition to comfort measures. #Comfort measures status Palliative care following BP medications as able to tolerate and antidepressants Scheduled IV dilaudid q 4 h and lorazepam q 4 h Prns for airhunger and anxiety Oxygen for comfort, wean as able Previous conditions managed this hospitalization: #Hypoglycemia Glucose in 50s this morning, likely multifactorial---increased utilization 2/2 respiratory distress, decreased glycogen reserve, continue insulin #Acute hypoxemic respiratory failure thought to be 2/2 multifocal PNA - CT on admission shows bilateral diffuse groundglass opacities favoring pneumonia along with scattered mediastinal lymph nodes likely reactive. Pro-Neo 0.4, WBC 19, CRP 32. VFSS negative for aspiration. Currently work up negative to date - Continue empiric antibiotics, steroids, duonebs,hypertonic saline nebs, pulmicort, mucinex, I-S/flutter valve. Send sputum clx if able. - Currently on HFNC- uptitrated again today for desaturation- CPAP helps but patient reluctant to switch as it makes her more anxious. - Pulmonary on consult. Pulmonology initially recommended with BAL but patient was reluctant. -Continue to wean as able -IV steroids daily -Pulm toilet as tolerated -Transition to minced/moist diet, aspiration & reflux precautions - Palliative following- continue current level of care- transitioned to comfort measures #EMELYN likely from ATN due to hypotension *resolved creatinine peaked at 2.3 and now stable. UA reviewed, suggestive of ATN. Nephrotoxics have been discontinued. Nephrology was on consult--function improving, low suspicion for pulm-renal sydrome. Urine studies suggestive of ATN . Follow up on renal function and urine output No further labs #Hyperkalemia *improving Resolved on prior bmp #History of CAD s/p CABG Discontinued home medications at this time #Diabetes mellitus type 2 with steroid induced hyperglycemia *resolved No further insulin management at this time #Leukocytosis #Iron deficiency anemia Hemoglobin stable. Leukocytosis likely multifactorial--aspiration events, steriods etc---monitor for signs of c diff No further cbc #Depression and anxiety IV regimen for anxiety continue home lexapro and doxepin as able #Hypertension-BP improved. Comfort measures, continue coreg and imdur as able #Peripheral vascular disease- discontinued statin and asa DVT prophylaxis-comfort measures Disposition- TBD. Palliative following- Continue HFNC, wean as able.comfort measures as of 10/31 Time spent-approximately 45 minutes Admission and Anticipated Discharge Date Admission Date: October 20, 2023 Subjective Patient examined at bedside. Transitioned to comfort measures 10/31 afternoon Resting, some respiratory effort noted Prns given by nursing Family members at bedside with patient Physical Exam Constitutional: frail, lethargic, awakens to verbal stimuli Respiratory: diminshed lung sounds/poor air movement, but increased accessory muscle use, Cardiovascular: RRR, no murmur, no edema Results & Data Results & Data Vital Signs (Past 12 Hours) Vital Signs Resp Pulse Ox O2 Del Method O2 Flow Rate FiO2 11/02/23 02:54 18 92 High Flow Nasal Cannula 30 80 11/02/23 01:57 Other 30 80 Medications Administered Home Medications Medication Instructions Recorded Confirmed Last Taken amlodipine 5 mg tablet 5 mg PO DAILY 10/20/23 10/20/23 Unknown aspirin 81 mg tablet,delayed 81 mg PO DAILY 10/20/23 10/20/23 Unknown release atorvastatin 80 mg tablet 80 mg PO DAILY 10/20/23 10/20/23 Unknown carvedilol 12.5 mg tablet 12.5 mg PO BID 10/20/23 10/20/23 Unknown doxepin 10 mg capsule 30 mg PO HS 10/20/23 10/20/23 Unknown fluoxetine 40 mg capsule 80 mg PO DAILY 10/20/23 10/20/23 Unknown insulin aspart U-100 100 unit/mL 1 sliding scale dose subcut WM 10/20/23 10/20/23 Unknown (3 mL) subcutaneous pen (Novolog FlexPen U-100 Insulin aspart) insulin glargine 100 unit/mL (3 24 unit subcut QA 10/20/23 10/20/23 Unknown mL) subcutaneous pen (Lantus Solostar U-100 Insulin) irbesartan 300 mg tablet 300 mg PO DAILY 10/20/23 10/20/23 Unknown isosorbide mononitrate 60 mg 60 mg PO DAILY 10/20/23 10/20/23 Unknown tablet,extended release 24 hr lorazepam 0.5 mg tablet 0.5 mg PO HS 10/20/23 10/20/23 Unknown omeprazole 20 mg capsule,delayed 20 mg PO DAILYBB 10/20/23 10/20/23 Unknown release ranolazine 500 mg tablet,extended 500 mg PO BID 10/20/23 10/20/23 Unknown release,12 hr tramadol 50 mg tablet 50 mg PO TID PRN Pain 10/20/23 10/20/23 Unknown Active Medications Generic Name Dose Route Start Last Admin Trade Name Theodore PRN Reason Stop Dose Admin Acetaminophen 650 mg 10/20/23 23:30 10/31/23 17:06 Acetaminophen 325 Mg Tab PO 11/19/23 23:29 650 mg Q4H PRN Administration Pain or Fever Carvedilol 6.25 mg 10/27/23 17:00 11/02/23 08:18 Carvedilol 6.25 Mg Tab PO 11/26/23 16:59 Not Given BIDM DAPHNE Doxepin HCl 30 mg 10/21/23 21:00 11/01/23 21:13 Doxepin Hcl 10 Mg Capsule PO 11/20/23 20:59 30 mg HS DAPHNE Administration Escitalopram Oxalate 20 mg 10/28/23 09:00 11/02/23 08:18 Escitalopram Oxalate 20 Mg Tab PO 11/27/23 08:59 Not Given QAM DAHPNE Hydromorphone HCl 0.2 mg 11/01/23 16:00 11/02/23 11:45 Hydromorphone Inj 0.5 Mg/0.5 Ml Syr IV 11/15/23 15:59 0.2 mg Q4H DAPHNE Administration Hydromorphone HCl 0.5 mg 11/01/23 15:34 11/02/23 11:02 Hydromorphone Inj 0.5 Mg/0.5 Ml Syr IV 11/15/23 15:33 0.5 mg Q15M PRN Administration terminal dyspnea Lorazepam 0.5 mg/ Syringe 0.5 mls @ 2 mls/min 10/28/23 15:45 11/01/23 07:40 IV 11/27/23 08:05 2 mls/min Q4H PRN Administration anxiety,insomnia, nausea Lorazepam 0.5 mg/ Syringe 0.5 mls @ 2 mls/min 11/01/23 15:30 11/02/23 11:44 IV 12/01/23 15:29 2 mls/min Q4H DAPHNE Administration Protocol Lorazepam 1 mg/ Syringe 1 mls @ 2 mls/min 11/01/23 16:40 11/02/23 08:21 IV 12/01/23 16:39 2 mls/min Q6H PRN Administration Panic,Nausea,Insomnia,Agitated Protocol Isosorbide Mononitrate 60 mg 10/21/23 09:00 11/02/23 08:18 Isosorbide [place] Extended Rel 60 Mg Tabcr PO 11/20/23 08:59 Not Given DAILY DAPHNE Miscellaneous 15 - 30 gm 10/20/23 23:30 11/01/23 07:04 Carbohydrates For Hypoglycemia PO 11/19/23 23:29 30 gm UD PRN Administration Hypoglycemia Protocol Pantoprazole Sodium 40 mg 10/31/23 09:00 11/02/23 08:18 Pantoprazole 40 Mg Tab PO 11/30/23 08:59 Not Given DAILY DAPHNE Psyllium Hydrophilic Mucilloid 4 gm 10/26/23 11:00 11/02/23 08:18 Psyllium Or Guar Gum Fiber 4gm Packet PO 11/25/23 10:59 Not Given QAM DAPHNE (2) Pneumonia Laterality: bilateral Lung location: unspecified part of lung Pneumonia type: due to unspecified organism Qualified Code(s): J18.9 - Pneumonia, unspecified organism (3) CAD (coronary artery disease) Coronary Disease-Associated Artery/Lesion type: [place] artery [place] vs. transplanted heart: [place] heart Associated angina: without angina Qualified Code(s): I25.10 - Atherosclerotic heart disease of [place] coronary artery without angina pectoris
[2023-11-02] MEDS: GLYCOPYRROLATE 0.2 MG/ML VIAL IV PRN (13:54)
--- NOTE | 2023-11-03 07:05 | Death Pronouncement Note ---
Date of Service November 03, 2023 Pronouncement Note Admission Date October 20, 2023 Date and Time of Date of : 11/03/23 Time of : 02:15 Additional Data Confirmation of : no pulse, no respirations, no heart sounds and pupils fixed and dilated Pronouncement Performed By: Attending Physician Family: at bedside Attending physician: Maikol Pro MD
--- NOTE | 2023-11-03 07:44 | Discharge Summary ---
Discharge Summary Date of Service November 03, 2023 Notes For Next Care Provider Date of : 11/03/23 Time of : 02:15 Medication Changes From Visit [employer]OPMENT Admission HPI Per Admitting Provider 83-year-old female with past medical history significant for hypertension, type 2 diabetes, CAD s/p CABG, peripheral vascular disease, CKD stage III, hyperlipidemia, anxiety and depression, neuropathy [facility] because of shortness of breath going for last couple of days. Having some dry cough. Not able to bring any phlegm out. Denies any chest pain. No fevers. No headache. No nausea. No abdominal pain. Sometimes gets constipated. Denies any blood in the stools or black stools. Having some burning micturition. No fevers. Appetite is okay. No difficulty swallowing. Having ambulatory dysfunction for last couple of months. Ambulates with a walker. Falling backwards. Lives with her . No swelling in the legs. No headache. No sore throat currently. Was saturating 89 % on room air. With oxygen supplementation oxygenation improved. Patient does not know her baseline creatinine. Patient does not know that she has anemia. Also complains of gum pain going on for some time. Also having restless legs Past medical history. As mentioned above Past surgical history CABG Social history. Quit smoking when she was 35-year-old. No alcohol use. Family history. Father had diabetes. Heart disorder. Mother had Breast cancer. Heart disorder. Admission Exam Per Admitting Provider General- Not in distress Head- atraumatic Eyes- PERRL. ENT- oropharynx clear no thrush seen Neck- supple, no JVD. Lungs- clear to auscultation no wheezing or crackles Heart- regular rhythm; no murmur, no gallop. Abdomen- normal bowel sounds, soft, nontender, no distension. Extremities- no pretibial edema, no erythema seen. Neuro- alert, oriented PERRL, no facial palsy; no dysarthria; moves extremities. Principal Dx & Hospital Course #1 = Principal Diagnosis (1) Acute hypoxemic respiratory failure: (2) Pneumonia: (3) CAD (coronary artery disease): Plan Ms. Mancini is an 83-year-old female with history of coronary disease and diabetes presenting now with diffuse pulmonary infiltrates and hypoxemic respiratory failure. Patient has continued to require HFNC since admission on 10/19.Family declined recommended BAL for search for etiologies if hypoxic respiratory failure. Procalcitonin, serologic evaluations, respiratory PCR, and Legionella have all been negative to this point. Patient has experienced difficulty tolerating NIV. She completed course of doxycycline and ceftriaxone, then resumed on Unasyn and doxycycline on 10/28. Neprhology did not suspect pul renal syndrome. Diuresis discontinued on 10/27. Focus of management has been marked by continued methylprednisolone, pulm toilet, and attempts at CPAP as tolerated. Patient with aspiration of broccoli on 10/30. Recovered at this time, but will closely monitor respiratory status given episode. Family at bedside--discussed concerns for episode of aspiration. Will monitor Fever Curve and O2 requirements--just discontinued antibiotics as of 10/30 am, but if worsening will discuss resumption. Leukocytosis remains elevated, afebrile at this time. Low threshold to discuss resumption of antibiotics. Further episodes of respiratory distress ensured the morning of 10/31 prompting transition to HFNC. After rough morning on 10/31, palliative care met with family in afternoon and discussion held--ultimately resulting in transition to comfort measures. Patient was continued on comfort measures until her passing on 11/02 at 0215. #Comfort measures status Palliative care following BP medications as able to tolerate and antidepressants Scheduled IV dilaudid q 4 h and lorazepam q 4 h Prns for airhunger and anxiety Please see Note submitted 11/02. Previous conditions managed this hospitalization: #Hypoglycemia Glucose in 50s this morning, likely multifactorial---increased utilization 2/2 respiratory distress, decreased glycogen reserve, continue insulin #Acute hypoxemic respiratory failure thought to be 2/2 multifocal PNA - CT on admission shows bilateral diffuse groundglass opacities favoring pneumonia along with scattered mediastinal lymph nodes likely reactive. Pro-Neo 0.4, WBC 19, CRP 32. VFSS negative for aspiration. Currently work up negative to date - Continue empiric antibiotics, steroids, duonebs,hypertonic saline nebs, pulmicort, mucinex, I-S/flutter valve. Send sputum clx if able. - Currently on HFNC- uptitrated again today for desaturation- CPAP helps but patient reluctant to switch as it makes her more anxious. - Pulmonary on consult. Pulmonology initially recommended with BAL but patient was reluctant. -Continue to wean as able -IV steroids daily -Pulm toilet as tolerated -Transition to minced/moist diet, aspiration & reflux precautions - Palliative following- continue current level of care- transitioned to comfort measures #EMELYN likely from ATN due to hypotension *resolved creatinine peaked at 2.3 and now stable. UA reviewed, suggestive of ATN. Nephrotoxics have been discontinued. Nephrology was on consult--function improving, low suspicion for pulm-renal sydrome. Urine studies suggestive of ATN . Follow up on renal function and urine output No further labs #Hyperkalemia *improving Resolved on prior bmp #History of CAD s/p CABG Discontinued home medications at this time #Diabetes mellitus type 2 with steroid induced hyperglycemia *resolved No further insulin management at this time #Leukocytosis #Iron deficiency anemia Hemoglobin stable. Leukocytosis likely multifactorial--aspiration events, steriods etc---monitor for signs of c diff No further cbc #Depression and anxiety IV regimen for anxiety continue home lexapro and doxepin as able #Hypertension-BP improved. Comfort measures, continue coreg and imdur as able #Peripheral vascular disease- discontinued statin and asa DVT prophylaxis-comfort measures Disposition- TBD. Palliative following- Continue HFNC, wean as able.comfort measures as of 10/31 Time spent-approximately 45 minutes Discharge Exam Patient not evaluated by attending provider, see Note Summary. Updated Medication List Medication Instructions Recorded Confirmed Type amlodipine 5 mg tablet 5 mg PO DAILY 10/20/23 10/20/23 History aspirin 81 mg tablet,delayed 81 mg PO DAILY 10/20/23 10/20/23 History release atorvastatin 80 mg tablet 80 mg PO DAILY 10/20/23 10/20/23 History carvedilol 12.5 mg tablet 12.5 mg PO BID 10/20/23 10/20/23 History doxepin 10 mg capsule 30 mg PO HS 10/20/23 10/20/23 History fluoxetine 40 mg capsule 80 mg PO DAILY 10/20/23 10/20/23 History insulin aspart U-100 100 unit/mL 1 sliding scale dose subcut WM 10/20/23 10/20/23 History (3 mL) subcutaneous pen (Novolog FlexPen U-100 Insulin aspart) insulin glargine 100 unit/mL (3 24 unit subcut QAM 10/20/23 10/20/23 History mL) subcutaneous pen (Lantus Solostar U-100 Insulin) estefaniartan 300 mg tablet 300 mg PO DAILY 10/20/23 10/20/23 History isosorbide mononitrate 60 mg 60 mg PO DAILY 10/20/23 10/20/23 History tablet,extended release 24 hr lorazepam 0.5 mg tablet 0.5 mg PO HS 10/20/23 10/20/23 History omeprazole 20 mg capsule,delayed 20 mg PO DAILYBB 10/20/23 10/20/23 History release ranolazine 500 mg tablet,extended 500 mg PO BID 10/20/23 10/20/23 History release,12 hr tramadol 50 mg tablet 50 mg PO TID PRN Pain 10/20/23 10/20/23 History Hospital Stay Data Consultations 10/20/23 19:29 ED Decision to Admit Stat 10/21/23 08:00 Consult Cardiology Routine Consult Pulmonology Routine 10/24/23 08:07 Consult Nephrology Routine 10/25/23 11:04 Consult Palliative Care Routine Diagnostic Imagining Performed 10/20/23 21:17 CT chest diagnostic wo con Urgent 10/21/23 05:22 US venous doppler LE BI Urgent 10/22/23 13:00 FL video swallow Routine Total Time Total Time Spent Total Time Spent (In Minutes): 0
== END 2023-11-03 04:45 | disposition expired | DRG 193 ==
LOC: ED 18:04 → EDINP 21:17 → SUATTDRO 21:17 → 2E 23:30